=== PATIENT | female | born 1985 | race Caucasian/White ===

== ENCOUNTER → 2016-04-26 | Outpatient (REF) | payer OTHER ==
[2016-04-26 20:56] LABS: MEAN CORPUSCULAR HEMOGLOBIN 29.9 pg (27.0-33.0); MEAN CORPUSCULAR HGB CONC 31.7 g/dl (32.0-36.5); MEAN CORPUSCULAR VOLUME 94.2 fl (80.0-96.0); RED CELL DISTRIBUTION WIDTH 13.5 % (11.5-14.5); WHITE BLOOD COUNT 8.5 K/mm3 (4.0-10.0)
[2016-04-26 21:09] LABS: ALBUMIN 3.6 GM/DL (3.2-5.2); ALBUMIN/GLOBULIN RATIO 0.92 (1.00-1.93); ALKALINE PHOSPHATASE 94 U/L (45-117); ALT/SGPT 19 U/L (12-78); ANION GAP 7 MEQ/L (8-16); AST/SGOT 22 U/L (15-37); BILIRUBIN,TOTAL 0.2 MG/DL (0.2-1.0); BLOOD UREA NITROGEN 10 MG/DL (7-18); CALCIUM LEVEL 8.3 MG/DL (8.5-10.1); CARBON DIOXIDE LEVEL 26 MEQ/L (21-32); CHLORIDE LEVEL 105 MEQ/L (98-107); CREATININE FOR GFR 0.97 MG/DL (0.55-1.02); FREE T4 0.96 NG/DL (0.76-1.46); GLOMERULAR FILTRATION RATE > 60.0 (>60); GLUCOSE, FASTING 76 MG/DL (70-105); POTASSIUM SERUM 4.1 MEQ/L (3.5-5.1); SODIUM LEVEL 138 MEQ/L (136-145); TOTAL PROTEIN 7.5 GM/DL (6.4-8.2)
[2016-04-29 00:06] LABS: TISSUE TRANSGLUTAMINASE IgG 9 U/mL (0-5)
== END ==
LOC: M SFHCLERA 15:10
PROVIDERS: ATTEND Family Medicine
DX: Z00.00 Encounter for general adult medical examination without abnormal findings (principal); R10.84 Generalized abdominal pain; F32.9 Major depressive disorder, single episode, unspecified; F41.9 Anxiety disorder, unspecified

== ENCOUNTER → 2016-05-10 | Outpatient (CLI) | payer OTHER ==
--- NOTE | 2016-05-10 12:22 | REP ---
THORACIC SPINE, FOUR VIEWS: HISTORY: Scoliosis. COMPARISON: 11/01/2015 The patient is status post T6 to T11 posterior spinal fusion. Metal rods and pedicle screws are present. There is no acute fracture or subluxation. The intervertebral discs are normal in height. There is scoliosis convex to the right. IMPRESSION: The patient is status post T6 to T11 posterior spinal fusion. Signed by Jl Schroeder MD 05/10/2016 12:24 P
--- NOTE | 2016-05-10 12:29 | REP ---
LUMBAR SPINE, FIVE VIEWS: HISTORY: Scoliosis. There are four lumbar type vertebral bodies. There is sacralization of the L5 vertebral body. The patient is status post T6-T11 posterior spinal fusion. Hypoplastic ribs are present on T12. There is no acute fracture or subluxation. The L4-5 intervertebral disc is decreased in height consistent with disc degeneration. The facet joints are normal in appearance. There is scoliosis convex to the left. IMPRESSION: Degenerative change as described above. Signed by Jl Schroeder MD 05/10/2016 12:32 P
== END ==
LOC: M LRY 09:29
PROVIDERS: ATTEND Family Medicine
DX: M41.34 Thoracogenic scoliosis, thoracic region (principal); F41.9 Anxiety disorder, unspecified; M54.5 Low back pain; G89.29 Other chronic pain

== ENCOUNTER 2016-05-26 06:43 | Emergency (ER) | payer OTHER ==
[~2016-05-26] VITALS: Ht 160 cm; Wt 52.2 kg
[2016-05-26] MEDS ORDERED: PROZ20CA11 PO (06:58)
[2016-05-26] MEDS ORDERED: ONDANSETRON 4MG/2ML VIAL (J2405) IV ONE (07:15)
[2016-05-26] MEDS ORDERED: KETOROLAC 30 MG/ML VIAL (J1885) IV ONE (07:15)
[2016-05-26] MEDS ORDERED: NS 1,000 ML IV ONE (07:15)
[2016-05-26 07:36] LABS: BASO % 0.2 % (0.0-1.0); EOS # 0.1 K/mm3 (0.0-0.50); LARGE UNSTAINED CELL # 0.1 K/mm3 (0.0-0.4); LARGE UNSTAINED CELL % 1.4 % (0.0-4.0); LYMPH # 1.3 K/mm3 (1.5-4.5); LYMPH % 15.4 % (24.0-44.0); MEAN CORPUSCULAR HEMOGLOBIN 30.5 pg (27.0-33.0); MEAN CORPUSCULAR HGB CONC 33.7 g/dl (32.0-36.5); MEAN CORPUSCULAR VOLUME 90.3 fl (80.0-96.0); MONO # 0.3 K/mm3 (0.0-0.8); MONO % 4.2 % (0.0-5.0); NEUTROPHILS # 6.2 K/mm3 (1.8-7.7); NEUTROPHILS % 77.7 % (36.0-66.0); PLATELET COUNT, AUTOMATED 232 k/mm3 (150-450); RED CELL DISTRIBUTION WIDTH 13.7 % (11.5-14.5)
[2016-05-26 07:59] LABS: ALBUMIN 3.8 GM/DL (3.2-5.2); ALBUMIN/GLOBULIN RATIO 0.93 (1.00-1.93); ALKALINE PHOSPHATASE 100 U/L (45-117); ALT/SGPT 29 U/L (12-78); ANION GAP 12 MEQ/L (8-16); AST/SGOT 45 U/L (15-37); BILIRUBIN,DIRECT 0.1 MG/DL (0.0-0.2); BILIRUBIN,TOTAL 0.5 MG/DL (0.2-1.0); BLOOD UREA NITROGEN 13 MG/DL (7-18); CALCIUM LEVEL 8.9 MG/DL (8.5-10.1); CARBON DIOXIDE LEVEL 21 MEQ/L (21-32); CHLORIDE LEVEL 104 MEQ/L (98-107); CREATININE FOR GFR 0.99 MG/DL (0.55-1.02); GLOMERULAR FILTRATION RATE > 60.0 (>60); GLUCOSE, FASTING 132 MG/DL (70-105); POTASSIUM SERUM 3.9 MEQ/L (3.5-5.1); SODIUM LEVEL 137 MEQ/L (136-145); TOTAL PROTEIN 7.9 GM/DL (6.4-8.2)
[2016-05-26] MEDS ORDERED: METOCLOPRAMIDE INJ 10MG/2ML VIAL (J2765) IV ONE (08:00)
[2016-05-26] MEDS ORDERED: diphenhydrAMINE INJ 50MG/ML VIAL (J1200) IV STA (08:20)
[2016-05-26 08:55] VITALS: BP 118/81
[2016-05-26] MEDS ORDERED: ZOFR4TAB3 PO (08:55)
== END 2016-05-26 09:13 | disposition home or self-care (01) ==
LOC: M ED 07:48
DX: R10.84 Generalized abdominal pain (principal); R11.2 Nausea with vomiting, unspecified; R19.7 Diarrhea, unspecified; Z79.899 Other long term (current) drug therapy; F17.210 Nicotine dependence, cigarettes, uncomplicated
CPT/HCPCS: 80048; 80076; 81001; 81025; 83690; 85025; 96361; 96374; 96375; 99283; J1200; J1885; J2405; J2765

== ENCOUNTER 2016-07-02 06:36 | Emergency (ER) | payer OTHER ==
[~2016-07-02] VITALS: Ht 160 cm; Wt 48.5 kg
[~2016-07-02 06:36] MED LIST: PROZ20CA11 PO; ZOFR4TAB3 PO
[2016-07-02] MEDS ORDERED: ONDANSETRON 4MG/2ML VIAL (J2405) IV ONE (07:00)
[2016-07-02] MEDS ORDERED: NS 1,000 ML IV ONE (07:00)
[2016-07-02] MEDS ORDERED: ONDANSETRON 4MG/2ML VIAL (J2405) As Ordered ONE (07:04)
[2016-07-02 07:19] LABS: BASO % 0.5 % (0.0-1.0); EOS % 0.4 % (0.0-3.0); LARGE UNSTAINED CELL # 0.1 K/mm3 (0.0-0.4); LARGE UNSTAINED CELL % 1.3 % (0.0-4.0); LYMPH # 1.4 K/mm3 (1.5-4.5); LYMPH % 17.5 % (24.0-44.0); MEAN CORPUSCULAR HEMOGLOBIN 30.4 pg (27.0-33.0); MEAN CORPUSCULAR HGB CONC 33.3 g/dl (32.0-36.5); MEAN CORPUSCULAR VOLUME 91.2 fl (80.0-96.0); MONO # 0.3 K/mm3 (0.0-0.8); MONO % 3.3 % (0.0-5.0); NEUTROPHILS # 5.9 K/mm3 (1.8-7.7); NEUTROPHILS % 76.9 % (36.0-66.0); PLATELET COUNT, AUTOMATED 269 k/mm3 (150-450); RED CELL DISTRIBUTION WIDTH 13.9 % (11.5-14.5); WHITE BLOOD COUNT 7.7 K/mm3 (4.0-10.0)
[2016-07-02 07:30] LABS: CONTROL LINE HCG INT CTR LINE PRESENT
[2016-07-02 07:37] LABS: ALBUMIN 3.8 GM/DL (3.2-5.2); ALBUMIN/GLOBULIN RATIO 0.97 (1.00-1.93); ALKALINE PHOSPHATASE 83 U/L (45-117); ALT/SGPT 23 U/L (12-78); AMYLASE 62 U/L (25-115); ANION GAP 10 MEQ/L (8-16); AST/SGOT 28 U/L (15-37); BILIRUBIN,DIRECT 0.1 MG/DL (0.0-0.2); BILIRUBIN,TOTAL 0.4 MG/DL (0.2-1.0); BLOOD UREA NITROGEN 11 MG/DL (7-18); CALCIUM LEVEL 8.5 MG/DL (8.5-10.1); CARBON DIOXIDE LEVEL 24 MEQ/L (21-32); CHLORIDE LEVEL 105 MEQ/L (98-107); CREATININE FOR GFR 0.82 MG/DL (0.55-1.02); GLOMERULAR FILTRATION RATE > 60.0 (>60); GLUCOSE, FASTING 174 MG/DL (70-105); POTASSIUM SERUM 4.2 MEQ/L (3.5-5.1); SODIUM LEVEL 139 MEQ/L (136-145); TOTAL PROTEIN 7.7 GM/DL (6.4-8.2)
[2016-07-02] MEDS ORDERED: PROMETHAZINE INJ 25 MG/ML VIAL (J2550) IV ONE (07:45)
[2016-07-02 08:20] VITALS: BP 133/83
[2016-07-02] MEDS ORDERED: KETOROLAC 30 MG/ML VIAL (J1885) IV ONE (08:30)
[2016-07-02] MEDS ORDERED: TRIMETHOBENZAMIDE HCL INJ 200 MG/2 ML VIAL (J3250) IM ONE (09:30)
[2016-07-02 09:50] LABS: METHADONE URINE NEGATIVE (NEGATIVE)
[2016-07-02] MEDS ORDERED: PROM25TA PO (11:16)
--- NOTE | 2016-07-02 11:18 | REP ---
Abdominal right upper quadrant ultrasound: There is a negative Ma's sign to transducer pressure. There is no cholelithiasis, gallbladder wall thickening or pericholecystic fluid. The small visualized portion of the pancreatic head is unremarkable. There is no intrahepatic or extrahepatic biliary duct dilatation, the common duct is 2.7 mm in diameter. The hepatic parenchyma is homogeneous and unremarkable. There is no right renal calculus, mass, cyst or hydronephrosis. The right kidney is normal size measuring 9.6 cm craniocaudad length. Impression: Essentially negative abdominal right upper quadrant ultrasound. Signed by Devin Lau MD 07/02/2016 11:09 A
== END 2016-07-02 11:28 | disposition home or self-care (01) ==
LOC: M ED 07:18
DX: G43.A0 Cyclical vomiting, in migraine, not intractable (principal)
CPT/HCPCS: 36415; 76705; 80048; 80076; 80306; 81001; 82150; 83036; 83690; 84703; 85025; 96372; 96374; 96375; 99283; J1885; J2405; J3250

== ENCOUNTER → 2016-07-27 | Outpatient (CLI) | payer OTHER ==
[~2016-07-27] MED LIST changes: +PROM25TA PO
--- NOTE | 2016-07-27 14:56 | REP ---
Whole body radionuclide bone scan: Comparison is the lumbar spine plain film study dated 05/10/2016. There is thoracic scoliosis convex right and lumbar scoliosis convex left. On the comparison plain film study, there are Jorgensen rods in the thoracic spine. There is a bilaterally symmetric degenerative pattern of uptake in the shoulders and in the sternoclavicular joints . There is no unusual uptake in the thoracic spine, lumbar spine, sacrum or pelvis. There is no unusual uptake in the hips. There is slightly increased uptake in the medial portion of the tibial plateau of the left knee. Im this location this could represent degenerative uptake. No other unusual uptake is identified in the lower extremities. There is no unusual rib uptake. No unusual calvarial uptake. Impression: Degenerative pattern of uptake in the shoulders and left knee. No unusual uptake in the thoracic spine or lumbar spine or pelvis or hips. The study is performed with 20.5 mCi of technetium MDP. Signed by Devin Lau MD 07/27/2016 02:48 P
== END ==
LOC: M RAD 10:37
PROVIDERS: ATTEND Physical Medicine & Rehabilitation
DX: M54.5 Low back pain (principal)

== ENCOUNTER 2016-08-16 08:43 | Emergency (ER) | payer OTHER ==
[~2016-08-16] VITALS: Ht 160 cm; Wt 49.4 kg
[2016-08-16] MEDS ORDERED: ALBU1.25 INH (09:04)
[2016-08-16] MEDS ORDERED: AMOX500C PO (10:25)
[2016-08-16] MEDS ORDERED: ACET30TAB PO (10:25)
[2016-08-16] MEDS ORDERED: IBUPROFEN 600 MG TAB PO ONE (10:30)
[2016-08-16] MEDS ORDERED: ACETAMINOPHEN TAB 650MG DOSE (2X325MG) PO ONE (10:30)
[2016-08-16 10:32] VITALS: BP 124/78
== END 2016-08-16 10:33 | disposition home or self-care (01) ==
LOC: M ED 09:58
DX: K04.7 Periapical abscess without sinus (principal); R51 Headache; F99 Mental disorder, not otherwise specified; F17.210 Nicotine dependence, cigarettes, uncomplicated

== ENCOUNTER → 2016-08-24 | Outpatient (CLI) | payer OTHER ==
[~2016-08-24] MED LIST changes: +ACET30TAB PO; +ALBU1.25 INH; +ALBU17IN2 INH; +AMOX500C PO; +MOBI7.5T10 PO; +PERC5TAB6 PO; +PRED20TA PO
--- NOTE | 2016-08-24 17:31 | REP ---
MR LUMBAR SPINE WITHOUT AND WITH CONTRAST: HISTORY: Back pain. CONTRAST: ProHance 9.2 mL. A rudimentary disc is present at the S1-2 level. Decreased signal intensity on T2-weighted images is present in the L5-1 intervertebral discs. This represents disc degeneration. There is no disc bulge or herniation at the L1-2 through L4-5 levels. There is hypertrophy of the posterior articulating facets at the L4-5 level. The nerves exit the neural foramina without compression. A diffuse disc bulge and small central disc protrusion are present at the L5-S1 level. The disc protrusion abuts the thecal sac. There is hypertrophy of the posterior articulating facets. The L5 nerves exit the neural foramina without compression. The conus medullaris is normal in appearance terminating at the level of the L1-2 intervertebral disc . Normal signal intensity is present in the lumbar vertebral bodies. IMPRESSION: Diffuse disc bulge and small central disc protrusion at the L5-S1 level. The disc protrusion abuts the thecal sac. Signed by Jl Schroeder MD 08/25/2016 08:19 A
== END ==
LOC: M RAD 15:58
PROVIDERS: ATTEND Physical Medicine & Rehabilitation
DX: M47.816 Spondylosis without myelopathy or radiculopathy, lumbar region (principal)

== ENCOUNTER 2016-08-25 08:16 | Emergency (ER) | payer OTHER ==
[~2016-08-25] VITALS: Ht 160 cm; Wt 48.6 kg
[~2016-08-25 08:16] MED LIST changes: -ALBU17IN2 INH; -MOBI7.5T10 PO; -PERC5TAB6 PO; -PRED20TA PO
[2016-08-25] MEDS ORDERED: ALBU17IN2 INH (08:28)
[2016-08-25] MEDS ORDERED: KETOROLAC 60 MG/2 ML VIAL (J1885) IM ONE (09:15)
[2016-08-25] MEDS ORDERED: PERCOCET 5MG/325MG TAB PO ONE (09:15)
[2016-08-25] MEDS ORDERED: predniSONE 20 MG TAB PO ONE (10:45)
[2016-08-25] MEDS ORDERED: MOBI7.5T10 PO (11:00)
[2016-08-25] MEDS ORDERED: PERC5TAB6 PO (11:00)
[2016-08-25] MEDS ORDERED: PRED20TA PO (11:00)
[2016-08-25 11:06] VITALS: BP 123/83
== END 2016-08-25 11:14 | disposition home or self-care (01) ==
LOC: M ED 08:39
DX: G89.29 Other chronic pain (principal); M54.9 Dorsalgia, unspecified; J45.909 Unspecified asthma, uncomplicated; F41.9 Anxiety disorder, unspecified; Z79.899 Other long term (current) drug therapy

== ENCOUNTER 2016-12-13 08:18 | Emergency (ER) | payer OTHER ==
[~2016-12-13] VITALS: Ht 160 cm; Wt 54.0 kg
[~2016-12-13 08:18] MED LIST changes: +ALBU17IN2 INH; +MOBI4TAB PO; +PERC5TAB12 PO; +PRED20TA PO
[2016-12-13] MEDS ORDERED: TYLE325T5 PO (08:37)
[2016-12-13] MEDS ORDERED: ONDANSETRON 4 MG ORAL DISINTEGRATING TAB (S0181) PO ONE (09:30)
[2016-12-13] MEDS ORDERED: MORPHINE 10 MG/ML 1ML VIAL IM ONE (09:30)
[2016-12-13] MEDS ORDERED: PRED20TA PO (10:06)
[2016-12-13] MEDS ORDERED: PERC5TAB12 PO (10:06)
[2016-12-13] MEDS ORDERED: MOBI4TAB PO (10:06)
[2016-12-13] MEDS ORDERED: NORCO, ANEXSIA 5/325MG TABLET (HYDROcodone/ACETAMINOPHEN) PO ONE (10:15)
[2016-12-13 10:16] VITALS: BP 129/95
== END 2016-12-13 10:18 | disposition home or self-care (01) ==
LOC: M ED 08:18
DX: M54.6 Pain in thoracic spine (principal); Z72.0 Tobacco use

== ENCOUNTER → 2017-01-02 | Outpatient (CLI) | payer OTHER ==
[~2017-01-02] MED LIST changes: +TYLE325T5 PO
--- NOTE | 2017-01-02 09:24 | REP ---
MRI cervical spine without contrast: History: Neck pain progressive over several months. Pain in the left shoulder and scapula. No comparison cervical spine imaging. Technique: Sagittal and axial T1 and T2-weighted scans are acquired in the usual fashion with and without fat saturation. Sequences include spin echo, turbo spin-echo, and STIR imaging sequences. MRI findings: There is straightening of the normal cervical lordosis. Craniocervical junction is unremarkable. Cervical cord is normal in coarse, caliber and signal intensity on T1 and T2-weighted scans. The axial and sagittal images at C2-3, C3-4, and C4-5, are unremarkable. At C5-6, there is a left posterior disc protrusion moderate in size effacing the left ventral lateral margin of the thecal sac and flattening the left ventral lateral margin of the cervical cord on axial images. There is minimal associated left-sided uncovertebral spurring. At C6-C7, there is no significant abnormality. The C7-T1 level is unremarkable as well. Impression: Moderate left posterior C5-6 disc protrusion. There is thecal sac compression. Signed by Modesto Hicks MD 01/02/2017 12:58 P
== END ==
LOC: M RAD 08:16
PROVIDERS: ATTEND Physical Medicine & Rehabilitation
DX: M54.2 Cervicalgia (principal)

== ENCOUNTER → 2017-03-03 | Outpatient (CLI) | payer OTHER ==
--- NOTE | 2017-03-03 10:11 | REP ---
MRI thoracic spine without and with IV contrast: History: Pain in the thoracic spine. Comparison thoracic spine radiographs are from May 10, 2016. Comparison CT imaging January 29, 2013. Gadolinium enhancement dose: 10 ml of intravenous ProHance is administered. Technique: Sagittal and axial T1 and T2-weighted scans are acquired in the usual fashion with and without fat saturation. Sequences include spin echo, turbo spin-echo, and STIR imaging sequences. MRI findings: The patient is status post transpedicular screw dorsal spine fixation from T6 through T11 bilaterally. Magnetic field susceptibility artifact limits visualization of the thoracic spine through these segments. No cord compressive lesion is seen. The visualized thoracic cord shows normal coarse, caliber and signal intensity on T1 and T2-weighted scans. There is a dextroconvex thoracic curve and a levoconvex lumbar scoliotic curve seen. Thoracic vertebral body heights are preserved. No disc herniation is appreciated. Postcontrast study shows no abnormal gadolinium enhancement. Impression: Somewhat limited study due to metallic hardware. The patient status post metallic screw fixation, dorsal hilaria fixation from T6-T11. No cord compressive lesion seen. Signed by Modesto Hicks MD 03/03/2017 01:35 P
== END ==
LOC: M PLARAD 07:43
PROVIDERS: ATTEND Physical Medicine & Rehabilitation
DX: M54.6 Pain in thoracic spine (principal); Z98.1 Arthrodesis status

== ENCOUNTER → 2017-03-22 | Outpatient (CLI) | payer OTHER ==
[2017-03-22 11:03] LABS: CREATININE FOR GFR 0.76 MG/DL (0.55-1.02); GLOMERULAR FILTRATION RATE > 60.0 (>60)
[2017-03-22 11:03] LABS: BLOOD UREA NITROGEN 9 MG/DL (7-18)
== END ==
LOC: M LAB 10:19
DX: Z01.812 Encounter for preprocedural laboratory examination (principal)
CPT/HCPCS: 82565

== ENCOUNTER 2017-05-01 14:16 | Emergency (ER) | payer OTHER ==
[2017-05-01] MEDS: ONDANSETRON 4 MG ORAL DISINTEGRATING TAB (S0181) PO (15:44)
[2017-05-01] MEDS: ACETAMINOPHEN 325 MG TAB PO (15:44)
== END 2017-05-01 16:07 | disposition home or self-care (01) ==
LOC: M ED 14:16
DX: R05 Cough (principal); R50.9 Fever, unspecified; J45.909 Unspecified asthma, uncomplicated; F17.210 Nicotine dependence, cigarettes, uncomplicated
CPT/HCPCS: 87880

== ENCOUNTER → 2017-07-03 | Outpatient (CLI) | payer OTHER | LOC: M PLARAD 08:38 | DX: M50.222 Other cervical disc displacement at C5-C6 level (principal) | CPT/HCPCS: 72156 ==

== ENCOUNTER → 2017-11-01 | Outpatient (CLI) | payer MEDICAID, OTHER ==
[~2017-11-01] MED LIST changes: -ACET30TAB PO; -ALBU1.25 INH; -ALBU17IN2 INH; -AMOX500C PO; +GLUCAGON FOR INJ 1 MG VIAL (J1610) As Ordered; +ISOVUE-370 76% 100ML VIAL (Q9967) As Ordered; -MOBI4TAB PO; -PERC5TAB12 PO; -PRED20TA PO; -PROM25TA PO; -PROZ20CA11 PO; -TYLE325T5 PO; +VoLumen 0.1% SUSPENSION 450ML BOTTLE As Ordered; -ZOFR4TAB3 PO
== END ==
LOC: M RAD 09:50
DX: K50.018 Crohn's disease of small intestine with other complication (principal); R93.3 Abnormal findings on diagnostic imaging of other parts of digestive tract
CPT/HCPCS: Q9967

== ENCOUNTER → 2017-11-14 | Outpatient (CLI) | payer MEDICAID ==
[2017-11-14 10:50] LABS: BASO % 0.6 % (0.0-1.0); EOS % 0.6 % (0.0-3.0); HEMATOCRIT 42.1 % (36.0-47.0); HEMOGLOBIN 14.3 g/dl (12.0-15.5); IMMATURE GRANULOCYTE % 0.3 % (0-3.0); LYMPH # 2.3 10^3/uL (1.5-4.5); MEAN CORPUSCULAR HEMOGLOBIN 31.6 pg (27.0-33.0); MEAN CORPUSCULAR VOLUME 92.9 fl (80.0-96.0); MONO # 0.6 10^3/uL (0.0-0.8); MONO % 7.7 % (0.0-5.0); NEUTROPHILS # 4.3 10^3/uL (1.8-7.7); NEUTROPHILS % 59.8 % (36.0-66.0); PLATELET COUNT, AUTOMATED 218 10^3/uL (150-450); RED BLOOD COUNT 4.53 10^6/uL (4.00-5.40); WHITE BLOOD COUNT 7.3 10^3/uL (4.0-10.0)
[2017-11-14 11:15] LABS: ERYTHROCYTE SEDIMENTATION RATE 2 mm/hr (0-20)
[2017-11-14 11:17] LABS: ALBUMIN 3.8 GM/DL (3.2-5.2); ALBUMIN/GLOBULIN RATIO 1.12 (1.00-1.93); ALKALINE PHOSPHATASE 83 U/L (45-117); ALT/SGPT 21 U/L (12-78); ANION GAP 7 MEQ/L (8-16); AST/SGOT 25 U/L (7-37); BILIRUBIN,TOTAL 0.7 MG/DL (0.2-1.0); BLOOD UREA NITROGEN 7 MG/DL (7-18); CALCIUM LEVEL 8.9 MG/DL (8.5-10.1); CARBON DIOXIDE LEVEL 26 MEQ/L (21-32); CHLORIDE LEVEL 105 MEQ/L (98-107); CREATININE FOR GFR 0.86 MG/DL (0.55-1.30); FREE T4 0.91 NG/DL (0.76-1.46); GLOMERULAR FILTRATION RATE > 60.0 (>60); GLUCOSE, FASTING 108 MG/DL (70-100); POTASSIUM SERUM 3.6 MEQ/L (3.5-5.1); SODIUM LEVEL 138 MEQ/L (136-145); TOTAL PROTEIN 7.2 GM/DL (6.4-8.2)
== END ==
LOC: M LAB 09:47
DX: K58.2 Mixed irritable bowel syndrome (principal)
CPT/HCPCS: 84443

== ENCOUNTER 2017-11-20 09:31 | Emergency (ER) | payer MEDICAID ==
[2017-11-20 10:41] LABS: CONTROL LINE UCG INT CTR LINE PRESENT; URINE PREG TEST NEGATIVE (NEGATIVE)
[2017-11-20 10:48] LABS: AMORPHOUS SEDIMENT RFX MODERATE (NEGATIVE); KETONE, URINE AUTO RFX NEGATIVE (NEGATIVE); LEUKOCYTE ESTERASE UR AUTO RFX NEGATIVE (NEGATIVE); MUCUS, URINE RFX LARGE (NEGATIVE); NITRITE, URINE AUTO RFX NEGATIVE (NEGATIVE); RBC, URINE AUTO RFX 3 /HPF (0-3); SPECIFIC GRAVITY UR AUTO RFX 1.029 (1.002-1.035); SQUAM EPITHELIAL CELL UR AURFX 2 /HPF (0-6); WBC, URINE AUTO RFX 2 /HPF (0-3)
[2017-11-20 10:51] LABS: BASO # 0.1 10^3/uL (0.0-0.2); BASO % 0.8 % (0.0-1.0); EOS # 0.1 10^3/uL (0.0-0.50); EOS % 0.6 % (0.0-3.0); HEMATOCRIT 47.3 % (36.0-47.0); HEMOGLOBIN 15.8 g/dl (12.0-15.5); IMMATURE GRANULOCYTE % 0.1 % (0-3.0); LYMPH # 3.1 10^3/uL (1.5-4.5); LYMPH % 39.1 % (24.0-44.0); MEAN CORPUSCULAR HEMOGLOBIN 31.5 pg (27.0-33.0); MEAN CORPUSCULAR HGB CONC 33.4 g/dl (32.0-36.5); MEAN CORPUSCULAR VOLUME 94.2 fl (80.0-96.0); MONO # 0.8 10^3/uL (0.0-0.8); MONO % 10.5 % (0.0-5.0); NEUTROPHILS # 3.9 10^3/uL (1.8-7.7); NEUTROPHILS % 48.9 % (36.0-66.0); PLATELET COUNT, AUTOMATED 249 10^3/uL (150-450); RED BLOOD COUNT 5.02 10^6/uL (4.00-5.40); RED CELL DISTRIBUTION WIDTH 14.2 % (11.5-14.5)
[2017-11-20] MEDS: GASTROGRAFIN SOLUTION 30ML PO ×2 (10:52→11:20)
[2017-11-20] MEDS: NS 1,000 ML IV (10:53)
[2017-11-20] MEDS: ONDANSETRON 4MG/2ML VIAL (J2405) IV (10:55)
[2017-11-20] MEDS: methylPREDNISolone INJ 125 MG/2 ML VIAL (J2930) IV (10:57)
[2017-11-20] MEDS: MORPHINE 2 MG/ML 1ML SYRINGE (J2270) IV (11:01)
[2017-11-20 11:19] LABS: ALBUMIN 4.6 GM/DL (3.2-5.2); ALBUMIN/GLOBULIN RATIO 1.02 (1.00-1.93); ALKALINE PHOSPHATASE 88 U/L (45-117); ALT/SGPT 25 U/L (12-78); ANION GAP 6 MEQ/L (8-16); AST/SGOT 26 U/L (7-37); BILIRUBIN,TOTAL 0.6 MG/DL (0.2-1.0); BLOOD UREA NITROGEN 11 MG/DL (7-18); C REACTIVE PROTEIN QUANTITATIV < 0.30 MG/DL (0.00-0.30); CALCIUM LEVEL 9.7 MG/DL (8.5-10.1); CARBON DIOXIDE LEVEL 28 MEQ/L (21-32); CHLORIDE LEVEL 104 MEQ/L (98-107); CREATININE FOR GFR 1.06 MG/DL (0.55-1.30); GLOMERULAR FILTRATION RATE > 60.0 (>60); GLUCOSE, FASTING 103 MG/DL (70-100); POTASSIUM SERUM 3.7 MEQ/L (3.5-5.1); SODIUM LEVEL 138 MEQ/L (136-145); TOTAL PROTEIN 9.1 GM/DL (6.4-8.2)
[2017-11-20 11:38] LABS: ERYTHROCYTE SEDIMENTATION RATE 2 mm/hr (0-20)
[2017-11-20] MEDS ORDERED: ISOVUE-370 76% 100ML VIAL (Q9967) As Ordered (12:08)
[2017-11-20] MEDS: KETOROLAC 30 MG/ML VIAL (J1885) IV (12:44)
== END 2017-11-20 13:09 | disposition home or self-care (01) ==
LOC: M ED 09:31
DX: R10.9 Unspecified abdominal pain (principal); J02.9 Acute pharyngitis, unspecified; Z98.890 Other specified postprocedural states; Z87.19 Personal history of other diseases of the digestive system; J45.909 Unspecified asthma, uncomplicated; F41.9 Anxiety disorder, unspecified; F17.200 Nicotine dependence, unspecified, uncomplicated
CPT/HCPCS: Q9963

== ENCOUNTER → 2017-11-28 | Outpatient (CLI) | payer MEDICAID | LOC: M RAD 13:26 | DX: T18.3XXA Foreign body in small intestine, initial encounter (principal); T18.4XXA Foreign body in colon, initial encounter | CPT/HCPCS: 74019 ==

== ENCOUNTER 2018-03-27 10:38 | Emergency (ER) | payer MEDICAID, OTHER ==
[~2018-03-27] VITALS: Ht 160 cm; Wt 52.3 kg
[~2018-03-27 10:38] MED LIST changes: +ACET30TAB PO; +ALBU1.25 INH; +ALBU17IN2 INH; +AMOX500C PO; +DICY10CA13 PO; -GLUCAGON FOR INJ 1 MG VIAL (J1610) As Ordered; +GUAISYP4 PO; -ISOVUE-370 76% 100ML VIAL (Q9967) As Ordered; +MAGICMW SSP; +MOBI4TAB PO; +OSEL75CA PO; +PERC5TAB12 PO; +PRED20TA PO; +PROAAER10 INH; +PROM25TA12 PO; +PROZ20CA11 PO; +TYLE325T5 PO; +VENTAER IN; +VENTAER INH; -VoLumen 0.1% SUSPENSION 450ML BOTTLE As Ordered; +ZOFR4TAB14 PO
[2018-03-27] MEDS ORDERED: GABA600T4 (10:46)
[2018-03-27] MEDS ORDERED: ZOFR4TAB16 PO (11:14)
[2018-03-27] MEDS ORDERED: ONDANSETRON 4 MG ORAL DISINTEGRATING TAB (Q0162 PER 1MG) PO ONE (11:15)
[2018-03-27] MEDS ORDERED: GABAPENTIN 300 MG CAP PO ONE (11:15)
[2018-03-27] MEDS ORDERED: KETOROLAC 60 MG/2 ML VIAL (J1885) IM ONE (11:15)
[2018-03-27] MEDS ORDERED: MORPHINE 10 MG/ML 1ML VIAL (J2270) IM ONE (12:00)
[2018-03-27 12:28] VITALS: BP 122/77
== END 2018-03-27 12:30 | disposition home or self-care (01) ==
LOC: M ED 10:38
DX: M54.9 Dorsalgia, unspecified (principal); R11.0 Nausea; J45.909 Unspecified asthma, uncomplicated; F41.9 Anxiety disorder, unspecified; Z87.19 Personal history of other diseases of the digestive system; K21.9 Gastro-esophageal reflux disease without esophagitis; M79.2 Neuralgia and neuritis, unspecified; F17.200 Nicotine dependence, unspecified, uncomplicated; Z79.899 Other long term (current) drug therapy
CPT/HCPCS: 96372; 99283; J1885; J2270; Q0162

== ENCOUNTER → 2018-05-28 | Outpatient (REF) | payer OTHER ==
[~2018-05-28] MED LIST changes: +GABA600T4; +ZOFR4TAB16 PO
[2018-05-28 20:01] LABS: INFLUENZA A AMPLIFICATION NEGATIVE (NEGATIVE); INFLUENZA B AMPLIFICATION NEGATIVE (NEGATIVE)
== END ==
LOC: M LAB REF 19:15
PROVIDERS: ATTEND Physician Assistant Medical
DX: J11.1 Influenza due to unidentified influenza virus with other respiratory manifestations (principal)

== ENCOUNTER 2018-09-02 09:12 | Emergency (ER) | payer OTHER ==
[~2018-09-02] VITALS: Ht 160 cm; Wt 50.7 kg
[~2018-09-02 09:12] MED LIST changes: +ACET-716 PO; -ACET30TAB PO
[2018-09-02] MEDS ORDERED: GABA600T4 PO (09:23)
[2018-09-02] MEDS ORDERED: FLUO20CA19 PO (09:23)
[2018-09-02] MEDS ORDERED: ONDANSETRON 4MG/2ML VIAL (J2405) IV ONE (09:45)
[2018-09-02 09:49] LABS: BASO % 0.4 % (0.0-1.0); HEMATOCRIT 41.5 % (36.0-47.0); HEMOGLOBIN 13.9 g/dl (12.0-15.5); LYMPH % 12.8 % (24.0-44.0); MEAN CORPUSCULAR HEMOGLOBIN 31.4 pg (27.0-33.0); MEAN CORPUSCULAR HGB CONC 33.5 g/dl (32.0-36.5); MEAN CORPUSCULAR VOLUME 93.9 fl (80.0-96.0); MONO # 0.3 10^3/uL (0.0-0.8); MONO % 4.1 % (0.0-5.0); NEUTROPHILS # 6.6 10^3/uL (1.8-7.7); NEUTROPHILS % 82.4 % (36.0-66.0); PLATELET COUNT, AUTOMATED 291 10^3/uL (150-450); RED BLOOD COUNT 4.42 10^6/uL (4.00-5.40)
[2018-09-02 10:14] LABS: ALT/SGPT 54 U/L (12-78); BILIRUBIN,DIRECT 0.2 MG/DL (0.0-0.2); BILIRUBIN,TOTAL 0.4 MG/DL (0.2-1.0); BLOOD UREA NITROGEN 9 MG/DL (7-18); CARBON DIOXIDE LEVEL 22 MEQ/L (21-32); CHLORIDE LEVEL 106 MEQ/L (98-107); CREATININE FOR GFR 0.98 MG/DL (0.55-1.30); GLOMERULAR FILTRATION RATE > 60.0 (>60); GLUCOSE, FASTING 152 MG/DL (70-100); LIPASE 67 U/L (73-393); POTASSIUM SERUM 3.9 MEQ/L (3.5-5.1); SODIUM LEVEL 140 MEQ/L (136-145); TOTAL PROTEIN 7.8 GM/DL (6.4-8.2)
[2018-09-02] MEDS ORDERED: KETOROLAC 30 MG/ML VIAL (J1885) IV ONE (10:15)
[2018-09-02] MEDS ORDERED: ISOVUE-370 76% 100ML VIAL (Q9967) As Ordered ONE (10:28)
[2018-09-02] MEDS ORDERED: METOCLOPRAMIDE INJ 10MG/2ML VIAL (J2765) IV ONE (10:30)
[2018-09-02] MEDS ORDERED: NS 1,000 ML IV ONE (10:30)
--- NOTE | 2018-09-02 11:41 | REP ---
CT of the abdomen pelvis with IV contrast, without bowel contrast: Comparison studies are 11/01/2017 and 11/20/2017. According to the prior studies the the patient has history of Crohn disease. On the current study there is diffuse wall thickening of the distal ileum including the terminal ileum compatible with Crohn disease. However, in addition, there is wall thickening of the entire colon from cecum to rectosigmoid colon has a change from the prior studies, compatible with colitis in the appropriate clinical setting. The visualized lung manning are unremarkable. The hepatic parenchyma, gallbladder, pancreas, spleen, adrenals, kidneys and abdominal aorta are unremarkable. There is no bowel distension or obstruction. There is no ascites. The mesentery is unremarkable. Pelvis: The uterus and adnexa are unremarkable. Impression: The patient has history of Crohn disease. Wall thickening of the distal ileum including terminal ileum is identified, compatible with Crohn disease. In addition, there is diffuse wall thickening of the colon from cecum to rectum as an interval change, compatible with colitis in the appropriate clinical setting. Electronically Signed by Devin Lau MD 09/02/2018 11:33 A
[2018-09-02] MEDS ORDERED: ONDA4TAB6 PO (12:35)
[2018-09-02] MEDS ORDERED: METH4PACK PO (12:35)
[2018-09-02] MEDS ORDERED: METR-265 PO (12:35)
[2018-09-02] MEDS ORDERED: CIPR-249 PO (12:35)
[2018-09-02 12:39] VITALS: BP 116/66
--- NOTE | 2018-09-03 12:57 | ED PDOC ---
Post-Departure Follow-Up dr terry faxed formal report of ct abd/p for fu Ninoska Porter MD Sep 03, 2018 12:57
== END 2018-09-02 12:49 | disposition home or self-care (01) ==
LOC: M ED 09:12
DX: K52.9 Noninfective gastroenteritis and colitis, unspecified (principal); F17.210 Nicotine dependence, cigarettes, uncomplicated; Z79.51 Long term (current) use of inhaled steroids; Z79.891 Long term (current) use of opiate analgesic; Z79.899 Other long term (current) drug therapy
CPT/HCPCS: 74177; 80048; 80076; 81001; 83690; 84702; 85025; 87040; 96361; 96374; 96375; 99284; J1885; J2405; J2765; Q9967

== ENCOUNTER → 2018-11-20 | Outpatient (REF) | payer OTHER ==
[~2018-11-20] MED LIST changes: +CIPR-249 PO; +FLUO20CA19 PO; +GABA600T4 PO; +METH4PACK PO; +METR-265 PO; +ONDA4TAB6 PO
[2018-11-20 17:06] LABS: HCG, SERUM QUALITATIVE NEGATIVE (NEGATIVE)
[2018-11-20 17:12] LABS: BASO # 0.1 10^3/uL (0.0-0.2); BASO % 0.4 % (0.0-1.0); EOS % 0.2 % (0.0-3.0); HEMATOCRIT 37.4 % (36.0-47.0); HEMOGLOBIN 12.1 g/dl (12.0-15.5); LYMPH # 2.4 10^3/uL (1.5-5.0); LYMPH % 17.8 % (24.0-44.0); MEAN CORPUSCULAR HEMOGLOBIN 30.7 pg (27.0-33.0); MEAN CORPUSCULAR HGB CONC 32.4 g/dl (32.0-36.5); MEAN CORPUSCULAR VOLUME 94.9 fl (80.0-96.0); MONO # 0.8 10^3/uL (0.0-0.8); NEUTROPHILS # 10.2 10^3/uL (1.5-8.5); NEUTROPHILS % 75.2 % (36.0-66.0); PLATELET COUNT, AUTOMATED 245 10^3/uL (150-450); RED BLOOD COUNT 3.94 10^6/uL (4.00-5.40); WHITE BLOOD COUNT 13.6 10^3/uL (4.0-10.0)
[2018-11-20 17:25] LABS: ALBUMIN 3.6 GM/DL (3.2-5.2); ALT/SGPT 43 U/L (12-78); BILIRUBIN,TOTAL 0.4 MG/DL (0.2-1.0); BLOOD UREA NITROGEN 11 MG/DL (7-18); C REACTIVE PROTEIN QUANTITATIV < 0.30 MG/DL (0.00-0.30); CALCIUM LEVEL 8.8 MG/DL (8.5-10.1); CARBON DIOXIDE LEVEL 25 MEQ/L (21-32); CHLORIDE LEVEL 104 MEQ/L (98-107); CREATININE FOR GFR 0.79 MG/DL (0.55-1.30); FREE T4 0.81 NG/DL (0.76-1.46); GLOMERULAR FILTRATION RATE > 60.0 (>60); GLUCOSE, FASTING 86 MG/DL (70-100); POTASSIUM SERUM 3.8 MEQ/L (3.5-5.1); SODIUM LEVEL 138 MEQ/L (136-145)
[2018-11-20 17:30] LABS: ERYTHROCYTE SEDIMENTATION RATE 4 mm/hr (0-20)
== END ==
LOC: M SFHCLERA 14:52
PROVIDERS: ATTEND Family Medicine
DX: R00.0 Tachycardia, unspecified (principal)

== ENCOUNTER 2019-04-09 12:03 | Emergency (ER) | payer OTHER ==
[~2019-04-09] VITALS: Ht 157.5 cm; Wt 52.8 kg
[2019-04-09 12:50] LABS: BASO # 0.1 10^3/uL (0.0-0.2); BASO % 0.9 % (0.0-1.0); EOS % 0.3 % (0.0-3.0); HEMATOCRIT 43.9 % (36.0-47.0); HEMOGLOBIN 14.8 g/dl (12.0-15.5); LYMPH # 2.8 10^3/uL (1.5-5.0); MEAN CORPUSCULAR HEMOGLOBIN 34.9 pg (27.0-33.0); MEAN CORPUSCULAR HGB CONC 33.7 g/dl (32.0-36.5); MEAN CORPUSCULAR VOLUME 103.5 fl (80.0-96.0); MONO # 0.7 10^3/uL (0.0-0.8); MONO % 8.6 % (0.0-5.0); NEUTROPHILS # 4.2 10^3/uL (1.5-8.5); NEUTROPHILS % 53.9 % (36.0-66.0); PLATELET COUNT, AUTOMATED 271 10^3/uL (150-450); RED BLOOD COUNT 4.24 10^6/uL (4.00-5.40); WHITE BLOOD COUNT 7.8 10^3/uL (4.0-10.0)
[2019-04-09 13:18] LABS: HCG, SERUM QUALITATIVE NEGATIVE (NEGATIVE)
[2019-04-09 13:25] LABS: ALBUMIN 3.6 GM/DL (3.2-5.2); ALT/SGPT 113 U/L (12-78); BILIRUBIN,DIRECT < 0.1 MG/DL (0.0-0.2); BILIRUBIN,TOTAL 0.5 MG/DL (0.2-1.0); BLOOD UREA NITROGEN 9 MG/DL (7-18); CALCIUM LEVEL 8.5 MG/DL (8.5-10.1); CARBON DIOXIDE LEVEL 24 MEQ/L (21-32); CHLORIDE LEVEL 101 MEQ/L (98-107); CREATININE FOR GFR 1.09 MG/DL (0.55-1.30); GLOMERULAR FILTRATION RATE > 60.0 (>60); GLUCOSE, FASTING 149 MG/DL (70-100); LIPASE 58 U/L (73-393); POTASSIUM SERUM 3.9 MEQ/L (3.5-5.1); SODIUM LEVEL 136 MEQ/L (136-145); TOTAL PROTEIN 7.3 GM/DL (6.4-8.2)
[2019-04-09] MEDS ORDERED: ONDANSETRON 4MG/2ML VIAL (J2405) IV ONE (13:45)
[2019-04-09] MEDS ORDERED: NS 1,000 ML IV ONE (13:45)
[2019-04-09] MEDS ORDERED: MORPHINE 4 MG/ML 1ML VIAL/SYRINGE (J2270) IV ONE (14:15)
--- NOTE | 2019-04-09 14:38 | REP ---
Acute abdominal series series including PA chest and supine upright abdomen: PA chest: Comparison is 01/29/2013. The lung manning are clear. The cardiac size is normal. The candy and mediastinum are unremarkable. There is thoracic scoliosis with Jorgensen rods, unchanged. There is no free subdiaphragmatic air. Impression: No free subdiaphragmatic air. Scoliosis with Jorgensen rods. Lung manning are clear. Abdomen, supine upright views: Comparison is 11/28/2017. There are tiny metallic densities superimposed over the right sacroiliac joint and inferiorly in the pelvis as an interval change, likely ingested material within bowel loops. The bowel gas pattern is normal. There is lumbar scoliosis convex left, unchanged. Impression: Normal bowel gas pattern. Tiny metallic densities, likely ingested material within bowel loops. Electronically Signed by Devin Lau MD 04/09/2019 02:30 P
[2019-04-09 14:43] LABS: AMPHETAMINES LEVEL URINE NEGATIVE (NEGATIVE); BARBITURATES URINE NEGATIVE (NEGATIVE); BENZODIAZEPINES URINE NEGATIVE (NEGATIVE); CANNABINOIDS URINE POSITIVE (NEGATIVE); COCAINE METABOLITE URINE NEGATIVE (NEGATIVE); METHADONE URINE NEGATIVE (NEGATIVE); OPIATES URINE NEGATIVE (NEGATIVE); PHENCYCLIDINE URINE NEGATIVE (NEGATIVE)
--- NOTE | 2019-04-09 14:44 | REP ---
Abdominal right upper quadrant ultrasound: Comparison is 07/02/2016. There is no cholelithiasis, gallbladder wall thickening or pericholecystic fluid. There is no intrahepatic or extrahepatic biliary duct dilatation. The common biliary duct measures 3 mm in diameter. The hepatic parenchyma is homogeneous and otherwise unremarkable. The visualized areas of the pancreas are unremarkable. Portions of the pancreas are obscured by bowel. The right kidney is normal size measuring 10.1 x 4.5 x 3.5 cm. There are no right renal calculi. There is no hydronephrosis. There are no solid or cystic masses. There is no right upper quadrant abdominal ascites. Impression: Essentially negative abdominal right upper quadrant ultrasound. There is no interval change. Electronically Signed by Devin Lau MD 04/09/2019 02:35 P
[2019-04-09] MEDS ORDERED: DICYCLOMINE INJ 20MG/2ML (J0500) IM ONE (15:00)
[2019-04-09] MEDS ORDERED: ONDA4TAB6 PO (15:42)
[2019-04-09] MEDS ORDERED: DICY10CA13 PO (15:42)
[2019-04-09] MEDS ORDERED: VENTAER INH (15:42)
[2019-04-09 15:46] VITALS: BP 145/93
--- NOTE | 2019-04-09 20:11 | ED PDOC ---
Post-Departure Follow-Up dr terry faxed formal report of abdl series for Ninoska Porter MD Apr 09, 2019 20:11
[2019-04-10 11:21] LABS: HEPATITIS B SURFACE ANTIGEN NEGATIVE (NEGATIVE)
[2019-04-10 11:48] LABS: HEPATITIS B CORE ANTIBODY IGM NEGATIVE (NEGATIVE); HEPATITIS C VIRUS ABY INDEX < 0.0 INDEX (<0.8)
[2019-04-10 11:51] LABS: HEPATITIS A ANTIBODY IGM NEGATIVE (NEGATIVE)
== END 2019-04-09 15:51 | disposition home or self-care (01) ==
LOC: M ED 12:03
DX: R94.5 Abnormal results of liver function studies (principal); R10.9 Unspecified abdominal pain; R11.2 Nausea with vomiting, unspecified; R19.7 Diarrhea, unspecified; Z20.89 Contact with and (suspected) exposure to other communicable diseases; J45.909 Unspecified asthma, uncomplicated; F17.200 Nicotine dependence, unspecified, uncomplicated; Z79.899 Other long term (current) drug therapy
CPT/HCPCS: 74021; 76705; 80048; 80076; 80307; 81001; 83690; 84703; 85025; 86705; 86709; 86803; 87340; 96361; 96372; 96374; 96375; 99284; J0500; J2270; J2405

== ENCOUNTER → 2019-05-08 | Outpatient (CLI) | payer OTHER ==
[~2019-05-08] MED LIST changes: -FLUO20CA19 PO; +FLUO20CA22 PO
== END ==
LOC: M LAB 14:40
PROVIDERS: ATTEND Internal Medicine Gastroenterology
DX: K58.2 Mixed irritable bowel syndrome (principal)

== ENCOUNTER → 2019-05-22 | Outpatient (REF) | payer OTHER | LOC: M SFHCLERA 09:53 | PROVIDERS: ATTEND Family Medicine | DX: R94.5 Abnormal results of liver function studies (principal); Z53.9 Procedure and treatment not carried out, unspecified reason ==

== ENCOUNTER → 2019-08-08 | Outpatient (REF) | payer OTHER ==
[2019-08-08 11:32] LABS: BASO % 0.5 % (0.0-1.0); EOS # 0.1 10^3/uL (0.0-0.5); EOS % 1.3 % (0.0-3.0); HEMATOCRIT 36.1 % (36.0-47.0); HEMOGLOBIN 11.8 g/dl (12.0-15.5); LYMPH # 1.2 10^3/uL (1.5-5.0); LYMPH % 29.8 % (24.0-44.0); MEAN CORPUSCULAR HEMOGLOBIN 35.9 pg (27.0-33.0); MEAN CORPUSCULAR HGB CONC 32.7 g/dl (32.0-36.5); MEAN CORPUSCULAR VOLUME 109.7 fl (80.0-96.0); MONO # 0.4 10^3/uL (0.0-0.8); MONO % 9.7 % (0.0-5.0); NEUTROPHILS # 2.3 10^3/uL (1.5-8.5); NEUTROPHILS % 58.4 % (36.0-66.0); PLATELET COUNT, AUTOMATED 148 10^3/uL (150-450); RED BLOOD COUNT 3.29 10^6/uL (4.00-5.40); WHITE BLOOD COUNT 3.9 10^3/uL (4.0-10.0)
[2019-08-08 11:47] LABS: HEMOGLOBIN A1c 4.1 %
[2019-08-08 11:51] LABS: ALBUMIN 2.8 GM/DL (3.2-5.2); ALT/SGPT 60 U/L (12-78); BLOOD UREA NITROGEN 7 MG/DL (7-18); CALCIUM LEVEL 8.3 MG/DL (8.5-10.1); CARBON DIOXIDE LEVEL 28 MEQ/L (21-32); CHLORIDE LEVEL 104 MEQ/L (98-107); CREATININE FOR GFR 0.83 MG/DL (0.55-1.30); GLOMERULAR FILTRATION RATE > 60.0 (>60); GLUCOSE, FASTING 80 MG/DL (70-100); POTASSIUM SERUM 4.2 MEQ/L (3.5-5.1); SODIUM LEVEL 138 MEQ/L (136-145)
[2019-08-08 11:52] LABS: VITAMIN B12 LEVEL 682 PG/ML
[2019-08-08 11:53] LABS: FOLATE 1.7 NG/ML
== END ==
LOC: M SFHCPLAZ 09:51
PROVIDERS: ATTEND Physician Assistant
DX: R20.2 Paresthesia of skin (principal); R60.0 Localized edema

== ENCOUNTER → 2019-08-08 | Outpatient (CLI) | payer OTHER ==
--- NOTE | 2019-08-08 18:27 | REPPI ---
Clinical: Paresthesia. Technique: AP and lateral views of the thoracic spine. Findings: Jorgensen rods spanning T6 - T11. Chronic dextroconvex scoliosis noted. Kyphosis and alignment normal in the lateral projection. No acute fracture / compression injury or subluxation. No significant degenerative changes. Impression: Relatively unremarkable examination. Nonacute findings as described above. Electronically Signed by Oscar Kelly MD 08/08/2019 06:19 P
--- NOTE | 2019-08-08 18:30 | REPPI ---
Clinical: Paresthesia. Technique: AP, lateral, bilateral oblique and coned-down views of the lumbosacral spine. Comparison: 05/10/2016 Findings: Chronic scoliosis is again appreciated. Sacralization of L5 is again appreciated. Alignment and lordosis maintained. No acute fracture / compression injury or subluxation. Disc spaces are within normal limits. Impression: Scoliosis. Age-appropriate examination. If the patient remains symptomatic consider MRI for further investigation. Electronically Signed by Oscar Kelly MD 08/08/2019 06:22 P
--- NOTE | 2019-08-08 18:52 | REPPI ---
Clinical: Edema. Technique: AP, lateral views of the left ankle Findings: No acute fracture or dislocation. Skeletal structures and joint spaces are intact and normal. Ankle mortise appears stable. No subcutaneous emphysema or radiodense foreign body. Impression: Normal left ankle radiograph series. Electronically Signed by Oscar Kelly MD 08/08/2019 06:43 P
--- NOTE | 2019-08-08 18:58 | REPPI ---
Clinical: Paresthesia. Technique: AP, lateral, flexion/extension, bilateral oblique, and open-mouth views. Findings: Alignment and lordosis is maintained. There is no evidence for acute fracture / compression injury or subluxation. No significant degenerative changes are appreciated. Oblique views demonstrate patent neural foramen. Open mouth view demonstrates normal C1-C2 articulation and odontoid process. Impression: Normal age appropriate cervical spine series. Electronically Signed by Oscar Kelly MD 08/08/2019 06:48 P
== END ==
LOC: M PLALAB 09:51 → M PLAIMG 09:51
PROVIDERS: ATTEND Physician Assistant
DX: M25.572 Pain in left ankle and joints of left foot (principal); M41.9 Scoliosis, unspecified; R20.2 Paresthesia of skin; R60.0 Localized edema

== ENCOUNTER → 2019-08-10 | Outpatient (REF) | payer OTHER | LOC: M LAB REF 16:47 | PROVIDERS: ATTEND Internal Medicine Gastroenterology | DX: K58.2 Mixed irritable bowel syndrome (principal) ==

== ENCOUNTER → 2019-08-13 | Outpatient (CLI) | payer OTHER | LOC: M LABSMTC 11:49 | PROVIDERS: ATTEND Anesthesiology | DX: Z01.818 Encounter for other preprocedural examination (principal); Z11.59 Encounter for screening for other viral diseases | CPT/HCPCS: C9803; U0003 ==

== ENCOUNTER 2019-08-16 13:21 | Day surgery (SDC) | payer OTHER ==
[~2019-08-16] VITALS: Ht 157.5 cm; Wt 53.9 kg
[~2019-08-16 13:21] MED LIST changes: +NS 1,000 ML IV ONE
[2019-08-16] MEDS ORDERED: propofoL 200 MG/20 ML VIAL As Ordered ONE ×3 (15:02→15:20)
[2019-08-16] MEDS ORDERED: LIDOCAINE 2% 100MG/5ML SDV (FOR ANES.) As Ordered ONE (15:02)
--- NOTE | 2019-08-16 15:04 | ROOR ---
Patient Name: Coreen Santiago Procedure Date: 08/16/2019 2:45 PM Date of : 1985 Age: 34 Room: [facility] Gender: Female Note Status: Finalized Procedure: Upper GI endoscopy Indications: Generalized abdominal pain, Heartburn Providers: Ramy CLANCY MD Referring MD: [facility], [place] Requesting Provider: Jl Noble DO Medicines: Monitored Anesthesia Care Complications: No immediate complications. Procedure: Pre-Anesthesia Assessment: - The heart rate, respiratory rate, oxygen saturations, blood pressure, adequacy of pulmonary ventilation, and response to care were monitored throughout the procedure. The Endoscope was introduced through the mouth, and advanced to the third part of duodenum. The upper GI endoscopy was accomplished without difficulty. The patient tolerated the procedure well. Findings: The esophagus was normal. The stomach was normal. The examined duodenum was normal. Biopsies for histology were taken with a cold forceps in the second portion of the duodenum and in the third portion of the duodenum for evaluation of celiac disease. Impression: - Normal esophagus. - Normal stomach. - Normal examined duodenum. - Biopsies were taken with a cold forceps for evaluation of celiac disease. Recommendation: - Await pathology results. - Telephone endoscopist for pathology results in 2 weeks. Ramy Clancy MD Ramy CLANCY MD 08/16/2019 3:03:53 PM Electronically signed by Ramy CLANCY MD Number of Addenda: 0 Note Initiated On: 08/16/2019 2:45 PM Estimated Blood Loss: Estimated blood loss: none.
--- NOTE | 2019-08-16 15:32 | ROOR ---
Patient Name: Coreen Santiago Procedure Date: 08/16/2019 2:49 PM Date of : 1985 Age: 34 Room: [facility] Gender: Female Note Status: Finalized Procedure: Colonoscopy Indications: Abnormal CT of the GI tract, Mixed irritable bowel syndrome Providers: Ramy CLANCY MD Referring MD: [facility], Jl LUCAS DO Requesting Provider: Medicines: Monitored Anesthesia Care Complications: No immediate complications. Procedure: Pre-Anesthesia Assessment: - The heart rate, respiratory rate, oxygen saturations, blood pressure, adequacy of pulmonary ventilation, and response to care were monitored throughout the procedure. The Colonoscope was introduced through the anus and advanced to 15 cm into the ileum. The colonoscopy was performed without difficulty. The patient tolerated the procedure well. The quality of the bowel preparation was adequate. Findings: The perianal and digital rectal examinations were normal. The colon (entire examined portion) appeared normal. Biopsies for histology were taken with a cold forceps for evaluation of microscopic colitis. The terminal ileum appeared normal. Small Internal Hemorrhoids. Impression: - The entire examined colon is normal. Biopsied. - The examined portion of the ileum was normal. - Small Internal Hemorrhoids. - There is no endoscopic evidence of Crohns disease in the entire colon and examined portion of the ileum. Recommendation: - Continue present medications. - To visualize the small bowel, perform video capsule endoscopy at appointment to be scheduled. - My office will call you in the next few days to set you up for this study/exam. Ramy Clancy MD Ramy CLANCY MD 08/16/2019 3:31:49 PM Electronically signed by Ramy CLANCY MD Number of Addenda: 0 Note Initiated On: 08/16/2019 2:49 PM Estimated Blood Loss: Estimated blood loss: none.
[2019-08-16 16:00] VITALS: BP 130/80
== END 2019-08-16 16:21 | disposition home or self-care (01) ==
LOC: M OPP 13:21
PROVIDERS: ATTEND Internal Medicine Gastroenterology
DX: K58.2 Mixed irritable bowel syndrome (principal); R10.84 Generalized abdominal pain; R12 Heartburn; R93.3 Abnormal findings on diagnostic imaging of other parts of digestive tract; Z79.899 Other long term (current) drug therapy

== ENCOUNTER → 2019-09-05 | Outpatient (CLI) | payer OTHER ==
[~2019-09-05] MED LIST changes: -NS 1,000 ML IV ONE
--- NOTE | 2019-09-05 15:04 | REP ---
ABDOMEN: Two views. HISTORY: Foreign body in small intestine. Comparison images are from April 09, 2019. FINDINGS: The bowel gas pattern is normal. There is no evidence of ingested foreign body or other abnormal calcification. A levoconvex curve is seen in the lumbar spine. Jorgensen rods are noted in the thoracic spine. Psoas margins and flank stripes are intact. Sacrum and SI joints are intact. IMPRESSION: No opaque foreign body noted. Normal bowel gas pattern. Electronically Signed by Modesto Hicks MD 09/05/2019 03:07 P
== END ==
LOC: M RAD 13:23
PROVIDERS: ATTEND Internal Medicine Gastroenterology
DX: T18.3XXA Foreign body in small intestine, initial encounter (principal)

== ENCOUNTER 2019-09-19 18:47 | Inpatient (IN) | payer OTHER ==
[~2019-09-19] VITALS: Ht 160 cm; Wt 59.6 kg
[2019-09-19 19:34] LABS: BASO % 0.6 % (0.0-1.0); EOS # 0.1 10^3/uL (0.0-0.5); EOS % 1.1 % (0.0-3.0); HEMATOCRIT 34.8 % (36.0-47.0); HEMOGLOBIN 11.5 g/dl (12.0-15.5); LYMPH # 1.6 10^3/uL (1.5-5.0); LYMPH % 22.7 % (24.0-44.0); MEAN CORPUSCULAR HEMOGLOBIN 33.4 pg (27.0-33.0); MEAN CORPUSCULAR VOLUME 101.2 fl (80.0-96.0); MONO # 0.8 10^3/uL (0.0-0.8); MONO % 10.5 % (0.0-5.0); NEUTROPHILS # 4.6 10^3/uL (1.5-8.5); NEUTROPHILS % 64.8 % (36.0-66.0); PLATELET COUNT, AUTOMATED 118 10^3/uL (150-450); RED BLOOD COUNT 3.44 10^6/uL (4.00-5.40); WHITE BLOOD COUNT 7.1 10^3/uL (4.0-10.0)
[2019-09-19 19:43] LABS: INR 1.55; PROTHROMBIN TIME 18.3 SECONDS (11.8-14.0)
[2019-09-19 19:44] LABS: PARTIAL THROMBOPLASTIN TIME 35.4 SECONDS (25.0-38.4)
[2019-09-19] MEDS ORDERED: NS 500 ML IV ONE (20:00)
[2019-09-19] MEDS ORDERED: MORPHINE 2 MG/ML 1ML VIAL (J2270) IV ONE (20:00)
[2019-09-19] MEDS ORDERED: ONDANSETRON 4MG/2ML VIAL IV ONE (20:00)
[2019-09-19 20:08] LABS: ALT/SGPT 261 U/L (12-78); AMYLASE 74 U/L (25-115); BILIRUBIN,DIRECT 3.4 MG/DL (0.0-0.2); BILIRUBIN,TOTAL 5.1 MG/DL (0.2-1.0); CK-MB VALUE MASS < 1.0 NG/ML (<3.6); CPK CREATINE PHOSPHOKINASE 85 U/L (26-192); LIPASE 350 U/L (73-393); MB/CK RELATIVE INDEX 1.18 (< OR =4); TOTAL PROTEIN 7.7 GM/DL (6.4-8.2); TROPONIN I < 0.02 NG/ML (< 0.10)
[2019-09-19 20:12] LABS: FOLATE 4.5 NG/ML (>5.4); VITAMIN B12 LEVEL 1501 PG/ML (247-911)
[2019-09-19 20:30] LABS: LDH LACTATE DEHYDROGENASE 212 U/L (84-246)
[2019-09-19] MEDS ORDERED: KETOROLAC 30 MG/ML 1ML VIAL IV ONE (21:00)
--- NOTE | 2019-09-19 21:46 | REPVR ---
PROCEDURE INFORMATION: Exam: US Abdomen, Limited; Right Upper Quadrant Exam date and time: 09/19/2019 9:27 PM Age: 34 years old Clinical indication: Abdominal pain; Acute; Additional info: Obstructive jaundice TECHNIQUE: Imaging protocol: US abdomen. Real time ultrasound with image documentation. Limited exam focused on the right upper quadrant. COMPARISON: GALLBLADDER US 07/02/2016 10:44 AM FINDINGS: Liver: Mildly echogenic, consistent with fatty infiltration. Gallbladder: Mildly distended with a small amount of dependent sludge and/or small stones. No definite gallbladder wall thickening. Common bile duct: No stones. No ductal dilatation. Pancreas: Unremarkable as visualized. Right kidney: No mass. No definite stones. No hydronephrosis. Intraperitoneal space: Small upper abdominal ascites. IMPRESSION: 1. Cholelithiasis without convincing sonographic evidence of acute cholecystitis. 2. Small upper abdominal ascites. 3. Fatty liver. Electronically signed by: Steve Lowry On 09/19/2019 21:46:44 PM
[2019-09-19] MEDS ORDERED: ISOVUE-370 76% 100ML VIAL As Ordered ONE (22:10)
[2019-09-19 22:21] LABS: ACETAMINOPHEN LEVEL < 2.0 UG/ML (10.0-30.0); ETHYL ALCOHOL (ETHANOL) < 0.003 % (0.000-0.010); SALICYLATE LEVEL < 1.7 MG/DL (5.0-30.0)
--- NOTE | 2019-09-19 23:06 | REPVR ---
PROCEDURE INFORMATION: Exam: CT Abdomen And Pelvis With Contrast Exam date and time: 09/19/2019 10:50 PM Age: 34 years old Clinical indication: Bloating; Additional info: Acute hepatitis TECHNIQUE: Imaging protocol: Computed tomography of the abdomen and pelvis with intravenous contrast. Axial, coronal and sagittal reformatted images were created and reviewed. Radiation optimization: All CT scans at this facility use at least one of these dose optimization techniques: automated exposure control; mA and/or kV adjustment per patient size (includes targeted exams where dose is matched to clinical indication); or iterative reconstruction. Contrast material: ISOVUE 370; Contrast volume: 100 ml; Contrast route: INTRAVENOUS (IV); COMPARISON: CT ABD/PEL W/IV CONTRAST ONLY 09/02/2018 10:25 AM FINDINGS: Lungs: Mild bibasilar atelectatic change. Pleural space: Small left greater than right pleural effusions. Mediastinal space: Small hiatal hernia. Liver: Mild hepatomegaly. Diffuse hepatic steatosis. Gallbladder and bile ducts: Mild gallbladder distention without radiodense gallstones. Pancreas: Unremarkable. Spleen: Borderline splenomegaly. Adrenals: Unremarkable. Kidneys and ureters: No mass. No radiodense calculi. No hydronephrosis. Stomach and bowel: Questionable mild jejunal and right colonic wall thickening, likely secondary to 3rd spacing. No obstruction. No pneumatosis. Appendix: Appendix not identified with certainty but no right lower quadrant inflammatory change to suggest acute appendicitis. Intraperitoneal space: Small to moderate ascites. No organized collection. No free air. Vasculature: Unremarkable. No aneurysm. Lymph nodes: Small mesenteric lymph nodes, likely reactive. No pathologically enlarged lymph nodes. Bladder: Unremarkable. Reproductive: Unremarkable. Bones/joints: Partially visualized posterior midthoracic fusion hardware. Mild chronic deformity of the left iliac bone, similar to prior. Soft tissues: Small, fat containing umbilical hernia. IMPRESSION: 1. Enlarged, fatty liver with borderline splenomegaly and small to moderate ascites. 2. Questionable mild jejunal and right colonic wall thickening, likely secondary to 3rd spacing. 3. Small left greater than right pleural effusions. 4. Additional findings, as above. Electronically signed by: Steve Lowry On 09/19/2019 23:05:52 PM
[2019-09-19] MEDS: MORPHINE 4 MG/ML 1ML VIAL/SYRINGE (J2270) IV PRN (23:12)
[2019-09-19] MEDS ORDERED: NS 1,000 ML IV SCH (23:32)
--- NOTE | 2019-09-19 23:37 | HPEPDOC ---
[facility] Medical History & Physical Date of Admission Sep 20, 2019 Date of Service: Sep 20, 2019 Primary Care Physician: KALEY DAVID DO Attending Physician: JESSIE MILTON MD History and Physical TIME OF SERVICE: 11:47 PM CHIEF COMPLAINT: Abdominal pain and bloating HISTORY OF PRESENT ILLNESS: This is a 34-year-old female who presented with complaints of 7-8 out of 10 in severity, diffuse abdominal pain associated with abdominal bloating for a few days. Her last bowel movement was a few hours ago. She denies having nausea, vomiting, diarrhea, fever or chills. Her friends did comment that her eyes and her skin has been looking more yellow for the last 4 days. She has a history of IBD and underwent capsule endoscopy a few days ago. The patient's liver enzymes are acutely elevated; Dr. Gonsalves discussed the case with Dr. Goldsmith who recommended MRCP to rule out obstruction and requested that I admit the patient. REVIEW OF SYSTEMS: 12 point review of systems negative except as listed in HPI PAST MEDICAL/ SURGICAL HISTORY: IBD, possible Crohn's Back surgery for scoliosis. Asthma SOCIAL HISTORY: She smokes FAMILY HISTORY: Hypertension BRAYDEN Colon cancer. Arthritis Melanoma ALLERGIES: Please see below. HOME MEDICATIONS: Please see below. PHYSICAL EXAMINATION: Vital Signs Date Time Temp Pulse Resp B/P (MAP) Pulse Ox O2 Delivery O2 Flow Rate FiO2 09/19/19 18:48 99.4 118 18 125/70 (88) 100 Room Air GEN: well-nourished / well developed/ anxious INTEGUMENT: not flushed/ jaundice HEENT: NCAT / sclera icteric CVS: RRR/NMRG LUNGS: lungs are clear to auscultation bilaterally on room air ABDOMEN: Contour ( extremely distended) / the abdomen is tender even with percussion MSK/EXTREMITIES: range of motion intact in all 4 extremities NEURO: CN 2-12 are grossly intact / speech is not dysarthric PSYCH: alert and oriented to person place and time/ able to understand and follow all commands LABORATORY DATA: Immature Granulocyte % (Auto) 0.3, Neutrophils (%) (Auto) 64.8, Lymphocytes (%) (Auto) 22.7L, Monocytes (%) (Auto) 10.5H, Eosinophils (%) (Auto) 1.1, Basophils (%) (Auto) 0.6, Neutrophils # (Auto) 4.6, Lymphocytes # (Auto) 1.6, Monocytes # (Auto) 0.8, Eosinophils # (Auto) 0.1, Basophils # (Auto) 0.0, Reticulocyte # (auto) 125.5H, Nucleated Red Blood Cells % (auto) 0.0, Percent Reticulocyte Count 3.7H, Reticulocyte Hemoglobin Equivalent 36.7H, Prothrombin Time 18.3H, Prothromb Time International Ratio 1.55, Activated Partial Thromboplast Time 35.4, Urine Color JANI, Urine Appearance CLEAR, Urine pH 6.0, Urine Specific [place] 1.024, Urine Protein NEGATIVE, Urine Glucose (UA) NEGATIVE, Urine Ketones NEGATIVE, Urine Blood NEGATIVE, Urine Nitrite NEGATIVE, Urine Bilirubin 2+H, Urine Urobilinogen 4.0H, Urine Leukocyte Esterase NEGATIVE, Urine WBC (Auto) 1, Urine RBC (Auto) 0, Urine Hyaline Casts (Auto) 0, Urine Bacteria (Auto) NEGATIVE, Urine Squamous Epithelial Cells 2, Urine Mucus (Auto) SMALL, Urine Sperm (Auto) , Lactic Acid Level 2.7*H, Total Bilirubin 5.1H, Direct Bilirubin 3.4H, Aspartate Amino Transf (AST/SGOT) 121H, Alanine Aminotransferase (ALT/SGPT) 261H, Alkaline Phosphatase 247H, Ammonia 30, Lactate Dehydrogenase 212, Total Creatine Kinase 85, Creatine Kinase MB < 1.0, Creatine Kinase MB Relative Index 1.18, Troponin I < 0.02, Total Protein 7.7, Albumin 3.0L, Albumin/Globulin Ratio 0.6L, Amylase Level 74, Lipase 350, Vitamin B12 Level 1501H, Folate 4.5L, Thyroid Stimulating Hormone (TSH) 3.700, Salicylates Level < 1.7L, Acetaminophen Level < 2.0L, Ethyl Alcohol Level < 0.003 09/19/19 19:16: POC Glucose (Misc Panel) 141H, POC Sodium (Misc Panel) 135L, POC Potassium (Misc Panel) 2.8*L, POC Chloride (Misc Panel) 92L, POC Total CO2 (Misc Panel) 26.0, POC Blood Urea Nitrogen (Misc Panel 6L, POC Ionized Calcium (Misc Panel) 4.6, POC Creatinine (Misc Panel) 0.8, POC Hematocrit (Misc Panel) 40.0 09/19/19 19:20: POC Beta HCG, Quantitative < 5.0 09/19/19 21:55: IMAGING: Gallbladder ultrasound "IMPRESSION: 1. Cholelithiasis without convincing sonographic evidence of acute cholecystitis. 2. Small upper abdominal ascites. 3. Fatty liver." CT abdomen and pelvis "IMPRESSION: 1. Enlarged, fatty liver with borderline splenomegaly and small to moderate ascites. 2. Questionable mild jejunal and right colonic wall thickening, likely secondary to 3rd spacing. 3. Small left greater than right pleural effusions. 4. Additional findings, as above." MICROBIOLOGY: Please see below. ASSESSMENT: Ms. Santiago is a 34-year-old with a history of asthma and IBD who will be admitted for evaluation of abdominal pain and transaminitis, possibly due to hepatitis versus other obstructive process. PLAN: 1. Transaminitis and abdominal pain Suspect this is likely due to hepatitis but per may be due to Choledo cholithiasis Her new MELD score is 18, therefore, she should be evaluated by deputy director of nursing as well. Plan: admit to PCU / f/u MRCP & hepatitis panel/ consult / trend LFTs / NPO w IVF 2. Ascities Suspect this is due to new onset liver failure Plan: day time team may consider IR consult for para 3. Bicytopenia Likely due to anemia of chronic dz and reduced thrombopoetin due to liver fail ure Plan; f/u iron studies & hep panel 4. IBS Plan: f/u as scheduled 5. Hypokalemia Plan: replete K and f/u Mg DVT PROPHYLAXIS: SCDs DISPOSITION: likely home aftere more than 2 midnight's stay Late entry After evaluated the patient, Dr. Gonsalves inform me that he will transfer the rohit entbecause we don't have contrast to complete the MRCP. Home Medications Scheduled Fluoxetine Hcl (Fluoxetine HCl) 20 Mg Capsule, 2 CAP PO DAILY Gabapentin (Gabapentin) 600 Mg Tablet, 1 TAB PO TID Scheduled PRN Albuterol Sulfate (Ventolin Hfa) 18 Gm Hfa.aer.ad, 2 PUFF INH Q4-6HP PRN for wheezing Dicyclomine HCl (Dicyclomine HCl) 10 Mg Capsule, 1 CAP PO Q6HP PRN for irritable bowel symptoms Ondansetron (Ondansetron Odt) 4 Mg Tab.rapdis, 1 TAB PO Q6-8HP PRN for nausea/vomiting Allergies Coded Allergies: No Known Allergies (Verified , 08/12/19) A-FIB/CHADSVASC A-FIB History Current/History of A-Fib/PAF?: No Current PO Anticoag Therapy: No JESSIE MILTON MD Sep 19, 2019 23:37
[2019-09-19] MEDS ORDERED: MORPHINE 2 MG/ML 1ML VIAL (J2270) IV PRN (23:45)
[2019-09-19] MEDS ORDERED: KCL 10MEQ/100ML SWI (KRUN) 10 MEQ in IV 1 EA IV ONE (23:45)
[2019-09-20] MEDS: MORPHINE 4 MG/ML 1ML VIAL/SYRINGE (J2270) IV PRN (00:07)
[2019-09-20 00:10] LABS: FERRITIN 33 NG/ML (8-252); IRON (FE) 42 UG/DL (50-170); MAGNESIUM LEVEL 1.8 MG/DL (1.8-2.4); PERCENT SATURATION 12.7 % (13.2-45.0); TOTAL IRON BINDING CAPACITY 332 UG/DL (250-450)
[2019-09-20] MEDS ORDERED: KCL 10MEQ/100ML SWI (KRUN) 10 MEQ in IV 1 EA IV ONE (00:15)
[2019-09-20] MEDS ORDERED: KCL 10MEQ/100ML SWI (KRUN) 10 MEQ in IV 1 EA IV SCH (00:15)
[2019-09-20] MEDS ORDERED: MORPHINE 4 MG/ML 1ML VIAL/SYRINGE (J2270) IV PRN (01:45)
[2019-09-20 02:46] VITALS: BP 137/69
--- NOTE | 2019-09-20 08:10 | REP ---
REASON: Distended abdomen. COMPARISON: 09/05/2019 FINDINGS: Supine and upright views of the abdomen show the intestinal gas pattern to be nonspecific. Gas and stool is seen throughout the colon within the rectosigmoid region. The organ silhouettes insofar as delineated appear unremarkable. No abdominal calcific densities are seen within the abdomen or pelvis. The accompanying single frontal view of the chest shows no free subdiaphragmatic air, cardiomegaly, infiltrates, or effusions. IMPRESSION: Nonspecific intestinal gas pattern. Electronically Signed by Alonso Reyna DO 09/20/2019 09:16 A
[2019-09-20 09:38] LABS: HEPATITIS A ANTIBODY IGM NEGATIVE (NEGATIVE); HEPATITIS B CORE ANTIBODY IGM NEGATIVE (NEGATIVE); HEPATITIS B SURFACE ANTIGEN NEGATIVE (NEGATIVE); HEPATITIS C VIRUS ABY INDEX 0.5 INDEX (<0.8)
== END 2019-09-20 02:49 | disposition short-term general hospital (02) | DRG 251 ==
LOC: M ED 18:47 → M ED INP 23:32
PROVIDERS: ADMIT Internal Medicine; ATTEND Internal Medicine
DX: R10.9 Unspecified abdominal pain (principal); R74.0 Nonspecific elevation of levels of transaminase and lactic acid dehydrogenase [LDH]; R18.8 Other ascites; D63.8 Anemia in other chronic diseases classified elsewhere; K72.90 Hepatic failure, unspecified without coma; K58.9 Irritable bowel syndrome, unspecified; J45.909 Unspecified asthma, uncomplicated; F17.200 Nicotine dependence, unspecified, uncomplicated; E87.6 Hypokalemia; Z79.899 Other long term (current) drug therapy; Z11.59 Encounter for screening for other viral diseases

== ENCOUNTER → 2019-10-02 | Outpatient (REF) | payer OTHER ==
[2019-10-02 11:02] LABS: BASO % 0.5 % (0.0-1.0); EOS # 0.1 10^3/uL (0.0-0.5); EOS % 1.4 % (0.0-3.0); HEMATOCRIT 35.8 % (36.0-47.0); HEMOGLOBIN 11.4 g/dl (12.0-15.5); LYMPH # 1.1 10^3/uL (1.5-5.0); LYMPH % 19.1 % (24.0-44.0); MEAN CORPUSCULAR HEMOGLOBIN 32.7 pg (27.0-33.0); MEAN CORPUSCULAR HGB CONC 31.8 g/dl (32.0-36.5); MEAN CORPUSCULAR VOLUME 102.6 fl (80.0-96.0); MONO # 0.5 10^3/uL (0.0-0.8); MONO % 8.4 % (0.0-5.0); NEUTROPHILS # 3.9 10^3/uL (1.5-8.5); NEUTROPHILS % 70.4 % (36.0-66.0); PLATELET COUNT, AUTOMATED 186 10^3/uL (150-450); RED BLOOD COUNT 3.49 10^6/uL (4.00-5.40); WHITE BLOOD COUNT 5.6 10^3/uL (4.0-10.0)
[2019-10-02 11:10] LABS: INR 1.28; PROTHROMBIN TIME 15.7 SECONDS (11.8-14.0)
[2019-10-02 11:11] LABS: ALBUMIN 2.6 GM/DL (3.2-5.2); ALT/SGPT 40 U/L (12-78); BILIRUBIN,TOTAL 1.4 MG/DL (0.2-1.0); BLOOD UREA NITROGEN 11 MG/DL (7-18); CALCIUM LEVEL 8.7 MG/DL (8.5-10.1); CARBON DIOXIDE LEVEL 27 MEQ/L (21-32); CHLORIDE LEVEL 107 MEQ/L (98-107); CREATININE FOR GFR 0.78 MG/DL (0.55-1.30); FERRITIN 26 NG/ML (8-252); GLOMERULAR FILTRATION RATE > 60.0 (>60); GLUCOSE, FASTING 84 MG/DL (70-100); IRON (FE) 16 UG/DL (50-170); PERCENT SATURATION 4.8 % (13.2-45.0); POTASSIUM SERUM 4.1 MEQ/L (3.5-5.1); SODIUM LEVEL 139 MEQ/L (136-145); TOTAL IRON BINDING CAPACITY 335 UG/DL (250-450); TOTAL PROTEIN 7.3 GM/DL (6.4-8.2)
== END ==
LOC: M SFHCLERA 08:51
PROVIDERS: ATTEND Family Medicine
DX: K74.69 Other cirrhosis of liver (principal)

== ENCOUNTER → 2019-10-23 | Outpatient (CLI) | payer OTHER ==
--- NOTE | 2019-12-04 08:22 | REP ---
LIMITED ABDOMINAL ULTRASOUND: TECHNIQUE: Limited abdominal ultrasound performed prior to a scheduled abdominal paracentesis with ultrasound guidance. FINDINGS: No ascites fluid is seen and therefore, the paracentesis procedure is cancelled. MTDD
== END ==
LOC: M RAD 13:05
PROVIDERS: ATTEND Family Medicine
DX: Z01.818 Encounter for other preprocedural examination (principal)

== ENCOUNTER → 2019-11-25 | Outpatient (CLI) | payer OTHER ==
--- NOTE | 2019-12-11 12:50 | REP ---
PELVIC SONOGRAPHY HISTORY: Pelvic pain. FINDINGS: Transabdominal and transvaginal scanning are included. Uterine dimensions are normal measured at 7.6 x 3.1 x 4.1 cm. Endometrium echo is 0.4 cm thick and centrally placed. No focal uterine mass is seen. Visualized bladder sotelo are smooth. The right ovary could not be visualized either transabdominally or transvaginally. Moving bowel loops are seen in the right adnexa. No adnexal mass or cyst is seen. A normal left ovary is seen measuring 1.9 x 2.8 x 1.8 cm. There are small centimeter follicles in the left ovary. IMPRESSION: Right ovary not directly visualized. Otherwise, unremarkable pelvic sonography. MTDD
== END ==
LOC: M WHC 13:12
PROVIDERS: ATTEND Specialist
DX: R10.2 Pelvic and perineal pain (principal)

== ENCOUNTER 2020-05-10 10:30 | Emergency (ER) | payer OTHER ==
[~2020-05-10] VITALS: Ht 157.5 cm; Wt 62.7 kg
[2020-05-10] MEDS ORDERED: ONDA-83 (10:37)
[2020-05-10] MEDS ORDERED: SPIR50TA4 (10:37)
[2020-05-10] MEDS ORDERED: FURO20TA2 (10:37)
[2020-05-10] MEDS ORDERED: PROMETHAZINE INJ 25 MG/ML VIAL (J2550) IV ONE (10:45)
[2020-05-10 11:40] LABS: BASO % 0.6 % (0.0-1.0); EOS % 0.2 % (0.0-3.0); HEMATOCRIT 36.3 % (36.0-47.0); HEMOGLOBIN 11.6 g/dl (12.0-15.5); LYMPH % 15.5 % (24.0-44.0); MEAN CORPUSCULAR HEMOGLOBIN 27.8 pg (27.0-33.0); MEAN CORPUSCULAR VOLUME 86.8 fl (80.0-96.0); MONO # 0.6 10^3/uL (0.0-0.8); NEUTROPHILS # 4.9 10^3/uL (1.5-8.5); NEUTROPHILS % 74.4 % (36.0-66.0); PLATELET COUNT, AUTOMATED 139 10^3/uL (150-450); RED BLOOD COUNT 4.18 10^6/uL (4.00-5.40); WHITE BLOOD COUNT 6.6 10^3/uL (4.0-10.0)
[2020-05-10 12:08] LABS: ALBUMIN 3.9 GM/DL (3.2-5.2); ALT/SGPT 50 U/L (12-78); BILIRUBIN,TOTAL 0.9 MG/DL (0.2-1.0); BLOOD UREA NITROGEN 7 MG/DL (7-18); CALCIUM LEVEL 8.9 MG/DL (8.5-10.1); CARBON DIOXIDE LEVEL 24 MEQ/L (21-32); CHLORIDE LEVEL 103 MEQ/L (98-107); CREATININE FOR GFR 0.91 MG/DL (0.55-1.30); GLOMERULAR FILTRATION RATE > 60.0 (>60); GLUCOSE, FASTING 121 MG/DL (70-100); POTASSIUM SERUM 3.7 MEQ/L (3.5-5.1); SODIUM LEVEL 137 MEQ/L (136-145)
[2020-05-10 12:31] LABS: LIPASE 66 U/L (73-393)
[2020-05-10] MEDS ORDERED: ISOVUE-370 76% 100ML VIAL As Ordered ONE (12:41)
[2020-05-10] MEDS ORDERED: NS 1,000 ML IV ONE (13:25)
--- NOTE | 2020-05-10 13:42 | REP ---
INDICATION: v/d abd pain COMPARISON: 09/19/2019. TECHNIQUE: CT Scan of the abdomen and pelvis was performed with intravenous administration of 100 cc of Isovue 370, without oral contrast. Sagittal and coronal reconstruction images are performed. FINDINGS: Lung bases: Unremarkable. Liver: There is diffuse fatty infiltration of the liver. There is a hepatomegaly, the length of the liver is 21.4 cm. Main portal vein measures 14 mm, slightly dilated, and there is a patent umbilical vein, suggesting portal hypertension. Gallbladder: Unremarkable. Spleen: Normal. Adrenals: Normal. Pancreas: Normal. Kidneys: Normal. Left renal vein appears compressed between the superior mesenteric artery and abdominal aorta. Small and large bowel: The aorto mesenteric angle formed between the superior mesenteric artery and abdominal aorta is approximately 17 degrees, and the distance between the abdominal aorta and superior mesenteric artery is 8 mm. Both these values are mildly decreased suggesting SMA syndrome, with compression of the transverse duodenum. There is moderate dilatation of the descending duodenum. Free fluid: None. Abdominal aorta: No aneurysm or dissection. Adenopathy: None. Appendix: Not inflamed. Osseous structures: Metallic fixation is seen in the lower thoracic spine. Pelvis: Cystic structure left ovary measures 3.7 cm in diameter. IMPRESSION: Hepatomegaly with diffuse fatty infiltration. Findings suggesting portal hypertension. Descending duodenum is moderately dilated. I suspect compression of the transverse duodenum by the superior mesenteric artery, with mild decrease in aorto mesenteric angle and mildly decreased distance between superior mesenteric artery and abdominal aorta. 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 No free air or free fluid. Cystic structure left ovary 3.7 cm in diameter. <Electronically signed by Devin Vaca > 05/10/20 [id number]
[2020-05-10] MEDS ORDERED: KETOROLAC 30 MG/ML 1ML VIAL IV ONE (14:50)
[2020-05-10] MEDS ORDERED: ONDA4TAB6 PO (15:15)
[2020-05-10] MEDS ORDERED: PROM25TA12 PO (15:15)
--- NOTE | 2020-05-10 15:57 | ED PDOC ---
Post-Departure Follow-Up radiology report faxed to DO Jose Angel Osullivan Sarah MD May 10, 2020 15:57
[2020-05-10 16:08] VITALS: BP 133/72
== END 2020-05-10 16:18 | disposition home or self-care (01) ==
LOC: M ED 10:30
DX: E86.0 Dehydration (principal); R11.2 Nausea with vomiting, unspecified; R19.7 Diarrhea, unspecified; K76.0 Fatty (change of) liver, not elsewhere classified; J45.909 Unspecified asthma, uncomplicated; K50.90 Crohn's disease, unspecified, without complications; K74.60 Unspecified cirrhosis of liver; F17.200 Nicotine dependence, unspecified, uncomplicated; Z79.899 Other long term (current) drug therapy
CPT/HCPCS: 74177; 80053; 83690; 85025; 87880; 96361; 96374; 96375; 99284; J1885; Q9967; U0003

== ENCOUNTER → 2020-06-09 | Outpatient (CLI) | payer OTHER ==
[~2020-06-09] MED LIST changes: +FURO20TA2; +ONDA-83; +SPIR50TA4
== END ==
LOC: M LABSMTC 09:35
DX: Z11.52 Encounter for screening for COVID-19 (principal)

== ENCOUNTER 2020-08-20 09:54 | Inpatient (IN) | payer OTHER ==
[~2020-08-20] VITALS: Ht 160 cm; Wt 68.6 kg
[2020-08-20] MEDS ORDERED: ONDANSETRON 4MG/2ML VIAL IV ONE ×2 (10:20→12:20)
[2020-08-20] MEDS ORDERED: MORPHINE 4 MG/ML 1ML VIAL/SYRINGE (J2270) IV ONE (10:25)
[2020-08-20 10:46] LABS: BASO % 0.3 % (0.0-1.0); EOS # 0.1 10^3/uL (0.0-0.5); EOS % 1.5 % (0.0-3.0); HEMATOCRIT 37.3 % (36.0-47.0); HEMOGLOBIN 11.7 g/dl (12.0-15.5); LYMPH # 1.1 10^3/uL (1.5-5.0); MEAN CORPUSCULAR HEMOGLOBIN 29.5 pg (27.0-33.0); MEAN CORPUSCULAR HGB CONC 31.4 g/dl (32.0-36.5); MONO # 0.4 10^3/uL (0.0-0.8); MONO % 11.2 % (2.0-8.0); NEUTROPHILS # 2.3 10^3/uL (1.5-8.5); NEUTROPHILS % 57.7 % (36.0-66.0); RED BLOOD COUNT 3.97 10^6/uL (4.00-5.40); WHITE BLOOD COUNT 3.9 10^3/uL (4.0-10.0)
[2020-08-20 11:04] LABS: PLATELET COUNT, AUTOMATED 85 10^3/uL (150-450)
[2020-08-20 11:12] LABS: ALBUMIN 3.1 GM/DL (3.2-5.2); ALT/SGPT 90 U/L (12-78); BILIRUBIN,DIRECT 0.3 MG/DL (0.0-0.2); BILIRUBIN,TOTAL 0.6 MG/DL (0.2-1.0); LIPASE 98 U/L (73-393); NT-PRO BNP 243 PG/ML (<125); TOTAL PROTEIN 7.1 GM/DL (6.4-8.2)
[2020-08-20] MEDS ORDERED: ISOVUE-370 76% 100ML VIAL As Ordered ONE (11:24)
[2020-08-20] MEDS ORDERED: NS 500 ML IV ONE ×2 (12:15→15:45)
[2020-08-20] MEDS ORDERED: MORPHINE 2 MG/ML 1ML VIAL (J2270) IV ONE (12:20)
[2020-08-20 12:35] LABS: HCG, SERUM QUALITATIVE NEGATIVE (NEGATIVE)
--- NOTE | 2020-08-20 13:20 | REP ---
INDICATION: abdominal pain COMPARISON: 05/10/2020. TECHNIQUE: CT Scan of the abdomen and pelvis was performed with intravenous administration of 100 cc of Isovue 370, without oral contrast. Sagittal and coronal reconstruction images are performed. FINDINGS: Lung bases: Unremarkable. Liver: The liver is enlarged with a length of approximately 23 cm. Areas of hypodensity in the liver suggest fatty infiltration. No enhancing mass is seen. Density is diffusely heterogeneous with possible scattered tiny cysts. Main portal vein is mildly dilated and there is recanalization of the umbilical vein. Gallbladder: The gallbladder is moderately distended with no definite wall thickening. Spleen: The spleen is enlarged, the length is approximately 14.2 cm. Adrenals: Normal. Pancreas: Normal. Kidneys: Normal. Small and large bowel: Unremarkable. Free fluid: None. Abdominal aorta: No aneurysm or dissection. Adenopathy: None. Appendix: Not inflamed. Osseous structures: Rods and screws are seen in the thoracic spine. Pelvis: No mass. There is a small umbilical hernia containing noninflamed fat. IMPRESSION: Hepatomegaly and fatty infiltration of the liver. Splenomegaly. There are findings compatible with portal hypertension. No evidence of bowel obstruction, free air or free fluid. No acute abnormality identified. <Electronically signed by Devin Vaca > 08/20/20 [id number]
[2020-08-20] MEDS ORDERED: ALBUTEROL 90 MCG/ACT 8GM HFA INHALER INH ONE (14:05)
--- NOTE | 2020-08-20 14:49 | REP ---
INDICATION: wheezing COMPARISON: 09/19/2019 as well as other prior exams. TECHNIQUE: PA/Lateral FINDINGS: Lungs: Clear, no infiltrate. Heart: Normal in size. Mediastinum: Mediastinal silhouette unremarkable. Pleural angles: Unremarkable.. Bones and soft tissues: Rods and screws are again seen in the thoracic spine. IMPRESSION: No acute pulmonary disease. <Electronically signed by Devin Vaca > 08/20/20 [id number]
--- NOTE | 2020-08-20 15:09 | ED PDOC ---
Post-Departure Follow-Up ct abd/p faxed to dr stout for follow up Ninoska Porter MD Aug 20, 2020 15:09
[2020-08-20 16:20] LABS: ACETAMINOPHEN LEVEL < 2.0 UG/ML (10.0-30.0)
--- NOTE | 2020-08-20 16:36 | REP ---
INDICATION: elevated liver enzymes. COMPARISON: 09/19/2019. TECHNIQUE: Real-time sonographic evaluation of right upper quadrant performed. FINDINGS: The gallbladder demonstrates no evidence of intraluminal sludge or calculi, wall thickening or pericholecystic fluid. Gallbladder is distended up to 12 cm in length. There is no intrahepatic or extrahepatic biliary dilatation, common bile duct measures 5 mm in maximum diameter. Liver demonstrates somewhat increased heterogeneous echotexture diffusely suggesting diffuse fibrofatty infiltration. Visualized pancreas is grossly unremarkable, not optimally seen due to overlying bowel gas. The right kidney demonstrates no hydronephrosis, with a normal size of 8.8 cm in length. No free fluid is seen. IMPRESSION: Distended gallbladder. No gallstones are visualized and there is no evidence of gallbladder wall thickening, biliary dilatation or free fluid. Diffuse fibrofatty infiltration of the liver. <Electronically signed by Devin Vaca > 08/20/20 [id number]
[2020-08-20] MEDS ORDERED: NIX CREME RINSE 1% 60 ML KIT TOP ONE (16:40)
--- NOTE | 2020-08-20 16:40 | HPEPDOC ---
General Date of Admission Aug 20, 2020 at 16:17 Date of Service: Aug 20, 2020 Chief Complaint The patient is a 35-year-old female admitted with a reason for visit of Abd Pain, Generalized. Source: Patient Exam Limitations: No limitations History of Present Illness Patient is 35 years old female with past history of liver cirrhosis, endometriosis, asthma presented to the hospital with abdominal pain. Patient stated that couple of days ago she developed abdominal pain around 7 out of 10 persistent. Today the abdominal pain became progressively worse and she decided to come to the hospital. She also noticed nausea but not vomiting. Patient denied fever, chills. Of note patient had colonoscopy and EGD in [address] Clancy. EGD and Colonoscopy was normal, no microscopic colitis or Crohn. In ER patient was found to have no leukocytosis, hemoglobin 11.7, no lactic acidosis, UA negative. CT showed Hepatomegaly and fatty infiltration of the l iver. Splenomegaly. There are findings compatible with portal hypertension. No evidence of bowel obstruction, free air or free fluid Home Medications Scheduled Fluoxetine Hcl (Fluoxetine HCl) 40 Mg Capsule, 40 MG PO DAILY, (Reported) Gabapentin (Gabapentin) 600 Mg Tablet, 600 MG PO TID, (Reported) Scheduled PRN Albuterol Sulfate (Albuterol Sulfate Hfa) 8.5 Gm Hfa.aer.ad, 2 PUFFS INH Q4-6HP PRN for SHORTNESS OF BREATH, (Reported) Allergies Coded Allergies: No Known Allergies (Verified , 08/12/19) Past Medical History Medical History Simvastatin splenomegaly, liver cirrhosis, back surgery for scoliosis, asthma, endometriosis Surgical History Back surgery for scoliosis, Family History Hypertension BRAYDEN Colon cancer. Arthritis Melanoma Social History * Smoker: current smoker Alcohol: other (3 Times in a week) Drugs: marijuana A-FIB/CHADSVASC A-FIB History Current/History of A-Fib/PAF?: No Current PO Anticoag Therapy: No Review of Systems Constitutional: Denies: Chills, Fever Eyes: Denies: Pain, Vision change ENT: Denies: Head Aches Skin: Denies: Rash Pulmonary: Reports: Dyspnea Cardiovascular: Denies: Chest Pain, Palpitations Gastrointestinal: Reports: Nausea; Denies: Vomiting Genitourinary: Denies: Dysuria Hematologic: Denies: Bruising Endocrine: Denies: Polydipsia Musculoskeletal: Denies: Neck Pain, Back Pain Neurological: Denies: Weakness Psych: Reports: Mood Normal Physical Examination General Exam: Positive: Alert, Cooperative ENT Exam: Positive: Atraumatic Neck Exam: Positive: Supple; Negative: JVD Chest Exam: Positive: Clear to auscultation Heart Exam: Positive: Rate Normal Telemetry: Positive: No significant arrhythmia Abdomen Exam: Positive: Normal bowel sounds, Tenderness, Hepatospenomegaly Extremity Exam: Negative: Clubbing, Cyanosis Skin Exam: Positive: Lesion (multiple excoriations on hands and arms) Neuro Exam: Positive: Strength at 5/5 X4 ext, Cranial Nerves 3-12 NL Psych Exam: Positive: Mental status NL Vital Signs Vital Signs Date Time Temp Pulse Resp B/P (MAP) Pulse Ox O2 Delivery O2 Flow Rate FiO2 08/20/20 13:34 98.1 71 18 131/79 (96) 99 Room Air Laboratory Data Labs 24H Laboratory Tests 2 08/20/20 10:26: Immature Granulocyte % (Auto) 0.3, Neutrophils (%) (Auto) 57.7, Lymphocytes (%) (Auto) 29.0, Monocytes (%) (Auto) 11.2H, Eosinophils (%) (Auto) 1.5, Basophils (%) (Auto) 0.3, Neutrophils # (Auto) 2.3, Lymphocytes # (Auto) 1.1L, Monocytes # (Auto) 0.4, Eosinophils # (Auto) 0.1, Basophils # (Auto) 0.0, Nucleated Red Blood Cells % (auto) 0.0, Immature Platelet Fraction 5.5, Total Bilirubin 0.6, Direct Bilirubin 0.3H, Aspartate Amino Transf (AST/SGOT) 109H, Alanine Ami notransferase (ALT/SGPT) 90H, Alkaline Phosphatase 192H, Ammonia 24, BB-Tlf-K-Type Natriuretic Peptide 243H, Total Protein 7.1, Albumin 3.1L, Albumin/Globulin Ratio 0.8L, Lipase 98, Human Chorionic Gonadotropin, Qual NEGATIVE, Acetaminophen Level < 2.0L, Coronavirus (COVID-19)(PCR) NEGATIVE 08/20/20 10:30: POC Glucose (Misc Panel) 98, POC Sodium (Misc Panel) 137, POC Potassium (Misc Panel) 3.8, POC Chloride (Misc Panel) 101, POC Total CO2 (Misc Panel) 26.0, POC Blood Urea Nitrogen (Misc Panel 5L, POC Ionized Calcium (Misc Panel) 4.8, POC Creatinine (Misc Panel) 0.7, POC Hematocrit (Misc Panel) 40.0 08/20/20 10:32: POC Beta HCG, Quantitative 5.6 08/20/20 11:00: POC Lactate (Misc Panel) 1.24 08/20/20 14:09: Urine Color YELLOW, Urine Appearance CLEAR, Urine pH 7.0, Urine Specific [place] 1.041, Urine Protein NEGATIVE, Urine Glucose (UA) NEGATIVE, Urine Ketones NEGATIVE, Urine Blood NEGATIVE, Urine Nitrite NEGATIVE, Urine Bilirubin NEGATIVE, Urine Urobilinogen 0.2, Urine Leukocyte Esterase NEGATIVE, Urine WBC (Auto) 1, Urine RBC (Auto) 1, Urine Hyaline Casts (Auto) 0, Urine Bacteria (Auto) NEGATIVE, Urine Squamous Epithelial Cells 2, Urine Sperm (Auto) 08/20/20 15:59: CBC/BMP Laboratory Tests 08/20/20 10:26 Assessment/Plan Patient is 35 years old female with past history of liver cirrhosis, endometriosis, asthma presented to the hospital with abdominal pain. Patient stated that couple of days ago she developed abdominal pain around 7 out of 10 persistent. Today the abdominal pain became progressively worse and she decided to come to the hospital. She also noticed nausea but not vomiting. Patient denied fever, chills. Of note patient had colonoscopy and EGD in [address] Clancy. EGD and Colonoscopy was normal, no microscopic colitis or Crohn. In ER patient was found to have no leukocytosis, hemoglobin 11.7, no lactic acidosis, UA negative. CT showed Hepatomegaly and fatty infiltration of the liver. Splenomegaly. There are findings compatible with portal hypertension. No evidence of bowel obstruction, free air or free fluid Problems (1) Cirrhosis of liver Status: Chronic Problem Text: Follow-up with GI in the outpatient settings Will proceed with ultrasound, ammonia level within normal limit Will check PT/INR (2) Abdominal pain, generalized Status: Acute Problem Text: Unclear etiology for now Could be attributed to endometriosis Pain management We don't have GI coverage this week (3) Bed bug bite Status: Chronic Problem Text: Permethrin (4) Splenomegaly Status: Acute Problem Text: Most most likely secondary to liver cirrhosis and portal hypertension Follow-up with GI team in the outpatient settings (5) Hepatomegaly Status: Acute Problem Text: See above Plan / VTE VTE Prophylaxis Ordered?: Yes ALFONSO OLIVO DO Aug 20, 2020 16:40
[2020-08-20 16:44] LABS: AMPHETAMINES LEVEL URINE NEGATIVE (NEGATIVE); BARBITURATES URINE NEGATIVE (NEGATIVE); BENZODIAZEPINES URINE NEGATIVE (NEGATIVE); CANNABINOIDS URINE POSITIVE (NEGATIVE); COCAINE METABOLITE URINE NEGATIVE (NEGATIVE); METHADONE URINE NEGATIVE (NEGATIVE); OPIATES URINE POSITIVE (NEGATIVE); PHENCYCLIDINE URINE NEGATIVE (NEGATIVE)
[2020-08-20] MEDS: IBUPROFEN 400MG TAB PO SCH ×2 (17:18→23:06)
[2020-08-20] MEDS: MORPHINE 2 MG/ML 1ML VIAL (J2270) IV PRN ×2 (17:21→21:36)
[2020-08-20] MEDS: traMADol 50 MG TAB PO PRN (17:21)
[2020-08-20] MEDS ORDERED: FLUO40CA PO (17:46)
[2020-08-20] MEDS ORDERED: ALBU8.5H INH (17:46)
[2020-08-20 18:03] LABS: INR 1.27; PROTHROMBIN TIME 16.2 SECONDS (12.5-14.3)
[2020-08-20] MEDS: ONDANSETRON 4MG/2ML VIAL IV PRN (19:02)
[2020-08-20] MEDS ORDERED: PERMETHRIN 5% CREAM 60 GM TOP ONE (20:00)
[2020-08-20] MEDS: GABAPENTIN 300 MG CAP PO SCH (21:35)
[2020-08-20 22:00] VITALS: BP 129/84
[2020-08-21] MEDS: diphenhydrAMINE 25MG CAP PO PRN ×2 (00:32→18:50)
[2020-08-21] MEDS: traMADol 50 MG TAB PO PRN ×4 (00:32→21:50)
--- NOTE | 2020-08-21 03:18 | ECGEPIP ---
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
[2020-08-21 06:00] VITALS: BP 120/78
[2020-08-21] MEDS ORDERED: **NOTE PATIENT COMMENT** MISC XX ONE (06:00)
[2020-08-21 06:04] LABS: HEMATOCRIT 32.3 % (36.0-47.0); MEAN CORPUSCULAR HEMOGLOBIN 29.7 pg (27.0-33.0); MEAN CORPUSCULAR VOLUME 95.8 fl (80.0-96.0); RED BLOOD COUNT 3.37 10^6/uL (4.00-5.40); WHITE BLOOD COUNT 2.8 10^3/uL (4.0-10.0)
[2020-08-21 06:06] LABS: PLATELET COUNT, AUTOMATED 67 10^3/uL (150-450)
[2020-08-21 06:31] LABS: ALBUMIN 2.5 GM/DL (3.2-5.2); ALT/SGPT 63 U/L (12-78); BILIRUBIN,TOTAL 0.5 MG/DL (0.2-1.0); BLOOD UREA NITROGEN 6 MG/DL (7-18); CALCIUM LEVEL 7.4 MG/DL (8.5-10.1); CARBON DIOXIDE LEVEL 28 MEQ/L (21-32); CHLORIDE LEVEL 105 MEQ/L (98-107); CREATININE FOR GFR 0.76 MG/DL (0.55-1.30); GLOMERULAR FILTRATION RATE > 60.0 (>60); GLUCOSE, FASTING 79 MG/DL (70-100); MAGNESIUM LEVEL 1.7 MG/DL (1.8-2.4); POTASSIUM SERUM 3.6 MEQ/L (3.5-5.1); SODIUM LEVEL 139 MEQ/L (136-145); TOTAL PROTEIN 5.7 GM/DL (6.4-8.2)
[2020-08-21] MEDS: ALBUTEROL 90 MCG/ACT 8GM HFA INHALER INH PRN ×2 (07:41→16:15)
[2020-08-21] MEDS: IBUPROFEN 400MG TAB PO SCH ×2 (07:44→16:00)
[2020-08-21] MEDS: GABAPENTIN 300 MG CAP PO SCH ×3 (07:56→21:47)
[2020-08-21] MEDS: FLUoxetine 20 MG CAP PO SCH (07:56)
[2020-08-21] MEDS: MORPHINE 2 MG/ML 1ML VIAL (J2270) IV PRN ×3 (07:57→16:16)
[2020-08-21] MEDS ORDERED: ENOXAPARIN 40MG/0.4ML SYRINGE (J1650 PER 10MG) SC SCH (09:00)
[2020-08-21] MEDS: ONDANSETRON 4MG/2ML VIAL IV PRN ×2 (09:54→18:50)
--- NOTE | 2020-08-21 12:24 | IPNPDOC ---
Text Note Date of Service The patient was seen on 08/21/20. NOTE Subjective: No any acute events overnight. Patient continues to complain of d iffuse abdominal pain, back pain. No fever or chills Objective: GENERAL APPEARANCE: In mild distress HEENT: no scleral icterus, no JVD, EOMI CARDIOVASCULAR: S1S2 LUNGS: CTA ABDOMEN: soft & moderately tender w palpitation, no rebound, hepatosplenomegaly MUSCULOSKELETAL: no cyanosis, no swelling INTEGUMENT: no generalized pallor NEUROLOGICAL: cranial nerve function from 2-12 intact intact, follows commands, speech not dysarthric Assessment/Plan Patient is 35 years old female with past history of liver cirrhosis, endometriosis, asthma presented to the hospital with abdominal pain. Patient sta tiara that couple of days ago she developed abdominal pain around 7 out of 10 persistent. Today the abdominal pain became progressively worse and she decided to come to the hospital. She also noticed nausea but not vomiting. Patient denied fever, chills. Of note patient had colonoscopy and EGD in [address] Clancy. EGD and Colonoscopy was normal, no microscopic colitis or Crohn. In ER patient was found to have no leukocytosis, hemoglobin 11.7, no lactic acidosis, UA negative. CT showed Hepatomegaly and fatty infiltration of the liver. Splenomegaly. There are findings compatible with portal hypertension. No evidence of bowel obstruction, free air or free fluid Problems (1) Cirrhosis of liver Follow-up with GI in the outpatient settings Liver ultrasound showed Distended gallbladder. No gallstones are visualized and there is no evidence of gallbladder wall thickening, biliary dilatation or free fluid. Diffuse fibrofatty infiltration of the liver. ammonia level within normal limit INR 1.27 (2) Abdominal pain, generalized Unclear etiology for now. I talked to Dr. Gutierrez, he told me that patient was referred [facility]. Her diagnosis of Crohn diseases and celiac d iseases was not confirmed. Today patient told me that she had workup with mesenteric ischemia in [facility]. Patient is poor historian. I will obtain records from [facility] and from PCP There is possibility that abdominal pain could be attributed to endometriosis Pain management We don't have GI coverage this week (3) Bed bug bite Permethrin (4) Splenomegaly Most most likely secondary to liver cirrhosis and portal hypertension Follow-up with GI team in the outpatient settings (5) Hepatomegaly See above VS,Bianca, I+O VS, Fishbone, I+O Laboratory Tests 08/21/20 05:33 Vital Signs Date Time Temp Pulse Resp B/P (MAP) Pulse Ox O2 Delivery O2 Flow Rate FiO2 08/21/20 12:07 16 Room Air 08/21/20 06:00 97.6 73 120/78 (92) 96 2.0 I&O- Last 24 Hours up to 6 AM 08/21/20 06:00 Intake Total 1650 ml Balance 1650 ml ALFONSO OLIVO DO Aug 21, 2020 12:24
[2020-08-21 14:00] VITALS: BP 128/70
[2020-08-21 22:00] VITALS: BP 102/71
[2020-08-22] MEDS: IBUPROFEN 400MG TAB PO SCH ×4 (00:59→23:42)
[2020-08-22] MEDS: MORPHINE 2 MG/ML 1ML VIAL (J2270) IV PRN ×4 (01:00→22:38)
[2020-08-22 06:00] VITALS: BP 113/71
[2020-08-22] MEDS ORDERED: SIMETHICONE 80MG CHEW TAB PO ONE (10:00)
[2020-08-22] MEDS: traMADol 50 MG TAB PO PRN ×2 (11:04→18:54)
[2020-08-22] MEDS: FLUoxetine 20 MG CAP PO SCH (11:04)
[2020-08-22] MEDS: GABAPENTIN 300 MG CAP PO SCH ×3 (11:04→22:38)
[2020-08-22] MEDS: ONDANSETRON 4MG/2ML VIAL IV PRN (11:10)
--- NOTE | 2020-08-22 11:57 | IPNPDOC ---
Text Note Date of Service The patient was seen on 08/22/20. NOTE Hospitalist Progress Note Subjective: Patient is reclined in bed when I entered the room. She is awake and alert and not in any acute distress at this time. She does report that she has continuing pain both in her belly and in her back. She does have quite a bit of bowel sounds. Besides her pain she does not have any other plaints at this time. Objective: General: Awake, alert, oriented 3. Not in any acute distress. HEENT: Head normocephalic, atraumatic, sclera are nonicteric. Hearing is grossly intact to conversation. Respiratory: Clear to auscultation bilaterally with no wheezes, rales, or rhonchi. Cardiovascular: Regular rate and rhythm, with no rubs, gallops, or murmur. Abdomen: Soft, nontender, nondistended, no hepatosplenomegaly appreciated. Bowel sounds present. Extremities: 2+ pulses in the radial and dorsalis pedis bilaterally. No evidence of clubbing or cyanosis. Assessment: Liver cirrhosis, hepatomegaly Generalized abdominal pain History of scoliosis with surgical placement of rods in her back Bedbugs, continue contact isolation Splenomegaly Thrombocytopenia Normocytic anemia DVT prophylaxis with teds Plan: Laboratory and radiologic investigations thus far have not shown an etiology for her abdominal pain. Nevertheless, she does have quite a bit of gas noted on the CT scan, therefore I will start her on simethicone today. Continue with pain medications at this time. VS,Fishbone, I+O VS, Fishbone, I+O Vital Signs Date Time Temp Pulse Resp B/P (MAP) Pulse Ox O2 Delivery O2 Flow Rate FiO2 08/22/20 11:05 16 Room Air 08/22/20 06:00 97.9 81 113/71 (85) 91 08/21/20 06:00 2.0 I&O- Last 24 Hours up to 6 AM 08/22/20 06:00 Intake Total 1230 ml Balance 1230 ml KATELYN SWEENEY DO Aug 22, 2020 11:56
[2020-08-22 14:00] VITALS: BP 140/73
[2020-08-22] MEDS: SIMETHICONE 80MG CHEW TAB PO SCH ×2 (16:06→22:38)
[2020-08-22 22:00] VITALS: BP 122/80
[2020-08-22] MEDS: diphenhydrAMINE 25MG CAP PO PRN (23:41)
[2020-08-23 06:00] VITALS: BP 108/67
[2020-08-23] MEDS: SIMETHICONE 80MG CHEW TAB PO SCH (07:58)
[2020-08-23] MEDS: IBUPROFEN 400MG TAB PO SCH (07:58)
[2020-08-23] MEDS: FLUoxetine 20 MG CAP PO SCH (07:59)
[2020-08-23] MEDS: GABAPENTIN 300 MG CAP PO SCH (07:59)
[2020-08-23] MEDS: traMADol 50 MG TAB PO PRN (07:59)
--- NOTE | 2020-08-23 09:06 | REP ---
INDICATION: Abdominal pain. COMPARISON: Comparison radiographs are from August 20, 2019. Comparison is made with recent CT study August 20, 2020.. TECHNIQUE: Supine KUB. Two views. FINDINGS: The spleen is enlarged as seen on recent CT study. It is more prominent than on the September 19, 2019 prior radiographs. On today's KUB, there is irregular parenchymal consolidation in the right lower lobe below the dome of the diaphragm which is a new finding compared with the recent CT and compatible with right lower lobe pneumonia. Flank stripes are intact. The bowel gas pattern is normal. No mass or pathologic calcification is seen. There are postoperative thoracic spine fusion rods visible. There is a levoconvex curve in the lumbar spine. IMPRESSION: Right lower lobe infiltrate consistent with pneumonia. New finding compared to August 20, 2020. Splenomegaly. <Electronically signed by Stoney Hicks > 08/23/20 [id number]
[2020-08-23] MEDS: MORPHINE 2 MG/ML 1ML VIAL (J2270) IV PRN (09:22)
[2020-08-23] MEDS ORDERED: TRAM50TA2 PO (09:37)
[2020-08-23] MEDS ORDERED: ZOFR4TAB16 PO (09:37)
--- NOTE | 2020-08-23 11:38 | DS.PDOC ---
Discharge Summary General Date of Admission Aug 20, 2020 at 16:17 Date of Discharge 08/23/2020 Discharge Summary PRIMARY CARE PHYSICIAN: Isaac Lamar.O. ATTENDING AT TIME OF DISCHARGE: Dr. Katelyn Sweeney, DISCHARGE DIAGNOS(E)S: Liver cirrhosis, hepatomegaly Generalized abdominal pain History of scoliosis with surgical placement of rods in her back Bedbugs, continue contact isolation Splenomegaly Thrombocytopenia Normocytic anemia HPI & HOSPITAL COURSE: Patient presented to the hospital after several days of persistent abdominal pain, she apparently did have nausea but no vomiting. She has been seen and evaluated by multiple specialists both in [place] and [place] who are actively working up her abdominal pain. She just came in because the pain was becoming unbearable. CT of the abdomen and pelvis, chest x-ray, liver ultrasound were all ordered, and they have chronic findings consistent with fibrofatty infiltration of the liver, cirrhosis, splenomegaly and other chronic changes, but no acute etiology of her pain was found. Labs also did not show any conclusive etiology for abdominal pain. This morning she did have a KUB which made mention of right lower lobe consolidation, however she does not have any clinical signs of pneumonia and is most likely atelectasis from hypoventilation, pain, and remaining in a hospital bed all day. Without a clear source for the etiology of her pain, recommend that she continue her workup with specialist in [place] in [place], and continue with outpatient pain management. PHYSICAL EXAMINATION ON DISCHARGE: GENERAL: Awake, alert, oriented 3. She does not appear to be in any acute distress at this time. CARDIOVASCULAR EXAMINATION: Regular rate and rhythm, with no rubs, gallops, or murmur. RESPIRATORY EXAMINATION: Clear to auscultation bilaterally with no wheezes, rales, or rhonchi. ABDOMINAL EXAMINATION: Soft, minimally tender, nondistended. Bowel sounds present, almost hyperactive. EXTREMITIES: No clubbing or edema noted. 2+ pulses in the radial bilaterally. DISPOSITION: Home DISCHARGE INSTRUCTIONS: Follow-up with primary care provider in 7-14 days. Activity as tolerated. Diet as tolerated. If symptoms return, or if you experience worsening of your symptoms, please call your doctor or return to the emergency department. Vital Signs/I&Os Vital Signs Date Time Temp Pulse Resp B/P (MAP) Pulse Ox O2 Delivery O2 Flow Rate FiO2 08/23/20 09:22 18 08/23/20 06:00 97.6 73 108/67 (81) 95 Room Air 08/21/20 06:00 2.0 I&O- Last 24 Hours up to 6 AM 08/23/20 06:00 Intake Total 2170 ml Balance 2170 ml Discharge Medications Scheduled Fluoxetine Hcl (Fluoxetine HCl) 40 Mg Capsule, 40 MG PO DAILY, (Reported) Gabapentin (Gabapentin) 600 Mg Tablet, 600 MG PO TID, (Reported) Scheduled PRN Albuterol Sulfate (Albuterol Sulfate Hfa) 8.5 Gm Hfa.aer.ad, 2 PUFFS INH Q4-6HP PRN for SHORTNESS OF BREATH, (Reported) Ondansetron HCl (Zofran) 4 Mg Tablet, 1 TAB PO Q6-8HP PRN for nausea/vomiting Tramadol HCl (Tramadol HCl) 50 Mg Tablet, 50 MG PO Q8HP PRN for MILD/MODERATE PAIN (PS 1-7) Allergies Coded Allergies: No Known Allergies (Verified , 08/12/19) KATELYN SWEENEY 13, 2021 11:38
== END 2020-08-23 10:41 | disposition home or self-care (01) ==
LOC: M ED 09:54 → EDBD 09:54 → M ED INP 16:17 → ENRESERV 17:57 → M MSPAV 18:49
PROVIDERS: ADMIT Internal Medicine; ATTEND Neuromusculoskeletal Medicine & OMM
DX: K74.60 Unspecified cirrhosis of liver (principal); D69.6 Thrombocytopenia, unspecified; D73.2 Chronic congestive splenomegaly; R16.0 Hepatomegaly, not elsewhere classified; J45.909 Unspecified asthma, uncomplicated; R10.84 Generalized abdominal pain; Z79.899 Other long term (current) drug therapy; F17.200 Nicotine dependence, unspecified, uncomplicated; D64.9 Anemia, unspecified; K76.0 Fatty (change of) liver, not elsewhere classified

== ENCOUNTER → 2020-09-28 | Outpatient (CLI) | payer OTHER ==
[~2020-09-28] MED LIST changes: +ALBU8.5H INH; +FLUO40CA PO; +TRAM50TA2 PO
--- NOTE | 2020-09-28 13:20 | REP ---
INDICATION: ISCHEMIA AND INFARCTION OF KIDNEY. COMPARISON: Comparison CT study August 20, 2020.. TECHNIQUE: 8.7 mCi of Technetium-99m MAG3 is injected and sequential posterior flow and excretory phase imaging are acquired. Renal cortical regions of interest are drawn and time activity curves are plotted for renal functional analysis. Pre and postvoid images including the kidneys and bladder were acquired. FINDINGS: Posterior flow study shows symmetric perfusion of the kidneys bilaterally. Symmetrical function and symmetric appearance of the collecting systems is observed bilaterally, 3-4 minutes. However, excretory phase images later in the acquisition show fullness of the intrarenal collecting system right greater than left. Differential function analysis is asymmetric with 50.1 % of overall renal cortical counts coming from the left kidney and 49.9 % coming from the right. Time to peak activity is normal on the left kidney at 3.0 minutes and slightly prolonged on the right at 7.0 minutes. Time to half max activity is somewhat prolonged bilaterally, 16.3 minutes on the left and 28.9 minutes on the right. Pre and post void images demonstrate fullness the upper tract of the right kidney on the prevoid and symmetric collecting systems on the postvoid. IMPRESSION: Symmetric perfusion. Fullness of the intrarenal collecting systems right greater than left. Somewhat flat excretion curve on the right, likely as result of the fullness of the intrarenal collecting system. This drains or decompresses on postvoid image. <Electronically signed by Stoney Hicks > 09/28/20 [id number]
== END ==
LOC: M RAD 10:08
PROVIDERS: ATTEND Surgery Vascular Surgery
DX: N28.0 Ischemia and infarction of kidney (principal)
CPT/HCPCS: 78707; A9562

== ENCOUNTER 2020-10-28 10:00 | Emergency (ER) | payer OTHER ==
[~2020-10-28] VITALS: Ht 160 cm; Wt 67.7 kg
--- NOTE | 2020-10-28 12:12 | REP ---
INDICATION: trauma TECHNIQUE: AP, lateral, bilateral oblique, and coned-down views of the lumbar spine. FINDINGS: Chronic scoliosis is appreciated. Jorgensen rods through the thoracic spine are identified. No evidence for acute fracture/compression injury or subluxation. No spondylolysis or spondylolisthesis. IMPRESSION: No acute fracture/compression injury or subluxation. <Electronically signed by Oscar Kelly > 10/28/20 [id number]
--- NOTE | 2020-10-28 12:13 | REP ---
INDICATION: trauma COMPARISON: None. TECHNIQUE: Internal rotation, external rotation, and Y view. FINDINGS: No acute fracture or dislocation. The acromioclavicular and glenohumeral joints are intact. No periarticular calcifications or degenerative changes are appreciated. Sub acromial space is normal. Surrounding soft tissues are unremarkable. IMPRESSION: Normal right shoulder radiographs. <Electronically signed by Oscar Kelly > 10/28/20 [id number]
--- NOTE | 2020-10-28 12:14 | REPVR ---
PROCEDURE INFORMATION: Exam: CT Cervical Spine Without Contrast Exam date and time: 10/28/2020 11:46 AM Age: 35 years old Clinical indication: Injury or trauma; Fall; Blunt trauma TECHNIQUE: Imaging protocol: Computed tomography images of the cervical spine without contrast. Radiation optimization: All CT scans at this facility use at least one of these dose optimization techniques: automated exposure control; mA and/or kV adjustment per patient size (includes targeted exams where dose is matched to clinical indication); or iterative reconstruction. COMPARISON: MRI-C SPINE W/O FOLL BY WITH 07/03/2017 9:12 AM FINDINGS: Bones/joints: No acute fracture. Normal alignment. Discs/Spinal canal/Neural foramina: At C5-C6, there is a small left paracentral disc protrusion. This is causing mild spinal canal stenosis. No other significant canal stenosis is seen. Lungs: Lung apices are clear. Soft tissues: Unremarkable. IMPRESSION: No acute abnormality. Electronically signed by: Neto Medrano On 10/28/2020 12:13:53 PM
--- NOTE | 2020-10-28 12:14 | REP ---
INDICATION: trauma. COMPARISON: 08/08/2019. TECHNIQUE: Three AP and lateral views thoracic spine. FINDINGS: There is no fracture or dislocation. There is curvature of the thoracic spine convex to the right, unchanged. Jorgensen rods and screws are again seen in the mid to lower thoracic spine, unchanged. IMPRESSION: No acute fracture or dislocation. <Electronically signed by Devin Vaca > 10/28/20 [id number]
--- NOTE | 2020-10-28 12:16 | REPVR ---
PROCEDURE INFORMATION: Exam: CT Head Without Contrast Exam date and time: 10/28/2020 11:46 AM Age: 35 years old Clinical indication: Injury or trauma; Fall; Blunt trauma (contusions or hematomas); Consciousness not specified TECHNIQUE: Imaging protocol: Computed tomography of the head without contrast. Radiation optimization: All CT scans at this facility use at least one of these dose optimization techniques: automated exposure control; mA and/or kV adjustment per patient size (includes targeted exams where dose is matched to clinical indication); or iterative reconstruction. COMPARISON: MRI-C SPINE W/O FOLL BY WITH 07/03/2017 9:12 AM FINDINGS: Brain: No acute intracranial hemorrhage, cerebral edema, or midline shift. Cerebral ventricles: No hydrocephalus. Paranasal sinuses: There is no acute sinusitis. Mastoid air cells: Visualized mastoid air cells are well aerated. Orbital cavity: Unremarkable as visualized. Bones/joints: No acute fracture. Soft tissues: Unremarkable. IMPRESSION: No acute intracranial abnormality. Electronically signed by: Neto Medrano On 10/28/2020 12:15:30 PM
[2020-10-28] MEDS ORDERED: traMADol 50 MG TAB PO ONE (12:50)
[2020-10-28 12:59] VITALS: BP 133/81
== END 2020-10-28 13:13 | disposition home or self-care (01) ==
LOC: M ED 10:00
DX: S09.90XA Unspecified injury of head, initial encounter (principal); S16.1XXA Strain of muscle, fascia and tendon at neck level, initial encounter; S43.401A Unspecified sprain of right shoulder joint, initial encounter; W10.9XXA Fall (on) (from) unspecified stairs and steps, initial encounter; Y92.099 Unspecified place in other non-institutional residence as the place of occurrence of the external cause; Y93.9 Activity, unspecified; Y99.9 Unspecified external cause status; K58.9 Irritable bowel syndrome, unspecified; J45.909 Unspecified asthma, uncomplicated; K74.60 Unspecified cirrhosis of liver; Z79.899 Other long term (current) drug therapy

== ENCOUNTER 2021-01-26 08:37 | Emergency (ER) | payer OTHER ==
[~2021-01-26] VITALS: Ht 160 cm; Wt 62.3 kg
--- OUTSIDE RECORDS SUMMARY | 2021-01-26 08:46 | CCD ---
Author Author [facility] Organization [facility] Address Unknown Phone Unavailable Care Team Providers Care Turner And Former Automatic Name Role Phone Jl Noble Unavailable PROBLEMS Type Condition ICD9-CM Code RZX22-DL Code Onset Dates Condition S tatus W/U Status Risk SNOMED Code Notes Problem Healthcare maintenance Z00.00 Active confirmed 330383835 Problem Anxiety F41.9 Active confirmed 85880973 Problem Smoking F17.200 Active confirmed 82709298 Problem Symptoms consistent with irritable bowel syndrome K58.9 Active confirmed 42004778 Problem Tobacco use disorder F17.200 Active confirmed 088473800 Problem Scoliosis of thoracolumbar spine, unspecified scoliosis ty pe M41.9 Active confirmed 774938136 Problem Left renal artery stenosis I70.1 Active confi rmed [id number] Problem Other chronic pain G89.29 Active confirmed 8 5920228 Problem 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 Acti ve confirmed 651622584 Problem Depression, unspecified depression type F32.9 Active confirmed 53870992 Problem Leukocytosis, unspecified type D72.829 Active confi rmed 734207792 Problem Persistent asthma with undetermined severity J45.9 98 Active confirmed 139387685 Problem Paresthesia of skin R20.2 Active confirmed 08768039 Problem Other cirrhosis of liver K74.69 Active confirmed 71110875 ALLERGIES No Known Allergies ENCOUNTERS from 1986 to 2020-12-01 Encounter Location Date [facility] [address] [facility] [phone] [place] [address] Nov, Jl Noble Pain in thoracic spine M54.6 ; Epigastric pain R10.13 ; Nausea R11.0 and Persistent asthma with undetermined severity J45.998 IMMUNIZATIONS Vaccine Route Administration Date Status Influenza 18 yrs & older Flublok IM Intramuscular May 22, 2019 Administered Pneumococcal Adult 0.5mL Pneumovax 23 IM Intramuscular May 22, 2019 Administered SOCIAL HISTORY Tobacco Use: Social History Observation Description Date Details (start date - stop date) Current Smoker Sex Assigned At : Social History Observation Description Sex Assigned At Unknown Audit Question Answer Notes Total Score: 3 Interpretation: Alcohol Education Sexual Hx: Question Answer Notes Had sex in the last 12 months (vaginal, oral, or anal)? Yes Have you ever had an STD? No with Men only Use protection? No Drug and Alcohol Question Answer Notes Total Score: 0 Interpretation: No problems reported Alcohol Screening: Question Answer Notes Did you have a drink containing alcohol in the past year? Ye s Points 2 Interpretation Negative How often did you have six or more drinks on one occas ion in the past year? Never (0 points) How many drinks did you have on a typica l day when you were drinking in the past year? 1 or 2 (0 points) How often did you have a drink containing alcohol in t he past year? Two to four times a month (2 points) Tobacco Use: Question Answer Notes Are you a: current smoker Smoking Cessation Information Given 08/20/2020 Patient counseled on the dangers of tobacco use and urged to quit: 08/20/2020 How many cigarettes a day do you smoke? 5 or less Are you interested in quitting? Thinking about quitting Counseled the patient on smoking cessation, education provid ed 08/20/2020 REASON FOR REFERRAL No Information VITAL SIGNS No information MEDICATIONS Medication SIG (Take, Route, Frequency, Duration) Notes Start Da te End Date Status Pantoprazole Sodium 20 MG 1 tablet Orally Once a day for 30 day( s) Aug, Not-Taking Hyoscyamine Sulfate ER 0.375 MG 1 tablet Orally every 8 hrs as needed for diarrhoea for 30 day(s) July, Not-Taki ng PROzac 40 MG 1 capsule Orally Once a day for 90 day(s) Jun, Not-Taking Albuterol Sulfate HFA 108 (90 Base) MCG/ACT 2 puffs In halation Every 4-6 hours as needed for 30 days Active Ondansetron 4 MG 1 tablet on the tongue and a llow to dissolve Orally three times a day for 30 day(s) Aug, Active traMADol HCl 50 MG 1 tablet as needed Orally three times a day for 5 days For severe pain (-12/20)Please call office to make an appointment Nov, Active Gabapentin 600 MG 1 tab Orally three times daily for 90 days July, Active Omeprazole 40 MG 1 capsule 30 minutes before morning meal Orally Once a day for 30 day(s) Sep, Not-Taking Zofran 4 MG 1 tablet Orally every 6 hours as needed for vomiting for 30 Not-Taking traMADol HCl 50 MG 1 tablet as needed Orally Once a day Not-Taking Acetaminophen Not-Taking Spironolactone 50 MG 1 tablet Orally Once a day for 30 day(s) Not-Taking Lidocaine 4 % as directed Externally Once a day for 30 days Sep, Not-Taking FLUoxetine HCl (PMDD) 20 MG 2 tablets Orally Once a day for 90 days Active Dicyclomine HCl 10 MG 1 cap Orally Three times a day Not-Taking Furosemide 20 MG 1 tablet Orally Once a day for 30 day(s) Not-Taking PROCEDURES No Information RESULTS No Results REASON FOR VISIT Numerous Refills MEDICAL (GENERAL) HISTORY Type Description Date Medical History Asthma- childhood Medical History IBS Medical History Colonoscopy 2011-normal, Dr. 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 Surgical History C section 2009 Hospitalization History as above Hospitalization History Liver Cirhosis.ascitis 09/20/2019 Hospitalization History abdominal pain 08/20/20 Goals Section No Information Health Concerns No Information MEDICAL EQUIPMENT No Information MENTAL STATUS No Information FUNCTIONAL STATUS No Information ASSESSMENTS Encounter Date Diagnosis Assessment Notes Treatment Notes Treatm ent Clinical Notes Nov, Pain in thoracic spine (ICD-10 - M54.6) Nov, Epigastric pain (ICD-10 - R10.13) Nov, Nausea (ICD-10 - R11.0) Nov, Persistent asthma with undetermined severity (IC D-10 - J45.998) PLAN OF TREATMENT Medication Medication Name Sig Start Date Stop Date Gabapentin 600 MG 1 tab Orally three times daily for 90 days July, FLUoxetine HCl (PMDD) 20 MG 2 tablets Orally Once a day for 90 days traMADol HCl 50 MG 1 tablet as needed Orally three times a day for 5 days Nov, Ondansetron 4 MG 1 tablet on the tongue and a llow to dissolve Orally three times a day for 30 day(s) Aug, Albuterol Sulfate HFA 108 (90 Base) MCG/ACT 2 puffs In halation Every 4-6 hours as needed for 30 days Insurance Providers Payer Name Payer Address Payer Phone Insured Name Patient Relati onship to Insured Coverage Start Date Coverage End Date [facility] [employer] DE[employer] [address] [place] [phone] MELISA ZIMMERMAN self
--- OUTSIDE RECORDS SUMMARY | 2021-01-26 08:46 | CCD | Continuity of Care Document ---
Author Author Coreen CLARK M.D. Organization Unknown Address [address] [place] [address] Phone [phone] Care Team Providers Care Fur Joiner Name Role Phone Jl Noble M.D. AUTM [phone] Problems Active Problems Provider Date Renal vascular disorder Vic Clark M.D. Onset: 09/18/19 21 Social History Type Date Description Comments Sex Unknown Tobacco Use Reviewed: 09/18/20 Currently smokes 1-5 Cigarett es Daily ETOH Use 09/18/2020 Occasionally consumes alcohol Tobacco Use Reviewed: 11/24/20 Patient is a current smoker, smokes every day Tobacco Use Reviewed: 11/24/20 Heavy tobacco smoker (more than 10 cigarettes/day) Smoking Status Reviewed: 11/24/20 Heavy tobacco smoker (more than 10 cigarettes/day) Allergies and adverse reactions Description No Known Drug Allergies Medications Active Medications SIG Qnty Indications Ordering Provide r Date Ondansetron 4mg Tablets Dispers as needed Unknown Gabapentin 600mg Tablets Take 1 Tablet By Mouth 3Times A Day Max Daily Dose 3 Tablets Un known Fluoxetine HCL 40mg Capsules Take One Capsule By Mouth Every Day Unknown Tramadol HCL 50mg Tablets Take One Tablet By Mouth Three Times A Day as Needed For Severe Pain 8 10/10 Maximum Daily Dose 3 Tablets Unknown Albuterol Sulfate HFA 108(90Base) mcg/Act Aerosol Inhale 2 Puffs By Mouth Every 4 6 Hours as Needed Unknown Immunizations Description No Information Available Vital Signs Date Vital Result Comment 11/24/2020 1:45pm BP Systolic Left Arm 124 mmHg BP Diastolic Left Arm 76 mmHg Heart Rate 96 /min Body Temperature 97.8 F Height 63 inches 5'3" Weight 149.00 lb Weight 67.586 kg BMI (Body Mass Index) 26.4 kg/m2 09/18/2020 2:25pm BP Systolic Right Arm 140 mmHg BP Diastolic Right Arm 82 mmHg Heart Rate 102 /min Body Temperature 96.8 F Height 63 inches 5'3" Weight 149.00 lb Weight 67.586 kg BMI (Body Mass Index) 26.4 kg/m2 Results Description No Information Available Procedures Date Code Description Status 11/24/2020 92656 Office/Outpatient Established Lo w MDM 20-29 Min Completed 10/14/2020 53088 Office/Outpatient Established Lo w MDM 20-29 Min Completed 09/18/2020 38616 Office/Outpatient New Moderate M DM 45-59 Minutes Completed Medical Devices Description No Information Available Encounters Type Date Location Provider Dx Diagnosis Office Visit 11/24/2020 2:15p Main Office Vic Clark M.D. 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 R10.9 Unspecified abdominal pain Office Visit 09/18/2020 3:00p Main Office Vic Clark M.D. 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 11/24/2020 I77.4 Celiac artery compression syndro me Vic Clark M.D. 10/14/2020 R10.9 Unspecified abdominal pain Waldemar Clark M.D. 09/18/2020 I87.1 Compression of vein Vic underwood M.D. 09/18/2020 I77.4 Celiac artery compression syndro me Vic Clark M.D. Plan of Treatment Future Appointment(s):* 01/26/2021 1:45 pm - Vic Clark M.D. 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
--- OUTSIDE RECORDS SUMMARY | 2021-01-26 08:46 | CCD | Summary of Care ---
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 Name Role Phone Jl Noble MD PCP Reason for Visit * Reason Comments GI Problem Encounter Details Care Team Description Date Type Department Catarina Daily PA [address] [id number] Other cirrhosis of liver (Primary Dx) 11/06/2020 [facility] [address] [id number] Allergies No Known Active Allergiesdocumented as of this encounter (statuses as of 11/06/2020) Medications End Date Status Medication Sig Dispensed Refills Start Date Active FLUoxetine HCl 40 MG Oral Take 40 mg by 0 Capsule (PROzac) mouth daily Active Gabapentin 600 MG Oral Take 600 mg 0 Tablet (NEURONTIN) by mouth Three times daily Active Ondansetron HCl 4 MG Oral Take 4 mg by 0 Tablet (ZOFRAN) mouth every 8 (eight) hours as needed for Nausea documented as of this encounter (statuses as of 11/06/2020) Active Problems Problem Noted Date Other cirrhosis of liver 11/06/2020 Ischemia and infarction of kidney 11/06/2020 Overweight (BMI 25.0-29.9) 11/06/2020 Ascites 11/06/2020 Endometriosis 11/06/2020 documented as of this encounter (statuses as of 11/06/2020) Social History Date Tobacco Use Types Packs/Day Years Used Current Every Day Smoker 0.25 Smokeless Tobacco: Never Used Comments Alcohol Use Standard Drinks/Week Yes 6 (1 standard drink = 0.6 o z pure alcohol) Sex Assigned at Date Recorded Not on file documented as of this encounter Last Filed Vital Signs Reading Time Taken Comments Vital Sign - - Blood Pressure - - Pulse - - Temperature - - Respiratory Rate - - Oxygen Saturation - - Inhaled Oxygen Concentration 67.6 kg (149 lb) 11/06/2020 8:12 AM EDT Weight 160 cm (5' 3") 11/06/2020 8:12 AM EDT Height 26.39 11/06/2020 8:12 AM EDT Body Mass Index documented in this encounter Progress Notes * Catarina Daily PA - 11/06/2020 8:00 AM EDT This is a telephonic visit which was performed without the use of video technolo gy due to patient inability to connect with video. The patient was informed of t he risks including security breach, technological failure, inability to perform a physical exam which could delay or prevent an accurate diagnosis, and potentia l complications from treatment decisions rendered over a telephonic platform. Th e patient understands and consented to the use of a telephonic visit/telephone c all. Time spent on the telephonic visit today: 28 minutes GI CLINIC INITIAL VISIT NOTE Reason for referral: cirrhosis of liver Referring physician: Jl Noble MD HISTORY History of Presenting Illness Ms. Coreen Santiago is a 35 y.o. female who is seen in consultation for cirrhos is of the liver. Her past medical history includes overweight, depression, endo metriosis, ischemia and infarction of the kidney. 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 She reports ascites and had paracentesis perfor med twice at [facility]. Reports 1 L and 2 L were removed. She states that she had extensive blood work and imaging of her liver done already. She states she has not had a liver biopsy. She already underwent bidirectional scope at [facility] for variceal screening and chronic abdominal pain which she has b een experiencing since 2011 of unclear etiology. She had previous workup with GI Dr. Clancy at [facility] and at [facility] nter. She admits some confusion and has some difficulty relaying her medical rec ords. She reports her ascites is currently mild and not painful. She reports s ome edema of the lower extremities. She denies fever, chills, unintentional orville ght loss, jaundice, melena, hematochezia, vomiting, or hematemesis. Unfortunate ly, she continues to drink alcohol 6 beverages per week. She uses tobacco. She denies illicit drug use. There is no family history of liver disease or colon cancer. Family history is significant for Crohn's disease in a paternal aunt. Past Medical & Surgical History History reviewed. No pertinent past medical history. Past Surgical History: Procedure Laterality Date SECTION COLONOSCOPY ESOPHAGOGASTRODUODENOSCOPY SPINE SURGERY No Known Allergies Home Medications Medication Sig FLUoxetine HCl 40 MG Oral Capsule (PROzac) Take 40 mg by mouth daily Gabapentin 600 MG Oral Tablet (NEURONTIN) Take 600 mg by mouth Three times daily Ondansetron HCl 4 MG Oral Tablet (ZOFRAN) Take 4 mg by mouth every 8 (eight) joycelyn rs as needed for Nausea Social History She is . She reports that she has been smoking. She has been smoking abou t 0.25 packs per day. She has never used smokeless tobacco. She reports current alcohol use of about 6.0 standard drinks of alcohol per week. She reports that s he does not use drugs. Family History family history includes Crohn's disease in her paternal aunt. Review of systems Complete ROS performed and found to be negative except those mentioned in the HP I. PHYSICAL EXAMINATION Height 1.6 m (5' 3"), weight 67.6 kg (149 lb), last menstrual period 10/11/2020. Physical Exam DATA REVIEW All laboratory data, outside records and imaging that were available were review ed by me. Pertinent data is listed here. Laboratory Data ASSESSMENT AND PLAN Ms. Coreen Santiago is a 35 y.o. female who is seen in consultation for cirrhos is of the liver. Her past medical history includes overweight, depression, endo metriosis, ischemia and infarction of the kidney. # liver cirrhosis -Likely alcohol/PEREZ related. -Evidence of decompensation with ascites. -Advise strict avoidance of ETOH. -Acetaminophen MDD 1.5g. -Advise sodium restricted diet 2g/day. -Request medical records from Dr. Clancy at [facility]. Follow-up after records have been received to determine next s teps. -Advised patient to contact office for any new or change in her symptoms. -Advised patient to go to closest ER for any worsening confusion, abdominal dist ention, pain, or signs and symptoms of GI bleeding. Patient verbalized good und erstanding and agreement. No orders of the defined types were placed in this encounter. Return visit, return visit tasks: 2 mo with PA during Dr. Par[facility] Catarina Daily PA 11/06/2020 8:35 AM documented in this encounter Plan of Treatment Health Maintenance Due Date Last Done Comments MMR Vaccines (1 of 1 - 1987 Standard series) Varicella Vaccines (1 of 1987 2 - 2-dose childhood series) Pneumococcal Vaccine: 65+ 02/03/1992 Years (1 of 2 - PPSV23) Pneumococcal Vaccine: 02/03/1992 Pediatrics (0 to 5 Years) and At-Risk Patients (6 to 64 Years) (1 of 2 - PPSV23) DTaP,Tdap,and Td Vaccines 1993 (1 - Tdap) HIV Screening 1999 Cervical Cancer Screening 2007 5 years Influenza Vaccine 12/11/2020 05/22/2019 HIB Vaccines Aged Out No longer eligible based on patient's age to complete this topic Hepatitis A Vaccines Aged Out No longer eligibl e based on patient's age to complete this topic Hepatitis B Vaccines Aged Out No longer eligibl e based on patient's age to complete this topic IPV Vaccines Aged Out No longer eligible based on patient's age to complete this topic documented as of this encounter Results Not on filedocumented in this encounter Visit Diagnoses Diagnosis Other cirrhosis of liver - Primary documented in this encounter
--- OUTSIDE RECORDS SUMMARY | 2021-01-26 08:46 | CCD ---
Author Author [facility] Organization [facility] Address Unknown Phone Unavailable Care Team Providers Care Handkerchief Presser Name Role Phone JAYASHREE DAVID MD Unavailable Unavailable JAYASHREE DAVID MD Unavailable Unavailable JAYASHREE DAVID MD Unavailable Unavailable JAYASHREE DAVID MD Unavailable Unavailable JAYASHREE DAVID MD Unavailable Unavailable JAYASHREE DAVID MD Unavailable Unavailable JAYASHREE DAVID MD Unavailable Unavailable JAYASHREE DAVID MD Unavailable Unavailable JAYASHREE DAVID MD Unavailable Unavailable JAYASHREE DAVID MD Unavailable Unavailable JAYASHREE DAVID MD Unavailable Unavailable JAYASHREE DAVID MD Unavailable Unavailable JAYASHREE DAVID MD Unavailable Unavailable JAYASHREE DAVID MD Unavailable Unavailable JAYASHREE DAVID MD Unavailable Unavailable JAYASHREE DAVID MD Unavailable Unavailable JAYASHREE DAVID MD Unavailable Unavailable JAYASHREE DAVID MD Unavailable Unavailable JAYASHREE DAVID MD Unavailable Unavailable JAYASHREE DAVID MD Unavailable Unavailable JAYASHREE DAVID MD Unavailable Unavailable JAYASHREE DAVID MD Unavailable Unavailable JAYASHREE DAVID MD Unavailable Unavailable JAYASHREE DAVID MD Unavailable Unavailable JAYASHREE DAVID MD Unavailable Unavailable JAYASHREE DAVID MD Unavailable Unavailable JAYASHREE DAVID MD Unavailable Unavailable JAYASHREE DAVID MD Unavailable Unavailable JAYASHREE DAVID MD Unavailable Unavailable JAYASHREE DAVID MD Unavailable Unavailable JAYASHREE DAVID MD Unavailable Unavailable JAYASHREE DAVID MD Unavailable Unavailable JAYASHREE DAVID MD Unavailable Unavailable JAYASHREE DAVID MD Unavailable Unavailable JAYASHREE DAVID MD Unavailable Unavailable JAYASHREE DAVID MD Unavailable Unavailable JAYASHREE DAVID MD Unavailable Unavailable JAYASHREE DAVID MD Unavailable Unavailable JAYASHREE DAVID MD Unavailable Unavailable JAYASHREE DAVID MD Unavailable Unavailable JAYASHREE DAVID MD Unavailable Unavailable Anup Parikh MD Unavailable Unavailable Anup Parikh MD Unavailable Unavailable Anup Parikh MD Unavailable Unavailable Anup Parikh MD Unavailable Unavailable Anup Parikh MD Unavailable Unavailable Anup Parikh MD Unavailable Unavailable Anup Parikh MD Unavailable Unavailable Anup Parikh MD Unavailable Unavailable Anup Parikh MD Unavailable Unavailable Anup Parikh MD Unavailable Unavailable Anup Parikh MD Unavailable Unavailable Anup Parikh MD Unavailable Unavailable Anup Parikh MD Unavailable Unavailable Anup Parikh MD Unavailable Unavailable Anup Parikh MD Unavailable Unavailable Anup Parikh MD Unavailable Unavailable Anup Parikh MD Unavailable Unavailable Anup Parikh MD Unavailable Unavailable Anup Parikh MD Unavailable Unavailable Anup Parikh MD Unavailable Unavailable Anup Parikh MD Unavailable Unavailable Anup Parikh MD Unavailable Unavailable Anup Parikh MD Unavailable Unavailable Anup Parikh MD Unavailable Unavailable Anup Parikh MD Unavailable Unavailable Anup Parikh MD Unavailable Unavailable Anup Parikh MD Unavailable Unavailable Anup Parikh MD Unavailable Unavailable Anup Parikh MD Unavailable Unavailable Anup Parikh MD Unavailable Unavailable Anup Parikh MD Unavailable Unavailable Anup Parikh MD Unavailable Unavailable Anup Parikh MD Unavailable Unavailable Anup Parikh MD Unavailable Unavailable Anup Parikh MD Unavailable Unavailable Anup Parikh MD Unavailable Unavailable Anup Parikh MD Unavailable Unavailable Anup Parikh MD Unavailable Unavailable Anup Parikh MD Unavailable Unavailable Anup Parikh MD Unavailable Unavailable Anup Parikh MD Unavailable Unavailable Anup Parikh MD Unavailable Unavailable Anup Parikh MD Unavailable Unavailable Anup Parikh MD Unavailable Unavailable Anup Parikh MD Unavailable Unavailable Anup Parikh MD Unavailable Unavailable Anup Parikh MD Unavailable Unavailable Anup Parikh MD Unavailable Unavailable Anup Parikh MD Unavailable Unavailable Anup Parikh MD Unavailable Unavailable Anup Parikh MD Unavailable Unavailable Anup Parikh MD Unavailable Unavailable Anup Parikh MD Unavailable Unavailable Anup Parikh MD Unavailable Unavailable Anup Parikh MD Unavailable Unavailable Anup Parikh MD Unavailable Unavailable Anup Parikh MD Unavailable Unavailable Anup Parikh MD Unavailable Unavailable BHUTTA, DARRELL Unavailable Unavailable ANG, Catarina PA-C Unavailable Unavailable ANG, Catarina PA-C Unavailable Unavailable ANG, Catarina PA-C Unavailable Unavailable ANG, Catarina PA-C Unavailable Unavailable ANG, Catarina PA-C Unavailable Unavailable ANG, Catarina PA-C Unavailable Unavailable ANG, Catarina PA-C Unavailable Unavailable ANG, Catarina PA-C Unavailable Unavailable ANG, Catarina PA-C Unavailable Unavailable ANG, Catarina PA-C Unavailable Unavailable ANG, Catarina PA-C Unavailable Unavailable NAG, Catarina PA-C Unavailable Unavailable ANG, Catarina PA-C Unavailable Unavailable ANG, Catarina PA-C Unavailable Unavailable ANG, Catarina PA-C Unavailable Unavailable ANG, Catarina PA-C Unavailable Unavailable ANG, Catarina PA-C Unavailable Unavailable ANG, Catarina PA-C Unavailable Unavailable ANG, Catarina PA-C Unavailable Unavailable ANG, Catarina PA-C Unavailable Unavailable ANG, Catarina PA-C Unavailable Unavailable ANG, Catarina PA-C Unavailable Unavailable ANG, Catarina PA-C Unavailable Unavailable ANG, Catarina PA-C Unavailable Unavailable ANG, Catarina PA-C Unavailable Unavailable ANG, Catarina PA-C Unavailable Unavailable ANG, Catarina PA-C Unavailable Unavailable ANG, Catarina PA-C Unavailable Unavailable ANG, Catarina PA-C Unavailable Unavailable ANG, Catarina PA-C Unavailable Unavailable ANG, Catarina PA-C Unavailable Unavailable ANG, Catarina PA-C Unavailable Unavailable ANG, Catarina PA-C Unavailable Unavailable ANG, Catarina PA-C Unavailable Unavailable ANG, Catarina PA-C Unavailable Unavailable ANG, Catarina PA-C Unavailable Unavailable ANG, Catarina PA-C Unavailable Unavailable ANG, Catarina PA-C Unavailable Unavailable ANG, Catarina PA-C Unavailable Unavailable ANG, Catarina PA-C Unavailable Unavailable ANG, Catarina PA-C Unavailable Unavailable ANG, Catarina PA-C Unavailable Unavailable ANG, Catarina PA-C Unavailable Unavailable ANG, Catarina LUCAS-C Unavailable Unavailable SEMEL, Kevin DAVILA MD Unavailable Unavailable SEMEL, Kevin DAVILA MD Unavailable Unavailable SEMEL, Kevin DAVILA MD Unavailable Unavailable SEMEL, Kevin DAVILA MD Unavailable Unavailable SEMEL, Kevin DAVILA MD Unavailable Unavailable SEMEL, Kevin DAVILA MD Unavailable Unavailable SEMEL, Kevin DAVILA MD Unavailable Unavailable SEMEL, Kevin DAVILA MD Unavailable Unavailable SEMEL, Kevin DAVILA MD Unavailable Unavailable SEMEL, Kevin DAVILA MD Unavailable Unavailable SEMEL, Kevin DAVILA MD Unavailable Unavailable SEMEL, Kevin DAVILA MD Unavailable Unavailable SEMEL, Kevin DAVILA MD Unavailable Unavailable SEMEL, Kevin DAVILA MD Unavailable Unavailable SEMEL, Kevin DAVILA MD Unavailable Unavailable SEMEL, Kevin DAVILA MD Unavailable Unavailable SEMEL, Kevin DAVILA MD Unavailable Unavailable SEMEL, Kevin DAVILA MD Unavailable Unavailable SEMEL, Kevin DAVILA MD Unavailable Unavailable SEMEL, Kevin DAVILA MD Unavailable Unavailable SEMEL, Kevin DAVILA MD Unavailable Unavailable SEMEL, Kevin DAVILA MD Unavailable Unavailable SEMEL, Kevin DAVILA MD Unavailable Unavailable SEMEL, Kevin DAVILA MD Unavailable Unavailable SEMEL, Kevin DAVILA MD Unavailable Unavailable SEMEL, Kevin DAVILA MD Unavailable Unavailable SEMEL, Kevin DAVILA MD Unavailable Unavailable SEMEL, Kevin DAVILA MD Unavailable Unavailable SEMEL, Kevin DAVILA MD Unavailable Unavailable SEMEL, Kevin DAVILA MD Unavailable Unavailable SEMEL, Kevin DAVILA MD Unavailable Unavailable SEMEL, Kevin DAVILA MD Unavailable Unavailable SEMEL, Kevin DAVILA MD Unavailable Unavailable SEMEL, Kevin DAVILA MD Unavailable Unavailable SEMEL, Kevin DAVILA MD Unavailable Unavailable SEMEL, Kevin DAVILA MD Unavailable Unavailable SEMEL, Kevin DAVILA MD Unavailable Unavailable SEMEL, Kevin ADVILA MD Unavailable Unavailable SEMEL, Kevin DAVILA MD Unavailable Unavailable SEMEL, Kevin DAVILA MD Unavailable Unavailable SEMEL, Kevin DAVILA MD Unavailable Unavailable SEMEL, Kevin DAVILA MD Unavailable Unavailable SEMEL, Kevin DAVILA MD Unavailable Unavailable SEMEL, Kevin DAVILA MD Unavailable Unavailable SEMEL, Kevin DAVILA MD Unavailable Unavailable SEMEL, Kevin DAVILA MD Unavailable Unavailable SEMEL, Kevin DAVILA MD Unavailable Unavailable SEMEL, Kevin DAVILA MD Unavailable Unavailable SEMEL, Kevin DAVILA MD Unavailable Unavailable SEMEL, Kevin DAVILA MD Unavailable Unavailable SEMEL, Kevin DAVILA MD Unavailable Unavailable SEMEL, Kevin DAVILA MD Unavailable Unavailable SEMEL, Kevin DAVILA MD Unavailable Unavailable SEMEL, Kevin DAVILA MD Unavailable Unavailable SEMEL, Kevin DAVILA MD Unavailable Unavailable SEMEL, Kevin DAVILA MD Unavailable Unavailable SEMEL, Kevin DAVILA MD Unavailable Unavailable SEMEL, Kevin DAVILA MD Unavailable Unavailable SEMEL, Kevin DAVILA MD Unavailable Unavailable SEMEL, Kevin DAVILA MD Unavailable Unavailable SEMEL, Kevin DAVILA MD Unavailable Unavailable SEMEL, Kevin DAVILA MD Unavailable Unavailable SEMEL, Kevin DAVILA MD Unavailable Unavailable SEMEL, Kevin DAVILA MD Unavailable Unavailable SEMEL, Kevin DAVILA MD Unavailable Unavailable SEMEL, Kevin DAVILA MD Unavailable Unavailable SEMEL, Kevin DAVILA MD Unavailable Unavailable SEMEL, Kevin DAVILA MD Unavailable Unavailable SEMEL, Kevin DAVILA MD Unavailable Unavailable SEMEL, Kevin DAVILA MD Unavailable Unavailable SEMEL, Kevin DAVILA MD Unavailable Unavailable SEMEL, Kevin DAVILA MD Unavailable Unavailable SEMEL, Kevin DAVILA MD Unavailable Unavailable SEMEL, Kevin DAVILA MD Unavailable Unavailable SEMEL, Kevin DAVILA MD Unavailable Unavailable SEMEL, Kevin DAVILA MD Unavailable Unavailable SEMEL, Kevin DAVILA MD Unavailable Unavailable SEMEL, Kevin DAVILA MD Unavailable Unavailable SEMEL, Kevin DAVILA MD Unavailable Unavailable SEMEL, Kevin DAVILA MD Unavailable Unavailable SEMEL, Kevin DAVILA MD Unavailable Unavailable SEMEL, Kevin DAVILA MD Unavailable Unavailable SEMEL, Kevin DAVILA MD Unavailable Unavailable SEMEL, Kevin DAVILA MD Unavailable Unavailable SEMEL, Kevin DAVILA MD Unavailable Unavailable SEMEL, Kevin DAVILA MD Unavailable Unavailable SEMEL, Kevin DAVILA MD Unavailable Unavailable SEMEL, Kevin DAVILA MD Unavailable Unavailable SEMEL, Kevin DAVILA MD Unavailable Unavailable SEMEL, Kevin DAVILA MD Unavailable Unavailable SEMEL, Kevin DAVILA MD Unavailable Unavailable SEMEL, Kevin DAVILA MD Unavailable Unavailable SEMEL, Kevin DAVILA MD Unavailable Unavailable SEMEL, Kevin DAVILA MD Unavailable Unavailable SEMEL, Kevin DAVILA MD Unavailable Unavailable SEMEL, Kevin DAVILA MD Unavailable Unavailable SEMEL, Kevin DAVILA MD Unavailable Unavailable SEMEL, Kevin DAVILA MD Unavailable Unavailable SEMEL, Kevin DAVILA MD Unavailable Unavailable SEMEL, Kevin DAVILA MD Unavailable Unavailable SEMEL, Kevin DAVILA MD Unavailable Unavailable SEMEL, Kevin DAVILA MD Unavailable Unavailable SEMEL, Kevin DAVILA MD Unavailable Unavailable SEMEL, Kevin DAVILA MD Unavailable Unavailable SEMEL, Kevin DAVILA MD Unavailable Unavailable SEMEL, Kevin DAVILA MD Unavailable Unavailable SEMEL, Kevin DAVILA MD Unavailable Unavailable SEMEL, Kevin DAVILA MD Unavailable Unavailable SEMEL, Kevin DAVILA MD Unavailable Unavailable SEMEL, Kevin DAVILA MD Unavailable Unavailable SEMEL, Kevin DAVILA MD Unavailable Unavailable SEMEL, Kevin DAVILA MD Unavailable Unavailable SEMEL, Kevin DAVILA MD Unavailable Unavailable SEMEL, Kevin DAVILA MD Unavailable Unavailable SEMEL, Kevin DAVILA MD Unavailable Unavailable SEMEL, Kevin DAVILA MD Unavailable Unavailable SEMEL, Kevin DAVILA MD Unavailable Unavailable SEMEL, Kevin DAVILA MD Unavailable Unavailable SEMEL, Kevin DAVILA MD Unavailable Unavailable SEMEL, Kevin DAVILA MD Unavailable Unavailable SEMEL, Kevin DAVILA MD Unavailable Unavailable SEMEL, Kevin DAVILA MD Unavailable Unavailable Re-disclosure Warning The records that you are about to access may contain information from federally-assisted alcohol or drug abuse programs. If such information is present, then the following federally mandated warning applies: This information has been disclosed to you from records protected by federal confidentiality rules (42 CFR part 2). The federal rules prohibit you from making any further disclosure of this information unless further disclosure is expressly permitted by the written consent of the person to whom it pertains or as otherwise permitted by 42 CFR part 2. A general authorization for the release of medical or other information is NOT sufficient for this purpose. The Federal rules restrict any use of the information to criminally investigate or prosecute any alcohol or drug abuse patient.The records that you are about to access may contain highly sensitive health information, the redisclosure of which is protected by Article 27-F of the [facility] Public Health law. If you continue you may have access to information: Regarding HIV / AIDS; Provided by facilities licensed or operated by the [facility] Office of Mental Health; or Provided by the [facility] Office for People With Developmental Disabilities. If such information is present, then the following [facility] mandated warning applies: This information has been disclosed to you from confidential records which are protected by state law. State law prohibits you from making any further disclosure of this information without the specific written consent of the person to whom it pertains, or as otherwise permitted by law. Any unauthorized further disclosure in violation of state law may result in a fine or fdc sentence or both. A general authorization for the release of medical or other information is NOT sufficient authorization for further disc losure. Family History Family Member Name Family Member Gender Family Member Status Date o f Status Description Data Source(s) Unknown Unknown Problem [facility] ([facility] Aunt and GF Unknown Male Problem [facility] ([facility] ) Encounters Encounter Providers Location Date Indications Data Source(s ) Outpatient Attender: Catarina FRY PA-C 02/19/2021 12: 00:00 AM [facility] Outpatient Attender: Catarina FRY PA-C 01/13/2021 12: 00:00 AM [facility] Outpatient Attender: Catarina FRY PA-C 01/11/2021 12: 00:00 AM [facility] Outpatient Attender: Anup Parikh MD 12/29/2020 12:00:00 AM [facility] Unknown [address] [facility] [address] 12/01/2020 12:00:00 AM EDT eCW1 ([facility]) [place] [address] [facility] [address] 12/01/2020 12:00:00 AM EDT eCW1 ([facility]) [place] [address] [facility] [place] [address] 12/01/2020 12:00:00 AM EDT eCW1 ([facility]) Outpatient Attender: LOLA CLARK MD Main Office 11/24/2020 02:15:0 0 PM EDT [facility] ([facility]) Outpatient Attender: Catarina Huertar : KALEY DAVID MD [id number] 11/06/2020 12:00:00 AM EDT - 11/09/2020 09:32:25 AM [facility] Outpatient Attender: LOLA CLARK MD Main Office 10/14/2020 11:20:0 0 AM EDT [facility] ([facility]) Outpatient Attender: LOLA CLARK MD Main Office 09/18/2020 03:00:0 0 PM EDT [facility] ([facility]) [place] [address] [facility] [place] [address] 08/31/2020 12:00:00 AM EDT eCW1 ([facility]) Outpatient [address] [facility] [id number] 08/31/2020 12:00:00 AM EDT eCW1 ([facility]) Unknown [address] [facility] [place] [address] 08/24/2020 12:00:00 AM EDT eCW1 ([facility]) Outpatient Attender: DARRELL WATKINS [id number] 08/21/2020 04:08:18 PM [facility] Outpatient Attender: Anup HOWARDeferrer: KALEY DAVID MD 08/21/2020 12:00:00 AM [facility] [place] [address] [facility] [place] [address] 08/20/2020 12:00:00 AM EDT [facility]CW1 ([facility]) [place] [address] [facility] [address] 08/19/2020 12:00:00 AM EDT eCW1 ([facility]) [place] [address] [facility] [address] 08/17/2020 12:00:00 AM EDT eCW1 ([facility]) [place] [address] [facility] [address] 06/15/2020 12:00:00 AM EDT eCW1 ([facility]) [place] [address] [facility] [address] 05/26/2020 12:00:00 AM EDT eCW1 ([facility]) [place] [address] [facility] [address] 05/19/2020 12:00:00 AM EST eCW1 ([facility]) [place] [address] [facility] [address] 05/18/2020 12:00:00 AM EST eCW1 ([facility]) Outpatient 05/10/2020 10:04:28 AM EST [facility] ([facility]) [place] [address] [facility] [address] 03/24/2020 12:00:00 AM EST eCW1 ([facility]) [place] [address] [facility] [address] 02/27/2020 12:00:00 AM EST eCW1 ([facility]) [place] [address] [facility] [place] [address] 02/14/2020 12:00:00 AM EST eCW1 ([facility]) [place] [address] [facility] [place] [address] 02/14/2020 12:00:00 AM EST eCW1 ([facility]) [place] [address] [facility] [address] 01/06/2020 12:00:00 AM EDT eCW1 ([facility]) [place] [address] [facility] [address] 01/06/2020 12:00:00 AM EDT eCW1 ([facility]) Medications Medication Brand Name Start Date Product Form Dose Route Admi nistrative Instructions Pharmacy Instructions Status Indications Reaction Description Data Source(s) Fluoxetine 20 MG Oral Capsule FLUoxetine HCl 20 MG FLUoxetin e HCl 20 MG 12/02/2020 12:00:00 AM EDT 2.0 {capsule} active FLUoxetine HCl 20 MG eCW1 ([facility]) 20 mg 12/02/2020 12:00:00 AM EDT capsule 60 TAKE 2 CAPSULES BY MOUTH ONCE A DAY TAKE 2 CAPSULES BY MOUTH ONCE A DAY SOLD: 12/09/2020 [facility] 50 mg 12/02/2020 12:00:00 AM EDT tablet 15 TAKE ONE TABLET BY MOUTH THREE TIMES A DAY FOR 5 DAYS FOR SEVERE PAIN (8-10/10) MAXIMUM DAILY DOSE = 3 TABLETS [PLEASE CALL OFFICE TO MAKE AN APPOINTMENT] TAKE ONE TABLET BY MOUTH THREE TIMES A DAY FOR 5 DAYS FOR SEVERE PAIN (8-10/10) MAXIMUM DAILY DOSE = 3 TABLETS [PLEASE CALL OFFICE TO MAKE AN APPOINTMENT] SOLD: 12/02/2020 [facility] Fluoxetine 20 MG Oral Capsule FLUoxetine HCl 20 MG FLUoxetin e HCl 20 MG 12/02/2020 12:00:00 AM EDT 2.0 {capsule} active FLUoxetine HCl 20 MG eCW1 ([facility]) tramadol hydrochloride 50 MG Oral Tablet traMADol HCl 50 MG traMADol HCl 50 MG 12/01/2020 12:00:00 AM EDT 1.0 {tablet_as_needed} active traMADol HCl 50 MG eCW1 ([facility]) tramadol hydrochloride 50 MG Oral Tablet traMADol HCl 50 MG traMADol HCl 50 MG 12/01/2020 12:00:00 AM EDT 1.0 {tablet_as_needed} active traMADol HCl 50 MG eCW1 ([facility]) 90 mcg/actuation 12/01/2020 12:00:00 AM EDT HFA aerosol inha ler 18 INHALE TWO PUFFS BY MOUTH EVERY 4 TO 6 HOURS NEEDED INHALE TWO PUFFS BY MOUTH EVERY 4 TO 6 HOURS NEEDED [facility]: [facility]02/[facility] 50 MG Oral Tablet traMADol HCl 50 MG traMADol HCl 50 MG 12/01/2020 12:00:00 AM EDT 1.0 {tablet_as_needed} active traMADol HCl 50 MG eCW1 ([facility]) Ondansetron 4 MG Disintegrating Oral Tablet ONDANSETRON 12/01/2020 12:00:00 AM EDT tablet,disintegrating 90 DISSOLVE 1 TABLET ON TONGUE & SWALLOW 3 TIMES A DAY DISSOLVE 1 TABLET ON TONGUE & SWALLOW 3 TIMES A DAY SOLD: 12/02/2020 [facility] 600 mg 12/01/2020 12:00:00 AM EDT tablet 90 TAKE ONE TABLET BY MOUTH THREE TIMES A DAY TAKE ONE TABLET BY MOUTH THREE TIMES A DAY SOLD: 12/02/2020 [facility] tramadol hydrochloride 50 MG Oral Tablet traMADol HCl 50 MG traMADol HCl 50 MG 08/31/2020 12:00:00 AM EDT 1.0 {tablet_as_needed} active traMADol HCl 50 MG eCW1 ([facility]) Ondansetron 4 MG Disintegrating Oral Tablet Ondansetron 4 MG 08/31/2020 12:00:00 AM EDT 1.0 {tablet_on_the_tongue_and_allow_to_dissolve} active Ondansetron 4 MG eCW1 ([facility]) Ondansetron 4 MG Disintegrating Oral Tablet Ondansetron 4 MG 08/31/2020 12:00:00 AM EDT 1.0 {tablet_on_the_tongue_and_allow_to_dissolve} active Ondansetron 4 MG eCW1 ([facility]) Ondansetron 4 MG Disintegrating Oral Tablet ONDANSETRON 08/31/2020 12:00:00 AM EDT tablet,disintegrating 90 PLACE 1 TA BLET ON THE TONGUE AND ALLOW TO DISSOLVE THREE TIMES A DAY PLACE 1 TABLET ON THE TONGUE AND ALLOW T O DISSOLVE THREE TIMES A DAY SOLD: 09/02/2020 [facility] Ondansetron 4 MG Disintegrating Oral Tablet Ondansetron 4 MG 08/31/2020 12:00:00 AM EDT 1.0 {tablet_on_the_tongue_and_allow_to_dissolve} active Ondansetron 4 MG eCW1 ([facility]) tramadol hydrochloride 50 MG Oral Tablet traMADol HCl 50 MG traMADol HCl 50 MG 08/31/2020 12:00:00 AM EDT 1.0 {tablet_as_needed} active traMADol HCl 50 MG eCW1 ([facility]) 50 mg 08/31/2020 12:00:00 AM EDT tablet 15 TAKE ONE TABLET BY MOUTH THREE TIMES A DAY NEEDED FOR SEVERE PAIN (8-10/10) MAXIMUM DAILY DOSE = 3 TABLETS TAKE ONE TABLET BY MOUTH THREE TIMES A DAY NEEDED FOR SEVERE PAIN (8-10/10) MAXIMUM DAILY DOSE = 3 TABLETS SOLD: 09/02/2020 [facility] Ondansetron 4 MG Disintegrating Oral Tablet Ondansetron 4 MG 08/31/2020 12:00:00 AM EDT 1.0 {tablet_on_the_tongue_and_allow_to_dissolve} active Ondansetron 4 MG W1 ([facility]) Ondansetron 4 MG Disintegrating Oral Tablet Ondansetron 4 MG 08/31/2020 12:00:00 AM EDT 1.0 {tablet_on_the_tongue_and_allow_to_dissolve} active Ondansetron 4 MG eCW1 ([facility]) 4 mg 08/23/2020 12:00:00 AM EDT tablet 9 TAKE ONE TABLET BY MOUTH EVERY 6 TO 8 HOURS NEEDED FOR NAUSEA AND VOMITING TAKE ONE TABLET BY MOUTH EVERY 6 TO 8 HOURS NEEDED FOR NAUSEA AND VOMITING SOLD: 08/23/2020 [facility] 50 mg 08/23/2020 12:00:00 AM EDT tablet 9 TAKE 1 TABLET BY MOUTH EVERY 8 HOURS NEEDED FOR MILD/MODERATE PAIN (PS1-7) MAX DAILY DOSE = 3 TABLETS TAKE 1 TABLET BY MOUTH EVERY 8 HOURS NEEDED FOR MILD/MODERATE PAIN (PS1-7) MAX DAILY DOSE = 3 TABLETS SOLD: 08/23/2020 [facility] 4 mg 06/15/2020 12:00:00 AM EDT tablet 30 TAKE ONE TABLET BY MOUTH EVERY 6 HOURS NEEDED FOR VOMITING TAKE ONE TABLET BY MOUTH EVERY 6 HOURS A S NEEDED FOR VOMITING SOLD: 06/15/2020 [facility] Promethazine Hydrochloride 25 MG Oral Tablet PROMETHAZINE HC L 05/11/2020 12:00:00 AM EST tablet 20 TAKE 1 TABLET [2 5MG] BY MOUTH EVERY 6 HOURS NEEDED FOR NAUSEA AND VOMITING TAKE 1 TABLET [25MG] BY MOUTH EVERY 6 HO URS NEEDED FOR NAUSEA AND VOMITING SOLD: 05/11/2020 [facility] 4 mg 05/11/2020 12:00:00 AM EST tablet,disintegrating 1 6 DISSOLVE ONE TABLET ON TONGUE EVERY 6 TO 8 HOURS NEEDED FOR NAUSEA AND VOMITING DISSOLVE ONE TABLET ON TONGUE EVERY 6 TO 8 HOURS NEEDED FOR NAUSEA AND VOMITING SOLD: 05/11/2020 [facility] 50 mg 04/15/2020 12:00:00 AM EST tablet 30 TAKE ONE TABLET BY MOUTH EVERY DAY TAKE ONE TABLET BY MOUTH EVERY DAY SOLD: 04/21/2020 [facility] 20 mg 04/15/2020 12:00:00 AM EST tablet 30 TAKE ONE TABLET BY MOUTH EVERY DAY TAKE ONE TABLET BY MOUTH EVERY DAY SOLD: 04/21/2020 [facility] 4 mg 04/08/2020 12:00:00 AM EST tablet 30 TAKE ONE TABLET BY MOUTH EVERY 6 HOURS NEEDED FOR VOMITING TAKE ONE TABLET BY MOUTH EVERY 6 HOURS A S NEEDED FOR VOMITING SOLD: 04/09/2020 [facility] 90 mcg/actuation 02/17/2020 12:00:00 AM EST HFA aerosol inha ler 18 INHALE 2 PUFFS BY MOUTH EVERY 4-6 HOURS NEEDED INHALE 2 PUFFS BY MOUTH EVERY 4-6 HOURS NEEDED SOLD: 08/09/2020 [facility] 90 mcg/actuation 02/17/2020 12:00:00 AM EST HFA aerosol inha ler 18 INHALE 2 PUFFS BY MOUTH EVERY 4-6 HOURS NEEDED INHALE 2 PUFFS BY MOUTH EVERY 4-6 HOURS NEEDED SOLD: 02/22/2020 [facility] 4 mg 02/17/2020 12:00:00 AM EST tablet 30 TAKE ONE TABLET BY MOUTH EVERY 6 HOURS NEEDED FOR VOMITING TAKE ONE TABLET BY MOUTH EVERY 6 HOURS A S NEEDED FOR VOMITING SOLD: 02/22/2020 [facility] 90 mcg/actuation 02/17/2020 12:00:00 AM EST HFA aerosol inha ler 18 INHALE 2 PUFFS BY MOUTH EVERY 4-6 HOURS NEEDED INHALE 2 PUFFS BY MOUTH EVERY 4-6 HOURS NEEDED SOLD: 07/02/2020 [facility] 90 mcg/actuation 02/17/2020 12:00:00 AM EST HFA aerosol inha ler 18 INHALE 2 PUFFS BY MOUTH EVERY 4-6 HOURS NEEDED INHALE 2 PUFFS BY MOUTH EVERY 4-6 HOURS NEEDED SOLD: 05/17/2020 [facility] 4 mg 01/06/2020 12:00:00 AM EDT tablet 30 TAKE ONE TABLET BY MOUTH EVERY 6 HOURS NEEDED FOR VOMITING TAKE ONE TABLET BY MOUTH EVERY 6 HOURS A S NEEDED FOR VOMITING SOLD: 01/06/2020 [facility] 40 mg 01/06/2020 12:00:00 AM EDT capsule 30 TAKE ONE CAPSULE BY MOUTH EVERY DAY TAKE ONE CAPSULE BY MOUTH EVERY DAY SOLD: 05/17/2020 [facility] 40 mg 01/06/2020 12:00:00 AM EDT capsule 30 TAKE ONE CAPSULE BY MOUTH EVERY DAY TAKE ONE CAPSULE BY MOUTH EVERY DAY SOLD: 07/02/2020 [facility] 40 mg 01/06/2020 12:00:00 AM EDT capsule 30 TAKE ONE CAPSULE BY MOUTH EVERY DAY TAKE ONE CAPSULE BY MOUTH EVERY DAY SOLD: 04/09/2020 [facility] 40 mg 01/06/2020 12:00:00 AM EDT capsule 30 TAKE ONE CAPSULE BY MOUTH EVERY DAY TAKE ONE CAPSULE BY MOUTH EVERY DAY SOLD: 02/22/2020 [facility] 40 mg 01/06/2020 12:00:00 AM EDT capsule 30 TAKE ONE CAPSULE BY MOUTH EVERY DAY TAKE ONE CAPSULE BY MOUTH EVERY DAY SOLD: 01/06/2020 [facility] 40 mg 01/06/2020 12:00:00 AM EDT capsule 30 TAKE ONE CAPSULE BY MOUTH EVERY DAY TAKE ONE CAPSULE BY MOUTH EVERY DAY SOLD: 08/09/2020 [facility] 4 mg 12/03/2019 12:00:00 AM EDT tablet 20 TAKE ONE TABLET BY MOUTH EVERY 6-8 HOURS NEEDED FOR NAUSEA AND VOMITING TAKE ONE TABLET BY MOUTH EVERY 6-8 HOURS NEEDED FOR NAUSEA AND VOMITING SOLD: 12/05/2019 [facility] 600 mg 10/02/2019 12:00:00 AM EDT tablet 90 TAKE 1 TABLET BY MOUTH 3TIMES A DAY MAX DAILY DOSE = 3 TABLETS TAKE 1 TABLET BY MOUTH 3TIMES A DAY MAX DAILY DOSE = 3 TABLETS SOLD: 08/09/2020 [facility] 600 mg 10/02/2019 12:00:00 AM EDT tablet 90 TAKE 1 TABLET BY MOUTH 3TIMES A DAY MAX DAILY DOSE = 3 TABLETS TAKE 1 TABLET BY MOUTH 3TIMES A DAY MAX DAILY DOSE = 3 TABLETS SOLD: 05/17/2020 [facility] 600 mg 10/02/2019 12:00:00 AM EDT tablet 90 TAKE 1 TABLET BY MOUTH 3TIMES A DAY MAX DAILY DOSE = 3 TABLETS TAKE 1 TABLET BY MOUTH 3TIMES A DAY MAX DAILY DOSE = 3 TABLETS SOLD: 04/09/2020 [facility] 600 mg 10/02/2019 12:00:00 AM EDT tablet 90 TAKE 1 TABLET BY MOUTH 3TIMES A DAY MAX DAILY DOSE = 3 TABLETS TAKE 1 TABLET BY MOUTH 3TIMES A DAY MAX DAILY DOSE = 3 TABLETS SOLD: 07/02/2020 [facility] Insurance Providers Payer name Policy type / Coverage type Policy ID Covered green party ID Covered green party's relationship to smith Policy Smith Plan Information [facility] Plan Commercial [id number] [facility] Plan Commercial [id number] [facility] Plan Commercial [id number] [facility] Plan Commercial [id number] [facility] Plan Commercial [id number] [facility] Plan Commercial [id number] [facility] Plan Commercial [id number] Self [id number] [facility] Plan Commercial [id number] [facility] Plan Commercial [id number] Self [id number] [facility] Community Plan Commercial [id number] Self [id number] [facility] Community Plan Commercial [id number] Self [id number] [facility] [id number] SP [id number] [facility] [id number] SP [id number] MEDICAID [id number] SP [id number] [facility] [id number] SP [id number] ADIS I [id number] Self [id number] MEDICAID M [id number] S [id number] [facility]-Medicaid [id number] [place] Medicaid [id number] Self [id number] [facility] O [id number] S [id number] SELF PAY ONLY [id number] SP [id number] SELF PAY UNAVAILABLE SP UNAVAILA BLE ADIS [id number] SP [id number] 200 ADIS [id number] SP [id number] [place] [id number] S [id number] [place] [id number] S [id number] SELF PAY ONLY - [id number] SP [id number] ANSI-Medicaid [id number] [facility] [id number] [facility]-Medicaid [id number] [facility]-Medicaid [id number] [facility] [id number] [facility]-Medicaid [id number] [facility]-Medicaid [id number] [facility]-Medicaid [id number] ANSI-Medicaid [id number] [facility]) [id number] MEDICAID [id number] SP [id number] Problems, Conditions, and Diagnoses Code Display Name Description Problem Type Effective Dates Data Source(s) 00760288 Renal vascular disorder Renal vascular disorder Proble m 09/17/2020 12:00:00 AM EDT TANVIR ([facility]) K55.1 [id number] Superior mesenteric artery syndrome Probl em 08/17/2020 12:00:00 AM EDT eCW1 ([facility]) I70.1 [id number] Left renal artery stenosis Problem 08/17/2020 12:00:00 AM EDT eCW1 ([facility]) Surgeries/Procedures Procedure Description Date Indications Data Source(s) OFFICE OUTPATIENT VISIT 15 MINUTES 11/24/2020 12:00:00 AM EDT MEDENT ([facility]) OFFICE OUTPATIENT VISIT 15 MINUTES 10/14/2020 12:00:00 AM EDT MEDENT ([facility]) OFFICE OUTPATIENT NEW 45 MINUTES 09/18/2020 12:00:00 A M EDT MEDENT ([facility]) Results ID Date Data Source [id number] 11/09/2020 01:22:25 PM EDT [facility] Name Value Range Interpretation Code Description Data Jolene rce(s) Supporting Document(s) Progress Note [facility] WKKLHi2jSbHSAjWc83/QEXhwLCIuh6MyQRfrKEw3IMyeJQIqF2WvGDL4hY7nWEV3UCnBQlShJcWyTXLk lbm [file] W6MQQwJGXfC0SzSy2hHSKPYh9+GZschLSedSogBBFFWzL1Uwz6ZIayPAKHFa9P ID Date Data Source [id number] 08/21/2020 04:08:18 PM EDT [facility] Name Value Range Interpretation Code Description Data Jolene rce(s) Supporting Document(s) Progress Note [facility] BKKOVd8gViMGDzUu60/SJXxgFTYpz0VhYKpiEWd4DPtvSZMpD7PxNEV9yN9jUYD8UXqLZqNxAuCfFyUu lbm [file] AgICAgICAgICAgICAgICAgICAgICAgICAgICAgICAgICAgICAgICAgICAgICAgICAgICAgICAgDQogIC AgICAgICAgICAgICAgICAgICAgICAgICAgICAgICAg ICAgICAgICAgICAgICAgICAgICAgICAgICAgICAgICAgICAgICAgICAgICAgICAgICAgICAgICAgICAg ICAgICAgDQogICAgICAgICAgICAgICAgICAgICAgICAgICAgICAgICAgICAgICAgICAgICAgICAgICAg ICAgICAgICAgICAgICAgICAgICAgICAgICAgICAgIC AgICAgICAgICAgICAgICAgDQogICAgICAgICAgICAgICAgICAgICAgICAgICAgICAgICAgICAgICAgIC AgICAgICAgICAgICAgICAgICAgICAgICAgICAgICAgICAgICAgICAgICAgICAgICAgICAgICAgICAgDQ ogICAgICAgICAgICAgICAgICAgICAgICAgICAgICAg ICAgICAgICAgICAgICAgICAgICAgICAgICAgICAgICAgICAgICAgICAgICAgICAgICAgICAgICAgICAg ICAgICAgICAgDQogICAgICAgICAgICAgICAgICAgICAgICAgICAgICAgICAgICAgICAgICAgICAgICAg ICAgICAgICAgICAgICAgICAgICAgICAgICAgICAgIC AgICAgICAgICAgICAgICAgICAgDQogICAgICAgICAgICAgICAgICAgICAgICAgICAgICAgICAgICAgIC AgICAgICAgICAgICAgICAgICAgICAgICAgICAgICAgICAgICAgICAgICAgICAgICAgICAgICAgICAgIC AgDQogICAgICAgICAgICAgICAgICAgICAgICAgICAg ICAgICAgICAgICAgICAgICAgICAgICAgICAgICAgICAgICAgICAgICAgICAgICAgICAgICAgICAgICAg ICAgICAgICAgICAgDQogICAgICAgICAgICAgICAgICAgICAgICAgICAgICAgICAgICAgICAgICAgICAg ICAgICAgICAgICAgICAgICAgICAgICAgICAgICAgIC AgICAgICAgICAgICAgICAgICAgICAgDQogICAgICAgICAgICAgICAgICAgICAgICAgICAgICAgICAgIC AgICAgICAgICAgICAgICAgICAgICAgICAgICAgICAgICAgICAgICAgICAgICAgICAgICAgICAgICAgIC WmTLBcWZf6T6rbDFMaOJFpDU8fZWm5Fo8+DQoNCmVu ICL9ydXvjZ9WPT3vo1QqUCjnZIBwg0IvPHi5AQ6IWEBuGRogEP3NMKophe5IUMJnIYMcuHGIe8zvKtHy NSD5MORnIjydFJ3TSTBuT5acjgPySXAaTRCYSZ7KDpHsE0DukV67WBWIOx4+KFeasqVgDyiAXmT7HJMd p9UbVKq5IS3OKRUkKsmih7ZkMaFoKEIZGWycGR1BUC R3YDYgWEMqQn6RURBsY059hgIjJN6RUh4ABiJnHJ2wjl3AFtDjNROmVtjKCiy4DLaoLX9XtCNcGCfOcv 8epeRsljFVi7IktpActEXPIiV7dRMLeIX1oESdWS0AMdQzYDFmRc5lAY6zVPAoKXB4NrY0JVQNEH4VZJ YfNGJoxXUfNAHxVEWLTS2HLJnzTLM5ANRaejRpaRNz PSlpNQ2HOKLosfIoGLqmUUUFIVn+Vq8SMZ0ty1FeSCgxHFLvRB4iho4GMXhTIeCxM1X5iGSgH7A8EXry Yo4QDNXnGXRjDAabWWYBFBcpYJ4CQB8zkoM8KX8AmVHpAXRsUPEucUSsGZb0E25xjQJtPTnbCQ3GCHE+ Celina+Jf2QKICtFYPrTPSqJjCrXGUAAnEpW1WxX8XVg8 ZtR0AtVP00fKrpeuOjAKghGM2GWY3rLSTgBFYIQQ5BjPIimG7bmxRuNZGtNLEEStMmN41tgLSdDDQkSL Q3BDYuTj7EEKDdV7KftfSdfKuykfMzUBYlWIZDUJ5TSUxewvSpeHDgeCywSV44tQlaLY4KXp5XQdIoHB 8ype1TgIQeEz7XKUOaXq9DTRHrVADiHBMaFOY5CAJl TrOxCGxzCYDbQPPxQCC5JQWsJORvHB4CTiXrAWPwAIo8WSBqKUJsWURiar1DRRLwKFBvHYpxBqNxJCNv IJSrTDmuUHXuWSVlWXH1GDPoOZRlDI4HUlVvTCDpKRM2KzRdCZIyULXunw6HJKZiLJRrSvKwUSTxVCFd QXVlLEliWTQnSDLrSXmuJIOzGTZeYU5LIbBfDPQoPX AwEccqMZRjSVOlep3QIMCkUVCkSMR3WWZiCITlIQDmBLhlBODsIYX2ZaG3IYMoNTWlLV3MMrLpLWBnUG B0VTqrMJDtOXDfpz7ILJQxXZAsIYoyBjMpZEPlLIKrTOdkKSOtKJH3DQBpBKAgONHbCH8GDjFwVSOfWH cmWlerYQDwXYAjqr5WLADsRFAiFbJ5NoDhZFOyHZMh PJvzWTFjOAT8VIO1PTTeCKMdAQ7AWhQwOCZuBWe4YxFrTNVxSVJgxd0XFBKkAOQrMPW8AnAeKVIsJTNi DMtgCMYgQAI9FYXdXFMpRCGyMG6LIjWuAOJhQBy2LICjQXVkYBGkov9JCOBpYCDtBIDuJXXoNXBuLOUg LJk4jdRjdWPgTIl8GQ8AV8PgvpXfVnJHZd3Um841MJ OkUBIcCt8CG4csMp7xYOGzHFXDTz7PPAc7KVE7NgX8MWUdCSI0NwM0VzUsAWt1KUHaPgJ1UCweITJ+ID bpUZboXRkmXLWgYSDqDYpdXLY5BsO9RcYrWiT5JJUcRt7wSFHOOh6+VIvalVNdmWdvOASZIaGpNnk9LU xfNUZBMf7G ID Date Data Source [id number] 08/20/2020 10:26:00 AM EDT [facility] Name Value Range Interpretation Code Description Data Jolene rce(s) Supporting Document(s) SARS coronavirus 2 RNA [Presence] in Res piratory specimen by MILTON with probe detection NEGATIVE [facility] This lab was ordered by [facility] a nd reported by [facility]. ID Date Data Source [id number] 06/09/2020 09:35:00 AM EDT [facility] Name Value Range Interpretation Code Description Data Jolene rce(s) Supporting Document(s) SARS-CoV-2 (COVID-19) RNA [Presence] in Respiratory specimen by MILTON with probe detection Not Detected [facility] This lab was ordered by [facility] and reported by [facility]. ID Date Data Source [id number] 05/10/2020 12:11:00 PM EST [facility] Name Value Range Interpretation Code Description Data Jolene rce(s) Supporting Document(s) SARS coronavirus 2 RNA Not Detected [facility] This lab was ordered by [facility] and reported by [facility]. ID Date Data Source [id number] 05/10/2020 11:35:00 AM EST [facility] Name Value Range Interpretation Code Description Data Jolene rce(s) Supporting Document(s) SARS COVID ANTIGEN NEGATIVE [facility] This lab was ordered by [facility] a nd reported by [facility]. ID Date Data Source [facility] US 12/10/2019 12:57:29 PM EDT eCW1 ([facility]) Name Value Range Interpretation Code Description Data Jolene rce(s) Supporting Document(s) [facility] US eCW1 ([facility]) ID Date Data Source FERRITIN 12/10/2019 04:29:46 AM EDT eCW1 ([facility]) Name Value Range Interpretation Code Description Data Jolene rce(s) Supporting Document(s) 26 FERRITIN eCW1 ([facility]) ID Date Data Source PT-[id number] 12/10/2019 04:29:46 AM EDT eCW1 ([facility]) Name Value Range Interpretation Code Description Data Jolene rce(s) Supporting Document(s) Prothrombin time (PT) 15.7 PROTHROMBIN TI ME eCW1 ([facility]) INR in Platelet poor plasma by Coagulation assay 1.28 INR eCW1 ([facility]) ID Date Data Source TOTAL IRON BINDING CAPACIT 12/10/2019 04:29:46 AM EDT eCW1 ( [facility]) Name Value Range Interpretation Code Description Data Jolene rce(s) Supporting Document(s) 16 IRON (FE) eCW1 ([facility]) 4.8 PERCENT SATURATION eCW1 ([facility]) 335 TOTAL IRON BINDING CAPACITY eC W1 ([facility]) ID Date Data Source Comprehensive Metabolic Profile (CMP) 12/10/2019 04:29:46 AM EDT eCW1 ([facility]) Name Value Range Interpretation Code Description Data Jolene rce(s) Supporting Document(s) 84 GLUCOSE, FASTING eCW1 ([facility]) 0.78 CREATININE FOR GFR eCW1 ([facility]) 11 BLOOD UREA NITROGEN eCW1 ([facility]) 107 CHLORIDE LEVEL eCW1 ([facility]) 4.1 POTASSIUM SERUM eCW1 ([facility]) > 60.0 GLOMERULAR FILTRATION RATE eCW 1 ([facility]) 139 SODIUM LEVEL eCW1 ([facility]) 27 CARBON DIOXIDE LEVEL eCW1 ([facility]) 8.7 CALCIUM LEVEL eCW1 ([facility]) 40 ALT/SGPT eCW1 ([facility]) 67 AST/SGOT eCW1 ([facility]) 7.3 TOTAL PROTEIN eCW1 ([facility]) 2.6 ALBUMIN eCW1 ([facility]) 1.4 BILIRUBIN,TOTAL eCW1 ([facility]) 180 ALKALINE PHOSPHATASE eCW1 ([facility]) 0.6 ALBUMIN/GLOBULIN RATIO eCW1 ([facility]) ID Date Data Source CBC with Differential 12/10/2019 04:29:46 AM EDT eCW1 ([facility]) Name Value Range Interpretation Code Description Data Jolene rce(s) Supporting Document(s) 11.4 HEMOGLOBIN eCW1 ([facility]) 5.6 WHITE BLOOD COUNT eCW1 ([facility]) 3.49 RED BLOOD COUNT eCW1 ([facility]) 35.8 HEMATOCRIT eCW1 ([facility]) 102.6 MEAN CORPUSCULAR VOLUME eCW1 ( [facility]) 32.7 MEAN CORPUSCULAR HEMOGLOBIN eC W1 ([facility]) 31.8 MEAN CORPUSCULAR HGB CONC eCW1 ([facility]) 186 PLATELET COUNT, AUTOMATED eCW1 ([facility]) 70.4 NEUTROPHILS % eCW1 ([facility]) 19.4 RED CELL DISTRIBUTION WIDTH eC W1 ([facility]) 19.1 LYMPH % eCW1 ([facility]) 1.4 EOS % eCW1 ([facility]) 8.4 MONO % eCW1 ([facility]) 0.5 BASO % eCW1 ([facility]) 1.1 LYMPH # eCW1 ([facility]) 3.9 NEUTROPHILS # eCW1 ([facility]) 0.1 EOS # eCW1 ([facility]) 0.5 MONO # eCW1 ([facility]) 0.0 BASO # eCW1 ([facility]) ID Date Data Source AMMONIA 12/10/2019 04:29:46 AM EDT eCW1 ([facility]) Name Value Range Interpretation Code Description Data Jolene rce(s) Supporting Document(s) 22 AMMONIA eCW1 ([facility]) Procedure Social History Code Duration Value Status Description Data Source(s ) 11/24/2020 12:00:00 AM EDT Heavy tobacco smoker (more than 10 cigarettes/day) completed Heavy tobacco smoker (more than 10 cigarettes/day) MED ENT ([facility]) 11/24/2020 12:00:00 AM EDT Patient is a current smoker, smokes every day completed Patient is a current smoker, smokes every day MEDENT ( [facility]) Alcohol intake 11/06/2020 12:00:00 AM EDT Current drinker of al cohol (finding) completed Current drinker of alcohol (finding) [facility] Tobacco use and exposure 11/06/2020 12:00:00 AM EDT Never used co mpleted Never used [facility] Cigarettes smoked current (pack per day) - Reported 11/07/19 12:00:00 AM EDT UNK completed [facility] Smoking 11/06/2020 12:00:00 AM EDT Current every day smoker co mpleted Current every day smoker [facility] ETOH Use 09/18/2020 12:00:00 AM EDT Occasionally consumes alcoh ol completed Occasionally consumes alcohol MEDENT ([facility]) 09/18/2020 12:00:00 AM EDT Currently smokes 1-5 Cigare ttes Daily completed Currently smokes 1-5 Cigarettes Daily MEDENT ([facility]) Smoking 08/31/2020 12:00:00 AM EDT Current Smoker completed Curre nt Smoker eCW1 ([facility]) Smoking 08/31/2020 12:00:00 AM EDT Current Smoker completed Curre nt Smoker eCW1 ([facility]) Smoking 08/31/2020 12:00:00 AM EDT Current Smoker completed Curre nt Smoker eCW1 ([facility]) Smoking 08/31/2020 12:00:00 AM EDT Current Smoker completed Curre nt Smoker eCW1 ([facility]) Smoking 08/31/2020 12:00:00 AM EDT Current Smoker completed Curre nt Smoker eCW1 ([facility]) Smoking 08/20/2020 12:00:00 AM EDT Current Smoker completed Curre nt Smoker eCW1 ([facility]) Smoking 08/20/2020 12:00:00 AM EDT Current Smoker completed Curre nt Smoker eCW1 ([facility]) Vital Signs ID Date Data Source UNK Name Value Range Interpretation Code Description Data Source(s) Systolic blood pressure 124 mm[Hg] 124 mm[Hg] M EDENT ([facility]) Diastolic blood pressure 76 mm[Hg] 76 mm[Hg] MEDENT ([facility]) Heart rate 96 /min 96 /min [facility] ([facility] Body temperature 97.8 [degF] 97.8 [degF] MEDENT ([facility]) Body height 63 [in_i] 63 [in_i] [facility] ([facility] 5'3" Body weight 149.00 [lb_av] 149.00 [lb_av] MEDEN T ([facility]) Body weight 67.586 kg 67.586 kg [facility] ([facility] Body mass index (BMI) [Ratio] 26.4 kg/m2 26.4 k g/m2 MEDENT ([facility]) Diastolic blood pressure 82 mm[Hg] 82 mm[Hg] MEDENT ([facility]) Systolic blood pressure 140 mm[Hg] 140 mm[Hg] M EDENT ([facility]) Body height 63 [in_i] 63 [in_i] [facility] ([facility] 5'3" Body weight 149.00 [lb_av] 149.00 [lb_av] MEDEN T ([facility]) Body weight 67.586 kg 67.586 kg [facility] ([facility] Body mass index (BMI) [Ratio] 26.4 kg/m2 26.4 k g/m2 MED[facility] ([facility]) Heart rate 102 /min 102 /min [facility] ([facility] Body temperature 96.8 [degF] 96.8 [degF] MED[facility] ([facility]) Body weight 149 [lb_av] 149 [lb_av] eCW1 ([facility]) Body height 63.75 [in_i] 63.75 [in_i] eCW1 ([facility]) Body mass index (BMI) [Ratio] 25.77 kg/m2 25.77 kg/m2 eCW1 ([facility]) Heart rate 104 /min 104 /min eCW1 ([facility]) Respiratory rate 18 /min 18 /min eCW1 ([facility]) Body temperature 98.1 [degF] 98.1 [degF] eCW1 ( [facility]) Systolic blood pressure 130 mm[Hg] 130 mm[Hg] e CW1 ([facility]) Diastolic blood pressure 93 mm[Hg] 93 mm[Hg] eCW1 ([facility]) Body weight 151 [lb_av] 151 [lb_av] eCW1 ([facility]) Body height 63.75 [in_i] 63.75 [in_i] eCW1 ([facility]) Body mass index (BMI) [Ratio] 26.12 kg/m2 26.12 kg/m2 eCW1 ([facility]) Heart rate 147 /min 147 /min eCW1 ([facility]) Respiratory rate 17 /min 17 /min eCW1 ([facility]) Body temperature 98.2 [degF] 98.2 [degF] eCW1 ( [facility]) Systolic blood pressure 118 mm[Hg] 118 mm[Hg] e CW1 ([facility]) Diastolic blood pressure 68 mm[Hg] 68 mm[Hg] eCW1 ([facility]) Patient Treatment Plan of Care Planned Activity Planned Date Details Description Data Source (s) Fluoxetine 20 MG Oral Capsule 12/02/2020 12:00:00 AM EDT eCW1 ([facility]) Fluoxetine 20 MG Oral Capsule 12/02/2020 12:00:00 AM EDT eCW1 ([facility]) tramadol hydrochloride 50 MG Oral Tablet 12/01/2020 12:00:00 AM EDT eCW1 ([facility]) tramadol hydrochloride 50 MG Oral Tablet 12/01/2020 12:00:00 AM EDT eCW1 ([facility]) tramadol hydrochloride 50 MG Oral Tablet 12/01/2020 12:00:00 AM EDT eCW1 ([facility]) Ondansetron 4 MG Disintegrating Oral Tablet 08/31/2020 12:00:00 AM EDT eCW1 ([facility]) Ondansetron 4 MG Disintegrating Oral Tablet 08/31/2020 12:00:00 AM EDT eCW1 ([facility]) Ondansetron 4 MG Disintegrating Oral Tablet 08/31/2020 12:00:00 AM EDT eCW1 ([facility]) Ondansetron 4 MG Disintegrating Oral Tablet 08/31/2020 12:00:00 AM EDT eCW1 ([facility]) tramadol hydrochloride 50 MG Oral Tablet 08/31/2020 12:00:00 AM EDT eCW1 ([facility]) tramadol hydrochloride 50 MG Oral Tablet 08/31/2020 12:00:00 AM EDT eCW1 ([facility]) Ondansetron 4 MG Disintegrating Oral Tablet 08/31/2020 12:00:00 AM EDT eCW1 ([facility])
--- OUTSIDE RECORDS SUMMARY | 2021-01-26 08:46 | CCD ---
Author Author [facility] Organization [facility] Address Unknown Phone Unavailable Care Team Providers Care Machinist Instructor Name Role Phone NobleJl gomez Unavailable PROBLEMS Type Condition ICD9-CM Code [id number] Code Onset Dates Condition S tatus W/U Status Risk SNOMED Code Notes Problem Healthcare maintenance Z00.00 Active confirmed 422244726 Problem Anxiety F41.9 Active confirmed 28552171 Problem Smoking F17.200 Active confirmed 85444029 Problem Symptoms consistent with irritable bowel syndrome K58.9 Active confirmed 61436245 Problem Tobacco use disorder F17.200 Active confirmed 181493281 Problem Scoliosis of thoracolumbar spine, unspecified scoliosis ty pe M41.9 Active confirmed 233179813 Problem Left renal artery stenosis I70.1 Active confi rmed [id number] Problem Other chronic pain G89.29 Active confirmed 8 0968063 Problem 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 Acti ve confirmed 228816714 Problem Depression, unspecified depression type F32.9 Active confirmed 55601311 Problem Leukocytosis, unspecified type D72.829 Active confi rmed 237734051 Problem Persistent asthma with undetermined severity J45.9 98 Active confirmed 261128650 Problem Paresthesia of skin R20.2 Active confirmed 29115246 Problem Other cirrhosis of liver K74.69 Active confirmed 41948842 ALLERGIES No Known Allergies ENCOUNTERS from 1986 to 2020-12-08 Encounter Location Date Provider Diagnosis [facility] [address] [facility] [phone] [place] [address] Nov, Jl Noble IMMUNIZATIONS Vaccine Route Administration Date Status Influenza [...] diarrhoea for 30 day(s) July, Not-Taki ng Zofran 4 MG 1 tablet Orally every 6 hours as needed for vomiting for 30 Not-Taking traMADol HCl 50 MG 1 tablet as needed Orally Once a day Not-Taking traMADol HCl 50 MG 1 tablet as needed Orally three times a day for 5 days For severe pain ()Please call office to make an appointment Nov, Active Albuterol Sulfate HFA 108 (90 Base) MCG/ACT 2 puffs In halation Every 4-6 hours as needed for 30 days Active Ondansetron 4 MG 1 tablet on the tongue and a llow to dissolve Orally three times a day for 30 day(s) Aug, Active Lidocaine 4 % as directed Externally Once a day for 30 days Sep, Not-Taking Omeprazole 40 MG 1 capsule 30 minutes before morning meal Orally Once a day for 30 day(s) Sep, Not-Taking Dicyclomine HCl 10 MG 1 cap Orally Three times a day Not-Taking FLUoxetine HCl 20 MG 2 capsule Orally Once a day for 90 days Nov, Active PROzac 40 MG 1 capsule Orally Once a day for 90 day(s) Jun, Not-Taking Acetaminophen Not-Taking Gabapentin 600 MG 1 tab Orally three times daily for 90 days July, Active Spironolactone 50 MG 1 tablet Orally Once a day for 30 day(s) Not-Taking Furosemide 20 MG 1 tablet Orally Once a day for 30 day(s) Not-Taking PROCEDURES No Information RESULTS No Results REASON FOR VISIT Follow up MEDICAL (GENERAL) HISTORY Type Description Date Medical History Asthma- childhood Medical History IBS Medical History Colonoscopy 2011-normal, Dr. 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 Surgical History C section 2008 Hospitalization History as above Hospitalization History Liver Cirhosis.ascitis 09/20/2019 Hospitalization History abdominal pain 08/20/20 Goals Section No Information Health Concerns No Information MEDICAL EQUIPMENT No Information MENTAL STATUS No Information FUNCTIONAL STATUS No Information ASSESSMENTS No Information PLAN OF TREATMENT Medication Medication Name Sig Start Date Stop Date Ondansetron 4 MG 1 tablet on the tongue and a llow to dissolve Orally three times a day for 30 day(s) Aug, Gabapentin 600 MG 1 tab Orally three times daily for 90 days July, Albuterol Sulfate HFA 108 (90 Base) MCG/ACT 2 puffs In halation Every 4-6 hours as needed for 30 days traMADol HCl 50 MG 1 tablet as needed Orally three times a day for 5 days Nov, FLUoxetine HCl 20 MG 2 capsule Orally Once a day for 90 days Nov, Insurance Providers Payer Name Payer Address Payer Phone Insured Name Patient Relati onship to Insured Coverage Start Date Coverage End Date [facility] [employer] CLAIMS DEPT [place] [id number] [phone] MELISA ZIMMERMAN self
--- OUTSIDE RECORDS SUMMARY | 2021-01-26 08:46 | CCD ---
Author Author [facility] Organization [facility] Address Unknown Phone Unavailable Care Team Providers Care Shingle Cutter Name Role Phone NobleJl gomez Unavailable PROBLEMS Type Condition ICD9-CM Code [id number] Code Onset Dates Condition S tatus W/U Status Risk SNOMED Code Notes Problem Healthcare maintenance Z00.00 Active confirmed 393762209 Problem Anxiety F41.9 Active confirmed 75397846 Problem Smoking F17.200 Active confirmed 32329076 Problem Symptoms consistent with irritable bowel syndrome K58.9 Active confirmed 58914607 Problem Tobacco use disorder F17.200 Active confirmed 678637733 Problem Scoliosis of thoracolumbar spine, unspecified scoliosis ty pe M41.9 Active confirmed 494569415 Problem Left renal artery stenosis I70.1 Active confi rmed [id number] Problem Other chronic pain G89.29 Active confirmed 8 6848653 Problem 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 Acti ve confirmed 231371588 Problem Depression, unspecified depression type F32.9 Active confirmed 21184987 Problem Leukocytosis, unspecified type D72.829 Active confi rmed 124452103 Problem Persistent asthma with undetermined severity J45.9 98 Active confirmed 354427526 Problem Paresthesia of skin R20.2 Active confirmed 03498941 Problem Other cirrhosis of liver K74.69 Active confirmed 65018309 ALLERGIES No Known Allergies ENCOUNTERS from 1986 to 2020-12-02 Encounter Location Date Provider Diagnosis [facility] [address] [facility] [phone] [place] [address] Nov, Jl Noble IMMUNIZATIONS Vaccine Route Administration [...] Information RESULTS No Results REASON FOR VISIT PA Fluoxetine 20mg tablets, #180/90 MEDICAL (GENERAL) HISTORY Type Description Date Medical [...] Insured Coverage Start Date Coverage End Date [facility] [employer] CLAIMS DEPT [place] [phone] MELISA ZIMMERMAN self
[2021-01-26] MEDS ORDERED: TRAM1CAP15 PO (09:02)
--- OUTSIDE RECORDS SUMMARY | 2021-01-26 10:32 | CCD ---
Author Author [facility] Organization [facility] Address Unknown Phone Unavailable Care Team Providers Care Tool Repairer Name Role Phone JAYASHREE DAVID MD Unavailable Unavailable JAYASHREE DAVID MD Unavailable Unavailable JAYASHREE DAVID MD Unavailable Unavailable JAYASHREE DAVID MD Unavailable Unavailable JAYASHREE DAVID MD Unavailable Unavailable JAYASHREE DAVID MD Unavailable Unavailable JAYASHREE DAIVD MD Unavailable Unavailable JAYASHREE DAVID MD Unavailable [...] Unavailable Unavailable Anup Parikh MD Unavailable Unavailable Aunp Parikh MD Unavailable Unavailable Anup Parikh MD [...] is protected by Article 27-F of the [facility] Public Health law. If you continue you may have access to information: Regarding HIV / AIDS; Provided by facilities licensed or operated by the [facility] Office of Mental Health; or Provided by the [facility] Office for People With Developmental Disabilities. If such information is present, then the following [facility] mandated warning applies: This information has been [...] law may result in a fine or fci sentence or both. A general authorization for the release of medical or other information is NOT sufficient authorization for further disc losure. Family History Family Member Name Family Member Gender Family Member Status Date o f Status Description Data Source(s) Unknown Unknown Problem MEDENT ([facility]) Aunt and GF Unknown Male Problem MEDENT ([facility] ) Encounters Encounter Providers Location Date Indications Data Source(s ) Outpatient Attender: Catarina FRY PA-C 02/19/2021 12: 00:00 AM [facility] Outpatient Attender: Catarina FRY PA-C 01/13/2021 12: 00:00 AM [facility] Outpatient Attender: Catarina FRY PA-C 01/11/2021 12: 00:00 AM [facility] Outpatient Attender: Anup Parikh MD 12/29/2020 12:00:00 AM [facility] [place] [address] [facility] [address] 12/01/2020 12:00:00 AM EDT [facility] ([facility]) [place] [address] [facility] [address] 12/01/2020 12:00:00 AM EDT eCW1 ([facility]) [place] [address] [facility] [place] [address] 12/01/2020 12:00:00 AM EDT eCW1 ([facility]) Outpatient Attender: LOLA CLARK MD Main Office 11/24/2020 02:15:0 0 PM EDT MEDENT ([facility]) Outpatient Attender: Catarina Huertar : KALEY DAVID MD [id number] 11/06/2020 12:00:00 AM EDT - 11/09/2020 09:32:25 AM [facility] Outpatient Attender: LOLA CLARK MD Main Office 10/14/2020 11:20:0 0 AM EDT MEDENT ([facility]) Outpatient Attender: LOLA CLARK MD Main Office 09/18/2020 03:00:0 0 PM EDT MEDENT ([facility]) Unknown [address] [facility] [place] [address] 08/31/2020 12:00:00 AM EDT eCW1 ([facility]) Outpatient [address] [facility] [address] 08/31/2020 12:00:00 AM EDT eCW1 ([facility]) Unknown [address] [facility] [place] [address] 08/24/2020 12:00:00 AM EDT eCW1 ([facility]) Outpatient Attender: DARRELL WATKINS [id number] 08/21/2020 04:08:18 PM [facility] Outpatient Attender: Anup HOWARDeferrer: KALEY DAVID MD 08/21/2020 12:00:00 AM [facility] Outpatient [address] [facility] [place] [address] 08/20/2020 12:00:00 AM EDT eCW1 ([facility]) [place] [address] [facility] [address] 08/19/2020 12:00:00 AM EDT eCW1 ([facility]) [place] [address] [facility] [address] 08/17/2020 12:00:00 AM EDT eCW1 ([facility]) [place] [address] [facility] [address] 06/15/2020 12:00:00 AM EDT eCW1 ([facility]) [place] [address] [facility] [address] 05/26/2020 12:00:00 AM EDT eCW1 ([facility]) [place] [address] [facility] [place] [address] 05/19/2020 12:00:00 AM EST eCW1 ([facility]) [place] [address] [facility] [address] 05/18/2020 12:00:00 AM EST eCW1 ([facility]) Outpatient 05/10/2020 10:04:28 AM EST DocuTap ([facility]) Unknown [address] [facility] [address] 03/24/2020 12:00:00 AM EST eCW1 ([facility]) [place] [address] [facility] [address] 02/27/2020 12:00:00 AM EST eCW1 ([facility]) [place] [address] [facility] [address] 02/14/2020 12:00:00 AM EST eCW1 ([facility]) [place] [address] [facility] [place] [address] 02/14/2020 12:00:00 AM EST eCW1 ([facility]) [place] [address] [facility] [address] 01/06/2020 12:00:00 AM EDT eCW1 ([facility]) [place] [address] [facility] [address] 01/06/2020 12:00:00 AM EDT eCW1 ([facility]) Medications Medication Brand Name Start Date Product Form Dose Route Admi nistrative Instructions Pharmacy Instructions Status Indications Reaction Description Data Source(s) Fluoxetine 20 MG Oral Capsule FLUoxetine HCl 20 MG FLUoxetin e HCl 20 MG 12/02/2020 12:00:00 AM EDT 2.0 {capsule} active FLUoxetine HCl 20 MG eCW1 ([facility]) 20 mg 12/02/2020 12:00:00 AM EDT capsule [...] {capsule} active FLUoxetine HCl 20 MG eCW1 ([facility]) tramadol hydrochloride 50 MG Oral Tablet traMADol HCl 50 MG traMADol HCl 50 MG 12/01/2020 12:00:00 AM EDT 1.0 {tablet_as_needed} active traMADol HCl 50 MG eCW1 ([facility]) tramadol hydrochloride 50 MG Oral Tablet traMADol HCl 50 MG traMADol HCl 50 MG 12/01/2020 12:00:00 AM EDT 1.0 {tablet_as_needed} active traMADol HCl 50 MG eCW1 ([facility]) 90 mcg/actuation 12/01/2020 12:00:00 AM EDT HFA aerosol inha ler 18 INHALE TWO PUFFS BY MOUTH EVERY 4 TO 6 HOURS NEEDED INHALE TWO PUFFS BY MOUTH EVERY 4 TO 6 HOURS NEEDED SOLD: 12/02/2020 [email or web address] ([facility] tramadol hydrochloride 50 MG Oral Tablet traMADol HCl 50 MG traMADol HCl 50 MG 12/01/2020 12:00:00 AM EDT 1.0 {tablet_as_needed} active traMADol HCl 50 MG eCW1 ([facility]) Ondansetron 4 MG Disintegrating Oral Tablet ONDANSETRON [...] {tablet_as_needed} active traMADol HCl 50 MG eCW1 ([facility]) Ondansetron 4 MG Disintegrating Oral Tablet Ondansetron 4 MG 08/31/2020 12:00:00 AM EDT 1.0 {tablet_on_the_tongue_and_allow_to_dissolve} active Ondansetron 4 MG eCW1 ([facility]) Ondansetron 4 MG Disintegrating Oral Tablet Ondansetron 4 MG 08/31/2020 12:00:00 AM EDT 1.0 {tablet_on_the_tongue_and_allow_to_dissolve} active Ondansetron 4 MG eCW1 ([facility]) Ondansetron 4 MG Disintegrating Oral Tablet ONDANSETRON [...] 1.0 {tablet_on_the_tongue_and_allow_to_dissolve} active Ondansetron 4 MG eCW1 ([facility]) tramadol hydrochloride 50 MG Oral Tablet traMADol HCl 50 MG traMADol HCl 50 MG 08/31/2020 12:00:00 AM EDT 1.0 {tablet_as_needed} active traMADol HCl 50 MG eCW1 ([facility]) 50 mg 08/31/2020 12:00:00 AM EDT tablet [...] 1.0 {tablet_on_the_tongue_and_allow_to_dissolve} active Ondansetron 4 MG W1 ([facility]) Ondansetron 4 MG Disintegrating Oral Tablet Ondansetron 4 MG 08/31/2020 12:00:00 AM EDT 1.0 {tablet_on_the_tongue_and_allow_to_dissolve} active Ondansetron 4 MG eCW1 ([facility]) 4 mg 08/23/2020 12:00:00 AM EDT tablet [...] DAILY DOSE = 3 TABLETS SOLD: 07/02/2020 [employer] [facility] Insurance Providers Payer name Policy type / Coverage type Policy ID Covered democrat ID Covered democrat's relationship to smith Policy Smith Plan Information [facility] Plan Commercial [id number] Self [id number] [facility] Plan Commercial [id number] Self [id number] [facility] Plan Commercial [id number] Self [id number] [facility] Plan Commercial [id number] Self [id number] [facility] Plan Commercial [id number] Self [id number] [facility] Plan Commercial [id number] Self [id number] [facility] Plan Commercial [id number] Self [id number] [facility] Community Plan Commercial [id number] Self [id number] [facility] Plan Commercial [id number] Self [id number] [facility] Community Plan Commercial [id number] Self [id number] [facility] Community Plan Commercial [id number] Self [id number] [facility] COMMUNITY PLAN [facility] [id number] SP [id number] [facility] COMMUNITY PLAN [facility] [id number] SP [id number] MEDICAID [id number] SP [id number] [facility] COMMUNITY PLAN [facility] [id number] SP [id number] ADIS I [id number] Self [id number] MEDICAID M [id number] S [id number] [facility]-Medicaid [id number] Medicaid [place] Medicaid [id number] Self [id number] [facility]) O [id number] S [id number] SELF PAY ONLY [id number] SP [id number] SELF PAY UNAVAILABLE SP UNAVAILA BLE ADIS [id number] SP [id number] ADIS [id number] SP [id number] [place] [id number] S [id number] [place] [id number] S [id number] SELF PAY ONLY - [id number] SP [id number] ANSI-Medicaid [id number] [facility] [id number] [facility]-Medicaid [id number] [facility]-Medicaid [id number] [facility] [id number] [facility]-Medicaid [id number] [facility]-Medicaid [id number] [facility]-Medicaid [id number] ANSI-Medicaid [id number] [facility]) [id number] MEDICAID [id number] SP [id number] Problems, Conditions, and Diagnoses Code Display Name Description Problem Type Effective Dates Data Source(s) 05306330 Renal vascular disorder Renal vascular disorder Proble m 09/17/2020 12:00:00 AM EDT TANVIR ([facility]) K55.1 [id number] Superior mesenteric artery syndrome Probl em 08/17/2020 12:00:00 AM EDT eCW1 ([facility]) I70.1 [id number] Left renal artery stenosis Problem 08/17/2020 12:00:00 AM EDT eCW1 ([facility]) Surgeries/Procedures Procedure Description Date Indications Data Source(s) OFFICE OUTPATIENT VISIT 15 MINUTES 11/24/2020 12:00:00 AM EDT MEDENT ([facility]) OFFICE OUTPATIENT VISIT 15 MINUTES 10/14/2020 12:00:00 AM EDT MEDENT ([facility]) OFFICE OUTPATIENT NEW 45 MINUTES 09/18/2020 12:00:00 A M EDT MEDENT ([facility]) Results ID Date Data Source [id number] 11/09/2020 01:22:25 PM EDT [facility] Name Value Range Interpretation Code Description Data Jolene rce(s) Supporting Document(s) Progress Note [facility] MHPDNt2pBbCHXkVv72/IKKmpXOVth6DkELyiPMi2QMupPCMjD4RyPHF4rG5uQSB7UGrXAbHeDfCsODXr lbm [file] Y3QROmRUEiZ4OfEd4jQXJBJh8+OWdlqFBxnPqdXTSDKoD9Pxj2HEmuQESQFt6C ID Date Data Source [id number] 08/21/2020 04:08:18 PM EDT [facility] Name Value Range Interpretation Code Description Data Jolene rce(s) Supporting Document(s) Progress Note [facility] GIQGZe7nRcHMJjHm48/AUCsfEEWuk7RiGSznBDl5CQqeMNLwO1YeWHT2dP6aQYQ2PSzTWqAyEgJbJzZo lbm [file] AgICAgICAgICAgICAgICAgICAgICAgICAgICAgICAgICAgICAgICAgICAgICAgICAgICAgICAgDQogIC AgICAgICAgICAgICAgICAgICAgICAgICAgICAgICAg ICAgICAgICAgICAgICAgICAgICAgICAgICAgICAgICAgICAgICAgICAgICAgICAgICAgICAgICAgICAg ICAgICAgDQogICAgICAgICAgICAgICAgICAgICAgICAgICAgICAgICAgICAgICAgICAgICAgICAgICAg ICAgICAgICAgICAgICAgICAgICAgICAgICAgICAgIC AgICAgICAgICAgICAgICAgDQogICAgICAgICAgICAgICAgICAgICAgICAgICAgICAgICAgICAgICAgIC AgICAgICAgICAgICAgICAgICAgICAgICAgICAgICAgICAgICAgICAgICAgICAgICAgICAgICAgICAgDQ ogICAgICAgICAgICAgICAgICAgICAgICAgICAgICAg ICAgICAgICAgICAgICAgICAgICAgICAgICAgICAgICAgICAgICAgICAgICAgICAgICAgICAgICAgICAg ICAgICAgICAgDQogICAgICAgICAgICAgICAgICAgICAgICAgICAgICAgICAgICAgICAgICAgICAgICAg ICAgICAgICAgICAgICAgICAgICAgICAgICAgICAgIC AgICAgICAgICAgICAgICAgICAgDQogICAgICAgICAgICAgICAgICAgICAgICAgICAgICAgICAgICAgIC AgICAgICAgICAgICAgICAgICAgICAgICAgICAgICAgICAgICAgICAgICAgICAgICAgICAgICAgICAgIC AgDQogICAgICAgICAgICAgICAgICAgICAgICAgICAg ICAgICAgICAgICAgICAgICAgICAgICAgICAgICAgICAgICAgICAgICAgICAgICAgICAgICAgICAgICAg ICAgICAgICAgICAgDQogICAgICAgICAgICAgICAgICAgICAgICAgICAgICAgICAgICAgICAgICAgICAg ICAgICAgICAgICAgICAgICAgICAgICAgICAgICAgIC AgICAgICAgICAgICAgICAgICAgICAgDQogICAgICAgICAgICAgICAgICAgICAgICAgICAgICAgICAgIC AgICAgICAgICAgICAgICAgICAgICAgICAgICAgICAgICAgICAgICAgICAgICAgICAgICAgICAgICAgIC XgVMCbKKx5J6xzBOBiVVJaJA3lAAb2Of5+DQoNCmVu NTL0qzWaiX8IWN1ou5ShWSmnZKIaw3IoYCx1RF7EGRHzCTzgTI3KFPnrkv2PDHYpVFVnzEATh8ncMnKc AMG6HRUwMixzSX4BRRGlO4pwvvGzQSVkJLTKPN5ZXsNwK9KamZ17QFZMCy1+IFptuiLvCprZFrW7KSRz d8PbOOs7MI0QHBLoXouwl5VtJbSlTPRAWAahLC6CNA G1DGQtWJYoZx3ASSDaE585nkDcOE0VHu2DQkNjON7wxm1MHgUmMZMpXlyAFwq9LVsyZG4HxZCaAZvQmt 7qghDcsqRKd2ReilXzpXCWReJ6gFXCkWF9qMGyNX7PRvEbKMKoFm1pXX7wKDPsPHU5MaB6MRMIQX2FDQ KoARMjcVBvXZCzZLWMDF8BQFaaWLR6PECaocVmtHQb CWltXG2BSWKhxbBrVZjdSFAXMTh+Yc3HTJ8yf1IzLYlmCUByBD3vyg7ESWaWXlIrD4H5fWAnQ2A6WBam Sv9IJEQlYXSqJNarOULUGOspRP3UKZ8fofM2NT5MqNWcKCReGEHsrIRjZBe8X95psIQiVEbyEX0XNWY+ Celina+Ma2SVXOfIDBxLQPyMfKkLGFROwWrH0OsT0ZYa8 TrP2QxZM54fKkccuJuWMpvHI9QHZ3xEOEnYOGGRO1JhSKwpQ0lhqYdLYJnUOIDXmNfM24eaTSnRVSyYR V3WKSfTf9IGEXcE3TvpoSnvWqsviBfCWYqINSJZZ9HDLlqjcRqlDIioUxwGW39gCvgGJ0JDk6BLzJfAV 8axt1DkQXfUz6XNOIfYm4SMBRhDHBlNEUmCHT4DNVr ExTsCUlnOBZuHQUwWES3JNDbQSXkKQ3CCdCvAMFbRRj5ESVhSNXrXQKkja2ALABkVEUyLVtsUpVoJTWh CEDbZKquRNUzAHEeIJT8FTOnGGBtOF4TJxSzUKUpESD2QaEoMSLwENQzkk6AKFPyKGNzTkUhEBQgWZSr YTOjWGgvFOSpASFeSByvKUBlLUVtSM0DKwUsOMWvTV UwGhcsYJJvWUWthb6OHECpWNYwECC5MEFaVJJjKOAvAJpaZTSgEBO8ZzS3ZSCuEXZbHG2RXiYvMCLzPG F7UYoaCHVoZDArys2STLLsCTMbVGvvAdUrQZOcWQPkWWhgHJHtITH5QUCkNTGjEHSsQF7JQoWuEVIkSK olTpqgWHHbRCSpwa7AQWTzHXBgBwY8JlLhDSSnZXSk TRnuPTPlJJW6PHA3ROXeMYNxUK6YRjFsEHHiKXc9NiVvRVQiLZHbqz5WATXoXNTzCXE8HjXtWIIaHTIl RYvhINJbARA5KCOjPWTfFSIlAB5UEhFgKCNuPJx4SGGnBLAoKPFddf9ERJQmLLBfKKJxAJDhAQHgXSSq ZPe2bmPtxNRyJQp6AH4DK6IzkhRqIuVEKx3Kf753IO XtCRKgQp0YY0ubFe7kVUTqILCRZs4ZKMs9TBJ5QmK6BAJbFXV3BaR0ZlBjSBh4MYIpUaD0HEdoMAA+ID wlUTwhKCxaVRObPTVcEZsvXSP0OjL6QgAsCsU3TLIwLa5yYVGZJz9+XJqonJUvoZyuISMWPuMrFbf8TH nyKDJGWs4Q ID Date Data Source [id number] 08/20/2020 10:26:00 AM EDT [facility] Name Value Range Interpretation Code Description Data Jolene rce(s) Supporting Document(s) SARS coronavirus 2 RNA [Presence] in Res piratory specimen by MILTON with probe detection NEGATIVE [facility] This lab was ordered by [facility] a nd reported by [facility]. ID Date Data Source [id number] 06/09/2020 09:35:00 AM EDT [facility] Name Value Range Interpretation Code Description Data Jolene rce(s) Supporting Document(s) SARS-CoV-2 (COVID-19) RNA [Presence] in Respiratory specimen by MILTON with probe detection Not Detected [facility] This lab was ordered by [facility] and reported by [facility]. ID Date Data Source [id number] 05/10/2020 12:11:00 PM EST [facility] Name Value Range Interpretation Code Description Data Jolene rce(s) Supporting Document(s) SARS coronavirus 2 RNA Not Detected [facility] This lab was ordered by [facility] and reported by [facility]. ID Date Data Source [id number] 05/10/2020 11:35:00 AM EST [facility] Name Value Range Interpretation Code Description Data Jolene rce(s) Supporting Document(s) SARS COVID ANTIGEN NEGATIVE [facility] This lab was ordered by JOHNNIE [facility]TO[facility] a nd reported by [facility]. ID Date Data Source [facility] 12/10/2019 12:57:29 PM EDT eCW1 ([facility]) Name Value Range Interpretation Code Description Data Jolene rce(s) Supporting Document(s) [facility] US eCW1 ([facility]) ID Date Data Source FERRITIN 12/10/2019 04:29:46 AM EDT eCW1 ([facility]) Name Value Range Interpretation Code Description Data Jolene rce(s) Supporting Document(s) 26 FERRITIN eCW1 ([facility]) ID Date Data Source PT-INR 12/10/2019 04:29:46 AM EDT eCW1 ([facility]) Name Value Range Interpretation Code Description Data Jolene rce(s) Supporting Document(s) Prothrombin time (PT) 15.7 PROTHROMBIN TI ME eCW1 ([facility]) INR in Platelet poor plasma by Coagulation assay 1.28 INR eCW1 ([facility]) ID Date Data Source TOTAL IRON BINDING CAPACIT 12/10/2019 04:29:46 AM EDT eCW1 ( [facility]) Name Value Range Interpretation Code Description Data Jolene rce(s) Supporting Document(s) 16 IRON (FE) eCW1 ([facility]) 4.8 PERCENT SATURATION eCW1 ([facility]) 335 TOTAL IRON BINDING CAPACITY eC W1 ([facility]) ID Date Data Source Comprehensive Metabolic Profile (CMP) 12/10/2019 04:29:46 AM EDT eCW1 ([facility]) Name Value Range Interpretation Code Description Data Jolene rce(s) Supporting Document(s) 84 GLUCOSE, FASTING eCW1 ([facility]) 0.78 CREATININE FOR GFR eCW1 ([facility]) 11 BLOOD UREA NITROGEN eCW1 ([facility]) 107 CHLORIDE LEVEL eCW1 ([facility]) 4.1 POTASSIUM SERUM eCW1 ([facility]) > 60.0 GLOMERULAR FILTRATION RATE eCW 1 ([facility]) 139 SODIUM LEVEL eCW1 ([facility]) 27 CARBON DIOXIDE LEVEL eCW1 ([facility]) 8.7 CALCIUM LEVEL eCW1 ([facility]) 40 ALT/SGPT eCW1 ([facility]) 67 AST/SGOT eCW1 ([facility]) 7.3 TOTAL PROTEIN eCW1 ([facility]) 2.6 ALBUMIN eCW1 ([facility]) 1.4 BILIRUBIN,TOTAL eCW1 ([facility]) 180 ALKALINE PHOSPHATASE eCW1 ([facility]) 0.6 ALBUMIN/GLOBULIN RATIO eCW1 ([facility]) ID Date Data Source CBC with Differential 12/10/2019 04:29:46 AM EDT eCW1 ([facility]) Name Value Range Interpretation Code Description Data Jolene rce(s) Supporting Document(s) 11.4 HEMOGLOBIN eCW1 ([facility]) 5.6 WHITE BLOOD COUNT eCW1 ([facility]) 3.49 RED BLOOD COUNT eCW1 ([facility]) 35.8 HEMATOCRIT eCW1 ([facility]) 102.6 MEAN CORPUSCULAR VOLUME eCW1 ( [facility]) 32.7 MEAN CORPUSCULAR HEMOGLOBIN eC W1 ([facility]) 31.8 MEAN CORPUSCULAR HGB CONC eCW1 ([facility]) 186 PLATELET COUNT, AUTOMATED eCW1 ([facility]) 70.4 NEUTROPHILS % eCW1 ([facility]) 19.4 RED CELL DISTRIBUTION WIDTH eC W1 ([facility]) 19.1 LYMPH % eCW1 ([facility]) 1.4 EOS % eCW1 ([facility]) 8.4 MONO % eCW1 ([facility]) 0.5 BASO % eCW1 ([facility]) 1.1 LYMPH # eCW1 ([facility]) 3.9 NEUTROPHILS # eCW1 ([facility]) 0.1 EOS # eCW1 ([facility]) 0.5 MONO # eCW1 ([facility]) 0.0 BASO # eCW1 ([facility]) ID Date Data Source AMMONIA 12/10/2019 04:29:46 AM EDT eCW1 ([facility]) Name Value Range Interpretation Code Description Data Jolene rce(s) Supporting Document(s) 22 AMMONIA eCW1 ([facility]) Procedure Social History Code Duration Value Status Description Data Source(s ) 11/24/2020 12:00:00 AM EDT Heavy tobacco smoker (more than 10 cigarettes/day) completed Heavy tobacco smoker (more than 10 cigarettes/day) MED ENT ([facility]) 11/24/2020 12:00:00 AM EDT Patient is a current smoker, smokes every day completed Patient is a current smoker, smokes every day MEDENT ( [facility]) Alcohol intake 11/06/2020 12:00:00 AM EDT Current drinker of al cohol (finding) completed Current drinker of alcohol (finding) [facility] Tobacco use and exposure 11/06/2020 12:00:00 AM EDT Never used co mpleted Never used [facility] Cigarettes smoked current (pack per day) - Reported 11/07/19 12:00:00 AM EDT UNK completed [facility] Smoking 11/06/2020 12:00:00 AM EDT Current every day smoker co mpleted Current every day smoker [facility] ETOH Use 09/18/2020 12:00:00 AM EDT Occasionally consumes alcoh ol completed Occasionally consumes alcohol MEDENT ([facility]) 09/18/2020 12:00:00 AM EDT Currently smokes 1-5 Cigare ttes Daily completed Currently smokes 1-5 Cigarettes Daily MED[facility] ([facility]) Smoking 08/31/2020 12:00:00 AM EDT Current Smoker completed Curre nt Smoker eCW1 ([facility]) Smoking 08/31/2020 12:00:00 AM EDT Current Smoker completed Curre nt Smoker eCW1 ([facility]) Smoking 08/31/2020 12:00:00 AM EDT Current Smoker completed Curre nt Smoker eCW1 ([facility]) Smoking 08/31/2020 12:00:00 AM EDT Current Smoker completed Curre nt Smoker eCW1 ([facility]) Smoking 08/31/2020 12:00:00 AM EDT Current Smoker completed Curre nt Smoker eCW1 ([facility]) Smoking 08/20/2020 12:00:00 AM EDT Current Smoker completed Curre nt Smoker eCW1 ([facility]) Smoking 08/20/2020 12:00:00 AM EDT Current Smoker completed Curre nt Smoker eCW1 ([facility]) Vital Signs ID Date Data Source UNK [...] k g/m2 MEDENT ([facility]) Systolic blood pressure 140 mm[Hg] 140 mm[Hg] M EDENT ([facility]) Diastolic blood pressure 82 mm[Hg] 82 mm[Hg] MEDENT ([facility]) Heart [...] k g/m2 MEDENT ([facility]) Body weight 149 [lb_av] 149 [lb_av] eCW1 ([facility]) Body height 63.75 [in_i] 63.75 [in_i] eCW1 ([facility]) Body mass index (BMI) [Ratio] 25.77 kg/m2 25.77 kg/m2 eCW1 ([facility]) Heart rate 104 /min 104 /min eCW1 ([facility]) Respiratory rate 18 /min 18 /min eCW1 ([facility]) Body temperature 98.1 [degF] 98.1 [degF] eCW1 ( [facility]) Systolic blood pressure 130 mm[Hg] 130 mm[Hg] e CW1 ([facility]) Diastolic blood pressure 93 mm[Hg] 93 mm[Hg] eCW1 ([facility]) Body weight 151 [lb_av] 151 [lb_av] eCW1 ([facility]) Body height 63.75 [in_i] 63.75 [in_i] eCW1 ([facility]) Body mass index (BMI) [Ratio] 26.12 kg/m2 26.12 kg/m2 eCW1 ([facility]) Heart rate 147 /min 147 /min eCW1 ([facility]) Respiratory rate 17 /min 17 /min eCW1 ([facility]) Body temperature 98.2 [degF] 98.2 [degF] eCW1 ( [facility]) Systolic blood pressure 118 mm[Hg] 118 mm[Hg] e CW1 ([facility]) Diastolic blood pressure 68 mm[Hg] 68 mm[Hg] eCW1 ([facility]) Patient Treatment Plan of Care Planned Activity Planned Date Details Description Data Source (s) Fluoxetine 20 MG Oral Capsule 12/02/2020 12:00:00 AM EDT eCW1 ([facility]) Fluoxetine 20 MG Oral Capsule 12/02/2020 12:00:00 AM EDT eCW1 ([facility]) tramadol hydrochloride 50 MG Oral Tablet 12/01/2020 12:00:00 AM EDT eCW1 ([facility]) tramadol hydrochloride 50 MG Oral Tablet 12/01/2020 12:00:00 AM EDT eCW1 ([facility]) tramadol hydrochloride 50 MG Oral Tablet 12/01/2020 12:00:00 AM EDT eCW1 ([facility]) Ondansetron 4 MG Disintegrating Oral Tablet 08/31/2020 12:00:00 AM EDT eCW1 ([facility]) Ondansetron 4 MG Disintegrating Oral Tablet 08/31/2020 12:00:00 AM EDT eCW1 ([facility]) Ondansetron 4 MG Disintegrating Oral Tablet 08/31/2020 12:00:00 AM EDT eCW1 ([facility]) Ondansetron 4 MG Disintegrating Oral Tablet 08/31/2020 12:00:00 AM EDT eCW1 ([facility]) tramadol hydrochloride 50 MG Oral Tablet 08/31/2020 12:00:00 AM EDT eCW1 ([facility]) tramadol hydrochloride 50 MG Oral Tablet 08/31/2020 12:00:00 AM EDT eCW1 ([facility]) Ondansetron 4 MG Disintegrating Oral Tablet 08/31/2020 12:00:00 AM EDT eCW1 ([facility])
[2021-01-26 11:01] LABS: RSV AMPLIFICATION NEGATIVE (NEGATIVE)
[2021-01-26] MEDS ORDERED: ONDANSETRON 4MG/2ML VIAL IV ONE (11:30)
[2021-01-26] MEDS ORDERED: NS 500 ML IV ONE (11:30)
[2021-01-26 12:07] LABS: BASO % 0.6 % (0.0-1.0); EOS # 0.1 10^3/uL (0.0-0.5); EOS % 1.4 % (0.0-3.0); HEMOGLOBIN 11.6 g/dl (12.0-15.5); LYMPH # 0.9 10^3/uL (1.5-5.0); LYMPH % 18.9 % (24.0-44.0); MEAN CORPUSCULAR HEMOGLOBIN 31.4 pg (27.0-33.0); MEAN CORPUSCULAR HGB CONC 32.2 g/dl (32.0-36.5); MEAN CORPUSCULAR VOLUME 97.6 fl (80.0-96.0); MONO # 0.5 10^3/uL (0.0-0.8); NEUTROPHILS # 3.3 10^3/uL (1.5-8.5); NEUTROPHILS % 67.7 % (36.0-66.0); RED BLOOD COUNT 3.69 10^6/uL (4.00-5.40); WHITE BLOOD COUNT 4.9 10^3/uL (4.0-10.0)
[2021-01-26 12:14] LABS: PLATELET COUNT, AUTOMATED 74 10^3/uL (150-450)
[2021-01-26 12:32] LABS: ALBUMIN 2.3 GM/DL (3.2-5.2); ALT/SGPT 42 U/L (12-78); BILIRUBIN,DIRECT 0.7 MG/DL (0.0-0.2); BILIRUBIN,TOTAL 1.4 MG/DL (0.2-1.0); BLOOD UREA NITROGEN 5 MG/DL (7-18); CALCIUM LEVEL 7.9 MG/DL (8.5-10.1); CARBON DIOXIDE LEVEL 26 MEQ/L (21-32); CHLORIDE LEVEL 107 MEQ/L (98-107); CREATININE FOR GFR 0.64 MG/DL (0.55-1.30); GLOMERULAR FILTRATION RATE > 60.0 (>60); GLUCOSE, FASTING 103 MG/DL (70-100); LIPASE 144 U/L (73-393); POTASSIUM SERUM 3.7 MEQ/L (3.5-5.1); SODIUM LEVEL 139 MEQ/L (136-145)
[2021-01-26] MEDS ORDERED: KETOROLAC 30 MG/ML 1ML VIAL IV ONE (12:35)
[2021-01-26 12:40] LABS: HCG, SERUM QUALITATIVE NEGATIVE (NEGATIVE)
[2021-01-26 12:58] VITALS: BP 139/65
== END 2021-01-26 13:01 | disposition home or self-care (01) ==
LOC: M ED 08:37
DX: Z20.822 Contact with and (suspected) exposure to COVID-19 (principal); R05.9 Cough, unspecified; R43.9 Unspecified disturbances of smell and taste; M79.10 Myalgia, unspecified site; R10.9 Unspecified abdominal pain; R11.2 Nausea with vomiting, unspecified; R19.7 Diarrhea, unspecified; R51.9 Headache, unspecified; J45.909 Unspecified asthma, uncomplicated; F41.9 Anxiety disorder, unspecified; F32.9 Major depressive disorder, single episode, unspecified; K74.60 Unspecified cirrhosis of liver; F17.200 Nicotine dependence, unspecified, uncomplicated; Z79.899 Other long term (current) drug therapy
CPT/HCPCS: 80048; 80076; 83690; 84703; 85025; 85049; 85055; 87631; 96361; 96374; 96375; 99284; J1885; J2405

== ENCOUNTER 2021-02-23 13:26 | Inpatient (IN) | payer OTHER ==
[~2021-02-23] VITALS: Ht 157.5 cm; Wt 68.2 kg
[~2021-02-23 13:26] MED LIST changes: +TRAM1CAP15 PO
[2021-02-23 15:20] LABS: BASO # 0.1 10^3/uL (0.0-0.2); BASO % 0.7 % (0.0-1.0); EOS # 0.1 10^3/uL (0.0-0.5); EOS % 1.2 % (0.0-3.0); HEMATOCRIT 36.4 % (36.0-47.0); LYMPH # 1.5 10^3/uL (1.5-5.0); LYMPH % 19.3 % (24.0-44.0); MEAN CORPUSCULAR HEMOGLOBIN 30.9 pg (27.0-33.0); MEAN CORPUSCULAR VOLUME 93.8 fl (80.0-96.0); MONO # 0.9 10^3/uL (0.0-0.8); MONO % 11.8 % (2.0-8.0); NEUTROPHILS % 66.7 % (36.0-66.0); RED BLOOD COUNT 3.88 10^6/uL (4.00-5.40); WHITE BLOOD COUNT 7.6 10^3/uL (4.0-10.0)
[2021-02-23 15:21] LABS: PLATELET COUNT, AUTOMATED 83 10^3/uL (150-450)
[2021-02-23 15:51] LABS: ALBUMIN 1.9 GM/DL (3.2-5.2); ALT/SGPT 73 U/L (12-78); BILIRUBIN,DIRECT 1.7 MG/DL (0.0-0.2); BILIRUBIN,TOTAL 3.8 MG/DL (0.2-1.0); LIPASE 140 U/L (73-393); MAGNESIUM LEVEL 1.7 MG/DL (1.8-2.4); POTASSIUM SERUM 3.2 MEQ/L (3.5-5.1); TOTAL PROTEIN 6.9 GM/DL (6.4-8.2)
[2021-02-23 16:30] LABS: BLOOD UREA NITROGEN 5 MG/DL (7-18); CARBON DIOXIDE LEVEL 28 MEQ/L (21-32); CHLORIDE LEVEL 99 MEQ/L (98-107); CREATININE FOR GFR 0.73 MG/DL (0.55-1.30); GLOMERULAR FILTRATION RATE > 60.0 (>60); GLUCOSE, FASTING 123 MG/DL (70-100); SODIUM LEVEL 135 MEQ/L (136-145)
[2021-02-23 17:12] LABS: INR 1.73; PROTHROMBIN TIME 20.7 SECONDS (12.7-14.5)
[2021-02-23 17:13] LABS: CK-MB VALUE MASS < 1.0 NG/ML (<3.6); CPK CREATINE PHOSPHOKINASE 58 U/L (26-192); MB/CK RELATIVE INDEX 1.72 (< OR =4)
[2021-02-23] MEDS ORDERED: MORPHINE 2 MG/ML 1ML VIAL (J2270) IV ONE (17:50)
[2021-02-23] MEDS ORDERED: ONDANSETRON 4MG/2ML VIAL IV ONE (17:50)
[2021-02-23] MEDS ORDERED: POTASSIUM CHLORIDE 10MEQ SR TABLET PO ONE (18:30)
[2021-02-23] MEDS ORDERED: ISOVUE-370 76% 100ML VIAL As Ordered ONE (18:35)
[2021-02-23] MEDS ORDERED: PROAAER10 INH (18:59)
[2021-02-23] MEDS ORDERED: FLUO40CA PO (18:59)
[2021-02-23] MEDS ORDERED: ONDA-83 PO (19:01)
[2021-02-23] MEDS ORDERED: GABA600T4 PO (19:01)
[2021-02-23] MEDS: HYDROMORPHONE HCL 0.5 MG/ 0.5 ML SYRINGE (J1170 PER 1) IV PRN ×2 (19:03→23:09)
[2021-02-23] MEDS ORDERED: HOME MED LIST COMPLETE! XX SCH (19:05)
[2021-02-23] MEDS: GABAPENTIN 300 MG CAP PO SCH (21:20)
[2021-02-23] MEDS: cefTRIAXone SOD 2 GM in D5W MINI-BAG PLUS 50 ML IV SCH (21:45)
[2021-02-23 22:12] VITALS: BP 110/65
[2021-02-23] MEDS: DOXYCYCLINE HYCLATE 100 MG in D5W MINI-BAG PLUS 100 ML IV SCH (22:48)
[2021-02-23 23:00] VITALS: O2SAT 92
[2021-02-24] VITALS (16 sets, daily range): BP systolic 87–107; BP diastolic 52–64; PULSE 82–88; O2SAT 88–97
[2021-02-24] MEDS: ALBUTEROL 90 MCG/ACT 8GM HFA INHALER INH PRN ×2 (03:55→12:30)
[2021-02-24 05:57] LABS: HEMATOCRIT 31.9 % (36.0-47.0); HEMOGLOBIN 10.3 g/dl (12.0-15.5); MEAN CORPUSCULAR HEMOGLOBIN 31.1 pg (27.0-33.0); MEAN CORPUSCULAR HGB CONC 32.3 g/dl (32.0-36.5); MEAN CORPUSCULAR VOLUME 96.4 fl (80.0-96.0); RED BLOOD COUNT 3.31 10^6/uL (4.00-5.40)
[2021-02-24 06:01] LABS: PLATELET COUNT, AUTOMATED 63 10^3/uL (150-450)
[2021-02-24 06:15] LABS: BLOOD UREA NITROGEN 4 MG/DL (7-18); CALCIUM LEVEL 7.6 MG/DL (8.5-10.1); CARBON DIOXIDE LEVEL 28 MEQ/L (21-32); CHLORIDE LEVEL 102 MEQ/L (98-107); CREATININE FOR GFR 0.64 MG/DL (0.55-1.30); GLOMERULAR FILTRATION RATE > 60.0 (>60); GLUCOSE, FASTING 92 MG/DL (70-100); MAGNESIUM LEVEL 1.8 MG/DL (1.8-2.4); POTASSIUM SERUM 3.1 MEQ/L (3.5-5.1); SODIUM LEVEL 136 MEQ/L (136-145)
[2021-02-24] MEDS: HYDROMORPHONE HCL 0.5 MG/ 0.5 ML SYRINGE (J1170 PER 1) IV PRN ×5 (08:27→22:04)
[2021-02-24] MEDS: FLUoxetine 20 MG CAP PO SCH (08:28)
[2021-02-24] MEDS: GABAPENTIN 300 MG CAP PO SCH ×3 (08:28→20:41)
[2021-02-24] MEDS: DOXYCYCLINE HYCLATE 100 MG in D5W MINI-BAG PLUS 100 ML IV SCH ×2 (08:29→20:40)
[2021-02-24] MEDS: ONDANSETRON 4MG/2ML VIAL IV PRN ×2 (08:38→16:28)
[2021-02-24] MEDS ORDERED: LIDOCAINE 5% (LIDODERM) PATCH TD SCH (09:00)
[2021-02-24] MEDS ORDERED: SODIUM CHLORIDE 0.9% 1000ML IV ONE (13:15)
[2021-02-24] MEDS ORDERED: POTASSIUM CHLORIDE 10MEQ SR TABLET PO ONE (14:00)
[2021-02-24 15:01] LABS: SPEC. GRAVITY BODY FLUIDS 1.009 (NOT ESTABLISHED)
[2021-02-24 15:13] LABS: APPEARANCE, BODY FLUID HAZY (CLEAR); ASCITES FL COLOR YELLOW (COLORLESS); SOURCE, BODY FLUID ASCITES
[2021-02-24 16:17] LABS: SOURCE, BODY FLUID ALBUMIN ASCITES; SOURCE, BODY FLUID GLUCOSE ASCITES; SOURCE, BODY FLUID TOT PROTEIN ASCITES; TOTAL PROTEIN, BODY FLUID 0.9 G/DL (NOT ESTABLISHED)
[2021-02-24] MEDS: fentaNYL 12 MCG/HR PATCH TOP SCH (17:18)
[2021-02-24] MEDS ORDERED: **NOTE PATIENT COMMENT** MISC XX SCH (21:00)
[2021-02-24] MEDS: cefTRIAXone SOD 2 GM in D5W MINI-BAG PLUS 50 ML IV SCH (22:03)
[2021-02-25] VITALS (15 sets, daily range): BP systolic 96–126; BP diastolic 56–78; PULSE 75–132; O2SAT 88–96
[2021-02-25] MEDS ORDERED: HYDROMORPHONE HCL 0.5 MG/ 0.5 ML SYRINGE (J1170 PER 1) As Ordered ONE (02:42)
[2021-02-25] MEDS: HYDROMORPHONE HCL 0.5 MG/ 0.5 ML SYRINGE (J1170 PER 1) IV PRN ×6 (02:45→20:31)
[2021-02-25] MEDS: ONDANSETRON 4MG/2ML VIAL IV PRN ×2 (02:50→10:54)
[2021-02-25] MEDS ORDERED: ONDANSETRON 4MG/2ML VIAL As Ordered ONE (02:52)
[2021-02-25 04:01] LABS: HEMATOCRIT 35.8 % (36.0-47.0); MEAN CORPUSCULAR HEMOGLOBIN 31.1 pg (27.0-33.0); MEAN CORPUSCULAR HGB CONC 30.7 g/dl (32.0-36.5); MEAN CORPUSCULAR VOLUME 101.1 fl (80.0-96.0); RED BLOOD COUNT 3.54 10^6/uL (4.00-5.40); WHITE BLOOD COUNT 6.7 10^3/uL (4.0-10.0)
[2021-02-25 04:05] LABS: PLATELET COUNT, AUTOMATED 71 10^3/uL (150-450)
[2021-02-25 04:25] LABS: BLOOD UREA NITROGEN 3 MG/DL (7-18); CARBON DIOXIDE LEVEL 26 MEQ/L (21-32); CHLORIDE LEVEL 105 MEQ/L (98-107); CREATININE FOR GFR 0.62 MG/DL (0.55-1.30); GLOMERULAR FILTRATION RATE > 60.0 (>60); GLUCOSE, FASTING 98 MG/DL (70-100); MAGNESIUM LEVEL 1.8 MG/DL (1.8-2.4); POTASSIUM SERUM 3.9 MEQ/L (3.5-5.1); SODIUM LEVEL 137 MEQ/L (136-145)
[2021-02-25] MEDS: FLUoxetine 20 MG CAP PO SCH (09:17)
[2021-02-25] MEDS: GABAPENTIN 300 MG CAP PO SCH ×3 (09:17→20:30)
[2021-02-25] MEDS: ALBUTEROL 90 MCG/ACT 8GM HFA INHALER INH PRN ×3 (09:24→19:53)
[2021-02-25] MEDS: DOXYCYCLINE HYCLATE 100 MG in D5W MINI-BAG PLUS 100 ML IV SCH ×2 (09:46→20:30)
[2021-02-25] MEDS: PANTOPRAZOLE 40MG VIAL (C9113 PER 1) IV SCH (11:18)
[2021-02-25 17:30] LABS: BASO % 0.4 % (0.0-1.0); EOS # 0.1 10^3/uL (0.0-0.5); EOS % 1.2 % (0.0-3.0); HEMATOCRIT 34.8 % (36.0-47.0); LYMPH # 1.5 10^3/uL (1.5-5.0); MEAN CORPUSCULAR HGB CONC 31.6 g/dl (32.0-36.5); MONO # 0.8 10^3/uL (0.0-0.8); MONO % 7.3 % (2.0-8.0); NEUTROPHILS # 8.8 10^3/uL (1.5-8.5); NEUTROPHILS % 77.7 % (36.0-66.0); RED BLOOD COUNT 3.55 10^6/uL (4.00-5.40); WHITE BLOOD COUNT 11.3 10^3/uL (4.0-10.0)
[2021-02-25] MEDS ORDERED: ISOVUE-370 76% 100ML VIAL As Ordered ONE (17:36)
[2021-02-25 17:46] LABS: PLATELET COUNT, AUTOMATED 83 10^3/uL (150-450)
[2021-02-25 17:48] LABS: ALBUMIN 1.7 GM/DL (3.2-5.2); ALT/SGPT 57 U/L (12-78); BILIRUBIN,TOTAL 2.7 MG/DL (0.2-1.0); BLOOD UREA NITROGEN 4 MG/DL (7-18); CARBON DIOXIDE LEVEL 29 MEQ/L (21-32); CHLORIDE LEVEL 102 MEQ/L (98-107); CREATININE FOR GFR 0.73 MG/DL (0.55-1.30); GLOMERULAR FILTRATION RATE > 60.0 (>60); GLUCOSE, FASTING 87 MG/DL (70-100); POTASSIUM SERUM 3.9 MEQ/L (3.5-5.1); SODIUM LEVEL 136 MEQ/L (136-145); TOTAL PROTEIN 6.2 GM/DL (6.4-8.2)
[2021-02-25 17:49] LABS: INR 1.75; PROTHROMBIN TIME 20.9 SECONDS (12.7-14.5)
[2021-02-25] MEDS: MEROPENEM INJ 1 GM in IV 1 EA IV SCH (18:40)
[2021-02-26] VITALS (20 sets, daily range): BP systolic 104–120; BP diastolic 55–63; O2SAT 88–93
[2021-02-26] MEDS: ALBUTEROL 90 MCG/ACT 8GM HFA INHALER INH PRN ×5 (00:31→15:02)
[2021-02-26] MEDS: MEROPENEM INJ 1 GM in IV 1 EA IV SCH ×3 (01:22→18:29)
[2021-02-26] MEDS: HYDROMORPHONE HCL 0.5 MG/ 0.5 ML SYRINGE (J1170 PER 1) IV PRN ×6 (01:23→21:08)
[2021-02-26 03:59] LABS: HEMATOCRIT 32.4 % (36.0-47.0); HEMOGLOBIN 10.2 g/dl (12.0-15.5); MEAN CORPUSCULAR HEMOGLOBIN 30.9 pg (27.0-33.0); MEAN CORPUSCULAR HGB CONC 31.5 g/dl (32.0-36.5); MEAN CORPUSCULAR VOLUME 98.2 fl (80.0-96.0); WHITE BLOOD COUNT 12.1 10^3/uL (4.0-10.0)
[2021-02-26 04:05] LABS: PLATELET COUNT, AUTOMATED 73 10^3/uL (150-450)
[2021-02-26 04:10] LABS: ALBUMIN 1.5 GM/DL (3.2-5.2); ALT/SGPT 51 U/L (12-78); BILIRUBIN,TOTAL 2.9 MG/DL (0.2-1.0); BLOOD UREA NITROGEN 4 MG/DL (7-18); CALCIUM LEVEL 7.6 MG/DL (8.5-10.1); CARBON DIOXIDE LEVEL 27 MEQ/L (21-32); CHLORIDE LEVEL 101 MEQ/L (98-107); CREATININE FOR GFR 0.74 MG/DL (0.55-1.30); GLOMERULAR FILTRATION RATE > 60.0 (>60); GLUCOSE, FASTING 128 MG/DL (70-100); MAGNESIUM LEVEL 1.2 MG/DL (1.8-2.4); POTASSIUM SERUM 4.1 MEQ/L (3.5-5.1); SODIUM LEVEL 133 MEQ/L (136-145); TOTAL PROTEIN 5.6 GM/DL (6.4-8.2)
[2021-02-26 04:33] LABS: ERYTHROCYTE SEDIMENTATION RATE 18 mm/hr (0-20)
[2021-02-26] MEDS: GABAPENTIN 300 MG CAP PO SCH ×3 (08:18→21:00)
[2021-02-26] MEDS: ONDANSETRON 4MG/2ML VIAL IV PRN ×3 (08:18→23:48)
[2021-02-26] MEDS: FLUoxetine 20 MG CAP PO SCH (08:18)
[2021-02-26] MEDS: MAG SULF 1GM/100ML (MAG RUN) 1 GM in IV 1 EA IV SCH ×4 (08:18→15:46)
[2021-02-26] MEDS: DOXYCYCLINE HYCLATE 100 MG in D5W MINI-BAG PLUS 100 ML IV SCH (08:19)
[2021-02-26 08:45] LABS: TOTAL PROTEIN 6.4 GM/DL (6.4-8.2)
[2021-02-26] MEDS: PANTOPRAZOLE 40MG VIAL (C9113 PER 1) IV SCH (12:51)
[2021-02-26] MEDS ORDERED: MAGNESIUM SULFATE 1GM/100ML D5W BAG (10MG/ML) As Ordered ONE (15:34)
[2021-02-26 18:16] LABS: BLOOD UREA NITROGEN 5 MG/DL (7-18); CARBON DIOXIDE LEVEL 29 MEQ/L (21-32); CHLORIDE LEVEL 100 MEQ/L (98-107); CREATININE FOR GFR 0.65 MG/DL (0.55-1.30); GLOMERULAR FILTRATION RATE > 60.0 (>60); GLUCOSE, FASTING 136 MG/DL (70-100); MAGNESIUM LEVEL 2.8 MG/DL (1.8-2.4); POTASSIUM SERUM 4.2 MEQ/L (3.5-5.1); SODIUM LEVEL 133 MEQ/L (136-145)
[2021-02-26] MEDS: DOXYCYCLINE HYCLATE 100MG TABLET PO SCH (21:00)
[2021-02-26] MEDS ORDERED: PROMETHAZINE INJ 25 MG/ML VIAL (J2550) IV ONE (22:15)
[2021-02-27] VITALS: BP 102/55
[2021-02-27] MEDS: MEROPENEM INJ 1 GM in IV 1 EA IV SCH ×3 (01:47→18:51)
[2021-02-27 04:00] VITALS: BP 105/60
[2021-02-27] MEDS ORDERED: LEVALBUTEROL 1.25 MG/0.5 ML CONCENTRATE NEB NEB ONE (06:30)
[2021-02-27 06:33] LABS: HEMATOCRIT 34.1 % (36.0-47.0); HEMOGLOBIN 10.9 g/dl (12.0-15.5); MEAN CORPUSCULAR HEMOGLOBIN 31.3 pg (27.0-33.0); RED BLOOD COUNT 3.48 10^6/uL (4.00-5.40); WHITE BLOOD COUNT 12.6 10^3/uL (4.0-10.0)
[2021-02-27 06:36] LABS: PLATELET COUNT, AUTOMATED 72 10^3/uL (150-450)
[2021-02-27 06:58] LABS: ALBUMIN 1.7 GM/DL (3.2-5.2); ALT/SGPT 50 U/L (12-78); BILIRUBIN,TOTAL 3.2 MG/DL (0.2-1.0); BLOOD UREA NITROGEN 5 MG/DL (7-18); CALCIUM LEVEL 8.1 MG/DL (8.5-10.1); CARBON DIOXIDE LEVEL 28 MEQ/L (21-32); CHLORIDE LEVEL 100 MEQ/L (98-107); GLOMERULAR FILTRATION RATE > 60.0 (>60); GLUCOSE, FASTING 104 MG/DL (70-100); MAGNESIUM LEVEL 2.1 MG/DL (1.8-2.4); POTASSIUM SERUM 4.3 MEQ/L (3.5-5.1); SODIUM LEVEL 134 MEQ/L (136-145); TOTAL PROTEIN 5.9 GM/DL (6.4-8.2)
[2021-02-27 07:42] LABS: ERYTHROCYTE SEDIMENTATION RATE 23 mm/hr (0-20)
[2021-02-27 07:49] LABS: C REACTIVE PROTEIN QUANTITATIV 9.26 MG/DL (0.00-0.30); LIPASE 48 U/L (73-393)
[2021-02-27 08:00] VITALS: BP 110/70
[2021-02-27] MEDS: PANTOPRAZOLE 40MG VIAL (C9113 PER 1) IV SCH (11:15)
[2021-02-27] MEDS: DOXYCYCLINE HYCLATE 100MG TABLET PO SCH ×3 (11:16→20:05)
[2021-02-27] MEDS: FLUoxetine 20 MG CAP PO SCH ×2 (11:16→11:21)
[2021-02-27] MEDS: GABAPENTIN 300 MG CAP PO SCH ×4 (11:16→20:05)
[2021-02-27 12:00] VITALS: BP 105/60
[2021-02-27] MEDS: ONDANSETRON 4MG/2ML VIAL IV PRN (12:00)
[2021-02-27] MEDS: HYDROMORPHONE HCL 0.5 MG/ 0.5 ML SYRINGE (J1170 PER 1) IV PRN ×3 (12:01→20:57)
[2021-02-27 16:00] VITALS: BP 110/54
[2021-02-27] MEDS: fentaNYL 12 MCG/HR PATCH TOP SCH (16:39)
[2021-02-27] MEDS: methylPREDNISolone 125MG 2ML VIAL IV SCH ×2 (16:39→22:59)
[2021-02-27 20:00] VITALS: BP 110/58
[2021-02-28] VITALS (14 sets, daily range): BP systolic 105–143; BP diastolic 58–65; O2SAT 88–93
[2021-02-28] MEDS: MEROPENEM INJ 1 GM in IV 1 EA IV SCH ×3 (01:44→17:47)
[2021-02-28] MEDS: HYDROMORPHONE HCL 0.5 MG/ 0.5 ML SYRINGE (J1170 PER 1) IV PRN ×3 (06:01→20:31)
[2021-02-28 06:51] LABS: HEMATOCRIT 34.2 % (36.0-47.0); HEMOGLOBIN 11.3 g/dl (12.0-15.5); MEAN CORPUSCULAR HEMOGLOBIN 31.7 pg (27.0-33.0); MEAN CORPUSCULAR VOLUME 95.8 fl (80.0-96.0); RED BLOOD COUNT 3.57 10^6/uL (4.00-5.40); WHITE BLOOD COUNT 9.6 10^3/uL (4.0-10.0)
[2021-02-28 06:55] LABS: PLATELET COUNT, AUTOMATED 84 10^3/uL (150-450)
[2021-02-28] MEDS: methylPREDNISolone 125MG 2ML VIAL IV SCH ×3 (07:02→22:06)
[2021-02-28 07:21] LABS: ERYTHROCYTE SEDIMENTATION RATE 27 mm/hr (0-20)
[2021-02-28 08:18] LABS: ALBUMIN 1.5 GM/DL (3.2-5.2); ALT/SGPT 49 U/L (12-78); BILIRUBIN,TOTAL 3.3 MG/DL (0.2-1.0); CALCIUM LEVEL 8.7 MG/DL (8.5-10.1); CARBON DIOXIDE LEVEL 31 MEQ/L (21-32); CHLORIDE LEVEL 98 MEQ/L (98-107); CREATININE FOR GFR 0.71 MG/DL (0.55-1.30); GLOMERULAR FILTRATION RATE > 60.0 (>60); GLUCOSE, FASTING 129 MG/DL (70-100); MAGNESIUM LEVEL 2.5 MG/DL (1.8-2.4); NT-PRO BNP 631 PG/ML (<125); POTASSIUM SERUM 4.7 MEQ/L (3.5-5.1); SODIUM LEVEL 133 MEQ/L (136-145); TOTAL PROTEIN 6.1 GM/DL (6.4-8.2)
[2021-02-28] MEDS: FLUoxetine 20 MG CAP PO SCH (10:14)
[2021-02-28] MEDS: DOXYCYCLINE HYCLATE 100MG TABLET PO SCH ×2 (10:14→22:06)
[2021-02-28] MEDS: GABAPENTIN 300 MG CAP PO SCH ×3 (10:14→22:06)
[2021-02-28] MEDS: PANTOPRAZOLE 40MG VIAL (C9113 PER 1) IV SCH (10:15)
[2021-02-28] MEDS: ONDANSETRON 4MG/2ML VIAL IV PRN ×2 (10:15→20:29)
[2021-02-28 14:30] LABS: BLOOD UREA NITROGEN 15 MG/DL (7-18)
[2021-02-28] MEDS ORDERED: FUROSEMIDE 20MG/2ML VIAL (J1940) IV ONE (15:00)
[2021-03-01] VITALS (16 sets, daily range): BP systolic 91–128; BP diastolic 53–76; O2SAT 84–96
[2021-03-01] MEDS: HYDROMORPHONE HCL 0.5 MG/ 0.5 ML SYRINGE (J1170 PER 1) IV PRN ×4 (00:42→21:06)
[2021-03-01] MEDS: GI COCKTAIL 50ML BTL(HYOSCYAMINE/MAALOX/LIDOCAINE VISCOUS)(1:3:1) PO PRN ×3 (02:35→22:39)
[2021-03-01] MEDS: MEROPENEM INJ 1 GM in IV 1 EA IV SCH ×3 (02:44→17:21)
[2021-03-01] MEDS ORDERED: KETOROLAC 30 MG/ML 1ML VIAL IV PRN (04:15)
[2021-03-01 05:40] LABS: HEMATOCRIT 35.4 % (36.0-47.0); HEMOGLOBIN 11.4 g/dl (12.0-15.5); MEAN CORPUSCULAR HEMOGLOBIN 31.4 pg (27.0-33.0); MEAN CORPUSCULAR HGB CONC 32.2 g/dl (32.0-36.5); MEAN CORPUSCULAR VOLUME 97.5 fl (80.0-96.0); RED BLOOD COUNT 3.63 10^6/uL (4.00-5.40); WHITE BLOOD COUNT 8.6 10^3/uL (4.0-10.0)
[2021-03-01 05:49] LABS: PLATELET COUNT, AUTOMATED 81 10^3/uL (150-450)
[2021-03-01 06:25] LABS: ALBUMIN 1.4 GM/DL (3.2-5.2); ALT/SGPT 45 U/L (12-78); BILIRUBIN,TOTAL 2.2 MG/DL (0.2-1.0); BLOOD UREA NITROGEN 22 MG/DL (7-18); CALCIUM LEVEL 8.6 MG/DL (8.5-10.1); CARBON DIOXIDE LEVEL 32 MEQ/L (21-32); CHLORIDE LEVEL 98 MEQ/L (98-107); CREATININE FOR GFR 0.79 MG/DL (0.55-1.30); GLOMERULAR FILTRATION RATE > 60.0 (>60); GLUCOSE, FASTING 148 MG/DL (70-100); POTASSIUM SERUM 6.2 MEQ/L (3.5-5.1); SODIUM LEVEL 133 MEQ/L (136-145); TOTAL PROTEIN 5.8 GM/DL (6.4-8.2)
[2021-03-01] MEDS: methylPREDNISolone 125MG 2ML VIAL IV SCH ×3 (06:41→22:51)
[2021-03-01 08:36] LABS: BLOOD UREA NITROGEN 25 MG/DL (7-18); CALCIUM LEVEL 8.5 MG/DL (8.5-10.1); CARBON DIOXIDE LEVEL 32 MEQ/L (21-32); CHLORIDE LEVEL 100 MEQ/L (98-107); CREATININE FOR GFR 0.82 MG/DL (0.55-1.30); GLOMERULAR FILTRATION RATE > 60.0 (>60); GLUCOSE, FASTING 126 MG/DL (70-100); POTASSIUM SERUM 4.8 MEQ/L (3.5-5.1); SODIUM LEVEL 137 MEQ/L (136-145)
[2021-03-01] MEDS: DOXYCYCLINE HYCLATE 100MG TABLET PO SCH ×2 (08:52→20:58)
[2021-03-01] MEDS: GABAPENTIN 300 MG CAP PO SCH ×3 (08:53→20:58)
[2021-03-01] MEDS: FLUoxetine 20 MG CAP PO SCH (08:53)
[2021-03-01] MEDS: ONDANSETRON 4MG/2ML VIAL IV PRN (09:01)
[2021-03-01] MEDS: PANTOPRAZOLE 40MG VIAL (C9113 PER 1) IV SCH (10:14)
[2021-03-01] MEDS ORDERED: LIDOCAINE 1% MDV 20ML VIAL As Ordered ONE (10:33)
[2021-03-01 10:38] LABS: HEPATITIS B SURFACE ANTIGEN NEGATIVE (NEGATIVE)
[2021-03-01 10:46] LABS: HEPATITIS B CORE ANTIBODY IGM NEGATIVE (NEGATIVE); HEPATITIS C VIRUS ABY INDEX 0.1 INDEX (<0.8)
[2021-03-01 14:12] LABS: ALBUMIN 2.44 GM/DL (3.29-5.55); ALBUMIN % 38.1 % (55.8-66.1); ALPHA-1-GLOBULIN % 4.1 % (2.9-4.9); ALPHA-1-GLOBULINS 0.26 GM/DL (0.17-0.41); ALPHA-2-GLOBULINS 0.54 GM/DL (0.42-0.99); ALPHA-2-GLOBULINS % 8.4 % (7.1-11.8); BETA-1-GLOBULINS % 4.7 % (4.7-7.2); BETA-2-GLOBULINS 0.55 GM/DL (0.19-0.55); BETA-2-GLOBULINS % 8.6 % (3.2-6.5); GAMMA GLOBULIN % 36.1 % (11.1-18.8); GAMMA GLOBULINS 2.31 GM/DL (0.65-1.58)
[2021-03-01 16:11] LABS: ANTI DS-DNA AB Negative (Negative); ANTI-MITOCHONDRIAL ANTIBODY <20.0 Units (0.0-20.0); ANTI-SMOOTH MUSCLE ANTIBODY 16 Units (0-19); ANTINUCLEAR ANTIBODIES DIRECT Negative (Negative); LIVER-KIDNEY MICROSOMAL ABY <20.1 Units (0.0-20.0)
[2021-03-01] MEDS: SODIUM CHLORIDE 0.9% INJ 10 ML SYR IV SCH (17:23)
[2021-03-02] VITALS (10 sets, daily range): BP systolic 98–164; BP diastolic 55–79; O2SAT 89–92
[2021-03-02] MEDS: MEROPENEM INJ 1 GM in IV 1 EA IV SCH ×3 (02:05→17:42)
[2021-03-02] MEDS: HYDROMORPHONE HCL 0.5 MG/ 0.5 ML SYRINGE (J1170 PER 1) IV PRN ×3 (02:38→11:32)
[2021-03-02] MEDS: SODIUM CHLORIDE 0.9% INJ 10 ML SYR IV SCH ×2 (06:00→17:43)
[2021-03-02 06:49] LABS: HEMATOCRIT 32.8 % (36.0-47.0); HEMOGLOBIN 10.6 g/dl (12.0-15.5); MEAN CORPUSCULAR HEMOGLOBIN 31.4 pg (27.0-33.0); MEAN CORPUSCULAR HGB CONC 32.3 g/dl (32.0-36.5); RED BLOOD COUNT 3.38 10^6/uL (4.00-5.40); WHITE BLOOD COUNT 7.9 10^3/uL (4.0-10.0)
[2021-03-02 06:50] LABS: PLATELET COUNT, AUTOMATED 79 10^3/uL (150-450)
[2021-03-02 07:00] LABS: ALBUMIN 1.5 GM/DL (3.2-5.2); ALT/SGPT 43 U/L (12-78); BILIRUBIN,TOTAL 1.9 MG/DL (0.2-1.0); BLOOD UREA NITROGEN 23 MG/DL (7-18); CALCIUM LEVEL 8.2 MG/DL (8.5-10.1); CARBON DIOXIDE LEVEL 35 MEQ/L (21-32); CHLORIDE LEVEL 100 MEQ/L (98-107); CREATININE FOR GFR 0.67 MG/DL (0.55-1.30); GLOMERULAR FILTRATION RATE > 60.0 (>60); GLUCOSE, FASTING 132 MG/DL (70-100); SODIUM LEVEL 136 MEQ/L (136-145); TOTAL PROTEIN 5.6 GM/DL (6.4-8.2)
[2021-03-02] MEDS: methylPREDNISolone 125MG 2ML VIAL IV SCH ×3 (07:00→22:00)
[2021-03-02 07:47] LABS: FERRITIN 79 NG/ML (8-252); LDH LACTATE DEHYDROGENASE 451 U/L (84-246); NT-PRO BNP 875 PG/ML (<125)
[2021-03-02] MEDS: FLUoxetine 20 MG CAP PO SCH (08:02)
[2021-03-02] MEDS: DOXYCYCLINE HYCLATE 100MG TABLET PO SCH ×2 (08:02→22:00)
[2021-03-02] MEDS: GABAPENTIN 300 MG CAP PO SCH ×3 (08:02→22:00)
[2021-03-02] MEDS: MIDODRINE 5 MG TAB PO SCH ×3 (08:02→16:01)
[2021-03-02] MEDS: ONDANSETRON 4MG/2ML VIAL IV PRN (08:20)
[2021-03-02] MEDS: SUCRALFATE SUSP 1GM/10ML UD PO SCH ×4 (08:23→22:00)
[2021-03-02 09:11] LABS: INR 1.76; PARTIAL THROMBOPLASTIN TIME 38.4 SECONDS (25.9-37.0); PROTHROMBIN TIME 20.9 SECONDS (12.7-14.5)
[2021-03-02 09:16] LABS: FIBRINOGEN 136 MG/DL (268-480)
[2021-03-02 09:29] LABS: D-DIMER QUANT > 4000 ng/ml (<500)
[2021-03-02] MEDS: PANTOPRAZOLE 40MG VIAL (C9113 PER 1) IV SCH (09:49)
[2021-03-02] MEDS ORDERED: HYDROMORPHONE HCL 0.5 MG/ 0.5 ML SYRINGE (J1170 PER 1) IV PRN (15:50)
[2021-03-02] MEDS: HYDROmorphone 4MG TABLET PO PRN (16:02)
[2021-03-02] MEDS: FENTANYL REMOVAL DOCUMENTATION MISC XX SCH (17:43)
[2021-03-02] MEDS: fentaNYL 12 MCG/HR PATCH TOP SCH (17:43)
[2021-03-03] VITALS (12 sets, daily range): BP systolic 103–134; BP diastolic 56–81; O2SAT 82–96
[2021-03-03] MEDS: MEROPENEM INJ 1 GM in IV 1 EA IV SCH ×3 (02:05→17:56)
[2021-03-03] MEDS: SODIUM CHLORIDE 0.9% INJ 10 ML SYR IV PRN ×5 (03:01→23:10)
[2021-03-03] MEDS: HYDROmorphone 4MG TABLET PO PRN (04:42)
[2021-03-03] MEDS: SODIUM CHLORIDE 0.9% INJ 10 ML SYR IV SCH ×2 (05:22→16:37)
[2021-03-03 05:39] LABS: HEMATOCRIT 32.6 % (36.0-47.0); HEMOGLOBIN 10.2 g/dl (12.0-15.5); MEAN CORPUSCULAR HEMOGLOBIN 30.9 pg (27.0-33.0); MEAN CORPUSCULAR HGB CONC 31.3 g/dl (32.0-36.5); MEAN CORPUSCULAR VOLUME 98.8 fl (80.0-96.0); WHITE BLOOD COUNT 6.3 10^3/uL (4.0-10.0)
[2021-03-03 05:40] LABS: PLATELET COUNT, AUTOMATED 68 10^3/uL (150-450)
[2021-03-03 06:13] LABS: ALBUMIN 2.2 GM/DL (3.2-5.2); ALT/SGPT 50 U/L (12-78); BILIRUBIN,TOTAL 2.4 MG/DL (0.2-1.0); BLOOD UREA NITROGEN 20 MG/DL (7-18); CALCIUM LEVEL 8.3 MG/DL (8.5-10.1); CARBON DIOXIDE LEVEL 35 MEQ/L (21-32); CHLORIDE LEVEL 101 MEQ/L (98-107); CREATININE FOR GFR 0.63 MG/DL (0.55-1.30); GLOMERULAR FILTRATION RATE > 60.0 (>60); GLUCOSE, FASTING 167 MG/DL (70-100); POTASSIUM SERUM 4.7 MEQ/L (3.5-5.1); SODIUM LEVEL 139 MEQ/L (136-145); TOTAL PROTEIN 5.7 GM/DL (6.4-8.2)
[2021-03-03] MEDS: SUCRALFATE SUSP 1GM/10ML UD PO SCH ×4 (06:35→20:04)
[2021-03-03] MEDS: methylPREDNISolone 125MG 2ML VIAL IV SCH ×3 (06:35→23:09)
[2021-03-03] MEDS: MIDODRINE 5 MG TAB PO SCH ×3 (08:00→16:00)
[2021-03-03] MEDS: DOXYCYCLINE HYCLATE 100MG TABLET PO SCH ×2 (08:11→20:04)
[2021-03-03] MEDS: GABAPENTIN 300 MG CAP PO SCH (08:11)
[2021-03-03] MEDS: FLUoxetine 20 MG CAP PO SCH (08:12)
[2021-03-03] MEDS ORDERED: NALOXONE 2MG/2ML SYRINGE (J2310 PER 1MG) IV STA (09:11)
[2021-03-03] MEDS: FENTANYL REMOVAL DOCUMENTATION MISC XX SCH (09:12)
[2021-03-03] MEDS: PANTOPRAZOLE 40MG VIAL (C9113 PER 1) IV SCH (11:59)
[2021-03-03] MEDS ORDERED: FUROSEMIDE injection 250 MG in D5W 225 ML IV SCH (12:00)
[2021-03-03 15:43] LABS: PH BODY FLUID > 7.800 UNITS (NOT ESTABLISHED); SOURCE, BODY FLUID pH PLEURAL
[2021-03-03 15:49] LABS: SOURCE, BODY FLUID PLEURAL
[2021-03-03 15:50] LABS: APPEARANCE, BODY FLUID CLEAR (CLEAR); PLEURAL FL COLOR PALE YELLOW (COLORLESS)
[2021-03-03 16:30] LABS: AMYLASE, BODY FLUID 26 U/L (NOT ESTABLISHED); LDH, BODY FLUID 81 U/L (NOT ESTABLISHED); SOURCE, BODY FLUID AMYLASE PLEURAL; SOURCE, BODY FLUID GLUCOSE PLEURAL; SOURCE, BODY FLUID LDH PLEURAL; SOURCE, BODY FLUID TOT PROTEIN PLEURAL; TOTAL PROTEIN, BODY FLUID 0.6 G/DL (NOT ESTABLISHED)
[2021-03-03] MEDS ORDERED: ACETAMINOPHEN TAB 650MG DOSE (2X325MG) PO PRN (16:55)
[2021-03-04] MEDS: MEROPENEM INJ 1 GM in IV 1 EA IV SCH ×2 (01:09→10:26)
[2021-03-04] MEDS: SODIUM CHLORIDE 0.9% INJ 10 ML SYR IV PRN ×3 (01:56→12:13)
[2021-03-04 05:16] VITALS: O2SAT 95
[2021-03-04 05:54] VITALS: BP 108/56
[2021-03-04] MEDS: SODIUM CHLORIDE 0.9% INJ 10 ML SYR IV SCH (06:02)
[2021-03-04] MEDS: methylPREDNISolone 125MG 2ML VIAL IV SCH (06:02)
[2021-03-04] MEDS: MIDODRINE 5 MG TAB PO SCH ×3 (08:00→16:00)
[2021-03-04] MEDS: DOXYCYCLINE HYCLATE 100MG TABLET PO SCH (08:02)
[2021-03-04] MEDS: SUCRALFATE SUSP 1GM/10ML UD PO SCH ×3 (08:02→17:48)
[2021-03-04] MEDS: FLUoxetine 20 MG CAP PO SCH (08:02)
[2021-03-04] MEDS ORDERED: predniSONE 20 MG TAB PO SCH (09:00)
[2021-03-04 09:06] LABS: HEMATOCRIT 31.3 % (36.0-47.0); HEMOGLOBIN 10.3 g/dl (12.0-15.5); MEAN CORPUSCULAR HGB CONC 32.9 g/dl (32.0-36.5); MEAN CORPUSCULAR VOLUME 94.3 fl (80.0-96.0); RED BLOOD COUNT 3.32 10^6/uL (4.00-5.40); WHITE BLOOD COUNT 3.7 10^3/uL (4.0-10.0)
[2021-03-04 09:10] LABS: PLATELET COUNT, AUTOMATED 59 10^3/uL (150-450)
[2021-03-04 09:52] LABS: ALBUMIN 2.3 GM/DL (3.2-5.2); ALT/SGPT 54 U/L (12-78); BILIRUBIN,TOTAL 2.4 MG/DL (0.2-1.0); BLOOD UREA NITROGEN 18 MG/DL (7-18); CALCIUM LEVEL 8.1 MG/DL (8.5-10.1); CARBON DIOXIDE LEVEL 39 MEQ/L (21-32); CHLORIDE LEVEL 87 MEQ/L (98-107); CREATININE FOR GFR 0.58 MG/DL (0.55-1.30); GLOMERULAR FILTRATION RATE > 60.0 (>60); GLUCOSE, FASTING 144 MG/DL (70-100); POTASSIUM SERUM 2.9 MEQ/L (3.5-5.1); SODIUM LEVEL 134 MEQ/L (136-145); TOTAL PROTEIN 5.7 GM/DL (6.4-8.2)
[2021-03-04] MEDS: PANTOPRAZOLE 40MG VIAL (C9113 PER 1) IV SCH (10:26)
[2021-03-04] MEDS ORDERED: CEFD300C41 PO (11:26)
[2021-03-04] MEDS ORDERED: SUCR1ORA PO (11:26)
[2021-03-04] MEDS ORDERED: MIDO5TA PO (11:26)
[2021-03-04] MEDS ORDERED: DOXY100T PO (11:26)
[2021-03-04] MEDS ORDERED: BACITAB PO (11:29)
[2021-03-04] MEDS ORDERED: PRIL20TA2 PO (11:29)
[2021-03-04] MEDS ORDERED: PRED10TA2 PO (11:34)
[2021-03-04] MEDS: POTASSIUM CHLORIDE 10MEQ SR TABLET PO SCH ×2 (12:07→13:16)
[2021-03-04 14:00] VITALS: BP 117/63
[2021-03-04 15:00] VITALS: O2SAT 90
[2021-03-04] MEDS ORDERED: POTASSIUM CHLORIDE 10MEQ SR TABLET PO ONE ×3 (16:15→17:00)
[2021-03-11] MEDS ORDERED: OMEP-173 PO (02:29)
== END 2021-03-04 18:18 | disposition home or self-care (01) | DRG 264 ==
LOC: M ED 13:26 → M ED INP 18:42 → ENRESERV 20:57 → M PCU 22:10 → M MSPAV 03-02 15:10
PROVIDERS: ADMIT Internal Medicine; ATTEND General Practice
PROC: 0W9G3ZX Drainage of Peritoneal Cavity, Percutaneous Approach, Diagnostic (ICD-10-PCS; 2021-02-24)
PROC: 02HV33Z Insertion of Infusion Device into Superior Vena Cava, Percutaneous Approach (ICD-10-PCS; principal; 2021-03-01 10:44)
PROC: 30233J1 Transfusion of Nonautologous Serum Albumin into Peripheral Vein, Percutaneous Approach (ICD-10-PCS; 2021-03-02)
PROC: 0W993ZX Drainage of Right Pleural Cavity, Percutaneous Approach, Diagnostic (ICD-10-PCS; 2021-03-03)
DX: K74.60 Unspecified cirrhosis of liver (principal); J96.01 Acute respiratory failure with hypoxia; G92.8 Other toxic encephalopathy; J18.9 Pneumonia, unspecified organism; Z94.81 Bone marrow transplant status; R18.8 Other ascites; I95.9 Hypotension, unspecified; K75.81 Nonalcoholic steatohepatitis (NASH); E87.1 Hypo-osmolality and hyponatremia; E87.5 Hyperkalemia; J45.909 Unspecified asthma, uncomplicated; R11.0 Nausea; K58.0 Irritable bowel syndrome with diarrhea; F17.200 Nicotine dependence, unspecified, uncomplicated; Z79.899 Other long term (current) drug therapy; Z86.16 Personal history of COVID-19; Z20.822 Contact with and (suspected) exposure to COVID-19; T40.2X5A Adverse effect of other opioids, initial encounter

== ENCOUNTER 2021-03-10 19:11 | Observation (INO) | payer OTHER ==
[~2021-03-10] VITALS: Ht 157.5 cm; Wt 68.2 kg
[~2021-03-10 19:11] MED LIST changes: +BACITAB PO; +CEFD1CAP8 PO; +DOXY100T PO; +MIDO5TA PO; +ONDA-83 PO; +PRED10TA2 PO; +PRIL20TA2 PO; +SUCR1ORA PO
[2021-03-10] MEDS ORDERED: SPIR50TA4 PO (19:29)
[2021-03-10] MEDS ORDERED: LASI20TA3 PO (19:29)
[2021-03-11 00:33] LABS: BASO % 0.1 % (0.0-1.0); EOS % 0.4 % (0.0-3.0); HEMATOCRIT 30.4 % (36.0-47.0); LYMPH # 1.6 10^3/uL (1.5-5.0); MEAN CORPUSCULAR HEMOGLOBIN 31.7 pg (27.0-33.0); MEAN CORPUSCULAR HGB CONC 32.9 g/dl (32.0-36.5); MEAN CORPUSCULAR VOLUME 96.5 fl (80.0-96.0); MONO # 1.4 10^3/uL (0.0-0.8); MONO % 13.2 % (2.0-8.0); NEUTROPHILS # 7.3 10^3/uL (1.5-8.5); NEUTROPHILS % 70.5 % (36.0-66.0); PLATELET COUNT, AUTOMATED 105 10^3/uL (150-450); RED BLOOD COUNT 3.15 10^6/uL (4.00-5.40); WHITE BLOOD COUNT 10.3 10^3/uL (4.0-10.0)
--- NOTE | 2021-03-11 00:51 | REPVR ---
PROCEDURE INFORMATION: Exam: XR Chest Exam date and time: 03/10/2021 11:58 PM Age: 36 years old Clinical indication: Pain; Chest pressure; Additional info: Follow up pneumonia TECHNIQUE: Imaging protocol: XR of the chest. Views: 1 view. COMPARISON: CR Chest, 2 view PA, Lat 03/04/2021 11:06 AM. Prior report has not been made available for review at the time of this emergent interpretation, however was requested. FINDINGS: LUNGS and PLEURAL SPACE: Lung volumes are low. Mildly confluent ground-glass and reticular opacities are seen involving the lower lung manning, left slightly greater than right, similar to the prior exam and may be secondary to atelectasis and/or interstitial pneumonitis. Small pleural effusions again noted. No pneumothorax is seen. - MEDIASTINUM: There is no mediastinal shift or widening. - CARDIAC SILHOUETTE: Cardiothoracic ratio is within normal limits. - BONY THORAX: Scoliosis and spinal fixation again noted. - OTHER: Previously seen right-sided PICC line catheter is no longer present. - IMPRESSION: No significant interval pulmonary changes. - Other findings discussed above. Electronically signed by: Kris Matias On 03/11/2021 00:51:01 AM
[2021-03-11 01:06] LABS: ALBUMIN 2.4 GM/DL (3.2-5.2); ALT/SGPT 49 U/L (12-78); BILIRUBIN,TOTAL 2.5 MG/DL (0.2-1.0); BLOOD UREA NITROGEN 11 MG/DL (7-18); CARBON DIOXIDE LEVEL 33 MEQ/L (21-32); CHLORIDE LEVEL 98 MEQ/L (98-107); CREATININE FOR GFR 0.62 MG/DL (0.55-1.30); GLOMERULAR FILTRATION RATE > 60.0 (>60); GLUCOSE, FASTING 110 MG/DL (70-100); POTASSIUM SERUM 2.9 MEQ/L (3.5-5.1); SODIUM LEVEL 138 MEQ/L (136-145); TOTAL PROTEIN 5.5 GM/DL (6.4-8.2)
[2021-03-11] MEDS ORDERED: MORPHINE 4 MG/ML 1ML VIAL/SYRINGE (J2270) IV ONE (01:25)
[2021-03-11] MEDS ORDERED: KCL 20MEQ IN 100ML SWI (KRUN) 20 MEQ in IV 1 EA IV ONE ×2 (01:50)
[2021-03-11] MEDS ORDERED: OMEP-218 PO (02:29)
[2021-03-11] MEDS ORDERED: MIDO5TA PO (02:29)
[2021-03-11] MEDS ORDERED: SUCR1TAB56 PO (02:29)
[2021-03-11] MEDS ORDERED: HOME MED LIST COMPLETE! XX SCH (02:30)
[2021-03-11] MEDS: KCL 10MEQ/100ML SWI (KRUN) X 2 DOSES (20MEQ TOTAL) IV SCH ×4 (02:38→03:53)
[2021-03-11] MEDS: POTASSIUM CHLORIDE 10MEQ SR TABLET PO SCH ×2 (02:38→03:53)
[2021-03-11 02:40] LABS: RSV AMPLIFICATION NEGATIVE (NEGATIVE)
[2021-03-11 03:13] LABS: MAGNESIUM LEVEL 1.9 MG/DL (1.8-2.4); NT-PRO BNP 276 PG/ML (<125)
[2021-03-11] MEDS ORDERED: IPRATROPIUM 0.5MG/ALBUTEROL 2.5MG INH SOL UD 3ML (DUONEB) NEB PRN (03:15)
[2021-03-11] MEDS: HYDROMORPHONE HCL 0.5 MG/ 0.5 ML SYRINGE (J1170 PER 1) IV PRN ×2 (03:52→09:39)
--- NOTE | 2021-03-11 03:54 | HPEPDOC ---
General Date of Admission Mar 10, 2021 at 19:12 Date of Service: Mar 11, 2021 Chief Complaint The patient is a 36-year-old female admitted with a reason for visit of Hypokalemia. Source: Patient History of Present Illness Coreen Santiago is a 36-year-old female with history of Tan cirrhosis, IBS, asthma, bone marrow transplant and back surgery who arrives with complaints of abdominal pain, body aches and fatigue. Patient reports that she was discharged on Mar 04 and "went home too soon". Patient had recently been admitted February 23 through the due to decompensated cirrhosis/ascites and acute respiratory failure secondary to pneumonia and pleural effusion. From that admission patient went home on 2 L nasal cannula. Patient reports her breathing has been "about the same" and describes productive cough white sputum however "flecks of brown/black spots in it". Her abdomen has been varying in distention levels with her fluid balance. She does endorse some distention and reports 10 out of 10 abdominal generalized discomfort but does admit it is not as distended as when she required a paracentesis on 02/24. Patient was treated with doxycycline meropenem during her recent admission; she reports that she has been compliant with the p.o. antibiotics and she still has 2 days left on doxycycline and Omnicef left to take. Patient reports that she h as been having loose stool which is not new as this has been going on for the past month. In the past 24 hours she endorses 3 loose stools. She also endorses poor p.o. intake and generalized fatigue, which also has been going on x1 month. She reports new symptom of bilateral lower extremity pain and exquisite tenderness. She describes "hurts to walk". She denies a history of neuropathy. She has pedal edema however no erythema or wound. She denies trauma. Of note, chest x-ray stable without new infiltrates. 96% on 2L NC. Patient WBC 10.5 and she has been on prednisone. Patient is afebrile, normotensive and not tachycardic. No lactic acidosis. Lab work did reveal hypokalemia K2.9. Patient will be observed for further evaluation management of presenting concerns. Home Medications Scheduled Cefdinir (Cefdinir) 300 Mg Capsule, 300 MG PO BID Doxycycline Hyclate (Doxycycline Hyclate) 100 Mg Tablet, 100 MG PO BID Fluoxetine Hcl (Fluoxetine HCl) 40 Mg Capsule, 40 MG PO DAILY, (Reported) Furosemide (Lasix) 20 Mg Tablet, 20 MG PO DAILY, (Reported) Gabapentin (Gabapentin) 600 Mg Tablet, 600 MG PO TID, (Reported) Midodrine HCl (Midodrine HCl) 5 Mg Tablet, 10 MG PO TID, (Reported) 0800/1200/1600 Omeprazole (Omeprazole) 20 Mg Capsule.dr, 20 MG PO DAILY, (Reported) Prednisone (Prednisone) 10 Mg Tablet, 10 MG PO TAPER Take 4 tabs daily x 3 days, then 3 tabs daily x 3 days, then 2 tabs daily x 3 days, then 1 tab daily x 3 days and stop Spironolactone (Spironolactone) 50 Mg Tablet, 50 MG PO DAILY, (Reported) Sucralfate (Sucralfate) 1 Gm Tablet, 1 GM PO ACHS, (Reported) Scheduled PRN Albuterol Sulfate (Proair Hfa) 8.5 Gm Hfa.aer.ad, 2 PUFF INH Q4-6HP PRN for SHORTNESS OF BREATH, (Reported) Ondansetron HCl (Ondansetron HCl) 4 Mg Tablet, 4 MG PO Q6-8HP PRN for NAUSEA OR VOMITING, (Reported) Allergies Coded Allergies: No Known Allergies (Verified , 08/12/19) Past Medical History Medical History Asthma, IBS, Tan cirrhosis, chronic low back pain Surgical History Colonoscopy 2011, back surgery, left bone marrow transplant, , thoracentesis February 2021, paracentesis February 2021 Family History Significant Family History: No pertinent family hx Social History * Smoker: Denies Alcohol: Denies Drugs: denies Recent Travel/Sick Contacts: Denies: Recent travel, Recent sick contacts Patient lives with son and son's father A-FIB/CHADSVASC A-FIB History Current/History of A-Fib/PAF?: No Current PO Anticoag Therapy: No Review of Systems Constitutional: Reports: Malaise, Weakness, Fatigue; Denies: Chills, Fever, Night Sweats Eyes: Denies: Pain, Vision change ENT: Denies: Head Aches, Ear Pain, Dysphagia Skin: Denies: Rash, Lesions, Breakdown Pulmonary: Reports: Dyspnea, Cough Cardiovascular: Denies: Chest Pain, Palpitations, Orthopnea, Paroxysmal Noc. Dyspnea, Lt Headedness Gastrointestinal: Denies: Nausea, Vomiting, Abdominal Pain, Diarrhea Genitourinary: Denies: Dysuria, Frequency, Incontinence, Retention Hematologic: Denies: Bruising, Bleeding Excessively Musculoskeletal: Reports: Leg Pain; Denies: Neck Pain, Back Pain, Joint Pain, Muscle Pain, Spasms Neurological: Denies: Weakness, Numbness, Change in speech, Confusion Psych: Reports: Mood Normal; Denies: Depression, Memory Issues Physical Examination General Exam: Positive: Alert, Cooperative, No Acute Distress Eye Exam: Positive: PERRLA, Conjunctiva & lids normal, EOMI; Negative: Sclera icteric ENT Exam: Positive: Atraumatic, Mucous membr. moist/pink, Pharynx Normal Neck Exam: Positive: Supple; Negative: JVD, thyromegaly Chest Exam: Positive: Normal air movement Heart Exam: Positive: Rate Normal, Regular Rhythm, Normal S1, Normal S2; Negative: Murmurs, Rubs Telemetry: Positive: No significant arrhythmia Abdomen Exam: Positive: Normal bowel sounds, Soft, Other (+ Rounded/distended); Negative: Tenderness, Hepatospenomegaly Extremity Exam: Positive: Edema, Normal pulses; Negative: Clubbing, Cyanosis Skin Exam: Positive: Nl turgor and temperature; Negative: Breakdown, Lesion Neuro Exam: Positive: Normal Speech, Sensation Intact, Cranial Nerves 3-12 NL, Reflexes 2+ Psych Exam: Positive: Mental status NL, Mood NL, Oriented x 3 Vital Signs Vital Signs Date Time Temp Pulse Resp B/P (MAP) Pulse Ox O2 Delivery O2 Flow Rate FiO2 03/11/21 03:03 132/91 (105) 03/11/21 02:56 85 99 03/11/21 02:05 97.7 16 Room Air 2.0 Laboratory Data Labs 24H Laboratory Tests 2 03/11/21 00:09: Immature Granulocyte % (Auto) 0.8, Neutrophils (%) (Auto) 70.5H, Lymphocytes (%) (Auto) 15.0L, Monocytes (%) (Auto) 13.2H, Eosinophils (%) (Auto) 0.4, Basophils (%) (Auto) 0.1, Neutrophils # (Auto) 7.3, Lymphocytes # (Auto) 1.6, Monocytes # (Auto) 1.4H, Eosinophils # (Auto) 0.0, Basophils # (Auto) 0.0, Nucleated Red Blood Cells % (auto) 0.0, Anion Gap 7L, Glomerular Filtration Rate > 60.0, Lacti c Acid Level 1.8, Calcium Level 8.0L, Magnesium Level 1.9, Total Bilirubin 2.5H, Aspartate Amino Transf (AST/SGOT) 45H, Alanine Aminotransferase (ALT/SGPT) 49, Alkaline Phosphatase 179H, Ammonia 20, BM-Lug-S-Type Natriuretic Peptide 276H, Total Protein 5.5L, Albumin 2.4L, Albumin/Globulin Ratio 0.8L 03/11/21 01:57: Coronavirus (COVID-19)(PCR) NEGATIVE, Influenza Type A (RT-PCR) NEGATIVE, Influenza Type B (RT-PCR) NEGATIVE, Respiratory Syncytial Virus (PCR) NEGATIVE CBC/BMP Laboratory Tests 03/11/21 00:09 Assessment/Plan 1. Abdominal pain with labile nausea and poor appetite in pt with TAN Cirrhosis: - Consider therapeutic paracentesis, although abdomen is soft and patient does endorse that it is not as enlarged as previously when she required paracentesis. -Given pt without elevated infectious markers, lower suspicion developing SBP. -Should patient have any febrile episodes or elevated infectious markers would o pt for empiric coverage and diagnostic paracentesis. -Continue home medications and symptom management/supportive care -Clear liquid diet and advance as tolerated 2. Hypokalemia in setting of Aldactone and diarrhea: -secured entrance monitor -Replete per protocol -Check magnesium to consider additional need for repletion -Diarrhea is not new and less than 6 stools within 24 hours. Patient is afebri le and without elevated infectious markers; should patient have any clinical changes consider sending GI panel. 3. Recent pneumonia in patient with baseline asthma: Patient tolerating 2 L nasal cannula which is what she was discharged on. Chest x-ray without new infiltrates or acute findings; stable. -Monitor for signs symptoms worsening infection and respiratory status -Oxygen as needed to keep saturations greater than 93% -Continue p.o. antibiotics, check procalcitonin and consider escalation in antibiotics pending read/clinical course -Symptomatic/supportive care-as needed breathing treatments and antitussives -A.m. labs 4. Bilateral lower extremity leg pain: No overt deformity or soft tissue injury or signs of infection. -Leg pain/muscle aching may be related to electrolyte imbalance -Given the swelling and discomfort and patient with poor mobility will check bilateral lower extremity ultrasound. -Consider differential DVT prophylaxis: Teds CODE STATUS: Full code Disposition planning: Home pending hospital course Plan / VTE VTE Prophylaxis Ordered?: Yes Attending Note Attending Note Patient was seen and examined, agree with the TANIA is assessment and plan and will continue current management as described in the A&P section LINDSAY IVORY NP Mar 11, 2021 03:28 HETAL RODRIGUEZ MD Mar 11, 2021 22:27
[2021-03-11] MEDS: DOXYCYCLINE HYCLATE 100MG TABLET PO SCH ×2 (05:33→16:17)
[2021-03-11] MEDS ORDERED: DOXYCYCLINE HYCLATE 100MG TABLET PO SCH (06:00)
--- NOTE | 2021-03-11 06:39 | ECGEPIP ---
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
[2021-03-11] MEDS: SUCRALFATE 1 GM TAB PO SCH ×4 (07:31→20:13)
[2021-03-11 07:34] LABS: BASO % 0.1 % (0.0-1.0); EOS # 0.1 10^3/uL (0.0-0.5); EOS % 1.4 % (0.0-3.0); HEMATOCRIT 27.1 % (36.0-47.0); HEMOGLOBIN 8.7 g/dl (12.0-15.5); LYMPH # 1.7 10^3/uL (1.5-5.0); LYMPH % 23.9 % (24.0-44.0); MEAN CORPUSCULAR HEMOGLOBIN 31.8 pg (27.0-33.0); MEAN CORPUSCULAR HGB CONC 32.1 g/dl (32.0-36.5); MEAN CORPUSCULAR VOLUME 98.9 fl (80.0-96.0); MONO # 0.9 10^3/uL (0.0-0.8); MONO % 12.4 % (2.0-8.0); NEUTROPHILS # 4.3 10^3/uL (1.5-8.5); NEUTROPHILS % 61.6 % (36.0-66.0); RED BLOOD COUNT 2.74 10^6/uL (4.00-5.40)
[2021-03-11 07:46] LABS: INR 1.58; PARTIAL THROMBOPLASTIN TIME 35.3 SECONDS (25.9-37.0); PROTHROMBIN TIME 19.3 SECONDS (12.7-14.5)
[2021-03-11] MEDS: MIDODRINE 5 MG TAB PO SCH ×3 (08:00→16:17)
[2021-03-11 08:02] LABS: ALBUMIN 1.9 GM/DL (3.2-5.2); ALT/SGPT 42 U/L (12-78); BILIRUBIN,TOTAL 2.2 MG/DL (0.2-1.0); BLOOD UREA NITROGEN 11 MG/DL (7-18); CALCIUM LEVEL 7.4 MG/DL (8.5-10.1); CARBON DIOXIDE LEVEL 30 MEQ/L (21-32); CHLORIDE LEVEL 104 MEQ/L (98-107); CREATININE FOR GFR 0.55 MG/DL (0.55-1.30); GLOMERULAR FILTRATION RATE > 60.0 (>60); GLUCOSE, FASTING 73 MG/DL (70-100); LIPASE 260 U/L (73-393); POTASSIUM SERUM 3.4 MEQ/L (3.5-5.1); SODIUM LEVEL 137 MEQ/L (136-145); TOTAL PROTEIN 5.1 GM/DL (6.4-8.2); URIC ACID 3.1 MG/DL (2.6-6.0)
--- NOTE | 2021-03-11 08:11 | REP ---
INDICATION: BLE edema, pain COMPARISON: None. TECHNIQUE: Vaca scale and color Doppler evaluation using linear high frequency transducer. FINDINGS: Ultrasound examination of the right and left lower extremity deep venous structures from the common femoral vein through the popliteal vein demonstrates normal compressibility, flow and wave patterns in response to respiration and augmentation. There is no evidence for deep venous thrombosis. Evaluation of the calf veins is incomplete. IMPRESSION: No evidence for deep venous thrombosis. <Electronically signed by Oscar Kelly > 03/11/21 [id number]
[2021-03-11 08:12] LABS: PLATELET COUNT, AUTOMATED 79 10^3/uL (150-450)
--- NOTE | 2021-03-11 08:13 | REP ---
INDICATION: ascites, if drainable amt for para COMPARISON: None. TECHNIQUE: Real time andrade scale ultrasound examination using curved array transducer. FINDINGS: Limited examination demonstrates a moderate amount of ascites throughout the abdomen and pelvis. IMPRESSION: Moderate amount of ascites throughout the abdomen and pelvis. <Electronically signed by Oscar Kelly > 03/11/21 0832
[2021-03-11] MEDS ORDERED: CEFDINIR 300 MG CAP (OMNICEF) PO SCH (09:00)
[2021-03-11] MEDS ORDERED: FUROSEMIDE 20 MG TAB PO SCH (09:00)
[2021-03-11] MEDS ORDERED: POTASSIUM CHLORIDE 10MEQ SR TABLET PO ONE (09:40)
[2021-03-11] MEDS: OMEPRAZOLE 20 MG CAP PO SCH (09:41)
[2021-03-11] MEDS: GABAPENTIN 300 MG CAP PO SCH ×3 (09:41→20:12)
[2021-03-11] MEDS: predniSONE 10 MG TAB PO SCH (09:42)
[2021-03-11] MEDS: LACTOBACILLUS ACIDOPHILUS CAP (BACID) PO SCH (09:44)
[2021-03-11] MEDS: FLUoxetine 20 MG CAP PO SCH (09:44)
[2021-03-11 10:11] LABS: MAGNESIUM LEVEL 1.8 MG/DL (1.8-2.4)
--- NOTE | 2021-03-11 10:59 | IPNPDOC ---
Text Note Date of Service The patient was seen on 03/11/21. 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 Patient reports she feels exactly the same as she did on her last admission which lasted Feb 23- , where she was treated for pneumonia/ acute resp failure and decompensated cirrhosis. She notes that her pain level, a 10/10, has been the same since her discharge and that it is diffuse across her body with a more centric exacerbation in the abdominal region. She notes feeling weak ever since discharge and is still using the 2LNC she was discharged with to be able to breathe properly. She states that she has been compliant with all prescribed medications but nothing seems to fix her pain. On exam, 03/11, patient reports feeling just as terrible as the prior day and that even with Dilaudid her pain level has not been controlled, she also states she does not like Dilaudid due to the "Foggy" feeling she gets when it is administered. She does endorse a band like constrictive pain around her abdomen which is new on top of her generalized pain. She remarks that even the sensation of the blankets is painful and both light and sound assault her senses. Patient had a difficult time maneuvering during the physical exam as rotating in bed caused pain, checking capillary refill, pedal edema, even the stethoscope on her skin all elicited severe pain in the patient. Of note patient uses a cane to ambulate at home on baseline now. But she lives with her father who is able to assist her in many things. On second examination with Dr. Nino patient reported she came to ED due to generalized pain when initially she had said abdominal pain. ROS: General: Reports diffuse body pain and increased sensitivity to even the lightest touch HEENT: patient reports photosensitivity and hearing sensitivity, reports pain in both ears, dry mouth with difficulty swallowing, she also notes a headache and a foggy feeling s/p Dilaudid administration Cardiac: Reports a pressure in the chest but denies pain, states she int ermittently feels like her heart is racing Respiratory: Denies SOB, reports chronic cough productive of whitish sputum flecked with spots of black and brown. GI: Reports diffuse abdominal pain, worse on palpation, with a superimposed band of constrictive pressure across the mid-abdomen. Also reports chronic constipation with loose stools she attributes to her chron's disease. : Denies hematuria, dysuria, and change in frequency Extremities: patient reports intermittent paresthesias in her upper extremities and new swelling in her feet Psychiatric: patient reports feeling incredibly tired Objective: Vitals: See below General: Patient is an ill appearing 36 year old female lying uncomfortably in bed while shielding her eyes from the light, who looks much older than stated age and is in no acute distress. HEENT: NC/AT, EOMI, PERRLA, occlusion of both ears with associated pain, upper dentures but not currently in Cardiac: RRR, no gallops appreciated, possible S1/2 murmur Respiratory: Rhonchi appreciated in right base, no rales or wheezing appreciated Abdominal: Exquisitely tender and out of proportion in all 4 quadrant with some moderate distention, hyperactive and tinkling bowel sounds, no fluid thrill appreciated. Due to patient's extreme discomfort, the extent of our abdominal examination was significantly limited. Extremities: Good capillary refill but pain upon testing, bruising along undersides of forearms 2/2 IV placement, edmea B/L in pedal region Neuro: No gross focal deficits, CN 2-12 intact Psychiatric: Mood is depressed, affect is appropriate Imaging: #. 12 Abdominal US: "IMPRESSION: Moderate amount of ascites throughout the abdomen and pelvis." #. 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 Plan: #. Intractable abdominal pain with nausea in setting of PEREZ cirrhosis vs. conversion disorder - US abdomen not suggestive of any discernible pathology other than moderate ascites - reports pain all over that is 10/10, hyperaesthetic to any sensation as it all causes pain - low suspicion of SBP due to negative inflammatory markers, will start on IV rocephin for empiric coverage -Obtaining a paracentesis with peritoneal fluid analysis to r/o SBP - LA WNL, low suspicion for mesenteric ischemia - pain out of proportion I/S/O normal heart rate suggests potential psychiatric source of pain -Obtaining abdomen complete ultrasound with Doppler view to assess for/rule out any portal vein thrombosis - reports Dilaudid did not touch pain level, discontinued at this time; should patient require different form of pain medication, will plan to add tramadol which is what her PCP prescribes. - patient on clear liquid diet with orders to advance as tolerated #. Hypokalemia in setting of loose stools and furosemide, improving - patient reports feeling a racing heart + chest tightness - patient notes loose stool as her baseline bowel movement I/S/O chrons IBD - Lasix held, but Spironolactone continued - potassium at 3.4 on 03/11 - patient has been potassium repleted with 40 mEQ PO - continue to monitor on telemetry #Anemia and thrombocytopenia I/S/O liver cirrhosis -Hemoglobin 8.7 with platelet count of 79 on 03/11 -Likely manifestation of her liver cirrhosis -mechanical DVT prophylaxis only #. Recent Hx of pneumonia with hypoxia - patient admitted and treated for an episode of pneumonia Feb 23 - - patient was discharged on 2 L nasal cannula and has remained on this since; she is saturating in mid-upper 90s on morning of 03/11 -We will try to de-escalate oxygen requirement during admission as - no new respiratory symptoms at this time - imaging not suggestive of continued infective process - patient compliant with antibiotic course which has since been switched to rocephin for empiric coverage of potential SBP; she will remain on the oral doxycycline course she is on with only 2 days left until done #. Diffuse body pain and weakness - patient reports intermittent numbness + tingling in upper extremities - pain all over and weakness making ambulation difficult - may be due to electrolyte imbalance I/S/O hypokalemia, patient reports pain remains even as hypokalemia resolves - no pain medication has helped - d/c Dilaudid - patient normally on tramadol per PCP DVT prophylaxis: Patient is wearing is Teds I/S/O anemia and thrombocytopenia (as discussed above) CODE status: FULL code Disposition: Home, pending clinical improvement VS,Bianca, I+O VSBianca, I+O Laboratory Tests 03/11/21 00:09 03/11/21 07:19 Vital Signs Date Time Temp Pulse Resp B/P (MAP) Pulse Ox O2 Delivery O2 Flow Rate FiO2 03/11/21 09:39 16 03/11/21 06:30 73 116/75 (89) 95 03/11/21 04:16 97.7 Room Air 2.0 I&O- Last 24 Hours up to 6 AM 03/11/21 06:00 Intake Total 200 ml Balance 200 ml GME ATTESTATION GME ATTESTATION My faculty preceptor for this patient encounter was physically present during the encounter and was fully available. All aspects of the patient interview, examination, medical decision making process, and medical care plan development were reviewed and approved by the faculty preceptor. The faculty preceptor is aware and concurs with the plan as stated in the body of this note and will attest to such by his/her cosignature. ATTENDING NOTE I, Pj Nino MD, have independently examined this patient and performed my own physical exam personally with the resident/students in the room with me, as well as reviewed the documentation and edited where necessary. I have discussed in detail with the resident / student the findings and plan of treatment as documented by the resident / student and edited their note. I agree with their findings and treatment plan and have edited their documentation. Total time spent on this discharge including ordination of care review of chart documentation and actual patient contact is around 35 minutes DIEGO EWING OMS-3 Mar 11, 2021 10:59 MAYA SCOTT D.O. Mar 11, 2021 21:01 PJ NINO MD Mar 12, 2021 15:01
[2021-03-11 13:50] LABS: SPEC. GRAVITY BODY FLUIDS 1.003 (NOT ESTABLISHED)
[2021-03-11 13:56] LABS: APPEARANCE, BODY FLUID CLEAR (CLEAR); PERITONEAL FL COLOR YELLOW (COLORLESS); SOURCE, BODY FLUID PERITONEAL
--- NOTE | 2021-03-11 14:00 | REP ---
INDICATION: r/o portal vein thrombosis in cirrhosis pt. COMPARISON: None. TECHNIQUE: Transabdominal ultrasound FINDINGS: Multiple ultrasonographic images of the liver show the hepatic parenchymal echo pattern to be somewhat coarsened with a nodular surface. There is no evidence of a mass. There is no intrahepatic or extrahepatic ductal dilatation. The common bile duct measures 5 mm. Multiple ultrasonographic images of the gallbladder show no abnormal echogenic foci within the gallbladder lumen, gallbladder wall thickening, or pericholecystic edema. The imaged portion of the pancreas is within normal limits. The spleen measures 15.1 x 13.6 x7.8 cm. The splenic volumetric index calculation is 1591. No perisplenic abnormalities are noted. The right kidney measures 10 x 6 x 3.6 cm. The renal cortical echotexture is within normal limits. Corticomedullary differentiation is preserved. There is no hydronephrosis. There are no masses. The left kidney measures 12.1 x 4.7 x 4 cm. The renal cortical echotexture is within normal limits. Corticomedullary differentiation is preserved. There is no hydronephrosis. There are no masses. The imaged portion of the abdominal aorta is within normal limits. There is evidence of free fluid. Bilateral pleural effusions are also identified. All portal vessels are seen with hepatopetal flow. The hepatic veins are seen with hepatofugal flow but with loss of cardiac phasicity consistent with cirrhosis. There is evidence of increased resistance to the hepatic arteries. No abnormal thrombus is identified. IMPRESSION: 1. There is evidence of cirrhosis as described above. 2. There is splenomegaly. <Electronically signed by Alonso Reyna > 03/11/21 [id number]
[2021-03-11 14:20] LABS: SOURCE, BODY FLUID ALBUMIN PERITONEAL; SOURCE, BODY FLUID GLUCOSE PERITONEAL; SOURCE, BODY FLUID TOT PROTEIN PERITONEAL; TOTAL PROTEIN, BODY FLUID 0.5 G/DL (NOT ESTABLISHED)
[2021-03-11 15:30] VITALS: BP 109/63
[2021-03-11 16:14] LABS: HEPATITIS B CORE ANTIBODY IGM NEGATIVE (NEGATIVE); HEPATITIS B SURFACE ANTIGEN NEGATIVE (NEGATIVE); HEPATITIS C VIRUS ABY INDEX 0.2 INDEX (<0.8)
[2021-03-11] MEDS: SPIRONOLACTONE 50 MG TAB PO SCH (16:16)
[2021-03-11] MEDS: cefTRIAXone SOD 1 GM in D5W MINI-BAG PLUS 50 ML IV SCH (16:17)
--- NOTE | 2021-03-11 16:46 | REP ---
INDICATION: eval for SBP in cirrhotic pt w/ moderate ascites seen on u/s. COMPARISON: None. TECHNIQUE: The procedure was performed under the direct supervision of Dr. Vaca. The risks and benefits of the procedure were explained to the patient and informed consent was obtained. The largest pocket of fluid was localized in the right flank using ultrasound guidance. The skin was prepped and draped in a sterile fashion. 9 mL of 1% lidocaine was used as a local anesthetic. Using ultrasound guidance, an 8-Tuvaluan multi side-hole catheter was inserted using trocar technique.1900 mL of yellow fluid was withdrawn and sent to the lab for analysis. Estimated blood loss: Less than 1 mL The patient tolerated the procedure well and there were no immediate complications. After the appropriate amount of monitored convalescence, the patient was discharged from the department. FINDINGS: None IMPRESSION: Ultrasound-guided paracentesis [id number] mL of yellow fluid. <Electronically signed by Aurelio Sales > 03/11/21 1641 <Electronically signed by Devin Vaca > 03/11/21 1647
[2021-03-11] MEDS ORDERED: traMADol 50 MG TAB PO PRN (17:50)
[2021-03-11 18:00] VITALS: BP 105/60
[2021-03-11] MEDS ORDERED: traMADol 50 MG TAB PO ONE (18:00)
[2021-03-11 20:00] VITALS: BP 106/63
[2021-03-11] MEDS ORDERED: hydrOXYzine 25 MG TAB PO PRN (20:20)
[2021-03-11] MEDS ORDERED: KETOROLAC 30 MG/ML 1ML VIAL IV ONE (20:20)
[2021-03-11] MEDS ORDERED: RAMELTEON 8 MG TAB (ROZEREM) PO PRN (20:20)
[2021-03-11 21:47] LABS: BLOOD UREA NITROGEN 10 MG/DL (7-18); CALCIUM LEVEL 7.5 MG/DL (8.5-10.1); CARBON DIOXIDE LEVEL 27 MEQ/L (21-32); CHLORIDE LEVEL 105 MEQ/L (98-107); CREATININE FOR GFR 0.78 MG/DL (0.55-1.30); GLOMERULAR FILTRATION RATE > 60.0 (>60); GLUCOSE, FASTING 211 MG/DL (70-100); POTASSIUM SERUM 4.1 MEQ/L (3.5-5.1); SODIUM LEVEL 137 MEQ/L (136-145)
[2021-03-12 02:00] VITALS: BP 109/65
[2021-03-12] MEDS ORDERED: KETOROLAC 30 MG/ML 1ML VIAL IV ONE (05:00)
[2021-03-12] MEDS: DOXYCYCLINE HYCLATE 100MG TABLET PO SCH ×2 (05:03→15:11)
[2021-03-12 06:00] VITALS: BP 108/62
[2021-03-12 06:37] LABS: EOS % 0.5 % (0.0-3.0); HEMATOCRIT 25.6 % (36.0-47.0); HEMOGLOBIN 8.1 g/dl (12.0-15.5); MEAN CORPUSCULAR HEMOGLOBIN 31.8 pg (27.0-33.0); MEAN CORPUSCULAR HGB CONC 31.6 g/dl (32.0-36.5); MEAN CORPUSCULAR VOLUME 100.4 fl (80.0-96.0); MONO # 0.5 10^3/uL (0.0-0.8); MONO % 9.6 % (2.0-8.0); NEUTROPHILS % 71.4 % (36.0-66.0); RED BLOOD COUNT 2.55 10^6/uL (4.00-5.40); WHITE BLOOD COUNT 5.6 10^3/uL (4.0-10.0)
[2021-03-12 06:42] LABS: PLATELET COUNT, AUTOMATED 70 10^3/uL (150-450)
[2021-03-12 07:07] LABS: ALBUMIN 1.9 GM/DL (3.2-5.2); ALT/SGPT 37 U/L (12-78); BILIRUBIN,TOTAL 1.8 MG/DL (0.2-1.0); BLOOD UREA NITROGEN 9 MG/DL (7-18); CALCIUM LEVEL 7.6 MG/DL (8.5-10.1); CARBON DIOXIDE LEVEL 28 MEQ/L (21-32); CHLORIDE LEVEL 102 MEQ/L (98-107); CREATININE FOR GFR 0.67 MG/DL (0.55-1.30); GLOMERULAR FILTRATION RATE > 60.0 (>60); GLUCOSE, FASTING 106 MG/DL (70-100); MAGNESIUM LEVEL 1.8 MG/DL (1.8-2.4); POTASSIUM SERUM 3.5 MEQ/L (3.5-5.1); SODIUM LEVEL 137 MEQ/L (136-145); TOTAL PROTEIN 4.7 GM/DL (6.4-8.2)
[2021-03-12] MEDS ORDERED: POTASSIUM CHLORIDE 10MEQ SR TABLET PO ONE (08:00)
[2021-03-12] MEDS ORDERED: MAG SULF 1GM/100ML (MAG RUN) 1 GM in IV 1 EA IV ONE (08:00)
[2021-03-12] MEDS: FLUoxetine 20 MG CAP PO SCH (08:43)
[2021-03-12] MEDS: OMEPRAZOLE 20 MG CAP PO SCH (08:44)
[2021-03-12] MEDS: predniSONE 10 MG TAB PO SCH (08:44)
[2021-03-12] MEDS: SPIRONOLACTONE 50 MG TAB PO SCH (08:44)
[2021-03-12] MEDS: GABAPENTIN 300 MG CAP PO SCH ×2 (08:44→15:11)
[2021-03-12] MEDS: SUCRALFATE 1 GM TAB PO SCH ×2 (08:44→12:42)
[2021-03-12] MEDS: MIDODRINE 5 MG TAB PO SCH ×3 (08:45→15:11)
[2021-03-12] MEDS: LACTOBACILLUS ACIDOPHILUS CAP (BACID) PO SCH (08:45)
[2021-03-12 08:47] VITALS: BP 105/68
[2021-03-12 09:21] LABS: INR 1.42; PROTHROMBIN TIME 17.8 SECONDS (12.7-14.5)
[2021-03-12 09:22] LABS: PARTIAL THROMBOPLASTIN TIME 34.2 SECONDS (25.9-37.0)
[2021-03-12 12:00] VITALS: BP 107/69
[2021-03-12] MEDS: cefTRIAXone SOD 1 GM in D5W MINI-BAG PLUS 50 ML IV SCH (12:42)
[2021-03-12] MEDS ORDERED: traMADol 50 MG TAB PO ONE (13:00)
[2021-03-12] MEDS ORDERED: LIDOCAINE 5% (LIDODERM) PATCH TD ONE (13:30)
[2021-03-12] MEDS ORDERED: TRAM50TA2 PO (14:28)
--- NOTE | 2021-03-12 18:50 | DS.PDOC ---
Discharge Summary General Date of Admission Mar 10, 2021 at 19:12 Date of Discharge Friday, March 12, 2021 Primary Care Physician: KALEY DAVID DO Attending Physician: OWEN PRICE MD Discharge Summary PROCEDURES PERFORMED DURING STAY: Paracentesis, 03/11/2021 ADMITTING DIAGNOSES: Diffuse intractable pain Abdominal pain with labile nausea and poor appetite and patient without cirrhosis Hypokalemia, in setting of Aldactone and diarrhea Recent pneumonia in setting of baseline asthma Bilateral lower extremity pain DISCHARGE DIAGNOSES: Intractable abdominal pain with nausea in setting of Tan cirrhosis versus conversion disorder Hypokalemia, in setting of loose stools and furosemide, resolved Anemia and thrombocytopenia in setting of liver cirrhosis Recent history of pneumonia with hypoxia on 2 L nasal cannula oxygen, improved Diffuse body pain and weakness with gait unsteadiness requiring rolling walker COMPLICATIONS/CHIEF COMPLAINT: Diffuse intractable pain HISTORY OF PRESENT ILLNESS: Coreen is a 36yo female w/ notable PMHx of 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 She was discharged from [facility] on 03/04 after a 10-day stay and feels she "went home too soon." During the readmission, she was treated for decompensated cirrhosis and ascites and acute respiratory failure secondary to CAP with pleural effusion. Upon discharge from previous admission, she was given a prescription for 2 L of nasal cannula. Since discharge, she reports her breathing has been "about the same" with accompanying productive cough of white sputum, although she states she does see "flecks of black and brown spots" in the sputum. She went on to state her abdomen has been in varying states of distention due to fluid buildup. At the time of admission, she reported 10/10 abdominal generalized discomfort with some distention, but did not feel it was as distended as when she had a paracentesis on 02/24. During the last admission, patient CAP was treated with meropenem and doxycycline, and upon discharge she was given a prescription to complete oral doxy and cefdinir. Upon arrival back to the ED for this admission, she had 2 days remaining on both the doxycycline and cefdinir scripts. In terms of accompanying symptoms, she reports loose stool that has been present for the past month. Specifically over the 24 hours preceding this admission, she has had 3 episodes of loose stool. She also has had decreased oral intake and generalized fatigue, which have also been going on for the past month. She reports new symptoms upon this admission consisting of bilateral lower extremity pain and "exquisite tenderness." She states that it "hurts to walk". She denied any neuropathy history nor any recent trauma. In the ED, chest x-ray was devoid of any new infiltrates and was stable from the previous study from her admission last week. She was saturating at 96% on 2 L nasal cannula. She had a white count of 10.5 with no absolute neutrophilia in the setting of an oral prednisone taper from the last admission. She was afebrile, not tachycardic, and normotensive. She did not have any lactic ac idosis. She did have hypokalemia (serum potassium of 2.9 initially), with repletion started by the ED team. HOSPITAL COURSE: Upon evaluation by the hospitalist day service on 03/11, it was most important to rule out most concerning etiology/pathology. Mesenteric ischemia was deemed less likely as the patient had a normal lactic (1.8) despite a abdominal exam that was consistent with pain out of proportion. Initial abdomen ultrasound showed moderate ascites throughout, so there is less concern for large ascites causing pressure and stenosis of vital abdominal vessels and organs. We did however order a therapeutic and diagnostic paracentesis which was performed on the afternoon of 03/11. 1.9 L of fluid were removed and fluid analysis showed a PMN relative count of 38; since this was less than 250 cells per millimeters cubed, active SBP was ruled out. Patient denied any history of SBP in the past, but due to symptomatic ascites and known cirrhosis as evidenced on imaging, IV ceftriaxone was started on 03/11. When ceftriaxone was initiated, the oral cefdinir was stopped. She did continue the oral doxycycline to complete the prescription from her last admission since there were just 2 days remaining. On review of the fluid analysis, since the total protein was less than one, current standard of care is to continue with IV Rocephin for the duration of patient's hospital course. The patient reports a history of Crohn's disease but she denies any recent hematochezia, melena, or even blood on toilet tissue. We went back through and reviewed her records, and a capsule endoscopy was done last year (2019) which showed no signs of Crohn's disease. She also had an EGD done in August 2019 that showed no esophageal varices as well as a portal vein Doppler ultrasound in September 2019 that did not show any portal vein thrombosis. In addition, she follows with a assisted living assistant in [facility], and records state that patient was negative for salient GI autoantibodies (antimitochondri al, anti-smooth muscle, and CYNDI). To rule out hepatitis as an etiology, hepatitis profile was ordered on this admission and was unremarkable. We ordered a complete abdominal ultrasound with Doppler to assess for portal vein thrombosis with results showing no signs of any PV thrombosis, but findings consistent with cirrhosis and splenomegaly. DVT prophylaxis in the form of pharmacotherapy was deferred in the setting of her thrombocytopenia (platelet count in the 70,000 range) and anemia; instead she received mechanical prophylaxis. After ruling out all emergent etiologies of her abdominal pain, and seeing benefit from the paracentesis, no aspects warranted continued inpatient stay. She was initially started on a CLD and was progressed to a 2 g Na diet on 03/12, handling it without any issues. She already had a pre-existing 03/18/2021 appointment with her PCP scheduled, and has outpatient arrangements with gastroenterology ([place]) and vascular ([facility]). We did however advise that she titrate down and/or completely stop her supplemental oxygen when at rest as she was saturating the 97-98% range on 2 L. It was also felt that since she is unvaccinated against the novel coronavirus, that discharge home would decrease further exposure risk. We strongly advised the patient to become vaccinated against Covid as she is high risk due to her comorbidities. As a relates to her intractable pain, this is a significant chronic issue plaguing the patient. It is felt from this perspective that this is predominantly somatic in nature and there may be an element of conversion disorder at play. She does receive intermittent dosing of tramadol by her PCP as an outpatient, and thus 2 days worth of prn bid tramadol was sent to her pharmacy in order to carry her through to her PCP appointment next week. On 03/12, the patient was evaluated by PT who recommended a prescription for rolling walker. At patient's baseline prior to coming in, she uses a cane with ambulation, but due to her unsteady gait and debility from intractable pain rolling walker was deemed appropriate: Prescription was filled out and [facility] was to deliver said walker. DISCHARGE MEDICATIONS: Please see below. ALLERGIES: Please see below. PHYSICAL EXAMINATION ON DISCHARGE: VITAL SIGNS: Please see below. General: Ill-appearing white female lying in bed. She appears to be in some significant discomfort, although less so compared to yesterday's exam. She is more alert today versus yesterday and is oriented x3. HEENT: NC/AT. Noninjected, anicteric sclera. Wearing nasal cannula supplemental oxygen. Cardiac: Regular rate, regular rhythm. Normal S1, S2. Appears to be a 1/6 systolic murmur present. Respiratory: Saturating at 98% on 2 L nasal cannula supplemental oxygen. No visualized accessory muscle use with fair air entry bilaterally and symmetric chest expansion. No significant adventitious breath sounds were appreciated. Abdominal: Appears less distended versus yesterday and there is a bandage over t he right side of the abdomen where paracentesis occurred. Bowel sounds remain somewhat hyperactive but the tinkling nature has resolved from yesterday's exam. She remains significantly tender throughout, most especially in the lower quadrants bilaterally. It was difficult to accurately assess for he patosplenomegaly due to patient's significant tenderness. There was no rigidity appreciated but significant guarding was present throughout. Extremities: Good capillary refill but pain upon testing, bruising remains present along undersides of forearms: Bilateral pedal edema seems improved from yesterday's exam. Wearing teds and sequentials. 2+ radial pulses bilaterally Neuro: No gross focal neurologic deficits appreciated. Nondysarthric speech. Appropriately responding to all questions and commands. Psychiatric: Improved mood today versus yesterday. Affect appears appropriate. LABORATORY DATA: Please see below. IMAGING: Portable chest x-ray, 03/10/2021 FINDINGS: LUNGS and PLEURAL SPACE: Lung volumes are low. Mildly confluent ground-glass and reticular opacities are seen involving the lower lung manning, left slightly greater than right, similar to the prior exam and may be secondary to atelectasis and/or interstitial pneumonitis. Small pleural effusions again noted. No pneumothorax is seen. MEDIASTINUM: There is no mediastinal shift or widening. CARDIAC SILHOUETTE: Cardiothoracic ratio is within normal limits. BONY THORAX: Scoliosis and spinal fixation again noted. OTHER: Previously seen right-sided PICC line catheter is no longer present. IMPRESSION: No significant interval pulmonary changes. Other findings discussed above. Abdomen (limited) ultrasound, 03/11/2021 FINDINGS: Limited examination demonstrates a moderate amount of ascites throughout the abdomen and pelvis. IMPRESSION: Moderate amount of ascites throughout the abdomen and pelvis. Duplex lower extremity bilateral ultrasound, 03/11/2021 FINDINGS: Ultrasound examination of the right and left lower extremity deep venous structures from the common femoral vein through the popliteal vein demonstrates normal compressibility, flow and wave patterns in response to respiration and augmentation. There is no evidence for deep venous thrombosis. Evaluation of the calf veins is incomplete. IMPRESSION: No evidence for deep venous thrombosis. Abdomen (complete) ultrasound, 03/11/2021 FINDINGS: Multiple ultrasonographic images of the liver show the hepatic parenchymal echo pattern to be somewhat coarsened with a nodular surface. There is no evidence of a mass. There is no intrahepatic or extrahepatic ductal dilatation. The common bile duct measures 5 mm. Multiple ultrasonographic images of the gallbladder show no abnormal echogenic foci within the gallbladder lumen, gallbladder wall thic kening, or pericholecystic edema. The imaged portion of the pancreas is within normal limits. The spleen measures 15.1 x 13.6 x7.8 cm. The splenic volumetric index calculation is 1591. No perisplenic abnormalities are noted. The right kidney measures 10 x 6 x 3.6 cm. The renal cortical echotexture is within normal limits. Corticomedullary differentiation is preserved. There is no hydronephrosis. There are no masses. The left kidney measures 12.1 x 4.7 x 4 cm. The renal cortical echotexture is within normal limits. Corticomedullary differentiation is preserved. There is no hydronephrosis. There are no masses. The imaged portion of the abdominal aorta is within normal limits. There is evidence of free fluid. Bilateral pleural effusions are also identified. All portal vessels are seen with hepatopetal flow. The hepatic veins are seen with hepatofugal flow but with loss of cardiac phasicity consistent with cirrhosis. There is evidence of increased resistance to the hepatic arteries. No abnormal thrombus is identified. IMPRESSION: 1. There is evidence of cirrhosis as described above. 2. There is splenomegaly. Paracentesis needle placement ultrasound, 03/11/2021 TECHNIQUE: The procedure was performed under the direct supervision of Dr. Vaca. The risks and benefits of the procedure were explained to the patient and informed consent was obtained. The largest pocket of fluid was localized in the right flank using ultrasound guidance. The skin was prepped and draped in a sterile fashion. 9 mL of 1% lidocaine was used as a local anesthetic. Using ultrasound guidance, an 8-Bel[place]ian multi side-hole catheter was inserted using trocar technique.1900 mL of yellow fluid was withdrawn and sent to the lab for analysis. Estimated blood loss: Less than 1 mL The patient tolerated the procedure well and there were no immediate complications. After the appropriate amount of monitored convalescence, the patient was discharged from the department. FINDINGS: None IMPRESSION: Ultrasound-guided paracentesis [id number] mL of yellow fluid. PROGNOSIS: Fair ACTIVITY: As tolerated with rolling walker DIET: 2 g sodium DISPOSITION: 01 Home, Self-Care. DISCHARGE INSTRUCTIONS & ITEMS TO FOLLOWUP ON ON OUTPATIENT: -Please follow-up with your primary care physician (Dr. Kaley David, D.O.) at previously scheduled appointment on 03/18/2021 at 8:30 AM at the [facility]. -Please follow-up with your outpatient assisted living assistant (Dr. Quiñones, [facility]) as previously scheduled/arranged. -Due to significant comorbidities portending increased risk, hospitalist service highly recommends vaccination against the novel coronavirus. -Due to consistent saturations 97% and up while on 2 L nasal cannula at rest during hospitalization, recommend stopping supplemental O2 from at rest that was prescribed from previous admission. -Should the presenting symptoms return and/or acutely worsen, please return to the ED or seek immediate medical attention. -Please comply with the above treatment plan. -Thank you for the opportunity to participate in your care. DISCHARGE CONDITION: Stable TIME SPENT ON DISCHARGE: A total time of 37 minutes was spent on discharge. Vital Signs/I&Os Vital Signs Date Time Temp Pulse Resp B/P (MAP) Pulse Ox O2 Delivery O2 Flow Rate FiO2 03/12/21 12:00 98.3 79 14 107/69 (82) 97 Nasal Cannula 2.0 I&O- Last 24 Hours up to 6 AM 03/12/21 06:00 Output Total 450 ml Balance -450 ml Laboratory Data Labs 24H Laboratory Tests 2 03/11/21 21:02: Anion Gap 5L, Glomerular Filtration Rate > 60.0, Calcium Level 7.5L 03/12/21 06:02: Anion Gap 7L, Glomerular Filtration Rate > 60.0, Calcium Level 7.6L, Immature Granulocyte % (Auto) 0.5, Neutrophils (%) (Auto) 71.4H, Lymphocytes (%) (Auto) 18.0L, Monocytes (%) (Auto) 9.6H, Eosinophils (%) (Auto) 0.5, Basophils (%) (Auto) 0.0, Neutrophils # (Auto) 4.0, Lymphocytes # (Auto) 1.0L, Monocytes # (Auto) 0.5, Eosinophils # (Auto) 0.0, Basophils # (Auto) 0.0, Nucleated Red Blood Cells % (auto) 0.0, Magnesium Level 1.8, Total Bilirubin 1.8H, Aspartate Amino Transf (AST/SGOT) 33, Alanine Aminotransferase (ALT/SGPT) 37, Alkaline Phosphatase 139H, Total Protein 4.7L, Albumin 1.9L, Albumin/Globulin Ratio 0.7L 03/12/21 08:58: Prothrombin Time 17.8H, Prothromb Time International Ratio 1.42, Activated Partial Thromboplast Time 34.2 CBC/BMP Laboratory Tests 03/11/21 21:02 03/12/21 06:02 Microbiology Microbiology 03/11/21 Acid Fast Stain, Received Pending 03/11/21 Mycobacterial Culture, Received Pending 03/11/21 Fungal Smear, Received Pending 03/11/21 Fungal Culture, Received Pending 03/11/21 Gram Stain - Final, Resulted 03/11/21 Body Fluid Culture, Resulted Pending 03/11/21 Anaerobic Culture, Resulted Pending Discharge Medications Scheduled Fluoxetine Hcl (Fluoxetine HCl) 40 Mg Capsule, 40 MG PO DAILY, (Reported) Furosemide (Lasix) 20 Mg Tablet, 20 MG PO DAILY, (Reported) Gabapentin (Gabapentin) 600 Mg Tablet, 600 MG PO TID, (Reported) Midodrine HCl (Midodrine HCl) 5 Mg Tablet, 10 MG PO TID, (Reported) 0800/1200/1600 Omeprazole (Omeprazole) 20 Mg Capsule.dr, 20 MG PO DAILY, (Reported) Prednisone (Prednisone) 10 Mg Tablet, 10 MG PO TAPER Take 4 tabs daily x 3 days, then 3 tabs daily x 3 days, then 2 tabs daily x 3 days, then 1 tab daily x 3 days and stop Spironolactone (Spironolactone) 50 Mg Tablet, 50 MG PO DAILY, (Reported) Sucralfate (Sucralfate) 1 Gm Tablet, 1 GM PO ACHS, (Reported) Scheduled PRN Albuterol Sulfate (Proair Hfa) 8.5 Gm Hfa.aer.ad, 2 PUFF INH Q4-6HP PRN for SHORTNESS OF BREATH, (Reported) Ondansetron HCl (Ondansetron HCl) 4 Mg Tablet, 4 MG PO Q6-8HP PRN for NAUSEA OR VOMITING, (Reported) Tramadol HCl (Tramadol HCl) 50 Mg Tablet, 1 TAB PO BIDP PRN for pain Allergies Coded Allergies: No Known Allergies (Verified , 08/12/19) GME ATTESTATION GME ATTESTATION My faculty preceptor for this patient encounter was physically present during the encounter and was fully available. All aspects of the patient interview, examination, medical decision making process, and medical care plan development were reviewed and approved by the faculty preceptor. The faculty preceptor is aware and concurs with the plan as stated in the body of this note and will attest to such by his/her cosignature. MAYA SCOTT D.O. Mar 12, 2021 18:50
[2021-03-13] MEDS ORDERED: **NOTE PATIENT COMMENT** MISC XX ONE (01:00)
== END 2021-03-12 16:30 | disposition home or self-care (01) ==
LOC: M ED 19:11 → M ED INP 19:12 → ENRESERV 03-11 14:19 → M MSPAV 03-11 15:15
PROVIDERS: ADMIT Internal Medicine; ATTEND Internal Medicine
DX: K75.81 Nonalcoholic steatohepatitis (NASH) (principal); K74.69 Other cirrhosis of liver; R18.8 Other ascites; E87.6 Hypokalemia; R53.1 Weakness; J45.909 Unspecified asthma, uncomplicated; R16.1 Splenomegaly, not elsewhere classified; Z99.81 Dependence on supplemental oxygen; D64.9 Anemia, unspecified; D69.6 Thrombocytopenia, unspecified; Z79.899 Other long term (current) drug therapy; Z79.52 Long term (current) use of systemic steroids; K58.8 Other irritable bowel syndrome
CPT/HCPCS: 36415; 49083; 71045; 76700; 76705; 80053; 82042; 82140; 82945; 83605; 83690; 83735; 83880; 84145; 84157; 84315; 84550; 85025; 85049; 85055; 85610; 85730; 86705; 86709; 86803; 86850; 86900; 86901; 87070; 87075; 87077; 87102; 87116; 87205; 87206; 87340; 87631; 89051; 93005; 93970; 93975; 96361; 96365; 96366; 96375; 96376; 97116; 97161; 97530; 99285; J0696; J1170; J1885; J2270; J3475; J3480; J7512

== ENCOUNTER 2021-03-17 13:38 | Inpatient (IN) | payer OTHER ==
[~2021-03-17] VITALS: Ht 160 cm; Wt 73.0 kg
[~2021-03-17 13:38] MED LIST changes: -CEFD1CAP8 PO; +CEFD300C41 PO; +LASI20TA3 PO; +OMEP-173 PO; +SPIR50TA4 PO; +SUCR1TAB56 PO
[2021-03-17 15:35] LABS: BASO % 0.3 % (0.0-1.0); EOS # 0.2 10^3/uL (0.0-0.5); HEMATOCRIT 29.7 % (36.0-47.0); HEMOGLOBIN 9.5 g/dl (12.0-15.5); LYMPH # 1.6 10^3/uL (1.5-5.0); LYMPH % 26.6 % (24.0-44.0); MEAN CORPUSCULAR HEMOGLOBIN 31.3 pg (27.0-33.0); MEAN CORPUSCULAR VOLUME 97.7 fl (80.0-96.0); MONO # 0.7 10^3/uL (0.0-0.8); MONO % 10.7 % (2.0-8.0); NEUTROPHILS # 3.6 10^3/uL (1.5-8.5); NEUTROPHILS % 58.7 % (36.0-66.0); PLATELET COUNT, AUTOMATED 101 10^3/uL (150-450); RED BLOOD COUNT 3.04 10^6/uL (4.00-5.40); WHITE BLOOD COUNT 6.1 10^3/uL (4.0-10.0)
[2021-03-17 15:55] LABS: INR 1.58; PROTHROMBIN TIME 19.3 SECONDS (12.7-14.5)
[2021-03-17 15:56] LABS: PARTIAL THROMBOPLASTIN TIME 33.2 SECONDS (25.9-37.0)
[2021-03-17 16:08] LABS: ALBUMIN 2.1 GM/DL (3.2-5.2); BILIRUBIN,DIRECT 0.9 MG/DL (0.0-0.2); BILIRUBIN,TOTAL 2.1 MG/DL (0.2-1.0); TOTAL PROTEIN 5.3 GM/DL (6.4-8.2)
[2021-03-17] MEDS ORDERED: MORPHINE 2 MG/ML 1ML VIAL (J2270) IV ONE (17:05)
[2021-03-17 17:14] LABS: APPEARANCE, BODY FLUID HAZY (CLEAR); PERITONEAL FL COLOR YELLOW (COLORLESS); SOURCE, BODY FLUID PERITONEAL; SPEC. GRAVITY BODY FLUIDS 1.007 (NOT ESTABLISHED)
[2021-03-17 17:49] LABS: SOURCE, BODY FLUID ALBUMIN PERITONEAL; SOURCE, BODY FLUID GLUCOSE PERITONEAL; SOURCE, BODY FLUID TOT PROTEIN PERITONEAL; TOTAL PROTEIN, BODY FLUID 0.5 G/DL (NOT ESTABLISHED)
[2021-03-17 18:03] LABS: RSV AMPLIFICATION NEGATIVE (NEGATIVE)
[2021-03-17] MEDS ORDERED: NALOXONE INJ 0.4MG/1ML VIAL (J2310 PER 1MG) IV PRN (18:30)
[2021-03-17] MEDS ORDERED: HYDROmorphone 2 MG TAB PO PRN (18:30)
[2021-03-17] MEDS ORDERED: HYDROmorphone 4MG TABLET PO PRN (18:30)
[2021-03-17] MEDS ORDERED: GI COCKTAIL 50ML BTL(HYOSCYAMINE/MAALOX/LIDOCAINE VISCOUS)(1:3:1) PO PRN (19:00)
[2021-03-17] MEDS ORDERED: ALBUTEROL 90 MCG/ACT 8GM HFA INHALER INH PRN (19:00)
[2021-03-17] MEDS ORDERED: HOME MED LIST COMPLETE! XX SCH (19:20)
[2021-03-17] MEDS: HYDROmorphone 2 MG TAB PO PRN (19:58)
[2021-03-17] MEDS: SUCRALFATE SUSP 1GM/10ML UD PO SCH (20:03)
[2021-03-17] MEDS ORDERED: fentaNYL 100 MCG/2 ML INJECTION IV ONE (22:10)
[2021-03-17 23:21] VITALS: BP 124/84
[2021-03-18] MEDS: HYDROmorphone 2 MG TAB PO PRN ×5 (03:18→22:39)
[2021-03-18 06:00] VITALS: BP 106/61
[2021-03-18 06:47] LABS: HEMATOCRIT 27.4 % (36.0-47.0); HEMOGLOBIN 8.6 g/dl (12.0-15.5); MEAN CORPUSCULAR HEMOGLOBIN 30.7 pg (27.0-33.0); MEAN CORPUSCULAR HGB CONC 31.4 g/dl (32.0-36.5); MEAN CORPUSCULAR VOLUME 97.9 fl (80.0-96.0); WHITE BLOOD COUNT 4.7 10^3/uL (4.0-10.0)
[2021-03-18 07:23] LABS: ALBUMIN 1.8 GM/DL (3.2-5.2); ALT/SGPT 47 U/L (12-78); BILIRUBIN,TOTAL 1.9 MG/DL (0.2-1.0); BLOOD UREA NITROGEN 9 MG/DL (7-18); CALCIUM LEVEL 7.7 MG/DL (8.5-10.1); CARBON DIOXIDE LEVEL 28 MEQ/L (21-32); CHLORIDE LEVEL 104 MEQ/L (98-107); CREATININE FOR GFR 0.58 MG/DL (0.55-1.30); GLOMERULAR FILTRATION RATE > 60.0 (>60); GLUCOSE, FASTING 92 MG/DL (70-100); POTASSIUM SERUM 3.8 MEQ/L (3.5-5.1); SODIUM LEVEL 136 MEQ/L (136-145); TOTAL PROTEIN 4.7 GM/DL (6.4-8.2)
[2021-03-18 08:27] LABS: PLTBLUE- EDTA FREE CALC 69 K/mm3 (172-450); PLTBLUE- EDTA FREE MACHINE 63 10^3/uL (172-450)
[2021-03-18 08:28] LABS: BASO % 0.3 % (0.0-1.0); EOS # 0.3 10^3/uL (0.0-0.5); EOS % 5.6 % (0.0-3.0); HEMATOCRIT 28.7 % (36.0-47.0); HEMOGLOBIN 8.9 g/dl (12.0-15.5); LYMPH # 1.5 10^3/uL (1.5-5.0); LYMPH % 24.9 % (24.0-44.0); MEAN CORPUSCULAR HEMOGLOBIN 30.7 pg (27.0-33.0); MONO # 0.7 10^3/uL (0.0-0.8); MONO % 11.5 % (2.0-8.0); NEUTROPHILS # 3.4 10^3/uL (1.5-8.5); WHITE BLOOD COUNT 5.9 10^3/uL (4.0-10.0)
[2021-03-18 08:53] LABS: PLATELET COUNT, AUTOMATED 76 10^3/uL (150-450)
[2021-03-18] MEDS: LIDOCAINE 5% (LIDODERM) PATCH TD SCH (08:56)
[2021-03-18] MEDS: FUROSEMIDE 20 MG TAB PO SCH (08:56)
[2021-03-18] MEDS: OMEPRAZOLE 20MG CAP PO SCH (08:57)
[2021-03-18] MEDS: SUCRALFATE SUSP 1GM/10ML UD PO SCH ×4 (08:57→20:26)
[2021-03-18] MEDS: FLUoxetine 20 MG CAP PO SCH (08:57)
[2021-03-18] MEDS: SPIRONOLACTONE 50 MG TAB PO SCH (08:57)
[2021-03-18] MEDS: GASTROGRAFIN SOLUTION 30ML PO SCH ×2 (10:45→10:48)
[2021-03-18] MEDS ORDERED: diphenhydrAMINE 50MG/ML VIAL (J1200) IV PRN (11:40)
[2021-03-18] MEDS ORDERED: ISOVUE-370 76% 100ML VIAL As Ordered ONE (12:08)
[2021-03-18 14:00] VITALS: BP 107/64
[2021-03-18] MEDS ORDERED: LIDOCAINE 1% MDV 20ML VIAL As Ordered ONE (14:47)
[2021-03-18 15:15] VITALS: O2SAT 97
[2021-03-18] MEDS ORDERED: SODIUM CHLORIDE 0.9% INJ 10 ML SYR IV PRN (16:30)
[2021-03-18] MEDS: SODIUM CHLORIDE 0.9% INJ 10 ML SYR IV SCH (17:35)
[2021-03-18] MEDS: **NOTE PATIENT COMMENT** MISC XX SCH (20:29)
[2021-03-18 21:44] VITALS: BP 109/66
[2021-03-19] MEDS: HYDROmorphone 2 MG TAB PO PRN ×4 (06:07→20:01)
[2021-03-19] MEDS: SODIUM CHLORIDE 0.9% INJ 10 ML SYR IV SCH ×2 (06:07→17:35)
[2021-03-19 06:23] LABS: HEMATOCRIT 28.1 % (36.0-47.0); HEMOGLOBIN 8.6 g/dl (12.0-15.5); MEAN CORPUSCULAR HEMOGLOBIN 30.1 pg (27.0-33.0); MEAN CORPUSCULAR HGB CONC 30.6 g/dl (32.0-36.5); MEAN CORPUSCULAR VOLUME 98.3 fl (80.0-96.0); RED BLOOD COUNT 2.86 10^6/uL (4.00-5.40); WHITE BLOOD COUNT 8.4 10^3/uL (4.0-10.0)
[2021-03-19 06:25] LABS: PLATELET COUNT, AUTOMATED 70 10^3/uL (150-450)
[2021-03-19 06:57] VITALS: BP 105/62
[2021-03-19 06:59] LABS: ALBUMIN 1.9 GM/DL (3.2-5.2); ALT/SGPT 51 U/L (12-78); BILIRUBIN,DIRECT 0.7 MG/DL (0.0-0.2); BILIRUBIN,TOTAL 2.2 MG/DL (0.2-1.0); BLOOD UREA NITROGEN 6 MG/DL (7-18); CALCIUM LEVEL 7.7 MG/DL (8.5-10.1); CARBON DIOXIDE LEVEL 28 MEQ/L (21-32); CHLORIDE LEVEL 101 MEQ/L (98-107); CREATININE FOR GFR 0.59 MG/DL (0.55-1.30); GLOMERULAR FILTRATION RATE > 60.0 (>60); GLUCOSE, FASTING 81 MG/DL (70-100); POTASSIUM SERUM 4.8 MEQ/L (3.5-5.1); SODIUM LEVEL 133 MEQ/L (136-145)
[2021-03-19] MEDS: SUCRALFATE SUSP 1GM/10ML UD PO SCH ×4 (08:11→20:01)
[2021-03-19] MEDS: SPIRONOLACTONE 50 MG TAB PO SCH (08:11)
[2021-03-19] MEDS: FUROSEMIDE 20 MG TAB PO SCH (08:12)
[2021-03-19] MEDS: FLUoxetine 20 MG CAP PO SCH (08:12)
[2021-03-19] MEDS: OMEPRAZOLE 20MG CAP PO SCH (08:12)
[2021-03-19] MEDS: LIDOCAINE 5% (LIDODERM) PATCH TD SCH (08:13)
[2021-03-19 08:56] VITALS: BP 107/62
[2021-03-19 09:00] VITALS: O2SAT 91
[2021-03-19] MEDS ORDERED: FUROSEMIDE 20 MG TAB PO ONE (10:20)
[2021-03-19] MEDS ORDERED: SPIRONOLACTONE 50 MG TAB PO ONE (10:20)
[2021-03-19 14:00] VITALS: BP 130/77
[2021-03-19 15:31] VITALS: O2SAT 93
[2021-03-19 20:00] VITALS: BP 127/77
[2021-03-19] MEDS: **NOTE PATIENT COMMENT** MISC XX SCH (20:02)
[2021-03-19] MEDS: RAMELTEON 8 MG TAB (ROZEREM) PO PRN (23:08)
[2021-03-20 04:00] VITALS: BP 117/63
[2021-03-20] MEDS: HYDROmorphone 2 MG TAB PO PRN ×4 (06:15→22:35)
[2021-03-20] MEDS: SODIUM CHLORIDE 0.9% INJ 10 ML SYR IV SCH ×2 (06:15→17:33)
[2021-03-20 06:24] LABS: HEMATOCRIT 25.8 % (36.0-47.0); HEMOGLOBIN 8.2 g/dl (12.0-15.5); MEAN CORPUSCULAR HEMOGLOBIN 30.7 pg (27.0-33.0); MEAN CORPUSCULAR HGB CONC 31.8 g/dl (32.0-36.5); MEAN CORPUSCULAR VOLUME 96.6 fl (80.0-96.0); RED BLOOD COUNT 2.67 10^6/uL (4.00-5.40); WHITE BLOOD COUNT 6.4 10^3/uL (4.0-10.0)
[2021-03-20 06:25] LABS: PLATELET COUNT, AUTOMATED 63 10^3/uL (150-450)
[2021-03-20 07:03] LABS: ALBUMIN 1.7 GM/DL (3.2-5.2); ALT/SGPT 46 U/L (12-78); BILIRUBIN,DIRECT 1.2 MG/DL (0.0-0.2); BILIRUBIN,TOTAL 1.9 MG/DL (0.2-1.0); BLOOD UREA NITROGEN 6 MG/DL (7-18); CALCIUM LEVEL 7.6 MG/DL (8.5-10.1); CARBON DIOXIDE LEVEL 31 MEQ/L (21-32); CHLORIDE LEVEL 99 MEQ/L (98-107); CREATININE FOR GFR 0.43 MG/DL (0.55-1.30); GLOMERULAR FILTRATION RATE > 60.0 (>60); GLUCOSE, FASTING 82 MG/DL (70-100); POTASSIUM SERUM 3.6 MEQ/L (3.5-5.1); SODIUM LEVEL 136 MEQ/L (136-145); TOTAL PROTEIN 4.4 GM/DL (6.4-8.2)
[2021-03-20] MEDS: BUDESONIDE 180MCG INHALER (PULMICORT FLEXHALER) INH SCH ×2 (08:00→20:00)
[2021-03-20] MEDS: LIDOCAINE 5% (LIDODERM) PATCH TD SCH (09:56)
[2021-03-20] MEDS: FLUoxetine 20 MG CAP PO SCH (09:57)
[2021-03-20] MEDS: OMEPRAZOLE 20MG CAP PO SCH (09:57)
[2021-03-20] MEDS: FUROSEMIDE 20 MG TAB PO SCH (09:57)
[2021-03-20] MEDS: SPIRONOLACTONE 50 MG TAB PO SCH (09:57)
[2021-03-20] MEDS: SUCRALFATE SUSP 1GM/10ML UD PO SCH ×4 (09:58→22:33)
[2021-03-20 11:08] VITALS: O2SAT 93
[2021-03-20 14:00] VITALS: BP 114/63
[2021-03-20] MEDS: **NOTE PATIENT COMMENT** MISC XX SCH (21:00)
[2021-03-20] MEDS ORDERED: IPRATROPIUM 0.5MG/ALBUTEROL 2.5MG INH SOL UD 3ML (DUONEB) NEB ONE (21:45)
[2021-03-20 22:00] VITALS: BP 111/66
[2021-03-20] MEDS ORDERED: FUROSEMIDE 20MG/2ML VIAL (J1940) IV ONE (22:15)
[2021-03-20] MEDS ORDERED: guaiFENesin 200 MG TAB PO PRN (22:15)
[2021-03-20] MEDS: RAMELTEON 8 MG TAB (ROZEREM) PO PRN (22:33)
[2021-03-21] MEDS: HYDROmorphone 2 MG TAB PO PRN ×4 (04:49→22:08)
[2021-03-21 06:00] VITALS: BP 112/66
[2021-03-21 06:29] LABS: HEMATOCRIT 26.4 % (36.0-47.0); HEMOGLOBIN 8.4 g/dl (12.0-15.5); MEAN CORPUSCULAR HEMOGLOBIN 30.5 pg (27.0-33.0); MEAN CORPUSCULAR HGB CONC 31.8 g/dl (32.0-36.5); RED BLOOD COUNT 2.75 10^6/uL (4.00-5.40); WHITE BLOOD COUNT 6.3 10^3/uL (4.0-10.0)
[2021-03-21 06:40] LABS: PLATELET COUNT, AUTOMATED 70 10^3/uL (150-450)
[2021-03-21 06:49] LABS: ALBUMIN 1.7 GM/DL (3.2-5.2); ALT/SGPT 47 U/L (12-78); BILIRUBIN,TOTAL 1.8 MG/DL (0.2-1.0); BLOOD UREA NITROGEN 6 MG/DL (7-18); CALCIUM LEVEL 7.3 MG/DL (8.5-10.1); CARBON DIOXIDE LEVEL 32 MEQ/L (21-32); CHLORIDE LEVEL 97 MEQ/L (98-107); CREATININE FOR GFR 0.46 MG/DL (0.55-1.30); GLOMERULAR FILTRATION RATE > 60.0 (>60); GLUCOSE, FASTING 93 MG/DL (70-100); POTASSIUM SERUM 3.3 MEQ/L (3.5-5.1); SODIUM LEVEL 137 MEQ/L (136-145); TOTAL PROTEIN 4.8 GM/DL (6.4-8.2)
[2021-03-21] MEDS: BUDESONIDE 180MCG INHALER (PULMICORT FLEXHALER) INH SCH ×2 (08:00→18:56)
[2021-03-21] MEDS: SUCRALFATE SUSP 1GM/10ML UD PO SCH ×4 (08:06→20:40)
[2021-03-21] MEDS: SODIUM CHLORIDE 0.9% INJ 10 ML SYR IV SCH ×2 (08:06→17:53)
[2021-03-21] MEDS: LIDOCAINE 5% (LIDODERM) PATCH TD SCH (08:06)
[2021-03-21] MEDS: FLUoxetine 20 MG CAP PO SCH (08:07)
[2021-03-21] MEDS: OMEPRAZOLE 20MG CAP PO SCH (08:07)
[2021-03-21] MEDS: FUROSEMIDE 20 MG TAB PO SCH (08:07)
[2021-03-21] MEDS: SPIRONOLACTONE 50 MG TAB PO SCH (08:07)
[2021-03-21] MEDS ORDERED: methylPREDNISolone 125MG 2ML VIAL IV ONE (09:00)
[2021-03-21] MEDS ORDERED: cefTRIAXone SOD 1 GM in D5W MINI-BAG PLUS 50 ML IV SCH (09:00)
[2021-03-21] MEDS ORDERED: POTASSIUM CHLORIDE 10MEQ SR TABLET PO ONE (09:00)
[2021-03-21 10:23] VITALS: O2SAT 87
[2021-03-21 14:00] VITALS: BP 110/67
[2021-03-21] MEDS: FUROSEMIDE 40MG/4ML VIAL (J1940) IV SCH (17:52)
[2021-03-21] MEDS: IPRATROPIUM 0.5MG/ALBUTEROL 2.5MG INH SOL UD 3ML (DUONEB) NEB PRN (18:58)
[2021-03-21] MEDS: RAMELTEON 8 MG TAB (ROZEREM) PO PRN (20:39)
[2021-03-21] MEDS: **NOTE PATIENT COMMENT** MISC XX SCH (20:42)
[2021-03-21 22:00] VITALS: BP 107/66
[2021-03-22] VITALS (39 sets, daily range): BP systolic 89–159; BP diastolic 51–107; O2SAT 86–98
[2021-03-22] MEDS: IPRATROPIUM 0.5MG/ALBUTEROL 2.5MG INH SOL UD 3ML (DUONEB) NEB PRN (00:58)
[2021-03-22] MEDS ORDERED: ISOVUE-370 76% 100ML VIAL As Ordered ONE (01:22)
[2021-03-22] MEDS ORDERED: HEPARIN SOD (PORCINE) 5000UNITS/ML 1ML VIAL/SYRINGE IV ONE (02:15)
[2021-03-22 02:23] LABS: HEMATOCRIT 28.9 % (36.0-47.0); HEMOGLOBIN 9.3 g/dl (12.0-15.5); MEAN CORPUSCULAR HGB CONC 32.2 g/dl (32.0-36.5); MEAN CORPUSCULAR VOLUME 96.3 fl (80.0-96.0); WHITE BLOOD COUNT 8.3 10^3/uL (4.0-10.0)
[2021-03-22 02:25] LABS: PLATELET COUNT, AUTOMATED 88 10^3/uL (150-450)
[2021-03-22] MEDS: HEPARIN DRIP 25,000 UNITS in IV 1 EA IV SCH (02:44)
[2021-03-22 02:48] LABS: CK-MB VALUE MASS 2.4 NG/ML (<3.6); MB/CK RELATIVE INDEX 4.14 (< OR =4)
[2021-03-22] MEDS: CEFEPIME HCL 1 GM in D5W MINI-BAG PLUS 50 ML IV SCH ×2 (03:00→16:01)
[2021-03-22 03:16] LABS: BLOOD UREA NITROGEN 11 MG/DL (7-18); CALCIUM LEVEL 7.9 MG/DL (8.5-10.1); CARBON DIOXIDE LEVEL 30 MEQ/L (21-32); CHLORIDE LEVEL 95 MEQ/L (98-107); CREATININE FOR GFR 0.72 MG/DL (0.55-1.30); GLOMERULAR FILTRATION RATE > 60.0 (>60); GLUCOSE, FASTING 124 MG/DL (70-100); MAGNESIUM LEVEL 1.7 MG/DL (1.8-2.4); NT-PRO BNP 968 PG/ML (<125); POTASSIUM SERUM 4.1 MEQ/L (3.5-5.1); SODIUM LEVEL 134 MEQ/L (136-145)
[2021-03-22] MEDS: HYDROmorphone 2 MG TAB PO PRN (03:25)
[2021-03-22] MEDS ORDERED: IPRATROPIUM 0.5MG/ALBUTEROL 2.5MG INH SOL UD 3ML (DUONEB) NEB PRN (04:30)
[2021-03-22 04:54] LABS: ABG BASE EXCESS 5.6 (-2.0-2.0); ABG HCO3 30.4 MEQ/L (22.0-26.0); ABG O2 SATURATION 96.5 % (95.0-99.0); ABG PARTIAL PRESSURE CO2 45.4 mmHg (35.0-45.0); ABG PARTIAL PRESSURE O2 88.3 mmHg (75.0-100.0); ABG STANDARD HCO3 29.5 MEQ/L (22.0-26.0); ABG TOTAL CO2 31.7 MEQ/L (22.0-29.0); ABG pH (ARTERIAL) 7.443 UNITS (7.350-7.450)
[2021-03-22] MEDS: AZITHROMYCIN INJ 500 MG, VIAL MATE ADAPTER 1 EACH in NS 250 ML IV SCH (05:00)
[2021-03-22] MEDS: MAG SULF 1GM/100ML (MAG RUN) 1 GM in IV 1 EA IV SCH ×2 (05:00→06:00)
[2021-03-22 05:21] LABS: HEMATOCRIT 27.6 % (36.0-47.0); HEMOGLOBIN 8.7 g/dl (12.0-15.5); MEAN CORPUSCULAR HEMOGLOBIN 30.6 pg (27.0-33.0); MEAN CORPUSCULAR HGB CONC 31.5 g/dl (32.0-36.5); MEAN CORPUSCULAR VOLUME 97.2 fl (80.0-96.0); PLATELET COUNT, AUTOMATED 105 10^3/uL (150-450); RED BLOOD COUNT 2.84 10^6/uL (4.00-5.40); WHITE BLOOD COUNT 10.8 10^3/uL (4.0-10.0)
[2021-03-22 05:46] LABS: ALBUMIN 1.7 GM/DL (3.2-5.2); ALT/SGPT 46 U/L (12-78); BILIRUBIN,DIRECT 0.9 MG/DL (0.0-0.2); BILIRUBIN,TOTAL 1.2 MG/DL (0.2-1.0); BLOOD UREA NITROGEN 11 MG/DL (7-18); CALCIUM LEVEL 7.6 MG/DL (8.5-10.1); CARBON DIOXIDE LEVEL 29 MEQ/L (21-32); CHLORIDE LEVEL 96 MEQ/L (98-107); CREATININE FOR GFR 0.69 MG/DL (0.55-1.30); GLOMERULAR FILTRATION RATE > 60.0 (>60); GLUCOSE, FASTING 170 MG/DL (70-100); POTASSIUM SERUM 3.5 MEQ/L (3.5-5.1); SODIUM LEVEL 135 MEQ/L (136-145)
[2021-03-22] MEDS: SODIUM CHLORIDE 0.9% INJ 10 ML SYR IV SCH ×2 (06:00→18:35)
[2021-03-22] MEDS ORDERED: methylPREDNISolone 125MG 2ML VIAL IV SCH (09:00)
[2021-03-22] MEDS ORDERED: dexameTHASONE 4 MG/ML 1ML VIAL (J1100 PER 1MG) IV SCH (09:00)
[2021-03-22] MEDS: FUROSEMIDE 40MG/4ML VIAL (J1940) IV SCH ×2 (09:20→17:29)
[2021-03-22] MEDS: SUCRALFATE SUSP 1GM/10ML UD PO SCH ×4 (09:20→20:42)
[2021-03-22] MEDS: SPIRONOLACTONE 50 MG TAB PO SCH (09:20)
[2021-03-22] MEDS: FLUoxetine 20 MG CAP PO SCH (09:21)
[2021-03-22] MEDS: OMEPRAZOLE 20MG CAP PO SCH (09:21)
[2021-03-22] MEDS: LIDOCAINE 5% (LIDODERM) PATCH TD SCH (09:22)
[2021-03-22 09:32] LABS: BASO % 0.1 % (0.0-1.0); LYMPH # 0.7 10^3/uL (1.5-5.0); LYMPH % 6.1 % (24.0-44.0); MONO # 0.8 10^3/uL (0.0-0.8); NEUTROPHILS # 9.4 10^3/uL (1.5-8.5); NEUTROPHILS % 86.1 % (36.0-66.0)
[2021-03-22] MEDS: BUDESONIDE 180MCG INHALER (PULMICORT FLEXHALER) INH SCH (10:11)
[2021-03-22] MEDS ORDERED: SODIUM CHLORIDE NASAL 0.65% SPRAY BTL (OCEAN) PRN (10:30)
[2021-03-22] MEDS ORDERED: LORazepam 1 MG TAB PO PRN (10:30)
[2021-03-22] MEDS: BARICITINIB 2MG TABLET (OLUMIANT) FOR EUA PO SCH (10:40)
[2021-03-22] MEDS: LEVALBUTEROL 1.25 MG/0.5 ML CONCENTRATE NEB INH SCH ×3 (11:26→20:33)
[2021-03-22] MEDS ORDERED: REMDESIVIR 200 MG in NS 250 ML IV ONE (12:00)
[2021-03-22] MEDS: BUDESONIDE 0.5 MG/2 ML INHALATION SUSPENSION INH SCH ×2 (13:51→20:32)
[2021-03-22] MEDS ORDERED: SODIUM CHLORIDE 0.9% INJ 10 ML SYR IV ONE (14:00)
[2021-03-22] MEDS ORDERED: SUCCINYLCHOLINE INJ 200 MG/10 ML VIAL (J0330) As Ordered ONE (14:13)
[2021-03-22] MEDS ORDERED: ETOMIDATE INJ 20MG/10ML VIAL As Ordered ONE ×2 (14:13→14:27)
[2021-03-22] MEDS ORDERED: MIDAZOLAM INJ 2MG/2ML VIAL (J2250 PER 1MG) As Ordered ONE ×2 (14:14→14:24)
[2021-03-22] MEDS ORDERED: MIDAZOLAM INJ 2MG/2ML VIAL (J2250 PER 1MG) IV ONE (14:30)
[2021-03-22] MEDS ORDERED: SUCCINYLCHOLINE INJ 200 MG/10 ML VIAL (J0330) IV STA (14:32)
[2021-03-22] MEDS ORDERED: PROPOFOL 1,000 MG/100 ML VIAL As Ordered ONE (14:34)
[2021-03-22] MEDS ORDERED: MIDAZOLAM INJ 2MG/2ML VIAL (J2250 PER 1MG) IV STA (14:34)
[2021-03-22] MEDS ORDERED: ETOMIDATE INJ 20MG/10ML VIAL IV STA (14:34)
[2021-03-22] MEDS ORDERED: ROCURONIUM BROMIDE 50 MG/5 ML VIAL As Ordered ONE (14:50)
[2021-03-22] MEDS ORDERED: ROCURONIUM BROMIDE 50 MG/5 ML VIAL IV ONE (14:50)
[2021-03-22] MEDS ORDERED: LORazepam 2 MG/ML VIAL As Ordered ONE (14:55)
[2021-03-22] MEDS ORDERED: LORazepam 2 MG/ML VIAL IV STA (14:55)
[2021-03-22] MEDS: propofoL 1,000 MG in IV 1 EA IV SCH ×3 (15:47→23:18)
[2021-03-22 17:26] LABS: ABG BASE EXCESS 5.5 (-2.0-2.0); ABG HCO3 29.4 MEQ/L (22.0-26.0); ABG O2 SATURATION 99.2 % (95.0-99.0); ABG PARTIAL PRESSURE CO2 40.4 mmHg (35.0-45.0); ABG PARTIAL PRESSURE O2 146.3 mmHg (75.0-100.0); ABG STANDARD HCO3 29.5 MEQ/L (22.0-26.0); ABG TOTAL CO2 30.7 MEQ/L (22.0-29.0)
[2021-03-22] MEDS: methylPREDNISolone 125MG 2ML VIAL IV SCH (17:29)
[2021-03-22] MEDS: MIDAZOLAM INJ 2MG/2ML VIAL (J2250 PER 1MG) IV PRN ×2 (17:30→18:44)
[2021-03-22] MEDS: HEPARIN SOD (PORCINE) 5000UNITS/ML 1ML VIAL/SYRINGE IV PRN (18:47)
[2021-03-22] MEDS: CHLORHEXIDINE GLUCONATE 0.12 % 15ML UDC (PERIDEX ORAL RINSE) MT SCH (20:42)
[2021-03-22] MEDS: **NOTE PATIENT COMMENT** MISC XX SCH (21:12)
[2021-03-23] VITALS (26 sets, daily range): BP systolic 89–137; BP diastolic 50–78
[2021-03-23] MEDS: methylPREDNISolone 125MG 2ML VIAL IV SCH ×3 (00:26→17:15)
[2021-03-23] MEDS: CEFEPIME HCL 1 GM in D5W MINI-BAG PLUS 50 ML IV SCH ×2 (02:18→14:38)
[2021-03-23] MEDS: AZITHROMYCIN INJ 500 MG, VIAL MATE ADAPTER 1 EACH in NS 250 ML IV SCH (04:50)
[2021-03-23] MEDS: SODIUM CHLORIDE 0.9% INJ 10 ML SYR IV SCH ×3 (05:08→17:16)
[2021-03-23] MEDS: propofoL 1,000 MG in IV 1 EA IV SCH ×2 (05:55→12:30)
[2021-03-23 06:23] LABS: ABG BASE EXCESS 6.8 (-2.0-2.0); ABG HCO3 29.3 MEQ/L (22.0-26.0); ABG O2 SATURATION 97.4 % (95.0-99.0); ABG PARTIAL PRESSURE CO2 33.9 mmHg (35.0-45.0); ABG PARTIAL PRESSURE O2 100.1 mmHg (75.0-100.0); ABG STANDARD HCO3 30.6 MEQ/L (22.0-26.0); ABG TOTAL CO2 30.4 MEQ/L (22.0-29.0); ABG pH (ARTERIAL) 7.555 UNITS (7.350-7.450)
[2021-03-23 06:25] LABS: HEMATOCRIT 26.1 % (36.0-47.0); HEMOGLOBIN 8.3 g/dl (12.0-15.5); LYMPH # 0.7 10^3/uL (1.5-5.0); LYMPH % 18.2 % (24.0-44.0); MEAN CORPUSCULAR HEMOGLOBIN 30.2 pg (27.0-33.0); MEAN CORPUSCULAR HGB CONC 31.8 g/dl (32.0-36.5); MEAN CORPUSCULAR VOLUME 94.9 fl (80.0-96.0); MONO # 0.1 10^3/uL (0.0-0.8); MONO % 3.5 % (2.0-8.0); NEUTROPHILS # 2.9 10^3/uL (1.5-8.5); PLATELET COUNT, AUTOMATED 92 10^3/uL (150-450); RED BLOOD COUNT 2.75 10^6/uL (4.00-5.40); WHITE BLOOD COUNT 3.7 10^3/uL (4.0-10.0)
[2021-03-23 06:38] LABS: INR 1.67; PROTHROMBIN TIME 20.1 SECONDS (12.7-14.5)
[2021-03-23 06:39] LABS: PARTIAL THROMBOPLASTIN TIME 71.7 SECONDS (25.9-37.0)
[2021-03-23 06:58] LABS: ALBUMIN 1.7 GM/DL (3.2-5.2); ALT/SGPT 42 U/L (12-78); BILIRUBIN,DIRECT 0.9 MG/DL (0.0-0.2); BILIRUBIN,TOTAL 1.5 MG/DL (0.2-1.0); BLOOD UREA NITROGEN 14 MG/DL (7-18); CALCIUM LEVEL 7.7 MG/DL (8.5-10.1); CARBON DIOXIDE LEVEL 32 MEQ/L (21-32); CHLORIDE LEVEL 96 MEQ/L (98-107); CREATININE FOR GFR 0.65 MG/DL (0.55-1.30); GLOMERULAR FILTRATION RATE > 60.0 (>60); GLUCOSE, FASTING 146 MG/DL (70-100); MAGNESIUM LEVEL 2.1 MG/DL (1.8-2.4); SODIUM LEVEL 134 MEQ/L (136-145); TOTAL PROTEIN 4.8 GM/DL (6.4-8.2)
[2021-03-23] MEDS: SUCRALFATE SUSP 1GM/10ML UD PO SCH ×4 (07:25→20:25)
[2021-03-23] MEDS: CHLORHEXIDINE GLUCONATE 0.12 % 15ML UDC (PERIDEX ORAL RINSE) MT SCH ×2 (08:52→20:25)
[2021-03-23] MEDS: BARICITINIB 2MG TABLET (OLUMIANT) FOR EUA PO SCH (08:57)
[2021-03-23] MEDS: LIDOCAINE 5% (LIDODERM) PATCH TD SCH (09:00)
[2021-03-23] MEDS: BUDESONIDE 0.5 MG/2 ML INHALATION SUSPENSION INH SCH ×2 (09:27→19:30)
[2021-03-23] MEDS: LEVALBUTEROL 1.25 MG/0.5 ML CONCENTRATE NEB INH SCH ×3 (09:27→19:30)
[2021-03-23] MEDS: PANTOPRAZOLE 40MG VIAL (C9113 PER 1) IV SCH (09:58)
[2021-03-23] MEDS: FUROSEMIDE 40MG/4ML VIAL (J1940) IV SCH (11:08)
[2021-03-23] MEDS: SPIRONOLACTONE 50 MG TAB PO SCH (11:09)
[2021-03-23] MEDS: REMDESIVIR 100 MG in NS 250 ML IV SCH (11:09)
[2021-03-23] MEDS: HEPARIN DRIP 25,000 UNITS in IV 1 EA IV SCH (13:35)
[2021-03-23 13:40] LABS: INR 1.67; PROTHROMBIN TIME 20.1 SECONDS (12.7-14.5)
[2021-03-23 13:41] LABS: PARTIAL THROMBOPLASTIN TIME 85.3 SECONDS (25.9-37.0)
[2021-03-23] MEDS: FUROSEMIDE 100MG/10ML VIAL (J1940) IV SCH (17:15)
[2021-03-23] MEDS: MIDAZOLAM INJ 2MG/2ML VIAL (J2250 PER 1MG) IV PRN (20:05)
[2021-03-23] MEDS: fentaNYL 100 MCG/2 ML INJECTION IV PRN (20:07)
[2021-03-23] MEDS: **NOTE PATIENT COMMENT** MISC XX SCH (20:40)
[2021-03-24] VITALS (22 sets, daily range): BP systolic 89–120; BP diastolic 50–73
[2021-03-24] MEDS: propofoL 1,000 MG in IV 1 EA IV SCH ×7 (00:47→21:36)
[2021-03-24] MEDS: methylPREDNISolone 125MG 2ML VIAL IV SCH (00:48)
[2021-03-24] MEDS: CEFEPIME HCL 1 GM in D5W MINI-BAG PLUS 50 ML IV SCH (03:01)
[2021-03-24] MEDS: MIDAZOLAM INJ 2MG/2ML VIAL (J2250 PER 1MG) IV PRN ×2 (04:01→20:09)
[2021-03-24] MEDS: AZITHROMYCIN INJ 500 MG, VIAL MATE ADAPTER 1 EACH in NS 250 ML IV SCH (04:01)
[2021-03-24] MEDS: SODIUM CHLORIDE 0.9% INJ 10 ML SYR IV SCH ×3 (05:35→18:00)
[2021-03-24 06:01] LABS: HEMOGLOBIN 7.6 g/dl (12.0-15.5); LYMPH # 0.4 10^3/uL (1.5-5.0); LYMPH % 9.3 % (24.0-44.0); MEAN CORPUSCULAR HEMOGLOBIN 30.3 pg (27.0-33.0); MEAN CORPUSCULAR HGB CONC 31.7 g/dl (32.0-36.5); MEAN CORPUSCULAR VOLUME 95.6 fl (80.0-96.0); MONO # 0.2 10^3/uL (0.0-0.8); MONO % 4.7 % (2.0-8.0); NEUTROPHILS # 3.5 10^3/uL (1.5-8.5); NEUTROPHILS % 85.5 % (36.0-66.0); RED BLOOD COUNT 2.51 10^6/uL (4.00-5.40); WHITE BLOOD COUNT 4.1 10^3/uL (4.0-10.0)
[2021-03-24 06:08] LABS: PLATELET COUNT, AUTOMATED 80 10^3/uL (150-450)
[2021-03-24 06:13] LABS: PARTIAL THROMBOPLASTIN TIME 85.8 SECONDS (25.9-37.0)
[2021-03-24 06:18] LABS: ABG BASE EXCESS 5.3 (-2.0-2.0); ABG O2 SATURATION 98.3 % (95.0-99.0); ABG PARTIAL PRESSURE CO2 38.6 mmHg (35.0-45.0); ABG PARTIAL PRESSURE O2 113.1 mmHg (75.0-100.0); ABG STANDARD HCO3 29.3 MEQ/L (22.0-26.0); ABG TOTAL CO2 30.1 MEQ/L (22.0-29.0); ABG pH (ARTERIAL) 7.493 UNITS (7.350-7.450)
[2021-03-24 06:34] LABS: ALT/SGPT 35 U/L (12-78); BILIRUBIN,DIRECT 0.7 MG/DL (0.0-0.2); BILIRUBIN,TOTAL 1.1 MG/DL (0.2-1.0); BLOOD UREA NITROGEN 25 MG/DL (7-18); CALCIUM LEVEL 7.7 MG/DL (8.5-10.1); CARBON DIOXIDE LEVEL 32 MEQ/L (21-32); CHLORIDE LEVEL 97 MEQ/L (98-107); CREATININE FOR GFR 0.72 MG/DL (0.55-1.30); FERRITIN 51 NG/ML (8-252); GLOMERULAR FILTRATION RATE > 60.0 (>60); GLUCOSE, FASTING 168 MG/DL (70-100); LDH LACTATE DEHYDROGENASE 330 U/L (84-246); MAGNESIUM LEVEL 2.2 MG/DL (1.8-2.4); NT-PRO BNP 363 PG/ML (<125); POTASSIUM SERUM 3.5 MEQ/L (3.5-5.1); SODIUM LEVEL 136 MEQ/L (136-145)
[2021-03-24] MEDS ORDERED: KCL 20MEQ IN 100ML SWI (KRUN) 20 MEQ in IV 1 EA IV ONE ×2 (07:30)
[2021-03-24] MEDS: FUROSEMIDE 100MG/10ML VIAL (J1940) IV SCH ×2 (08:11→16:30)
[2021-03-24] MEDS: SUCRALFATE SUSP 1GM/10ML UD PO SCH ×4 (08:12→20:00)
[2021-03-24] MEDS: CHLORHEXIDINE GLUCONATE 0.12 % 15ML UDC (PERIDEX ORAL RINSE) MT SCH ×2 (08:12→20:00)
[2021-03-24] MEDS: SPIRONOLACTONE 50 MG TAB PO SCH (08:12)
[2021-03-24] MEDS: BARICITINIB 2MG TABLET (OLUMIANT) FOR EUA PO SCH (08:13)
[2021-03-24] MEDS: PANTOPRAZOLE 40MG VIAL (C9113 PER 1) IV SCH (08:13)
[2021-03-24] MEDS: BUDESONIDE 0.5 MG/2 ML INHALATION SUSPENSION INH SCH ×2 (08:29→19:27)
[2021-03-24] MEDS: LEVALBUTEROL 1.25 MG/0.5 ML CONCENTRATE NEB INH SCH ×3 (08:31→19:27)
[2021-03-24] MEDS: LIDOCAINE 5% (LIDODERM) PATCH TD SCH (08:39)
[2021-03-24] MEDS: REMDESIVIR 100 MG in NS 250 ML IV SCH (12:13)
[2021-03-24 12:56] LABS: HEMATOCRIT 25.3 % (36.0-47.0); LYMPH # 0.4 10^3/uL (1.5-5.0); MEAN CORPUSCULAR HGB CONC 31.6 g/dl (32.0-36.5); MEAN CORPUSCULAR VOLUME 94.8 fl (80.0-96.0); MONO # 0.2 10^3/uL (0.0-0.8); MONO % 5.3 % (2.0-8.0); NEUTROPHILS # 3.9 10^3/uL (1.5-8.5); NEUTROPHILS % 85.3 % (36.0-66.0); RED BLOOD COUNT 2.67 10^6/uL (4.00-5.40); WHITE BLOOD COUNT 4.6 10^3/uL (4.0-10.0)
[2021-03-24 12:57] LABS: PLATELET COUNT, AUTOMATED 87 10^3/uL (150-450)
[2021-03-24 13:14] LABS: INR 1.81; PROTHROMBIN TIME 21.4 SECONDS (12.7-14.5)
[2021-03-24 13:15] LABS: PARTIAL THROMBOPLASTIN TIME 70.2 SECONDS (25.9-37.0)
[2021-03-24 13:22] LABS: ALBUMIN 2.1 GM/DL (3.2-5.2); ALT/SGPT 37 U/L (12-78); BLOOD UREA NITROGEN 26 MG/DL (7-18); CALCIUM LEVEL 7.8 MG/DL (8.5-10.1); CARBON DIOXIDE LEVEL 33 MEQ/L (21-32); CHLORIDE LEVEL 97 MEQ/L (98-107); CREATININE FOR GFR 0.74 MG/DL (0.55-1.30); GLOMERULAR FILTRATION RATE > 60.0 (>60); GLUCOSE, FASTING 145 MG/DL (70-100); POTASSIUM SERUM 3.4 MEQ/L (3.5-5.1); SODIUM LEVEL 137 MEQ/L (136-145); TOTAL PROTEIN 5.4 GM/DL (6.4-8.2)
[2021-03-24 13:31] LABS: D-DIMER QUANT 3867.09 ng/ml (<500)
[2021-03-24] MEDS: CEFEPIME HCL 2 GM in D5W MINI-BAG PLUS 50 ML IV SCH ×2 (13:56→20:00)
[2021-03-24] MEDS: methylPREDNISolone 40MG 1ML VIAL IV SCH (13:57)
[2021-03-24] MEDS: KCL 20MEQ IN 100ML SWI (KRUN) 20 MEQ in IV 1 EA IV SCH ×4 (16:30→17:35)
[2021-03-24] MEDS: **NOTE PATIENT COMMENT** MISC XX SCH (20:10)
[2021-03-25] VITALS (21 sets, daily range): BP systolic 91–119; BP diastolic 50–72
[2021-03-25] MEDS: methylPREDNISolone 40MG 1ML VIAL IV SCH ×2 (00:50→12:47)
[2021-03-25] MEDS: propofoL 1,000 MG in IV 1 EA IV SCH ×7 (00:50→21:08)
[2021-03-25] MEDS: MIDAZOLAM INJ 2MG/2ML VIAL (J2250 PER 1MG) IV PRN ×4 (01:34→20:26)
[2021-03-25] MEDS: CEFEPIME HCL 2 GM in D5W MINI-BAG PLUS 50 ML IV SCH ×3 (04:19→20:26)
[2021-03-25] MEDS: AZITHROMYCIN INJ 500 MG, VIAL MATE ADAPTER 1 EACH in NS 250 ML IV SCH (04:20)
[2021-03-25 04:58] LABS: BASO % 0.2 % (0.0-1.0); HEMATOCRIT 26.3 % (36.0-47.0); HEMOGLOBIN 8.3 g/dl (12.0-15.5); LYMPH # 0.3 10^3/uL (1.5-5.0); LYMPH % 7.7 % (24.0-44.0); MEAN CORPUSCULAR HEMOGLOBIN 30.1 pg (27.0-33.0); MEAN CORPUSCULAR HGB CONC 31.6 g/dl (32.0-36.5); MEAN CORPUSCULAR VOLUME 95.3 fl (80.0-96.0); MONO # 0.2 10^3/uL (0.0-0.8); MONO % 4.7 % (2.0-8.0); NEUTROPHILS # 3.7 10^3/uL (1.5-8.5); NEUTROPHILS % 86.9 % (36.0-66.0); RED BLOOD COUNT 2.76 10^6/uL (4.00-5.40); WHITE BLOOD COUNT 4.3 10^3/uL (4.0-10.0)
[2021-03-25 04:59] LABS: PLATELET COUNT, AUTOMATED 83 10^3/uL (150-450)
[2021-03-25 05:21] LABS: BLOOD UREA NITROGEN 28 MG/DL (7-18); CALCIUM LEVEL 7.6 MG/DL (8.5-10.1); CARBON DIOXIDE LEVEL 32 MEQ/L (21-32); CHLORIDE LEVEL 98 MEQ/L (98-107); CREATININE FOR GFR 0.64 MG/DL (0.55-1.30); GLOMERULAR FILTRATION RATE > 60.0 (>60); GLUCOSE, FASTING 163 MG/DL (70-100); MAGNESIUM LEVEL 2.1 MG/DL (1.8-2.4); POTASSIUM SERUM 4.4 MEQ/L (3.5-5.1); SODIUM LEVEL 137 MEQ/L (136-145)
[2021-03-25 05:49] LABS: ABG BASE EXCESS 6.4 (-2.0-2.0); ABG HCO3 30.1 MEQ/L (22.0-26.0); ABG O2 SATURATION 98.4 % (95.0-99.0); ABG PARTIAL PRESSURE CO2 39.6 mmHg (35.0-45.0); ABG PARTIAL PRESSURE O2 115.3 mmHg (75.0-100.0); ABG STANDARD HCO3 30.3 MEQ/L (22.0-26.0); ABG TOTAL CO2 31.3 MEQ/L (22.0-29.0); ABG pH (ARTERIAL) 7.499 UNITS (7.350-7.450)
[2021-03-25] MEDS: SODIUM CHLORIDE 0.9% INJ 10 ML SYR IV SCH ×3 (06:03→17:21)
[2021-03-25] MEDS: HEPARIN DRIP 25,000 UNITS in IV 1 EA IV SCH (06:12)
[2021-03-25] MEDS: LEVALBUTEROL 1.25 MG/0.5 ML CONCENTRATE NEB INH SCH ×3 (07:20→20:08)
[2021-03-25] MEDS: BUDESONIDE 0.5 MG/2 ML INHALATION SUSPENSION INH SCH ×2 (07:21→20:08)
[2021-03-25] MEDS: SUCRALFATE SUSP 1GM/10ML UD PO SCH ×4 (08:13→20:26)
[2021-03-25] MEDS: FUROSEMIDE 100MG/10ML VIAL (J1940) IV SCH ×2 (08:14→17:21)
[2021-03-25] MEDS: PANTOPRAZOLE 40MG VIAL (C9113 PER 1) IV SCH (08:14)
[2021-03-25] MEDS: fentaNYL 100 MCG/2 ML INJECTION IV PRN (08:14)
[2021-03-25] MEDS: CHLORHEXIDINE GLUCONATE 0.12 % 15ML UDC (PERIDEX ORAL RINSE) MT SCH ×2 (08:14→20:26)
[2021-03-25] MEDS: BARICITINIB 2MG TABLET (OLUMIANT) FOR EUA PO SCH (08:15)
[2021-03-25] MEDS: LIDOCAINE 5% (LIDODERM) PATCH TD SCH (08:15)
[2021-03-25] MEDS: SPIRONOLACTONE 50 MG TAB PO SCH (08:15)
[2021-03-25] MEDS ORDERED: metOLazone 5 MG TAB PO ONE (08:25)
[2021-03-25] MEDS: REMDESIVIR 100 MG in NS 250 ML IV SCH (12:46)
[2021-03-25] MEDS: **NOTE PATIENT COMMENT** MISC XX SCH (20:27)
[2021-03-26] VITALS (23 sets, daily range): BP systolic 98–119; BP diastolic 54–67
[2021-03-26] MEDS: methylPREDNISolone 40MG 1ML VIAL IV SCH ×2 (00:15→12:52)
[2021-03-26] MEDS: propofoL 1,000 MG in IV 1 EA IV SCH ×5 (01:05→16:15)
[2021-03-26] MEDS: CEFEPIME HCL 2 GM in D5W MINI-BAG PLUS 50 ML IV SCH ×3 (04:54→20:10)
[2021-03-26] MEDS: HEPARIN DRIP 25,000 UNITS in IV 1 EA IV SCH (05:05)
[2021-03-26] MEDS: SODIUM CHLORIDE 0.9% INJ 10 ML SYR IV SCH ×3 (06:00→17:05)
[2021-03-26 06:10] LABS: HEMATOCRIT 26.5 % (36.0-47.0); HEMOGLOBIN 8.4 g/dl (12.0-15.5); LYMPH # 0.5 10^3/uL (1.5-5.0); LYMPH % 8.8 % (24.0-44.0); MEAN CORPUSCULAR HEMOGLOBIN 29.6 pg (27.0-33.0); MEAN CORPUSCULAR HGB CONC 31.7 g/dl (32.0-36.5); MEAN CORPUSCULAR VOLUME 93.3 fl (80.0-96.0); MONO # 0.4 10^3/uL (0.0-0.8); MONO % 7.1 % (2.0-8.0); NEUTROPHILS # 4.5 10^3/uL (1.5-8.5); NEUTROPHILS % 82.8 % (36.0-66.0); PLATELET COUNT, AUTOMATED 91 10^3/uL (150-450); RED BLOOD COUNT 2.84 10^6/uL (4.00-5.40); WHITE BLOOD COUNT 5.5 10^3/uL (4.0-10.0)
[2021-03-26] MEDS: LEVALBUTEROL 1.25 MG/0.5 ML CONCENTRATE NEB INH SCH ×3 (06:11→19:33)
[2021-03-26] MEDS: BUDESONIDE 0.5 MG/2 ML INHALATION SUSPENSION INH SCH ×2 (06:11→19:33)
[2021-03-26 06:25] LABS: ABG BASE EXCESS 10.2 (-2.0-2.0); ABG HCO3 33.8 MEQ/L (22.0-26.0); ABG O2 SATURATION 98.9 % (95.0-99.0); ABG PARTIAL PRESSURE CO2 41.8 mmHg (35.0-45.0); ABG PARTIAL PRESSURE O2 128.2 mmHg (75.0-100.0); ABG STANDARD HCO3 33.9 MEQ/L (22.0-26.0); ABG TOTAL CO2 35.1 MEQ/L (22.0-29.0); ABG pH (ARTERIAL) 7.526 UNITS (7.350-7.450)
[2021-03-26 06:26] LABS: PARTIAL THROMBOPLASTIN TIME 95.1 SECONDS (25.9-37.0)
[2021-03-26 06:51] LABS: ALBUMIN 2.1 GM/DL (3.2-5.2); ALT/SGPT 44 U/L (12-78); BILIRUBIN,DIRECT 0.8 MG/DL (0.0-0.2); BILIRUBIN,TOTAL 1.2 MG/DL (0.2-1.0); BLOOD UREA NITROGEN 37 MG/DL (7-18); CALCIUM LEVEL 8.2 MG/DL (8.5-10.1); CARBON DIOXIDE LEVEL 35 MEQ/L (21-32); CHLORIDE LEVEL 91 MEQ/L (98-107); CREATININE FOR GFR 0.79 MG/DL (0.55-1.30); FERRITIN 38 NG/ML (8-252); GLOMERULAR FILTRATION RATE > 60.0 (>60); GLUCOSE, FASTING 148 MG/DL (70-100); LDH LACTATE DEHYDROGENASE 310 U/L (84-246); MAGNESIUM LEVEL 2.4 MG/DL (1.8-2.4); NT-PRO BNP 173 PG/ML (<125); POTASSIUM SERUM 4.5 MEQ/L (3.5-5.1); SODIUM LEVEL 132 MEQ/L (136-145); TOTAL PROTEIN 5.5 GM/DL (6.4-8.2)
[2021-03-26] MEDS: SUCRALFATE SUSP 1GM/10ML UD PO SCH ×4 (07:51→20:10)
[2021-03-26] MEDS: CHLORHEXIDINE GLUCONATE 0.12 % 15ML UDC (PERIDEX ORAL RINSE) MT SCH ×2 (08:54→20:10)
[2021-03-26] MEDS: PANTOPRAZOLE 40MG VIAL (C9113 PER 1) IV SCH (08:54)
[2021-03-26] MEDS: BARICITINIB 2MG TABLET (OLUMIANT) FOR EUA PO SCH (08:55)
[2021-03-26] MEDS: LIDOCAINE 5% (LIDODERM) PATCH TD SCH (08:55)
[2021-03-26] MEDS: SPIRONOLACTONE 50 MG TAB PO SCH (09:00)
[2021-03-26] MEDS: FUROSEMIDE 100MG/10ML VIAL (J1940) IV SCH ×2 (09:12→16:50)
[2021-03-26] MEDS: REMDESIVIR 100 MG in NS 250 ML IV SCH (11:52)
[2021-03-26] MEDS: **NOTE PATIENT COMMENT** MISC XX SCH (20:10)
[2021-03-27] VITALS (24 sets, daily range): BP systolic 95–124; BP diastolic 52–69
[2021-03-27] MEDS: methylPREDNISolone 40MG 1ML VIAL IV SCH ×2 (00:12→12:13)
[2021-03-27] MEDS: propofoL 1,000 MG in IV 1 EA IV SCH ×6 (00:26→20:03)
[2021-03-27] MEDS: CEFEPIME HCL 2 GM in D5W MINI-BAG PLUS 50 ML IV SCH ×3 (04:27→20:03)
[2021-03-27 04:47] LABS: BASO % 0.1 % (0.0-1.0); HEMATOCRIT 27.1 % (36.0-47.0); HEMOGLOBIN 8.5 g/dl (12.0-15.5); LYMPH # 0.7 10^3/uL (1.5-5.0); LYMPH % 9.2 % (24.0-44.0); MEAN CORPUSCULAR HEMOGLOBIN 28.9 pg (27.0-33.0); MEAN CORPUSCULAR HGB CONC 31.4 g/dl (32.0-36.5); MEAN CORPUSCULAR VOLUME 92.2 fl (80.0-96.0); MONO # 0.6 10^3/uL (0.0-0.8); MONO % 8.2 % (2.0-8.0); NEUTROPHILS # 5.7 10^3/uL (1.5-8.5); NEUTROPHILS % 78.8 % (36.0-66.0); PLATELET COUNT, AUTOMATED 110 10^3/uL (150-450); RED BLOOD COUNT 2.94 10^6/uL (4.00-5.40); WHITE BLOOD COUNT 7.3 10^3/uL (4.0-10.0)
[2021-03-27] MEDS: SODIUM CHLORIDE 0.9% INJ 10 ML SYR IV SCH ×3 (05:05→21:47)
[2021-03-27 05:33] LABS: BLOOD UREA NITROGEN 41 MG/DL (7-18); CALCIUM LEVEL 7.7 MG/DL (8.5-10.1); CARBON DIOXIDE LEVEL 38 MEQ/L (21-32); CHLORIDE LEVEL 91 MEQ/L (98-107); GLOMERULAR FILTRATION RATE > 60.0 (>60); GLUCOSE, FASTING 168 MG/DL (70-100); MAGNESIUM LEVEL 2.7 MG/DL (1.8-2.4); POTASSIUM SERUM 4.2 MEQ/L (3.5-5.1); SODIUM LEVEL 132 MEQ/L (136-145)
[2021-03-27] MEDS: LEVALBUTEROL 1.25 MG/0.5 ML CONCENTRATE NEB INH SCH ×3 (07:36→19:28)
[2021-03-27] MEDS: BUDESONIDE 0.5 MG/2 ML INHALATION SUSPENSION INH SCH ×2 (07:36→19:28)
[2021-03-27 07:51] LABS: ABG BASE EXCESS 9.9 (-2.0-2.0); ABG HCO3 33.9 MEQ/L (22.0-26.0); ABG O2 SATURATION 96.4 % (95.0-99.0); ABG PARTIAL PRESSURE CO2 43.7 mmHg (35.0-45.0); ABG PARTIAL PRESSURE O2 86.7 mmHg (75.0-100.0); ABG STANDARD HCO3 33.6 MEQ/L (22.0-26.0); ABG TOTAL CO2 35.3 MEQ/L (22.0-29.0); ABG pH (ARTERIAL) 7.508 UNITS (7.350-7.450)
[2021-03-27] MEDS: SUCRALFATE SUSP 1GM/10ML UD PO SCH ×4 (08:02→20:03)
[2021-03-27] MEDS ORDERED: metOLazone 5 MG TAB PO ONE (09:05)
[2021-03-27] MEDS: FUROSEMIDE 100MG/10ML VIAL (J1940) IV SCH ×2 (10:12→17:11)
[2021-03-27] MEDS: PANTOPRAZOLE 40MG VIAL (C9113 PER 1) IV SCH (10:12)
[2021-03-27] MEDS: BARICITINIB 2MG TABLET (OLUMIANT) FOR EUA PO SCH (10:14)
[2021-03-27] MEDS: LIDOCAINE 5% (LIDODERM) PATCH TD SCH (10:14)
[2021-03-27] MEDS: SPIRONOLACTONE 50 MG TAB PO SCH (10:15)
[2021-03-27 11:58] LABS: CLOSTRIDIUM DIFFICILE PCR NEGATIVE (NEGATIVE)
[2021-03-27] MEDS: CHLORHEXIDINE GLUCONATE 0.12 % 15ML UDC (PERIDEX ORAL RINSE) MT SCH ×2 (12:05→20:02)
[2021-03-27] MEDS: HEPARIN SOD (PORCINE) 5000UNITS/ML 1ML VIAL/SYRINGE IV PRN (12:50)
[2021-03-27] MEDS ORDERED: SODIUM CHLORIDE 0.9% INJ 10 ML SYR IV PRN (17:15)
[2021-03-27] MEDS: METOCLOPRAMIDE INJ 10MG/2ML VIAL (J2765 PER 1) IV SCH (18:34)
[2021-03-27 19:12] LABS: INR 1.93; PROTHROMBIN TIME 22.5 SECONDS (12.7-14.5)
[2021-03-27] MEDS: **NOTE PATIENT COMMENT** MISC XX SCH (20:03)
[2021-03-27] MEDS: HEPARIN DRIP 25,000 UNITS in IV 1 EA IV SCH (22:02)
[2021-03-27] MEDS: MIDAZOLAM INJ 2MG/2ML VIAL (J2250 PER 1MG) IV PRN (23:02)
[2021-03-28] VITALS (35 sets, daily range): BP systolic 77–107; BP diastolic 48–76
[2021-03-28] MEDS: METOCLOPRAMIDE INJ 10MG/2ML VIAL (J2765 PER 1) IV SCH ×4 (00:11→18:21)
[2021-03-28] MEDS: methylPREDNISolone 40MG 1ML VIAL IV SCH ×2 (00:11→12:51)
[2021-03-28] MEDS: propofoL 1,000 MG in IV 1 EA IV SCH ×6 (00:33→20:45)
[2021-03-28] MEDS: CEFEPIME HCL 2 GM in D5W MINI-BAG PLUS 50 ML IV SCH ×3 (04:03→21:04)
[2021-03-28 04:56] LABS: HEMATOCRIT 26.6 % (36.0-47.0); HEMOGLOBIN 8.6 g/dl (12.0-15.5); MEAN CORPUSCULAR HEMOGLOBIN 29.3 pg (27.0-33.0); MEAN CORPUSCULAR HGB CONC 32.3 g/dl (32.0-36.5); MEAN CORPUSCULAR VOLUME 90.5 fl (80.0-96.0); PLATELET COUNT, AUTOMATED 130 10^3/uL (150-450); RED BLOOD COUNT 2.94 10^6/uL (4.00-5.40); WHITE BLOOD COUNT 8.8 10^3/uL (4.0-10.0)
[2021-03-28 05:20] LABS: LYMPHOCYTES 5 % (16-44); METAMYELOCYTES 2 % (0-0); MONOCYTES 5 % (0-5); NEUTROPHILS 88 % (28-66); PLATELET ESTIMATE DECREASED (NORMAL)
[2021-03-28] MEDS: SODIUM CHLORIDE 0.9% INJ 10 ML SYR IV SCH ×5 (05:20→21:05)
[2021-03-28 05:21] LABS: ANISOCYTOSIS 2+
[2021-03-28 05:31] LABS: ALBUMIN 2.1 GM/DL (3.2-5.2); ALT/SGPT 59 U/L (12-78); BILIRUBIN,DIRECT 1.1 MG/DL (0.0-0.2); BILIRUBIN,TOTAL 1.5 MG/DL (0.2-1.0); BLOOD UREA NITROGEN 54 MG/DL (7-18); CALCIUM LEVEL 7.6 MG/DL (8.5-10.1); CARBON DIOXIDE LEVEL 40 MEQ/L (21-32); CHLORIDE LEVEL 86 MEQ/L (98-107); CREATININE FOR GFR 0.85 MG/DL (0.55-1.30); FERRITIN 37 NG/ML (8-252); GLOMERULAR FILTRATION RATE > 60.0 (>60); GLUCOSE, FASTING 195 MG/DL (70-100); LDH LACTATE DEHYDROGENASE 286 U/L (84-246); NT-PRO BNP 108 PG/ML (<125); POTASSIUM SERUM 3.8 MEQ/L (3.5-5.1); SODIUM LEVEL 131 MEQ/L (136-145); TOTAL PROTEIN 5.4 GM/DL (6.4-8.2)
[2021-03-28 05:52] LABS: ABG BASE EXCESS 12.5 (-2.0-2.0); ABG HCO3 36.6 MEQ/L (22.0-26.0); ABG O2 SATURATION 96.8 % (95.0-99.0); ABG PARTIAL PRESSURE CO2 45.4 mmHg (35.0-45.0); ABG PARTIAL PRESSURE O2 97.2 mmHg (75.0-100.0); ABG STANDARD HCO3 36.2 MEQ/L (22.0-26.0); ABG pH (ARTERIAL) 7.524 UNITS (7.350-7.450)
[2021-03-28] MEDS: SUCRALFATE SUSP 1GM/10ML UD PO SCH ×4 (07:48→21:03)
[2021-03-28] MEDS: LEVALBUTEROL 1.25 MG/0.5 ML CONCENTRATE NEB INH SCH ×3 (08:15→19:25)
[2021-03-28] MEDS: BUDESONIDE 0.5 MG/2 ML INHALATION SUSPENSION INH SCH ×2 (08:15→19:25)
[2021-03-28] MEDS: CHLORHEXIDINE GLUCONATE 0.12 % 15ML UDC (PERIDEX ORAL RINSE) MT SCH ×2 (08:48→21:03)
[2021-03-28] MEDS: FUROSEMIDE 100MG/10ML VIAL (J1940) IV SCH (08:48)
[2021-03-28] MEDS: LIDOCAINE 5% (LIDODERM) PATCH TD SCH (08:49)
[2021-03-28] MEDS: SPIRONOLACTONE 50 MG TAB PO SCH (08:49)
[2021-03-28] MEDS: PANTOPRAZOLE 40MG VIAL (C9113 PER 1) IV SCH (08:49)
[2021-03-28] MEDS: BARICITINIB 2MG TABLET (OLUMIANT) FOR EUA PO SCH (08:57)
[2021-03-28] MEDS ORDERED: metOLazone 5 MG TAB PO SCH (10:05)
[2021-03-28] MEDS ORDERED: NS 500 ML IV ONE (12:05)
[2021-03-28] MEDS: NS 1,000 ML IV SCH (16:31)
[2021-03-28] MEDS: **NOTE PATIENT COMMENT** MISC XX SCH (21:04)
[2021-03-29] VITALS (28 sets, daily range): BP systolic 102–131; BP diastolic 55–78
[2021-03-29] MEDS: methylPREDNISolone 40MG 1ML VIAL IV SCH ×2 (00:11→12:44)
[2021-03-29] MEDS: METOCLOPRAMIDE INJ 10MG/2ML VIAL (J2765 PER 1) IV SCH ×2 (00:11→06:11)
[2021-03-29] MEDS: propofoL 1,000 MG in IV 1 EA IV SCH ×2 (01:40→05:10)
[2021-03-29] MEDS: CEFEPIME HCL 2 GM in D5W MINI-BAG PLUS 50 ML IV SCH ×3 (04:23→20:05)
[2021-03-29] MEDS: SODIUM CHLORIDE 0.9% INJ 10 ML SYR IV SCH ×5 (05:00→22:04)
[2021-03-29] MEDS: NS 1,000 ML IV SCH ×2 (05:00→17:54)
[2021-03-29 05:08] LABS: HEMATOCRIT 25.9 % (36.0-47.0); HEMOGLOBIN 8.3 g/dl (12.0-15.5); MEAN CORPUSCULAR HEMOGLOBIN 28.8 pg (27.0-33.0); MEAN CORPUSCULAR VOLUME 89.9 fl (80.0-96.0); PLATELET COUNT, AUTOMATED 178 10^3/uL (150-450); RED BLOOD COUNT 2.88 10^6/uL (4.00-5.40); WHITE BLOOD COUNT 15.2 10^3/uL (4.0-10.0)
[2021-03-29 05:30] LABS: ANISOCYTOSIS 2+; ATYPICAL LYMPH 1 % (0-5); LYMPHOCYTES 6 % (16-44); MONOCYTES 8 % (0-5); MYELOCYTES 2 % (0-0); NEUTROPHILS 83 % (28-66); PLATELET ESTIMATE NORMAL (NORMAL); POIKILOCYTOSIS 1+; POLYCHROMASIA 1+
[2021-03-29 05:31] LABS: TOXIC VACUOLATION 1+
[2021-03-29 05:42] LABS: BLOOD UREA NITROGEN 62 MG/DL (7-18); CALCIUM LEVEL 7.6 MG/DL (8.5-10.1); CARBON DIOXIDE LEVEL 37 MEQ/L (21-32); CHLORIDE LEVEL 90 MEQ/L (98-107); CREATININE FOR GFR 0.87 MG/DL (0.55-1.30); GLOMERULAR FILTRATION RATE > 60.0 (>60); GLUCOSE, FASTING 199 MG/DL (70-100); MAGNESIUM LEVEL 3.2 MG/DL (1.8-2.4); POTASSIUM SERUM 3.8 MEQ/L (3.5-5.1); SODIUM LEVEL 131 MEQ/L (136-145)
[2021-03-29 06:30] LABS: ABG BASE EXCESS 12.2 (-2.0-2.0); ABG HCO3 36.1 MEQ/L (22.0-26.0); ABG O2 SATURATION 95.8 % (95.0-99.0); ABG PARTIAL PRESSURE CO2 44.3 mmHg (35.0-45.0); ABG PARTIAL PRESSURE O2 80.6 mmHg (75.0-100.0); ABG STANDARD HCO3 35.9 MEQ/L (22.0-26.0); ABG TOTAL CO2 37.5 MEQ/L (22.0-29.0); ABG pH (ARTERIAL) 7.529 UNITS (7.350-7.450)
[2021-03-29] MEDS: BUDESONIDE 0.5 MG/2 ML INHALATION SUSPENSION INH SCH ×2 (08:02→19:12)
[2021-03-29] MEDS: LEVALBUTEROL 1.25 MG/0.5 ML CONCENTRATE NEB INH SCH ×3 (08:03→19:12)
[2021-03-29] MEDS: PANTOPRAZOLE 40MG VIAL (C9113 PER 1) IV SCH (08:38)
[2021-03-29] MEDS: CHLORHEXIDINE GLUCONATE 0.12 % 15ML UDC (PERIDEX ORAL RINSE) MT SCH ×2 (08:38→20:04)
[2021-03-29] MEDS: BARICITINIB 2MG TABLET (OLUMIANT) FOR EUA PO SCH (08:39)
[2021-03-29] MEDS: LIDOCAINE 5% (LIDODERM) PATCH TD SCH (08:39)
[2021-03-29] MEDS: SUCRALFATE SUSP 1GM/10ML UD PO SCH ×4 (08:52→20:04)
[2021-03-29] MEDS ORDERED: metOLazone 5 MG TAB PO SCH (09:00)
[2021-03-29] MEDS: MIDAZOLAM INJ 2MG/2ML VIAL (J2250 PER 1MG) IV PRN ×3 (09:27→15:36)
[2021-03-29] MEDS: **NOTE PATIENT COMMENT** MISC XX SCH (20:05)
[2021-03-30] VITALS (25 sets, daily range): BP systolic 111–145; BP diastolic 60–75; O2SAT 96
[2021-03-30] MEDS: methylPREDNISolone 40MG 1ML VIAL IV SCH ×2 (00:06→13:04)
[2021-03-30] MEDS: MIDAZOLAM INJ 2MG/2ML VIAL (J2250 PER 1MG) IV PRN (04:00)
[2021-03-30] MEDS: CEFEPIME HCL 2 GM in D5W MINI-BAG PLUS 50 ML IV SCH ×3 (04:16→21:29)
[2021-03-30 05:38] LABS: ABG BASE EXCESS 4.7 (-2.0-2.0); ABG PARTIAL PRESSURE O2 74.9 mmHg (75.0-100.0); ABG STANDARD HCO3 28.7 MEQ/L (22.0-26.0); ABG TOTAL CO2 29.1 MEQ/L (22.0-29.0); ABG pH (ARTERIAL) 7.508 UNITS (7.350-7.450)
[2021-03-30] MEDS: SODIUM CHLORIDE 0.9% INJ 10 ML SYR IV SCH ×5 (05:43→21:29)
[2021-03-30] MEDS: BUDESONIDE 0.5 MG/2 ML INHALATION SUSPENSION INH SCH ×2 (07:40→19:29)
[2021-03-30] MEDS: LEVALBUTEROL 1.25 MG/0.5 ML CONCENTRATE NEB INH SCH ×3 (07:40→19:29)
[2021-03-30] MEDS: NS 1,000 ML IV SCH ×2 (08:36→21:29)
[2021-03-30] MEDS: SUCRALFATE SUSP 1GM/10ML UD PO SCH ×4 (08:36→21:00)
[2021-03-30] MEDS: CHLORHEXIDINE GLUCONATE 0.12 % 15ML UDC (PERIDEX ORAL RINSE) MT SCH ×2 (08:37→21:00)
[2021-03-30] MEDS: PANTOPRAZOLE 40MG VIAL (C9113 PER 1) IV SCH (08:38)
[2021-03-30] MEDS: BARICITINIB 2MG TABLET (OLUMIANT) FOR EUA PO SCH (08:38)
[2021-03-30] MEDS: FUROSEMIDE 100MG/10ML VIAL (J1940) IV SCH ×2 (08:38→16:40)
[2021-03-30] MEDS: LIDOCAINE 5% (LIDODERM) PATCH TD SCH (08:39)
[2021-03-30] MEDS: SPIRONOLACTONE 50 MG TAB PO SCH (09:00)
[2021-03-30] MEDS ORDERED: metOLazone 5 MG TAB PO SCH (09:00)
[2021-03-30 09:48] LABS: BASO % 0.2 % (0.0-1.0); EOS % 0.2 % (0.0-3.0); HEMATOCRIT 27.3 % (36.0-47.0); HEMOGLOBIN 8.7 g/dl (12.0-15.5); LYMPH # 1.1 10^3/uL (1.5-5.0); MEAN CORPUSCULAR HEMOGLOBIN 28.8 pg (27.0-33.0); MEAN CORPUSCULAR HGB CONC 31.9 g/dl (32.0-36.5); MEAN CORPUSCULAR VOLUME 90.4 fl (80.0-96.0); MONO % 10.7 % (2.0-8.0); NEUTROPHILS % 79.5 % (36.0-66.0); PLATELET COUNT, AUTOMATED 251 10^3/uL (150-450); RED BLOOD COUNT 3.02 10^6/uL (4.00-5.40); WHITE BLOOD COUNT 21.4 10^3/uL (4.0-10.0)
[2021-03-30 09:53] LABS: MONO # 2.3 10^3/uL (0.0-0.8)
[2021-03-30 10:25] LABS: ABG HCO3 31.6 MEQ/L (22.0-26.0); ABG O2 SATURATION 95.5 % (95.0-99.0); ABG PARTIAL PRESSURE CO2 39.8 mmHg (35.0-45.0); ABG PARTIAL PRESSURE O2 78.8 mmHg (75.0-100.0); ABG STANDARD HCO3 31.8 MEQ/L (22.0-26.0); ABG TOTAL CO2 32.8 MEQ/L (22.0-29.0); ABG pH (ARTERIAL) 7.517 UNITS (7.350-7.450)
[2021-03-30 10:28] LABS: ALBUMIN 2.1 GM/DL (3.2-5.2); ALT/SGPT 86 U/L (12-78); BILIRUBIN,TOTAL 2.1 MG/DL (0.2-1.0); BLOOD UREA NITROGEN 59 MG/DL (7-18); CALCIUM LEVEL 7.8 MG/DL (8.5-10.1); CARBON DIOXIDE LEVEL 33 MEQ/L (21-32); CHLORIDE LEVEL 97 MEQ/L (98-107); CHOLESTEROL LEVEL 107 MG/DL (< 200); CPK CREATINE PHOSPHOKINASE 73 U/L (26-192); CREATININE FOR GFR 0.74 MG/DL (0.55-1.30); GLOMERULAR FILTRATION RATE > 60.0 (>60); GLUCOSE, FASTING 222 MG/DL (70-100); LDH LACTATE DEHYDROGENASE 337 U/L (84-246); PHOSPHORUS LEVEL 2.5 MG/DL (2.5-4.9); POTASSIUM SERUM 3.7 MEQ/L (3.5-5.1); SODIUM LEVEL 133 MEQ/L (136-145); TOTAL PROTEIN 5.7 GM/DL (6.4-8.2); TRIGLYCERIDES LEVEL 29 MG/DL (<150)
[2021-03-30] MEDS: HEPARIN DRIP 25,000 UNITS in IV 1 EA IV SCH (12:03)
[2021-03-30] MEDS: **NOTE PATIENT COMMENT** MISC XX SCH (21:29)
[2021-03-31] VITALS (23 sets, daily range): BP systolic 111–137; BP diastolic 64–84
[2021-03-31] MEDS: methylPREDNISolone 40MG 1ML VIAL IV SCH ×2 (00:46→11:38)
[2021-03-31] MEDS: CEFEPIME HCL 2 GM in D5W MINI-BAG PLUS 50 ML IV SCH ×3 (05:15→20:54)
[2021-03-31] MEDS: SODIUM CHLORIDE 0.9% INJ 10 ML SYR IV SCH ×5 (05:16→22:49)
[2021-03-31 05:29] LABS: BASO % 0.1 % (0.0-1.0); HEMOGLOBIN 8.8 g/dl (12.0-15.5); LYMPH % 5.3 % (24.0-44.0); MEAN CORPUSCULAR HEMOGLOBIN 28.5 pg (27.0-33.0); MEAN CORPUSCULAR HGB CONC 31.4 g/dl (32.0-36.5); MEAN CORPUSCULAR VOLUME 90.6 fl (80.0-96.0); MONO # 1.1 10^3/uL (0.0-0.8); MONO % 5.9 % (2.0-8.0); NEUTROPHILS # 16.1 10^3/uL (1.5-8.5); NEUTROPHILS % 85.7 % (36.0-66.0); PLATELET COUNT, AUTOMATED 242 10^3/uL (150-450); RED BLOOD COUNT 3.09 10^6/uL (4.00-5.40); WHITE BLOOD COUNT 18.8 10^3/uL (4.0-10.0)
[2021-03-31 06:05] LABS: ALBUMIN 2.2 GM/DL (3.2-5.2); ALT/SGPT 94 U/L (12-78); BILIRUBIN,TOTAL 3.2 MG/DL (0.2-1.0); BLOOD UREA NITROGEN 68 MG/DL (7-18); CALCIUM LEVEL 8.3 MG/DL (8.5-10.1); CARBON DIOXIDE LEVEL 30 MEQ/L (21-32); CHLORIDE LEVEL 98 MEQ/L (98-107); CHOLESTEROL LEVEL 116 MG/DL (< 200); CPK CREATINE PHOSPHOKINASE 97 U/L (26-192); GLOMERULAR FILTRATION RATE > 60.0 (>60); GLUCOSE, FASTING 164 MG/DL (70-100); LDH LACTATE DEHYDROGENASE 425 U/L (84-246); PHOSPHORUS LEVEL 4.3 MG/DL (2.5-4.9); SODIUM LEVEL 135 MEQ/L (136-145); TOTAL PROTEIN 5.8 GM/DL (6.4-8.2); TRIGLYCERIDES LEVEL 35 MG/DL (<150)
[2021-03-31] MEDS: SUCRALFATE SUSP 1GM/10ML UD PO SCH ×4 (07:30→20:54)
[2021-03-31] MEDS: LEVALBUTEROL 1.25 MG/0.5 ML CONCENTRATE NEB INH SCH ×3 (08:27→20:23)
[2021-03-31] MEDS: BUDESONIDE 0.5 MG/2 ML INHALATION SUSPENSION INH SCH ×2 (08:27→20:23)
[2021-03-31] MEDS: CHLORHEXIDINE GLUCONATE 0.12 % 15ML UDC (PERIDEX ORAL RINSE) MT SCH ×2 (08:45→21:03)
[2021-03-31] MEDS: LIDOCAINE 5% (LIDODERM) PATCH TD SCH (08:45)
[2021-03-31] MEDS: PANTOPRAZOLE 40MG VIAL (C9113 PER 1) IV SCH ×2 (08:45→20:54)
[2021-03-31] MEDS: FUROSEMIDE 100MG/10ML VIAL (J1940) IV SCH (08:45)
[2021-03-31] MEDS: BARICITINIB 2MG TABLET (OLUMIANT) FOR EUA PO SCH (08:53)
[2021-03-31] MEDS: SPIRONOLACTONE 50 MG TAB PO SCH (08:53)
[2021-03-31] MEDS: NS 1,000 ML IV SCH ×2 (11:38→23:18)
[2021-03-31 12:20] LABS: INR 1.43; PROTHROMBIN TIME 17.9 SECONDS (12.7-14.5)
[2021-03-31 12:23] LABS: D-DIMER QUANT 3901.62 ng/ml (<500)
[2021-03-31 12:43] LABS: FERRITIN 80 NG/ML (8-252); IRON (FE) 163 UG/DL (50-170); LDH LACTATE DEHYDROGENASE 364 U/L (84-246); PERCENT SATURATION 52.2 % (13.2-45.0); TOTAL IRON BINDING CAPACITY 312 UG/DL (250-450)
[2021-03-31 12:47] LABS: FOLATE 5.3 NG/ML (>5.4); VITAMIN B12 LEVEL > 2000 PG/ML (247-911)
[2021-03-31 13:37] LABS: APPEARANCE, URINE CLEAR (CLEAR); BACTERIA, URINE AUTO 1+ (NEGATIVE); BILIRUBIN, URINE AUTO NEGATIVE (NEGATIVE); BLOOD, URINE BLOOD 1+ (NEGATIVE); COLOR, URINE STRAW (YELLOW); GLUCOSE, URINE (UA) AUTO NEGATIVE (NEGATIVE); KETONE, URINE AUTO NEGATIVE (NEGATIVE); LEUKOCYTE ESTERASE, URINE AUTO NEGATIVE (NEGATIVE); NITRITE, URINE AUTO NEGATIVE (NEGATIVE); PROTEIN, URINE AUTO NEGATIVE (NEGATIVE); RBC, URINE AUTO 7 /HPF (0-3); SQUAMOUS EPITHELIAL CELL UR AU 0 /HPF (0-6); UROBILINOGEN, URINE AUTO 0.2 mg/dL (0.0-2.0); WBC, URINE AUTO 0 /HPF (0-3)
[2021-03-31] MEDS: FUROSEMIDE 40MG/4ML VIAL (J1940) IV SCH (16:45)
[2021-03-31] MEDS: **NOTE PATIENT COMMENT** MISC XX SCH (21:26)
[2021-04-01] VITALS (21 sets, daily range): BP systolic 116–132; BP diastolic 62–79
[2021-04-01] MEDS: methylPREDNISolone 40MG 1ML VIAL IV SCH ×2 (01:32→12:22)
[2021-04-01] MEDS: CEFEPIME HCL 2 GM in D5W MINI-BAG PLUS 50 ML IV SCH ×3 (05:47→20:52)
[2021-04-01] MEDS: SODIUM CHLORIDE 0.9% INJ 10 ML SYR IV SCH ×5 (06:08→22:00)
[2021-04-01 06:12] LABS: BASO % 0.1 % (0.0-1.0); HEMATOCRIT 26.2 % (36.0-47.0); HEMOGLOBIN 8.1 g/dl (12.0-15.5); LYMPH # 0.7 10^3/uL (1.5-5.0); LYMPH % 3.9 % (24.0-44.0); MEAN CORPUSCULAR HEMOGLOBIN 28.6 pg (27.0-33.0); MEAN CORPUSCULAR HGB CONC 30.9 g/dl (32.0-36.5); MEAN CORPUSCULAR VOLUME 92.6 fl (80.0-96.0); MONO # 1.1 10^3/uL (0.0-0.8); MONO % 5.7 % (2.0-8.0); NEUTROPHILS # 16.4 10^3/uL (1.5-8.5); PLATELET COUNT, AUTOMATED 207 10^3/uL (150-450); RED BLOOD COUNT 2.83 10^6/uL (4.00-5.40); WHITE BLOOD COUNT 18.7 10^3/uL (4.0-10.0)
[2021-04-01 06:43] LABS: ALBUMIN 2.1 GM/DL (3.2-5.2); ALT/SGPT 95 U/L (12-78); BILIRUBIN,TOTAL 3.2 MG/DL (0.2-1.0); BLOOD UREA NITROGEN 63 MG/DL (7-18); CALCIUM LEVEL 8.3 MG/DL (8.5-10.1); CARBON DIOXIDE LEVEL 30 MEQ/L (21-32); CHLORIDE LEVEL 104 MEQ/L (98-107); CHOLESTEROL LEVEL 128 MG/DL (< 200); CPK CREATINE PHOSPHOKINASE 95 U/L (26-192); CREATININE FOR GFR 0.71 MG/DL (0.55-1.30); GLOMERULAR FILTRATION RATE > 60.0 (>60); GLUCOSE, FASTING 148 MG/DL (70-100); LDH LACTATE DEHYDROGENASE 359 U/L (84-246); PHOSPHORUS LEVEL 3.6 MG/DL (2.5-4.9); POTASSIUM SERUM 3.8 MEQ/L (3.5-5.1); SODIUM LEVEL 139 MEQ/L (136-145); TOTAL PROTEIN 5.5 GM/DL (6.4-8.2); TRIGLYCERIDES LEVEL 35 MG/DL (<150)
[2021-04-01] MEDS: HEPARIN DRIP 25,000 UNITS in IV 1 EA IV SCH ×2 (06:52→11:32)
[2021-04-01] MEDS: SUCRALFATE SUSP 1GM/10ML UD PO SCH ×4 (07:44→20:53)
[2021-04-01] MEDS: BUDESONIDE 0.5 MG/2 ML INHALATION SUSPENSION INH SCH ×2 (08:00→19:50)
[2021-04-01] MEDS ORDERED: MORPHINE 2 MG/ML 1ML VIAL (J2270) IV ONE (08:40)
[2021-04-01] MEDS ORDERED: ONDANSETRON 4MG/2ML VIAL As Ordered ONE (08:43)
[2021-04-01] MEDS ORDERED: ONDANSETRON 4MG/2ML VIAL IV ONE (08:45)
[2021-04-01] MEDS: LEVALBUTEROL 1.25 MG/0.5 ML CONCENTRATE NEB INH SCH ×3 (08:46→19:50)
[2021-04-01] MEDS: FUROSEMIDE 40MG/4ML VIAL (J1940) IV SCH ×2 (10:10→17:01)
[2021-04-01] MEDS: CHLORHEXIDINE GLUCONATE 0.12 % 15ML UDC (PERIDEX ORAL RINSE) MT SCH ×2 (10:10→20:54)
[2021-04-01] MEDS: SPIRONOLACTONE 50 MG TAB PO SCH (10:10)
[2021-04-01] MEDS: LIDOCAINE 5% (LIDODERM) PATCH TD SCH (10:10)
[2021-04-01] MEDS: BARICITINIB 2MG TABLET (OLUMIANT) FOR EUA PO SCH (10:10)
[2021-04-01] MEDS: PANTOPRAZOLE 40MG VIAL (C9113 PER 1) IV SCH ×2 (10:10→20:53)
[2021-04-01] MEDS: LACTULOSE 20 GM/30 ML SYRUP UD PO SCH (20:53)
[2021-04-01] MEDS: **NOTE PATIENT COMMENT** MISC XX SCH (20:54)
[2021-04-02] VITALS (14 sets, daily range): BP systolic 120–140; BP diastolic 69–81; O2SAT 90
[2021-04-02] MEDS: methylPREDNISolone 40MG 1ML VIAL IV SCH ×2 (01:30→12:31)
[2021-04-02] MEDS: CEFEPIME HCL 2 GM in D5W MINI-BAG PLUS 50 ML IV SCH ×3 (05:39→22:00)
[2021-04-02] MEDS: SODIUM CHLORIDE 0.9% INJ 10 ML SYR IV SCH ×4 (05:39→21:35)
[2021-04-02 06:09] LABS: BASO % 0.1 % (0.0-1.0); HEMATOCRIT 25.7 % (36.0-47.0); HEMOGLOBIN 7.9 g/dl (12.0-15.5); LYMPH # 0.7 10^3/uL (1.5-5.0); LYMPH % 4.2 % (24.0-44.0); MEAN CORPUSCULAR HEMOGLOBIN 28.8 pg (27.0-33.0); MEAN CORPUSCULAR HGB CONC 30.7 g/dl (32.0-36.5); MEAN CORPUSCULAR VOLUME 93.8 fl (80.0-96.0); MONO # 0.8 10^3/uL (0.0-0.8); MONO % 4.7 % (2.0-8.0); NEUTROPHILS # 14.4 10^3/uL (1.5-8.5); NEUTROPHILS % 89.4 % (36.0-66.0); PLATELET COUNT, AUTOMATED 161 10^3/uL (150-450); RED BLOOD COUNT 2.74 10^6/uL (4.00-5.40); WHITE BLOOD COUNT 16.1 10^3/uL (4.0-10.0)
[2021-04-02 06:49] LABS: ALBUMIN 2.2 GM/DL (3.2-5.2); ALT/SGPT 98 U/L (12-78); BILIRUBIN,TOTAL 2.6 MG/DL (0.2-1.0); BLOOD UREA NITROGEN 50 MG/DL (7-18); CALCIUM LEVEL 8.6 MG/DL (8.5-10.1); CARBON DIOXIDE LEVEL 33 MEQ/L (21-32); CHLORIDE LEVEL 107 MEQ/L (98-107); CHOLESTEROL LEVEL 153 MG/DL (< 200); CPK CREATINE PHOSPHOKINASE 84 U/L (26-192); CREATININE FOR GFR 0.63 MG/DL (0.55-1.30); GLOMERULAR FILTRATION RATE > 60.0 (>60); GLUCOSE, FASTING 156 MG/DL (70-100); LDH LACTATE DEHYDROGENASE 344 U/L (84-246); MAGNESIUM LEVEL 2.2 MG/DL (1.8-2.4); PHOSPHORUS LEVEL 2.9 MG/DL (2.5-4.9); POTASSIUM SERUM 3.8 MEQ/L (3.5-5.1); SODIUM LEVEL 142 MEQ/L (136-145); TOTAL PROTEIN 5.5 GM/DL (6.4-8.2); TRIGLYCERIDES LEVEL 36 MG/DL (<150)
[2021-04-02] MEDS: LEVALBUTEROL 1.25 MG/0.5 ML CONCENTRATE NEB INH SCH ×3 (07:45→20:06)
[2021-04-02] MEDS: BUDESONIDE 0.5 MG/2 ML INHALATION SUSPENSION INH SCH ×2 (07:45→20:05)
[2021-04-02] MEDS: HEPARIN DRIP 25,000 UNITS in IV 1 EA IV SCH (08:11)
[2021-04-02] MEDS: LIDOCAINE 5% (LIDODERM) PATCH TD SCH ×3 (08:22→21:35)
[2021-04-02] MEDS: PANTOPRAZOLE 40MG VIAL (C9113 PER 1) IV SCH ×2 (08:22→21:35)
[2021-04-02] MEDS: LACTULOSE 20 GM/30 ML SYRUP UD PO SCH ×3 (08:23→21:34)
[2021-04-02] MEDS: CHLORHEXIDINE GLUCONATE 0.12 % 15ML UDC (PERIDEX ORAL RINSE) MT SCH ×2 (08:23→21:34)
[2021-04-02] MEDS: FUROSEMIDE 40MG/4ML VIAL (J1940) IV SCH ×2 (08:23→17:05)
[2021-04-02] MEDS: BARICITINIB 2MG TABLET (OLUMIANT) FOR EUA PO SCH (08:24)
[2021-04-02] MEDS: SUCRALFATE SUSP 1GM/10ML UD PO SCH ×4 (08:24→21:34)
[2021-04-02] MEDS: SPIRONOLACTONE 50 MG TAB PO SCH (08:25)
[2021-04-02] MEDS: ENOXAPARIN 60MG/0.6ML SYRINGE (J1650 PER 10MG) SC SCH (12:45)
[2021-04-03] MEDS: ENOXAPARIN 60MG/0.6ML SYRINGE (J1650 PER 10MG) SC SCH ×2 (00:05→12:36)
[2021-04-03 04:00] VITALS: BP 131/72
[2021-04-03] MEDS: CEFEPIME HCL 2 GM in D5W MINI-BAG PLUS 50 ML IV SCH (04:49)
[2021-04-03] MEDS: SODIUM CHLORIDE 0.9% INJ 10 ML SYR IV SCH ×3 (04:49→20:47)
[2021-04-03 05:01] LABS: BASO % 0.1 % (0.0-1.0); HEMATOCRIT 23.3 % (36.0-47.0); HEMOGLOBIN 7.1 g/dl (12.0-15.5); LYMPH # 0.8 10^3/uL (1.5-5.0); LYMPH % 4.9 % (24.0-44.0); MEAN CORPUSCULAR HEMOGLOBIN 29.1 pg (27.0-33.0); MEAN CORPUSCULAR HGB CONC 30.5 g/dl (32.0-36.5); MEAN CORPUSCULAR VOLUME 95.5 fl (80.0-96.0); MONO # 1.4 10^3/uL (0.0-0.8); MONO % 8.1 % (2.0-8.0); NEUTROPHILS # 14.2 10^3/uL (1.5-8.5); NEUTROPHILS % 85.9 % (36.0-66.0); PLATELET COUNT, AUTOMATED 129 10^3/uL (150-450); RED BLOOD COUNT 2.44 10^6/uL (4.00-5.40); WHITE BLOOD COUNT 16.6 10^3/uL (4.0-10.0)
[2021-04-03 05:34] LABS: ALT/SGPT 94 U/L (12-78); BILIRUBIN,TOTAL 2.1 MG/DL (0.2-1.0); BLOOD UREA NITROGEN 38 MG/DL (7-18); CALCIUM LEVEL 8.5 MG/DL (8.5-10.1); CARBON DIOXIDE LEVEL 32 MEQ/L (21-32); CHLORIDE LEVEL 106 MEQ/L (98-107); CHOLESTEROL LEVEL 140 MG/DL (< 200); CPK CREATINE PHOSPHOKINASE 71 U/L (26-192); CREATININE FOR GFR 0.57 MG/DL (0.55-1.30); GLOMERULAR FILTRATION RATE > 60.0 (>60); GLUCOSE, FASTING 154 MG/DL (70-100); LDH LACTATE DEHYDROGENASE 335 U/L (84-246); MAGNESIUM LEVEL 1.8 MG/DL (1.8-2.4); PHOSPHORUS LEVEL 1.9 MG/DL (2.5-4.9); POTASSIUM SERUM 3.1 MEQ/L (3.5-5.1); SODIUM LEVEL 141 MEQ/L (136-145); TOTAL PROTEIN 5.2 GM/DL (6.4-8.2); TRIGLYCERIDES LEVEL 38 MG/DL (<150)
[2021-04-03] MEDS: BUDESONIDE 0.5 MG/2 ML INHALATION SUSPENSION INH SCH ×2 (07:43→20:00)
[2021-04-03] MEDS: LEVALBUTEROL 1.25 MG/0.5 ML CONCENTRATE NEB INH SCH ×3 (07:43→20:00)
[2021-04-03] MEDS: CHLORHEXIDINE GLUCONATE 0.12 % 15ML UDC (PERIDEX ORAL RINSE) MT SCH ×2 (08:48→20:46)
[2021-04-03] MEDS: LACTULOSE 20 GM/30 ML SYRUP UD PO SCH ×3 (08:49→20:10)
[2021-04-03] MEDS: SUCRALFATE SUSP 1GM/10ML UD PO SCH ×4 (08:49→20:46)
[2021-04-03] MEDS: PANTOPRAZOLE 40MG VIAL (C9113 PER 1) IV SCH ×2 (08:50→20:46)
[2021-04-03] MEDS: SPIRONOLACTONE 50 MG TAB PO SCH (08:50)
[2021-04-03] MEDS: BARICITINIB 2MG TABLET (OLUMIANT) FOR EUA PO SCH (08:50)
[2021-04-03] MEDS: FUROSEMIDE 40MG/4ML VIAL (J1940) IV SCH ×2 (08:50→17:29)
[2021-04-03] MEDS: **NOTE PATIENT COMMENT** MISC XX SCH (09:00)
[2021-04-03] MEDS ORDERED: POTASSIUM CHLORIDE 10MEQ SR TABLET PO ONE (11:10)
[2021-04-03] MEDS ORDERED: MAGNESIUM OXIDE 400MG TAB (MAG-OX) PO ONE (12:00)
[2021-04-03] MEDS: methylPREDNISolone 40MG 1ML VIAL IV SCH (12:35)
[2021-04-03] MEDS: KCL 10MEQ/100ML SWI (KRUN) 10 MEQ in IV 1 EA IV SCH ×4 (12:35→15:21)
[2021-04-03 14:55] VITALS: BP 128/79
[2021-04-03] MEDS ORDERED: POTASSIUM PHOSPHATE INJ 20 MMOL in D5W 250 ML IV ONE (16:00)
[2021-04-03] MEDS: LIDOCAINE 5% (LIDODERM) PATCH TD SCH (20:44)
[2021-04-03 21:32] VITALS: BP 138/78
[2021-04-04] VITALS (7 sets, daily range): BP systolic 116–126; BP diastolic 68–74; O2SAT 92–96
[2021-04-04] MEDS: ENOXAPARIN 60MG/0.6ML SYRINGE (J1650 PER 10MG) SC SCH ×2 (01:08→11:35)
[2021-04-04] MEDS: SODIUM CHLORIDE 0.9% INJ 10 ML SYR IV SCH ×3 (05:33→20:23)
[2021-04-04 05:49] LABS: BASO % 0.1 % (0.0-1.0); EOS % 0.1 % (0.0-3.0); HEMATOCRIT 22.9 % (36.0-47.0); HEMOGLOBIN 7.1 g/dl (12.0-15.5); LYMPH # 0.9 10^3/uL (1.5-5.0); LYMPH % 7.2 % (24.0-44.0); MEAN CORPUSCULAR HEMOGLOBIN 29.2 pg (27.0-33.0); MEAN CORPUSCULAR VOLUME 94.2 fl (80.0-96.0); MONO % 8.1 % (2.0-8.0); NEUTROPHILS # 10.5 10^3/uL (1.5-8.5); NEUTROPHILS % 82.8 % (36.0-66.0); PLATELET COUNT, AUTOMATED 106 10^3/uL (150-450); RED BLOOD COUNT 2.43 10^6/uL (4.00-5.40); WHITE BLOOD COUNT 12.7 10^3/uL (4.0-10.0)
[2021-04-04 06:12] LABS: ALT/SGPT 98 U/L (12-78); BILIRUBIN,TOTAL 2.1 MG/DL (0.2-1.0); BLOOD UREA NITROGEN 32 MG/DL (7-18); CALCIUM LEVEL 8.4 MG/DL (8.5-10.1); CARBON DIOXIDE LEVEL 33 MEQ/L (21-32); CHLORIDE LEVEL 104 MEQ/L (98-107); CHOLESTEROL LEVEL 145 MG/DL (< 200); CPK CREATINE PHOSPHOKINASE 89 U/L (26-192); CREATININE FOR GFR 0.46 MG/DL (0.55-1.30); GLOMERULAR FILTRATION RATE > 60.0 (>60); GLUCOSE, FASTING 98 MG/DL (70-100); LDH LACTATE DEHYDROGENASE 346 U/L (84-246); MAGNESIUM LEVEL 1.7 MG/DL (1.8-2.4); PHOSPHORUS LEVEL 2.7 MG/DL (2.5-4.9); POTASSIUM SERUM 4.1 MEQ/L (3.5-5.1); SODIUM LEVEL 139 MEQ/L (136-145); TOTAL PROTEIN 5.4 GM/DL (6.4-8.2); TRIGLYCERIDES LEVEL 41 MG/DL (<150)
[2021-04-04] MEDS: BUDESONIDE 0.5 MG/2 ML INHALATION SUSPENSION INH SCH ×2 (07:30→20:30)
[2021-04-04] MEDS: LEVALBUTEROL 1.25 MG/0.5 ML CONCENTRATE NEB INH SCH ×3 (07:30→20:30)
[2021-04-04] MEDS: PANTOPRAZOLE 40MG VIAL (C9113 PER 1) IV SCH ×2 (08:43→20:22)
[2021-04-04] MEDS: FUROSEMIDE 40MG/4ML VIAL (J1940) IV SCH (08:43)
[2021-04-04] MEDS: SUCRALFATE SUSP 1GM/10ML UD PO SCH ×4 (08:43→20:22)
[2021-04-04] MEDS: CHLORHEXIDINE GLUCONATE 0.12 % 15ML UDC (PERIDEX ORAL RINSE) MT SCH ×2 (08:43→20:22)
[2021-04-04] MEDS: LACTULOSE 20 GM/30 ML SYRUP UD PO SCH ×3 (08:44→19:05)
[2021-04-04] MEDS: SPIRONOLACTONE 50 MG TAB PO SCH (08:44)
[2021-04-04] MEDS: BARICITINIB 2MG TABLET (OLUMIANT) FOR EUA PO SCH (08:44)
[2021-04-04] MEDS: **NOTE PATIENT COMMENT** MISC XX SCH (09:00)
[2021-04-04] MEDS ORDERED: MAGNESIUM OXIDE 400MG TAB (MAG-OX) PO ONE (10:30)
[2021-04-04] MEDS: methylPREDNISolone 40MG 1ML VIAL IV SCH (11:35)
[2021-04-04] MEDS: LIDOCAINE 5% (LIDODERM) PATCH TD SCH (20:22)
[2021-04-05] VITALS (9 sets, daily range): BP systolic 114–123; BP diastolic 60–78; O2SAT 95–98
[2021-04-05] MEDS: ENOXAPARIN 60MG/0.6ML SYRINGE (J1650 PER 10MG) SC SCH ×3 (01:16→21:59)
[2021-04-05] MEDS: SODIUM CHLORIDE 0.9% INJ 10 ML SYR IV SCH ×3 (06:52→21:54)
[2021-04-05 06:54] LABS: BASO % 0.1 % (0.0-1.0); EOS % 0.2 % (0.0-3.0); HEMATOCRIT 23.3 % (36.0-47.0); HEMOGLOBIN 7.3 g/dl (12.0-15.5); LYMPH # 1.2 10^3/uL (1.5-5.0); LYMPH % 9.5 % (24.0-44.0); MEAN CORPUSCULAR HEMOGLOBIN 29.7 pg (27.0-33.0); MEAN CORPUSCULAR HGB CONC 31.3 g/dl (32.0-36.5); MEAN CORPUSCULAR VOLUME 94.7 fl (80.0-96.0); MONO # 0.9 10^3/uL (0.0-0.8); NEUTROPHILS # 10.1 10^3/uL (1.5-8.5); NEUTROPHILS % 81.3 % (36.0-66.0); RED BLOOD COUNT 2.46 10^6/uL (4.00-5.40); WHITE BLOOD COUNT 12.5 10^3/uL (4.0-10.0)
[2021-04-05 06:56] LABS: PLATELET COUNT, AUTOMATED 90 10^3/uL (150-450)
[2021-04-05 07:21] LABS: ALBUMIN 2.1 GM/DL (3.2-5.2); ALT/SGPT 99 U/L (12-78); BILIRUBIN,TOTAL 2.4 MG/DL (0.2-1.0); BLOOD UREA NITROGEN 22 MG/DL (7-18); CALCIUM LEVEL 8.5 MG/DL (8.5-10.1); CARBON DIOXIDE LEVEL 32 MEQ/L (21-32); CHLORIDE LEVEL 103 MEQ/L (98-107); CREATININE FOR GFR 0.42 MG/DL (0.55-1.30); GLOMERULAR FILTRATION RATE > 60.0 (>60); GLUCOSE, FASTING 91 MG/DL (70-100); MAGNESIUM LEVEL 1.7 MG/DL (1.8-2.4); PHOSPHORUS LEVEL 2.1 MG/DL (2.5-4.9); POTASSIUM SERUM 3.3 MEQ/L (3.5-5.1); SODIUM LEVEL 137 MEQ/L (136-145); TOTAL PROTEIN 5.4 GM/DL (6.4-8.2)
[2021-04-05] MEDS: BUDESONIDE 0.5 MG/2 ML INHALATION SUSPENSION INH SCH ×2 (08:00→19:36)
[2021-04-05] MEDS: LEVALBUTEROL 1.25 MG/0.5 ML CONCENTRATE NEB INH SCH ×3 (08:00→19:37)
[2021-04-05] MEDS: CHLORHEXIDINE GLUCONATE 0.12 % 15ML UDC (PERIDEX ORAL RINSE) MT SCH ×2 (08:06→21:53)
[2021-04-05] MEDS: PANTOPRAZOLE 40MG VIAL (C9113 PER 1) IV SCH ×2 (08:06→21:53)
[2021-04-05] MEDS: SUCRALFATE SUSP 1GM/10ML UD PO SCH ×4 (08:07→21:53)
[2021-04-05] MEDS: SPIRONOLACTONE 50 MG TAB PO SCH (08:07)
[2021-04-05] MEDS: **NOTE PATIENT COMMENT** MISC XX SCH (08:10)
[2021-04-05] MEDS: LACTULOSE 20 GM/30 ML SYRUP UD PO SCH ×3 (08:10→21:00)
[2021-04-05] MEDS ORDERED: FUROSEMIDE 40 MG TAB PO SCH (09:00)
[2021-04-05] MEDS ORDERED: FUROSEMIDE 40MG/4ML VIAL (J1940) IV SCH (09:00)
[2021-04-05] MEDS: methylPREDNISolone 40MG 1ML VIAL IV SCH (12:28)
[2021-04-05] MEDS ORDERED: POTASSIUM CHLORIDE 10MEQ SR TABLET PO ONE (14:35)
[2021-04-05] MEDS ORDERED: PILL CUTTER 1 EACH XX PRN (14:40)
[2021-04-05] MEDS ORDERED: NS 500 ML IV ONE ×2 (14:50→17:05)
[2021-04-05] MEDS: MAG SULF 1GM/100ML (MAG RUN) 1 GM in IV 1 EA IV SCH ×2 (15:15→16:33)
[2021-04-05] MEDS ORDERED: K-PHOS ORIGINAL (POT.ACID PHOSPHATE) 500MG TAB PO ONE (16:00)
[2021-04-05] MEDS ORDERED: NS 1,000 ML IV SCH (17:05)
[2021-04-05] MEDS ORDERED: NS 1,000 ML IV ONE (17:10)
[2021-04-05 18:56] LABS: BASO % 0.1 % (0.0-1.0); LYMPH # 0.3 10^3/uL (1.5-5.0); LYMPH % 3.7 % (24.0-44.0); MEAN CORPUSCULAR HEMOGLOBIN 29.5 pg (27.0-33.0); MEAN CORPUSCULAR HGB CONC 30.5 g/dl (32.0-36.5); MEAN CORPUSCULAR VOLUME 96.5 fl (80.0-96.0); MONO # 0.3 10^3/uL (0.0-0.8); MONO % 3.8 % (2.0-8.0); NEUTROPHILS # 7.5 10^3/uL (1.5-8.5); NEUTROPHILS % 89.7 % (36.0-66.0); RED BLOOD COUNT 1.73 10^6/uL (4.00-5.40); WHITE BLOOD COUNT 8.4 10^3/uL (4.0-10.0)
[2021-04-05 19:08] LABS: HEMATOCRIT 16.7 % (36.0-47.0); HEMOGLOBIN 5.1 g/dl (12.0-15.5); PLATELET COUNT, AUTOMATED 55 10^3/uL (150-450)
[2021-04-05] MEDS ORDERED: ISOVUE-370 76% 100ML VIAL As Ordered ONE (20:16)
[2021-04-05] MEDS: CEFEPIME HCL 1 GM in D5W MINI-BAG PLUS 50 ML IV SCH (21:53)
[2021-04-05] MEDS: LIDOCAINE 5% (LIDODERM) PATCH TD SCH (21:54)
[2021-04-06] VITALS (16 sets, daily range): BP systolic 101–130; BP diastolic 57–71; O2SAT 93–95
[2021-04-06] MEDS ORDERED: SPIRONOLACTONE 25 MG TAB PO ONE (04:00)
[2021-04-06] MEDS: SODIUM CHLORIDE 0.9% INJ 10 ML SYR IV SCH ×3 (04:10→21:41)
[2021-04-06] MEDS: rifAXIMin 550 MG TAB (XIFAXAN) PO SCH ×2 (06:06→21:40)
[2021-04-06 07:21] LABS: HEMATOCRIT 31.1 % (36.0-47.0); MEAN CORPUSCULAR HEMOGLOBIN 29.9 pg (27.0-33.0); MEAN CORPUSCULAR HGB CONC 32.2 g/dl (32.0-36.5); MEAN CORPUSCULAR VOLUME 92.8 fl (80.0-96.0); RED BLOOD COUNT 3.35 10^6/uL (4.00-5.40); WHITE BLOOD COUNT 10.7 10^3/uL (4.0-10.0)
[2021-04-06 07:22] LABS: PLATELET COUNT, AUTOMATED 53 10^3/uL (150-450)
[2021-04-06] MEDS: BUDESONIDE 0.5 MG/2 ML INHALATION SUSPENSION INH SCH (07:53)
[2021-04-06] MEDS: LEVALBUTEROL 1.25 MG/0.5 ML CONCENTRATE NEB INH SCH ×2 (07:53→14:00)
[2021-04-06 07:55] LABS: ALBUMIN 1.9 GM/DL (3.2-5.2); ALT/SGPT 93 U/L (12-78); BILIRUBIN,TOTAL 2.7 MG/DL (0.2-1.0); BLOOD UREA NITROGEN 18 MG/DL (7-18); CALCIUM LEVEL 7.9 MG/DL (8.5-10.1); CARBON DIOXIDE LEVEL 25 MEQ/L (21-32); CHLORIDE LEVEL 107 MEQ/L (98-107); GLOMERULAR FILTRATION RATE > 60.0 (>60); GLUCOSE, FASTING 69 MG/DL (70-100); MAGNESIUM LEVEL 2.1 MG/DL (1.8-2.4); PHOSPHORUS LEVEL 2.2 MG/DL (2.5-4.9); POTASSIUM SERUM 4.1 MEQ/L (3.5-5.1); SODIUM LEVEL 137 MEQ/L (136-145)
[2021-04-06] MEDS: SUCRALFATE SUSP 1GM/10ML UD PO SCH ×4 (08:05→21:40)
[2021-04-06] MEDS: PANTOPRAZOLE 40MG VIAL (C9113 PER 1) IV SCH ×2 (08:05→21:40)
[2021-04-06] MEDS: CHLORHEXIDINE GLUCONATE 0.12 % 15ML UDC (PERIDEX ORAL RINSE) MT SCH ×2 (08:06→21:40)
[2021-04-06] MEDS: CEFEPIME HCL 1 GM in D5W MINI-BAG PLUS 50 ML IV SCH (08:06)
[2021-04-06] MEDS: **NOTE PATIENT COMMENT** MISC XX SCH (08:07)
[2021-04-06] MEDS ORDERED: FUROSEMIDE 40MG/4ML VIAL (J1940) IV SCH (09:00)
[2021-04-06] MEDS: LACTULOSE 20 GM/30 ML SYRUP UD PO SCH ×3 (09:00→21:39)
[2021-04-06] MEDS: methylPREDNISolone 40MG 1ML VIAL IV SCH (13:46)
[2021-04-06] MEDS ORDERED: OCTREOTIDE ACETATE 1,200 MCG in NS 238.8 ML IV SCH (14:00)
[2021-04-06 17:24] LABS: HEMATOCRIT 33.1 % (36.0-47.0); HEMOGLOBIN 10.7 g/dl (12.0-15.5); MEAN CORPUSCULAR HEMOGLOBIN 29.5 pg (27.0-33.0); MEAN CORPUSCULAR HGB CONC 32.3 g/dl (32.0-36.5); MEAN CORPUSCULAR VOLUME 91.2 fl (80.0-96.0); RED BLOOD COUNT 3.63 10^6/uL (4.00-5.40); WHITE BLOOD COUNT 11.3 10^3/uL (4.0-10.0)
[2021-04-06 17:33] LABS: PLATELET COUNT, AUTOMATED 47 10^3/uL (150-450)
[2021-04-06] MEDS ORDERED: dexameTHASONE 4 MG/ML 1ML VIAL (J1100 PER 1MG) As Ordered ONE (17:44)
[2021-04-06] MEDS ORDERED: propofoL 200 MG/20 ML VIAL As Ordered ONE (17:44)
[2021-04-06] MEDS ORDERED: ROCURONIUM BROMIDE 50 MG/5 ML VIAL As Ordered ONE (17:44)
[2021-04-06] MEDS ORDERED: LIDOCAINE 2% 100MG/5ML SDV (FOR ANES.) As Ordered ONE (17:44)
[2021-04-06] MEDS ORDERED: fentaNYL 100 MCG/2 ML INJECTION As Ordered ONE (17:44)
[2021-04-06] MEDS ORDERED: ONDANSETRON 4MG/2ML VIAL As Ordered ONE (17:53)
[2021-04-06 18:17] LABS: URINE PREG TEST NEGATIVE (NEGATIVE)
[2021-04-06] MEDS: NYSTATIN 500,000 U/5 ML SUSP UDC PO SCH (21:40)
[2021-04-06] MEDS: LIDOCAINE 5% (LIDODERM) PATCH TD SCH (21:41)
[2021-04-07] VITALS: O2SAT 95
[2021-04-07 04:00] VITALS: BP 120/69
[2021-04-07] MEDS: SODIUM CHLORIDE 0.9% INJ 10 ML SYR IV SCH ×3 (06:21→21:52)
[2021-04-07 06:51] LABS: HEMATOCRIT 30.5 % (36.0-47.0); HEMOGLOBIN 9.6 g/dl (12.0-15.5); MEAN CORPUSCULAR HEMOGLOBIN 29.7 pg (27.0-33.0); MEAN CORPUSCULAR HGB CONC 31.5 g/dl (32.0-36.5); MEAN CORPUSCULAR VOLUME 94.4 fl (80.0-96.0); PLATELET COUNT, AUTOMATED 44 10^3/uL (150-450); RED BLOOD COUNT 3.23 10^6/uL (4.00-5.40); WHITE BLOOD COUNT 6.8 10^3/uL (4.0-10.0)
[2021-04-07] MEDS: LEVALBUTEROL 1.25 MG/0.5 ML CONCENTRATE NEB INH SCH ×3 (07:16→20:00)
[2021-04-07] MEDS: BUDESONIDE 0.5 MG/2 ML INHALATION SUSPENSION INH SCH ×2 (07:16→20:00)
[2021-04-07 07:20] VITALS: BP 118/69
[2021-04-07 07:26] LABS: ALBUMIN 1.8 GM/DL (3.2-5.2); ALT/SGPT 92 U/L (12-78); BLOOD UREA NITROGEN 28 MG/DL (7-18); CALCIUM LEVEL 8.2 MG/DL (8.5-10.1); CARBON DIOXIDE LEVEL 25 MEQ/L (21-32); CHLORIDE LEVEL 106 MEQ/L (98-107); CREATININE FOR GFR 0.56 MG/DL (0.55-1.30); GLOMERULAR FILTRATION RATE > 60.0 (>60); GLUCOSE, FASTING 130 MG/DL (70-100); MAGNESIUM LEVEL 1.9 MG/DL (1.8-2.4); SODIUM LEVEL 136 MEQ/L (136-145); TOTAL PROTEIN 4.9 GM/DL (6.4-8.2)
[2021-04-07] MEDS: SUCRALFATE SUSP 1GM/10ML UD PO SCH ×4 (07:30→21:53)
[2021-04-07] MEDS: **NOTE PATIENT COMMENT** MISC XX SCH (09:00)
[2021-04-07] MEDS: rifAXIMin 550 MG TAB (XIFAXAN) PO SCH ×2 (10:04→21:53)
[2021-04-07] MEDS: LACTULOSE 20 GM/30 ML SYRUP UD PO SCH ×3 (10:04→21:52)
[2021-04-07] MEDS: NYSTATIN 500,000 U/5 ML SUSP UDC PO SCH ×4 (10:04→21:53)
[2021-04-07] MEDS: PANTOPRAZOLE 40MG VIAL (C9113 PER 1) IV SCH ×2 (10:04→21:52)
[2021-04-07] MEDS: CHLORHEXIDINE GLUCONATE 0.12 % 15ML UDC (PERIDEX ORAL RINSE) MT SCH ×2 (10:04→21:53)
[2021-04-07 11:36] VITALS: BP 122/73
[2021-04-07] MEDS: methylPREDNISolone 40MG 1ML VIAL IV SCH (12:09)
[2021-04-07] MEDS: ACETAMINOPHEN TAB 650MG DOSE (2X325MG) PO PRN ×3 (12:09→22:00)
[2021-04-07 15:39] VITALS: BP 130/69
[2021-04-07 20:00] VITALS: BP 124/76; O2SAT 95
[2021-04-07] MEDS: ENOXAPARIN 30MG/0.3ML SYRINGE (J1650 PER 10MG) SC SCH (21:00)
[2021-04-07] MEDS: LIDOCAINE 5% (LIDODERM) PATCH TD SCH ×2 (21:00→21:51)
[2021-04-08] VITALS (7 sets, daily range): BP systolic 121–148; BP diastolic 70–87; O2SAT 91–98
[2021-04-08] MEDS: PERCOCET 5MG/325MG TAB PO PRN ×3 (06:59→19:32)
[2021-04-08] MEDS: SODIUM CHLORIDE 0.9% INJ 10 ML SYR IV SCH ×3 (07:00→19:33)
[2021-04-08 07:09] LABS: HEMATOCRIT 31.9 % (36.0-47.0); HEMOGLOBIN 10.1 g/dl (12.0-15.5); MEAN CORPUSCULAR HEMOGLOBIN 30.1 pg (27.0-33.0); MEAN CORPUSCULAR HGB CONC 31.7 g/dl (32.0-36.5); MEAN CORPUSCULAR VOLUME 94.9 fl (80.0-96.0); RED BLOOD COUNT 3.36 10^6/uL (4.00-5.40); WHITE BLOOD COUNT 10.3 10^3/uL (4.0-10.0)
[2021-04-08 07:10] LABS: PLATELET COUNT, AUTOMATED 38 10^3/uL (150-450)
[2021-04-08] MEDS: BUDESONIDE 0.5 MG/2 ML INHALATION SUSPENSION INH SCH ×2 (07:28→17:14)
[2021-04-08] MEDS: LEVALBUTEROL 1.25 MG/0.5 ML CONCENTRATE NEB INH SCH ×3 (07:29→17:14)
[2021-04-08 07:32] LABS: ALBUMIN 1.8 GM/DL (3.2-5.2); ALT/SGPT 86 U/L (12-78); BILIRUBIN,TOTAL 1.4 MG/DL (0.2-1.0); BLOOD UREA NITROGEN 20 MG/DL (7-18); CALCIUM LEVEL 7.9 MG/DL (8.5-10.1); CARBON DIOXIDE LEVEL 27 MEQ/L (21-32); CHLORIDE LEVEL 109 MEQ/L (98-107); CREATININE FOR GFR 0.44 MG/DL (0.55-1.30); GLOMERULAR FILTRATION RATE > 60.0 (>60); GLUCOSE, FASTING 93 MG/DL (70-100); MAGNESIUM LEVEL 1.8 MG/DL (1.8-2.4); POTASSIUM SERUM 4.7 MEQ/L (3.5-5.1); SODIUM LEVEL 139 MEQ/L (136-145); TOTAL PROTEIN 5.1 GM/DL (6.4-8.2)
[2021-04-08] MEDS: ENOXAPARIN 30MG/0.3ML SYRINGE (J1650 PER 10MG) SC SCH (09:00)
[2021-04-08] MEDS: NYSTATIN 500,000 U/5 ML SUSP UDC PO SCH ×4 (09:07→19:34)
[2021-04-08] MEDS: SUCRALFATE SUSP 1GM/10ML UD PO SCH ×4 (09:08→19:34)
[2021-04-08] MEDS: CHLORHEXIDINE GLUCONATE 0.12 % 15ML UDC (PERIDEX ORAL RINSE) MT SCH ×2 (09:08→19:34)
[2021-04-08] MEDS: PANTOPRAZOLE 40MG VIAL (C9113 PER 1) IV SCH ×2 (09:08→19:32)
[2021-04-08] MEDS: LACTULOSE 20 GM/30 ML SYRUP UD PO SCH ×3 (09:09→19:19)
[2021-04-08] MEDS: **NOTE PATIENT COMMENT** MISC XX SCH (09:10)
[2021-04-08] MEDS: rifAXIMin 550 MG TAB (XIFAXAN) PO SCH ×2 (09:10→19:31)
[2021-04-08 09:22] LABS: URIC ACID 2.4 MG/DL (2.6-6.0)
[2021-04-08] MEDS: methylPREDNISolone 40MG 1ML VIAL IV SCH (12:51)
[2021-04-08] MEDS ORDERED: FUROSEMIDE 20MG/2ML VIAL (J1940) IV ONE (17:25)
[2021-04-08] MEDS: SPIRONOLACTONE 50 MG TAB PO SCH (17:27)
[2021-04-08] MEDS: GABAPENTIN 300 MG CAP PO SCH (19:31)
[2021-04-08] MEDS: ENOXAPARIN 40MG/0.4ML SYRINGE (J1650 PER 10MG) SC SCH (19:32)
[2021-04-08] MEDS: LIDOCAINE 5% (LIDODERM) PATCH TD SCH (19:32)
[2021-04-09] VITALS (7 sets, daily range): BP systolic 124–139; BP diastolic 74–90; O2SAT 91–97
[2021-04-09] MEDS: PERCOCET 5MG/325MG TAB PO PRN ×3 (02:10→18:40)
[2021-04-09] MEDS: SODIUM CHLORIDE 0.9% INJ 10 ML SYR IV SCH ×3 (04:23→20:24)
[2021-04-09 05:14] LABS: HEMATOCRIT 32.1 % (36.0-47.0); HEMOGLOBIN 10.1 g/dl (12.0-15.5); MEAN CORPUSCULAR HEMOGLOBIN 29.5 pg (27.0-33.0); MEAN CORPUSCULAR HGB CONC 31.5 g/dl (32.0-36.5); MEAN CORPUSCULAR VOLUME 93.9 fl (80.0-96.0); RED BLOOD COUNT 3.42 10^6/uL (4.00-5.40); WHITE BLOOD COUNT 8.6 10^3/uL (4.0-10.0)
[2021-04-09 05:15] LABS: PLATELET COUNT, AUTOMATED 32 10^3/uL (150-450)
[2021-04-09 05:25] LABS: INR 1.41; PROTHROMBIN TIME 17.7 SECONDS (12.7-14.5)
[2021-04-09 05:26] LABS: PARTIAL THROMBOPLASTIN TIME 41.7 SECONDS (25.9-37.0)
[2021-04-09 05:31] LABS: ALBUMIN 1.8 GM/DL (3.2-5.2); ALT/SGPT 94 U/L (12-78); BILIRUBIN,TOTAL 1.3 MG/DL (0.2-1.0); BLOOD UREA NITROGEN 14 MG/DL (7-18); CALCIUM LEVEL 7.4 MG/DL (8.5-10.1); CARBON DIOXIDE LEVEL 26 MEQ/L (21-32); CHLORIDE LEVEL 103 MEQ/L (98-107); CREATININE FOR GFR 0.53 MG/DL (0.55-1.30); GLOMERULAR FILTRATION RATE > 60.0 (>60); GLUCOSE, FASTING 115 MG/DL (70-100); MAGNESIUM LEVEL 1.5 MG/DL (1.8-2.4); POTASSIUM SERUM 4.2 MEQ/L (3.5-5.1); SODIUM LEVEL 137 MEQ/L (136-145)
[2021-04-09] MEDS: LEVALBUTEROL 1.25 MG/0.5 ML CONCENTRATE NEB INH SCH (07:22)
[2021-04-09] MEDS: BUDESONIDE 0.5 MG/2 ML INHALATION SUSPENSION INH SCH ×2 (07:22→17:05)
[2021-04-09] MEDS ORDERED: MAG SULF 1GM/100ML (MAG RUN) 1 GM in IV 1 EA IV ONE (08:05)
[2021-04-09] MEDS ORDERED: predniSONE 20 MG TAB PO SCH (09:00)
[2021-04-09] MEDS ORDERED: ISOVUE-370 76% 100ML VIAL As Ordered ONE (09:17)
[2021-04-09] MEDS: SUCRALFATE SUSP 1GM/10ML UD PO SCH ×4 (10:16→20:24)
[2021-04-09] MEDS: CHLORHEXIDINE GLUCONATE 0.12 % 15ML UDC (PERIDEX ORAL RINSE) MT SCH ×2 (10:17→20:23)
[2021-04-09] MEDS: LACTULOSE 20 GM/30 ML SYRUP UD PO SCH ×2 (10:17→20:23)
[2021-04-09] MEDS: PANTOPRAZOLE 40MG VIAL (C9113 PER 1) IV SCH ×2 (10:17→20:23)
[2021-04-09] MEDS: rifAXIMin 550 MG TAB (XIFAXAN) PO SCH ×2 (10:18→20:23)
[2021-04-09] MEDS: ENOXAPARIN 40MG/0.4ML SYRINGE (J1650 PER 10MG) SC SCH (10:18)
[2021-04-09] MEDS: NYSTATIN 500,000 U/5 ML SUSP UDC PO SCH ×4 (10:18→20:23)
[2021-04-09] MEDS: GABAPENTIN 300 MG CAP PO SCH ×3 (10:18→20:24)
[2021-04-09] MEDS: **NOTE PATIENT COMMENT** MISC XX SCH (10:19)
[2021-04-09] MEDS: SPIRONOLACTONE 50 MG TAB PO SCH (10:19)
[2021-04-09] MEDS: LEVALBUTEROL HFA 45MCG/ACT 15 GM INHALER INH SCH ×2 (13:28→17:04)
[2021-04-09 16:14] LABS: NT-PRO BNP 226 PG/ML (<125)
[2021-04-09 16:36] LABS: BILIRUBIN, URINE MANUAL NEGATIVE (NEGATIVE); GLUCOSE, URINE (UA) MANUAL NEGATIVE (NEGATIVE); KETONE, URINE MANUAL NEGATIVE (NEGATIVE); UROBILINOGEN, URINE MANUAL NORMAL (NORMAL)
[2021-04-09 17:00] LABS: AMORPHOUS SEDIMENT, URINE SMALL AMOUNT (NEGATIVE); CALCIUM OXALATE CRYSTALS,URINE SMALL AMOUNT /hpf; HYALINE CAST, URINE NONE SEEN /lpf (0-1); SQUAMOUS EPITHELIAL CELL URINE NONE SEEN /hpf (SMALL AMT)
[2021-04-09 17:02] LABS: BACTERIA, URINE NONE SEEN; YEAST, URINE SMALL AMOUNT
[2021-04-09] MEDS ORDERED: SPIRONOLACTONE 25 MG TAB PO SCH (17:35)
[2021-04-09] MEDS ORDERED: methylPREDNISolone 125MG 2ML VIAL IV ONE (17:50)
[2021-04-09] MEDS: PIPERACILLIN/TAZOBACTAM SOD 3.375 GM in D5W MINI-BAG PLUS 50 ML IV SCH ×2 (18:15→23:19)
[2021-04-09] MEDS: FUROSEMIDE 40MG/4ML VIAL (J1940) IV SCH (18:16)
[2021-04-09] MEDS: ENOXAPARIN 30MG/0.3ML SYRINGE (J1650 PER 10MG) SC SCH ×2 (20:22→21:30)
[2021-04-09] MEDS: LIDOCAINE 5% (LIDODERM) PATCH TD SCH (21:46)
[2021-04-10] VITALS (12 sets, daily range): BP systolic 113–156; BP diastolic 67–94; O2SAT 92–94
[2021-04-10] MEDS: LEVALBUTEROL HFA 45MCG/ACT 15 GM INHALER INH SCH ×4 (01:20→19:25)
[2021-04-10] MEDS: PERCOCET 5MG/325MG TAB PO PRN ×4 (03:03→21:22)
[2021-04-10 04:58] LABS: HEMATOCRIT 30.5 % (36.0-47.0); HEMOGLOBIN 9.8 g/dl (12.0-15.5); MEAN CORPUSCULAR HEMOGLOBIN 29.8 pg (27.0-33.0); MEAN CORPUSCULAR HGB CONC 32.1 g/dl (32.0-36.5); MEAN CORPUSCULAR VOLUME 92.7 fl (80.0-96.0); RED BLOOD COUNT 3.29 10^6/uL (4.00-5.40); WHITE BLOOD COUNT 6.5 10^3/uL (4.0-10.0)
[2021-04-10] MEDS: SODIUM CHLORIDE 0.9% INJ 10 ML SYR IV SCH ×3 (05:13→21:24)
[2021-04-10] MEDS: PIPERACILLIN/TAZOBACTAM SOD 3.375 GM in D5W MINI-BAG PLUS 50 ML IV SCH (05:13)
[2021-04-10 05:22] LABS: PLATELET COUNT, AUTOMATED 25 10^3/uL (150-450)
[2021-04-10 05:24] LABS: ALBUMIN 1.7 GM/DL (3.2-5.2); ALT/SGPT 99 U/L (12-78); BILIRUBIN,TOTAL 1.3 MG/DL (0.2-1.0); BLOOD UREA NITROGEN 13 MG/DL (7-18); CALCIUM LEVEL 7.4 MG/DL (8.5-10.1); CARBON DIOXIDE LEVEL 28 MEQ/L (21-32); CHLORIDE LEVEL 101 MEQ/L (98-107); CREATININE FOR GFR 0.47 MG/DL (0.55-1.30); GLOMERULAR FILTRATION RATE > 60.0 (>60); GLUCOSE, FASTING 157 MG/DL (70-100); MAGNESIUM LEVEL 1.6 MG/DL (1.8-2.4); SODIUM LEVEL 137 MEQ/L (136-145); TOTAL PROTEIN 4.7 GM/DL (6.4-8.2)
[2021-04-10] MEDS ORDERED: MAG SULF 1GM/100ML (MAG RUN) 1 GM in IV 1 EA IV ONE (07:45)
[2021-04-10] MEDS: GABAPENTIN 300 MG CAP PO SCH ×3 (08:21→20:06)
[2021-04-10] MEDS: rifAXIMin 550 MG TAB (XIFAXAN) PO SCH ×2 (08:21→20:07)
[2021-04-10] MEDS: NYSTATIN 500,000 U/5 ML SUSP UDC PO SCH ×4 (08:21→20:06)
[2021-04-10] MEDS: SPIRONOLACTONE 50 MG TAB PO SCH (08:21)
[2021-04-10] MEDS: ENOXAPARIN 30MG/0.3ML SYRINGE (J1650 PER 10MG) SC SCH ×2 (08:21→20:06)
[2021-04-10] MEDS: PANTOPRAZOLE 40MG VIAL (C9113 PER 1) IV SCH ×2 (08:21→20:07)
[2021-04-10] MEDS: CHLORHEXIDINE GLUCONATE 0.12 % 15ML UDC (PERIDEX ORAL RINSE) MT SCH ×2 (08:22→20:06)
[2021-04-10] MEDS: SUCRALFATE SUSP 1GM/10ML UD PO SCH ×4 (08:22→20:06)
[2021-04-10] MEDS: LACTULOSE 20 GM/30 ML SYRUP UD PO SCH ×2 (08:22→20:06)
[2021-04-10] MEDS: **NOTE PATIENT COMMENT** MISC XX SCH (08:23)
[2021-04-10] MEDS: FUROSEMIDE 40MG/4ML VIAL (J1940) IV SCH ×2 (08:23→16:38)
[2021-04-10] MEDS: methylPREDNISolone 125MG 2ML VIAL IV SCH (09:06)
[2021-04-10 12:50] LABS: HEMOGLOBIN 9.9 g/dl (12.0-15.5); MEAN CORPUSCULAR HEMOGLOBIN 29.6 pg (27.0-33.0); MEAN CORPUSCULAR HGB CONC 31.9 g/dl (32.0-36.5); MEAN CORPUSCULAR VOLUME 92.8 fl (80.0-96.0); RED BLOOD COUNT 3.34 10^6/uL (4.00-5.40); WHITE BLOOD COUNT 8.9 10^3/uL (4.0-10.0)
[2021-04-10 12:56] LABS: PLATELET COUNT, AUTOMATED 27 10^3/uL (150-450)
[2021-04-10 13:04] LABS: INR 1.41; PROTHROMBIN TIME 17.7 SECONDS (12.7-14.5)
[2021-04-10 13:05] LABS: PARTIAL THROMBOPLASTIN TIME 48.3 SECONDS (25.9-37.0)
[2021-04-10 13:17] LABS: BLOOD UREA NITROGEN 12 MG/DL (7-18); CALCIUM LEVEL 7.4 MG/DL (8.5-10.1); CARBON DIOXIDE LEVEL 26 MEQ/L (21-32); CHLORIDE LEVEL 99 MEQ/L (98-107); CREATININE FOR GFR 0.62 MG/DL (0.55-1.30); GLOMERULAR FILTRATION RATE > 60.0 (>60); GLUCOSE, FASTING 196 MG/DL (70-100); MAGNESIUM LEVEL 1.7 MG/DL (1.8-2.4); POTASSIUM SERUM 3.3 MEQ/L (3.5-5.1); SODIUM LEVEL 134 MEQ/L (136-145)
[2021-04-10] MEDS: cefTRIAXone SOD 1 GM in D5W MINI-BAG PLUS 50 ML IV SCH (13:43)
[2021-04-10] MEDS: MICAFUNGIN SODIUM 100 MG in D5W MINI-BAG PLUS 100 ML IV SCH (15:19)
[2021-04-10] MEDS: LACTOBACILLUS ACIDOPHILUS CAP (BACID) PO SCH (18:37)
[2021-04-10] MEDS ORDERED: POTASSIUM CHLORIDE 10MEQ SR TABLET PO ONE (20:00)
[2021-04-10] MEDS: LIDOCAINE 5% (LIDODERM) PATCH TD SCH (20:07)
[2021-04-11] VITALS (14 sets, daily range): BP systolic 124–152; BP diastolic 70–99; O2SAT 91–97
[2021-04-11] MEDS: LEVALBUTEROL HFA 45MCG/ACT 15 GM INHALER INH SCH ×4 (01:49→20:00)
[2021-04-11] MEDS: PERCOCET 5MG/325MG TAB PO PRN ×4 (03:57→22:20)
[2021-04-11] MEDS: SODIUM CHLORIDE 0.9% INJ 10 ML SYR IV SCH ×3 (05:03→21:25)
[2021-04-11 05:14] LABS: HEMATOCRIT 31.1 % (36.0-47.0); HEMOGLOBIN 9.9 g/dl (12.0-15.5); MEAN CORPUSCULAR HEMOGLOBIN 29.4 pg (27.0-33.0); MEAN CORPUSCULAR HGB CONC 31.8 g/dl (32.0-36.5); MEAN CORPUSCULAR VOLUME 92.3 fl (80.0-96.0); RED BLOOD COUNT 3.37 10^6/uL (4.00-5.40); WHITE BLOOD COUNT 10.3 10^3/uL (4.0-10.0)
[2021-04-11 05:16] LABS: PLATELET COUNT, AUTOMATED 33 10^3/uL (150-450)
[2021-04-11 05:43] LABS: ALBUMIN 1.7 GM/DL (3.2-5.2); ALT/SGPT 99 U/L (12-78); BILIRUBIN,TOTAL 1.1 MG/DL (0.2-1.0); BLOOD UREA NITROGEN 12 MG/DL (7-18); CALCIUM LEVEL 7.7 MG/DL (8.5-10.1); CARBON DIOXIDE LEVEL 31 MEQ/L (21-32); CHLORIDE LEVEL 99 MEQ/L (98-107); CREATININE FOR GFR 0.48 MG/DL (0.55-1.30); GLOMERULAR FILTRATION RATE > 60.0 (>60); GLUCOSE, FASTING 131 MG/DL (70-100); MAGNESIUM LEVEL 1.6 MG/DL (1.8-2.4); POTASSIUM SERUM 3.8 MEQ/L (3.5-5.1); SODIUM LEVEL 134 MEQ/L (136-145); TOTAL PROTEIN 4.7 GM/DL (6.4-8.2)
[2021-04-11] MEDS ORDERED: MAG SULF 1GM/100ML (MAG RUN) 1 GM in IV 1 EA IV ONE ×2 (07:15→19:00)
[2021-04-11] MEDS: ENOXAPARIN 30MG/0.3ML SYRINGE (J1650 PER 10MG) SC SCH ×2 (08:02→20:13)
[2021-04-11] MEDS: LACTOBACILLUS ACIDOPHILUS CAP (BACID) PO SCH ×2 (08:02→18:55)
[2021-04-11] MEDS: SUCRALFATE SUSP 1GM/10ML UD PO SCH ×4 (08:02→20:12)
[2021-04-11] MEDS: NYSTATIN 500,000 U/5 ML SUSP UDC PO SCH ×4 (08:15→20:14)
[2021-04-11] MEDS: MAGNESIUM OXIDE 400MG TAB (MAG-OX) PO SCH ×2 (08:16→20:14)
[2021-04-11] MEDS: rifAXIMin 550 MG TAB (XIFAXAN) PO SCH ×2 (08:16→20:14)
[2021-04-11] MEDS: SPIRONOLACTONE 50 MG TAB PO SCH (08:16)
[2021-04-11] MEDS: LACTULOSE 20 GM/30 ML SYRUP UD PO SCH ×2 (08:16→20:12)
[2021-04-11] MEDS: GABAPENTIN 300 MG CAP PO SCH ×3 (08:17→20:12)
[2021-04-11] MEDS: PANTOPRAZOLE 40MG VIAL (C9113 PER 1) IV SCH ×2 (08:17→20:12)
[2021-04-11] MEDS: methylPREDNISolone 125MG 2ML VIAL IV SCH (08:18)
[2021-04-11] MEDS ORDERED: metOLazone 5 MG TAB PO ONE (08:20)
[2021-04-11] MEDS: CHLORHEXIDINE GLUCONATE 0.12 % 15ML UDC (PERIDEX ORAL RINSE) MT SCH ×2 (08:27→20:12)
[2021-04-11] MEDS ORDERED: MAGNESIUM OXIDE 400MG TAB (MAG-OX) PO SCH (09:00)
[2021-04-11] MEDS: **NOTE PATIENT COMMENT** MISC XX SCH (09:24)
[2021-04-11] MEDS: FUROSEMIDE 40MG/4ML VIAL (J1940) IV SCH ×2 (10:05→16:59)
[2021-04-11] MEDS: guaiFENesin ER 600 MG TAB PO SCH ×2 (11:26→20:14)
[2021-04-11] MEDS: cefTRIAXone SOD 1 GM in D5W MINI-BAG PLUS 50 ML IV SCH (13:37)
[2021-04-11] MEDS: MICAFUNGIN SODIUM 100 MG in D5W MINI-BAG PLUS 100 ML IV SCH (14:19)
[2021-04-11] MEDS: ACETAMINOPHEN TAB 650MG DOSE (2X325MG) PO PRN (14:29)
[2021-04-11 17:36] LABS: BLOOD UREA NITROGEN 11 MG/DL (7-18); CALCIUM LEVEL 7.5 MG/DL (8.5-10.1); CARBON DIOXIDE LEVEL 27 MEQ/L (21-32); CHLORIDE LEVEL 92 MEQ/L (98-107); CREATININE FOR GFR 0.74 MG/DL (0.55-1.30); GLOMERULAR FILTRATION RATE > 60.0 (>60); GLUCOSE, FASTING 311 MG/DL (70-100); MAGNESIUM LEVEL 1.8 MG/DL (1.8-2.4); POTASSIUM SERUM 3.3 MEQ/L (3.5-5.1); SODIUM LEVEL 129 MEQ/L (136-145)
[2021-04-11] MEDS: KCL 10MEQ/100ML SWI (KRUN) 10 MEQ in IV 1 EA IV SCH ×3 (18:55→21:25)
[2021-04-11] MEDS: LIDOCAINE 5% (LIDODERM) PATCH TD SCH (20:15)
[2021-04-12] VITALS (18 sets, daily range): BP systolic 124–152; BP diastolic 71–94; O2SAT 90–99
[2021-04-12] MEDS: LEVALBUTEROL HFA 45MCG/ACT 15 GM INHALER INH SCH ×5 (03:29→23:38)
[2021-04-12] MEDS: PERCOCET 5MG/325MG TAB PO PRN ×3 (05:05→19:33)
[2021-04-12] MEDS: SODIUM CHLORIDE 0.9% INJ 10 ML SYR IV SCH ×3 (05:06→22:21)
[2021-04-12 06:28] LABS: ALBUMIN 1.9 GM/DL (3.2-5.2); ALT/SGPT 127 U/L (12-78); BILIRUBIN,TOTAL 1.5 MG/DL (0.2-1.0); BLOOD UREA NITROGEN 11 MG/DL (7-18); CALCIUM LEVEL 7.6 MG/DL (8.5-10.1); CARBON DIOXIDE LEVEL 33 MEQ/L (21-32); CHLORIDE LEVEL 90 MEQ/L (98-107); GLOMERULAR FILTRATION RATE > 60.0 (>60); GLUCOSE, FASTING 115 MG/DL (70-100); POTASSIUM SERUM 3.4 MEQ/L (3.5-5.1); SODIUM LEVEL 129 MEQ/L (136-145); TOTAL PROTEIN 5.2 GM/DL (6.4-8.2)
[2021-04-12 07:07] LABS: HEMATOCRIT 33.3 % (36.0-47.0); HEMOGLOBIN 10.9 g/dl (12.0-15.5); MEAN CORPUSCULAR HEMOGLOBIN 29.2 pg (27.0-33.0); MEAN CORPUSCULAR HGB CONC 32.7 g/dl (32.0-36.5); MEAN CORPUSCULAR VOLUME 89.3 fl (80.0-96.0); RED BLOOD COUNT 3.73 10^6/uL (4.00-5.40); WHITE BLOOD COUNT 9.1 10^3/uL (4.0-10.0)
[2021-04-12 07:09] LABS: PLATELET COUNT, AUTOMATED 35 10^3/uL (150-450)
[2021-04-12] MEDS ORDERED: KCL 20MEQ IN 100ML SWI (KRUN) 20 MEQ in IV 1 EA IV SCH ×2 (08:00)
[2021-04-12] MEDS ORDERED: POTASSIUM CHLORIDE 10MEQ SR TABLET PO ONE (08:15)
[2021-04-12] MEDS: LACTOBACILLUS ACIDOPHILUS CAP (BACID) PO SCH ×2 (08:20→17:24)
[2021-04-12] MEDS: ENOXAPARIN 30MG/0.3ML SYRINGE (J1650 PER 10MG) SC SCH ×2 (08:20→20:10)
[2021-04-12] MEDS: SUCRALFATE SUSP 1GM/10ML UD PO SCH ×4 (08:20→20:11)
[2021-04-12] MEDS: NYSTATIN 500,000 U/5 ML SUSP UDC PO SCH ×4 (08:20→20:11)
[2021-04-12] MEDS: guaiFENesin ER 600 MG TAB PO SCH ×2 (08:21→20:11)
[2021-04-12] MEDS: CHLORHEXIDINE GLUCONATE 0.12 % 15ML UDC (PERIDEX ORAL RINSE) MT SCH ×2 (08:21→20:27)
[2021-04-12] MEDS: methylPREDNISolone 125MG 2ML VIAL IV SCH (08:22)
[2021-04-12] MEDS: MAGNESIUM OXIDE 400MG TAB (MAG-OX) PO SCH ×2 (08:22→20:11)
[2021-04-12] MEDS: GABAPENTIN 300 MG CAP PO SCH ×3 (08:22→20:11)
[2021-04-12] MEDS: rifAXIMin 550 MG TAB (XIFAXAN) PO SCH ×2 (08:22→20:11)
[2021-04-12] MEDS: FUROSEMIDE 40MG/4ML VIAL (J1940) IV SCH ×2 (08:23→17:24)
[2021-04-12] MEDS: SPIRONOLACTONE 50 MG TAB PO SCH (08:23)
[2021-04-12] MEDS: **NOTE PATIENT COMMENT** MISC XX SCH (08:44)
[2021-04-12] MEDS: LACTULOSE 20 GM/30 ML SYRUP UD PO SCH ×2 (09:00→20:12)
[2021-04-12] MEDS: PANTOPRAZOLE 40MG TAB (PROTONIX) PO SCH ×2 (10:59→20:11)
[2021-04-12] MEDS: cefTRIAXone SOD 1 GM in D5W MINI-BAG PLUS 50 ML IV SCH (12:21)
[2021-04-12] MEDS: MICAFUNGIN SODIUM 100 MG in D5W MINI-BAG PLUS 100 ML IV SCH (15:42)
[2021-04-12] MEDS: LIDOCAINE 5% (LIDODERM) PATCH TD SCH (20:12)
[2021-04-12] MEDS ORDERED: NS 250 ML IV ONE (21:00)
[2021-04-12] MEDS ORDERED: NS 500 ML IV ONE (22:15)
[2021-04-12] MEDS ORDERED: LEVALBUTEROL 1.25 MG/0.5 ML CONCENTRATE NEB NEB ONE (23:25)
[2021-04-12] MEDS ORDERED: ALPRAZolam 0.25 MG TAB PO ONE (23:30)
[2021-04-13] VITALS (59 sets, daily range): BP systolic 86–187; BP diastolic 48–120
[2021-04-13] MEDS: SODIUM CHLORIDE 0.9% INJ 10 ML SYR IV SCH ×3 (04:53→22:20)
[2021-04-13] MEDS: PERCOCET 5MG/325MG TAB PO PRN (04:53)
[2021-04-13 05:44] LABS: HEMATOCRIT 33.9 % (36.0-47.0); HEMOGLOBIN 11.1 g/dl (12.0-15.5); MEAN CORPUSCULAR HEMOGLOBIN 29.2 pg (27.0-33.0); MEAN CORPUSCULAR HGB CONC 32.7 g/dl (32.0-36.5); MEAN CORPUSCULAR VOLUME 89.2 fl (80.0-96.0); WHITE BLOOD COUNT 8.2 10^3/uL (4.0-10.0)
[2021-04-13 05:48] LABS: PLATELET COUNT, AUTOMATED 32 10^3/uL (150-450)
[2021-04-13 05:57] LABS: INR 1.51; PROTHROMBIN TIME 18.6 SECONDS (12.7-14.5)
[2021-04-13 06:16] LABS: ALBUMIN 1.6 GM/DL (3.2-5.2); ALT/SGPT 125 U/L (12-78); BILIRUBIN,TOTAL 1.7 MG/DL (0.2-1.0); BLOOD UREA NITROGEN 18 MG/DL (7-18); CALCIUM LEVEL 7.4 MG/DL (8.5-10.1); CARBON DIOXIDE LEVEL 34 MEQ/L (21-32); CHLORIDE LEVEL 87 MEQ/L (98-107); CREATININE FOR GFR 0.55 MG/DL (0.55-1.30); GLOMERULAR FILTRATION RATE > 60.0 (>60); GLUCOSE, FASTING 90 MG/DL (70-100); MAGNESIUM LEVEL 1.9 MG/DL (1.8-2.4); SODIUM LEVEL 129 MEQ/L (136-145); TOTAL PROTEIN 5.4 GM/DL (6.4-8.2)
[2021-04-13] MEDS: SUCRALFATE SUSP 1GM/10ML UD PO SCH ×4 (07:30→20:26)
[2021-04-13] MEDS: LEVALBUTEROL HFA 45MCG/ACT 15 GM INHALER INH SCH ×2 (07:32→13:08)
[2021-04-13 07:37] LABS: ABG BASE EXCESS 13.8 (-2.0-2.0); ABG HCO3 37.5 MEQ/L (22.0-26.0); ABG O2 SATURATION 87.3 % (95.0-99.0); ABG PARTIAL PRESSURE CO2 42.9 mmHg (35.0-45.0); ABG PARTIAL PRESSURE O2 50.7 mmHg (75.0-100.0); ABG STANDARD HCO3 37.4 MEQ/L (22.0-26.0); ABG TOTAL CO2 38.8 MEQ/L (22.0-29.0); ABG pH (ARTERIAL) 7.559 UNITS (7.350-7.450)
[2021-04-13] MEDS: CHLORHEXIDINE GLUCONATE 0.12 % 15ML UDC (PERIDEX ORAL RINSE) MT SCH ×2 (07:47→20:27)
[2021-04-13] MEDS: LACTOBACILLUS ACIDOPHILUS CAP (BACID) PO SCH ×2 (07:50→18:00)
[2021-04-13] MEDS ORDERED: metOLazone 2.5 MG TAB PO ONE (08:00)
[2021-04-13] MEDS ORDERED: POTASSIUM CHLORIDE 10MEQ SR TABLET PO ONE (08:00)
[2021-04-13] MEDS: FUROSEMIDE 40MG/4ML VIAL (J1940) IV SCH ×2 (08:03→16:03)
[2021-04-13] MEDS: MAGNESIUM OXIDE 400MG TAB (MAG-OX) PO SCH ×2 (08:04→20:26)
[2021-04-13] MEDS: ENOXAPARIN 30MG/0.3ML SYRINGE (J1650 PER 10MG) SC SCH ×2 (08:04→20:29)
[2021-04-13] MEDS: SPIRONOLACTONE 50 MG TAB PO SCH (08:04)
[2021-04-13] MEDS: methylPREDNISolone 125MG 2ML VIAL IV SCH (08:05)
[2021-04-13] MEDS ORDERED: PIPERACILLIN/TAZOBACTAM SOD 3.375 GM in D5W MINI-BAG PLUS 50 ML IV SCH (09:00)
[2021-04-13] MEDS: guaiFENesin ER 600 MG TAB PO SCH ×2 (09:00→20:25)
[2021-04-13] MEDS: PANTOPRAZOLE 40MG TAB (PROTONIX) PO SCH ×2 (09:00→20:25)
[2021-04-13] MEDS: rifAXIMin 550 MG TAB (XIFAXAN) PO SCH ×2 (09:00→20:35)
[2021-04-13] MEDS: LACTULOSE 20 GM/30 ML SYRUP UD PO SCH ×2 (09:00→20:26)
[2021-04-13] MEDS: NYSTATIN 500,000 U/5 ML SUSP UDC PO SCH ×4 (09:00→21:00)
[2021-04-13] MEDS: GABAPENTIN 300 MG CAP PO SCH ×3 (09:00→20:25)
[2021-04-13] MEDS: **NOTE PATIENT COMMENT** MISC XX SCH (09:00)
[2021-04-13] MEDS ORDERED: ETOMIDATE INJ 20MG/10ML VIAL IV ONE (09:25)
[2021-04-13] MEDS ORDERED: SUCCINYLCHOLINE INJ 200 MG/10 ML VIAL (J0330) IV ONE (09:25)
[2021-04-13] MEDS ORDERED: FUROSEMIDE 20MG/2ML VIAL (J1940) IV ONE (09:40)
[2021-04-13] MEDS ORDERED: PHENYLEPHRINE 10MG/ML 1ML VIAL (J2370 PER 1) IV ONE (09:40)
[2021-04-13] MEDS ORDERED: PHENYLEPHRINE 10MG/ML 1ML VIAL (J2370 PER 1) As Ordered ONE (09:41)
[2021-04-13] MEDS: propofoL 1,000 MG in IV 1 EA IV SCH ×4 (10:00→20:28)
[2021-04-13] MEDS: MIDAZOLAM INJ 2MG/2ML VIAL (J2250 PER 1MG) IV PRN ×3 (10:09→11:47)
[2021-04-13] MEDS: fentaNYL 100 MCG/2 ML INJECTION IV PRN ×3 (10:20→20:25)
[2021-04-13] MEDS ORDERED: VASOPRESSIN INJ 20 UNITS/ML VIAL As Ordered ONE (11:12)
[2021-04-13] MEDS ORDERED: VASOPRESSIN INJ 20 UNITS in NS 499 ML IV SCH (11:15)
[2021-04-13] MEDS: PIPERACILLIN/TAZOBACTAM SOD 3.375 GM in D5W MINI-BAG PLUS 50 ML IV SCH ×3 (12:18→21:54)
[2021-04-13 12:25] LABS: ABG BASE EXCESS 7.3 (-2.0-2.0); ABG HCO3 32.6 MEQ/L (22.0-26.0); ABG O2 SATURATION 97.6 % (95.0-99.0); ABG PARTIAL PRESSURE CO2 49.3 mmHg (35.0-45.0); ABG PARTIAL PRESSURE O2 107.3 mmHg (75.0-100.0); ABG STANDARD HCO3 31.2 MEQ/L (22.0-26.0); ABG TOTAL CO2 34.1 MEQ/L (22.0-29.0); ABG pH (ARTERIAL) 7.438 UNITS (7.350-7.450)
[2021-04-13] MEDS ORDERED: REFRIGERATOR IV KEYS XX PRN (13:00)
[2021-04-13 13:06] LABS: ALBUMIN 1.6 GM/DL (3.2-5.2); ALT/SGPT 121 U/L (12-78); BILIRUBIN,TOTAL 2.3 MG/DL (0.2-1.0); BLOOD UREA NITROGEN 23 MG/DL (7-18); CALCIUM LEVEL 7.8 MG/DL (8.5-10.1); CARBON DIOXIDE LEVEL 31 MEQ/L (21-32); CHLORIDE LEVEL 87 MEQ/L (98-107); CREATININE FOR GFR 0.78 MG/DL (0.55-1.30); GLOMERULAR FILTRATION RATE > 60.0 (>60); GLUCOSE, FASTING 118 MG/DL (70-100); POTASSIUM SERUM 3.8 MEQ/L (3.5-5.1); SODIUM LEVEL 127 MEQ/L (136-145); TOTAL PROTEIN 4.6 GM/DL (6.4-8.2)
[2021-04-13] MEDS: MIDAZOLAM HCL 100 MG in D5W 80 ML IV SCH ×2 (13:10→23:55)
[2021-04-13] MEDS ORDERED: SUCCINYLCHOLINE 100 MG/5 ML SYRINGE (J0330) ONE (13:22)
[2021-04-13] MEDS ORDERED: ETOMIDATE INJ 20MG/10ML VIAL ONE (13:22)
[2021-04-13] MEDS ORDERED: NOREPINEPHRINE 4 MG/4 ML AMP As Ordered ONE (14:55)
[2021-04-13] MEDS ORDERED: NOREPINEPHRINE BITARTRATE 8 MG in D5W 492 ML IV SCH (15:00)
[2021-04-13] MEDS ORDERED: MIDAZOLAM HCL 100 MG in D5W 80 ML IV SCH (15:03)
[2021-04-13] MEDS: MICAFUNGIN SODIUM 100 MG in D5W MINI-BAG PLUS 100 ML IV SCH (15:48)
[2021-04-13] MEDS: fentaNYL CITRATE 1,000 MCG in NS 80 ML IV SCH (17:16)
[2021-04-13] MEDS: VASOPRESSIN INJ 20 UNITS in NS 499 ML IV SCH (19:19)
[2021-04-13] MEDS: IPRATROPIUM 0.5MG/ALBUTEROL 2.5MG INH SOL UD 3ML (DUONEB) NEB SCH (19:45)
[2021-04-13] MEDS: methylPREDNISolone 40MG 1ML VIAL IV SCH (20:26)
[2021-04-13] MEDS: LIDOCAINE 5% (LIDODERM) PATCH TD SCH (20:27)
[2021-04-14] VITALS (30 sets, daily range): BP systolic 96–151; BP diastolic 49–71
[2021-04-14] MEDS: MIDAZOLAM INJ 2MG/2ML VIAL (J2250 PER 1MG) IV PRN ×3 (00:47→12:06)
[2021-04-14] MEDS ORDERED: NOREPINEPHRINE BITARTRATE 8 MG in D5W 492 ML IV SCH ×5 (03:00→14:00)
[2021-04-14] MEDS: PIPERACILLIN/TAZOBACTAM SOD 3.375 GM in D5W MINI-BAG PLUS 50 ML IV SCH ×4 (03:39→22:07)
[2021-04-14] MEDS: VASOPRESSIN INJ 20 UNITS in NS 499 ML IV SCH ×3 (03:39→18:55)
[2021-04-14 05:13] LABS: HEMATOCRIT 25.6 % (36.0-47.0); MEAN CORPUSCULAR HGB CONC 31.3 g/dl (32.0-36.5); MEAN CORPUSCULAR VOLUME 92.8 fl (80.0-96.0); RED BLOOD COUNT 2.76 10^6/uL (4.00-5.40); WHITE BLOOD COUNT 7.5 10^3/uL (4.0-10.0)
[2021-04-14 05:14] LABS: PLATELET COUNT, AUTOMATED 33 10^3/uL (150-450)
[2021-04-14] MEDS: SODIUM CHLORIDE 0.9% INJ 10 ML SYR IV SCH ×3 (05:19→22:07)
[2021-04-14 05:44] LABS: ALT/SGPT 105 U/L (12-78); BILIRUBIN,TOTAL 1.3 MG/DL (0.2-1.0); BLOOD UREA NITROGEN 34 MG/DL (7-18); CALCIUM LEVEL 7.6 MG/DL (8.5-10.1); CARBON DIOXIDE LEVEL 34 MEQ/L (21-32); CHLORIDE LEVEL 85 MEQ/L (98-107); GLOMERULAR FILTRATION RATE > 60.0 (>60); GLUCOSE, FASTING 220 MG/DL (70-100); POTASSIUM SERUM 3.8 MEQ/L (3.5-5.1); SODIUM LEVEL 124 MEQ/L (136-145); TOTAL PROTEIN 4.6 GM/DL (6.4-8.2)
[2021-04-14 06:08] LABS: ABG BASE EXCESS 5.9 (-2.0-2.0); ABG HCO3 33.6 MEQ/L (22.0-26.0); ABG O2 SATURATION 95.4 % (95.0-99.0); ABG PARTIAL PRESSURE O2 86.5 mmHg (75.0-100.0); ABG STANDARD HCO3 29.8 MEQ/L (22.0-26.0); ABG TOTAL CO2 35.7 MEQ/L (22.0-29.0); ABG pH (ARTERIAL) 7.297 UNITS (7.350-7.450)
[2021-04-14 06:11] LABS: ABG PARTIAL PRESSURE CO2 70.3 mmHg (35.0-45.0)
[2021-04-14] MEDS: propofoL 1,000 MG in IV 1 EA IV SCH ×5 (06:35→18:00)
[2021-04-14] MEDS: IPRATROPIUM 0.5MG/ALBUTEROL 2.5MG INH SOL UD 3ML (DUONEB) NEB SCH ×4 (07:21→19:50)
[2021-04-14] MEDS ORDERED: HumaLOG INSULIN (NovoLOG) PER UNIT SC SCH ×2 (07:30→21:00)
[2021-04-14] MEDS ORDERED: SODIUM CHLORIDE 1 GM TAB PO SCH ×2 (09:00→21:00)
[2021-04-14] MEDS: LACTULOSE 20 GM/30 ML SYRUP UD PO SCH ×2 (09:16→20:32)
[2021-04-14] MEDS: SUCRALFATE SUSP 1GM/10ML UD PO SCH ×4 (09:16→20:41)
[2021-04-14] MEDS: NYSTATIN 500,000 U/5 ML SUSP UDC PO SCH ×4 (09:17→20:40)
[2021-04-14] MEDS: SPIRONOLACTONE 50 MG TAB PO SCH (09:17)
[2021-04-14] MEDS: methylPREDNISolone 40MG 1ML VIAL IV SCH ×2 (09:17→20:31)
[2021-04-14] MEDS: PANTOPRAZOLE 40MG VIAL (C9113 PER 1) IV SCH ×2 (09:17→20:31)
[2021-04-14] MEDS: CHLORHEXIDINE GLUCONATE 0.12 % 15ML UDC (PERIDEX ORAL RINSE) MT SCH ×2 (09:17→20:18)
[2021-04-14] MEDS: rifAXIMin 550 MG TAB (XIFAXAN) PO SCH ×2 (09:18→20:40)
[2021-04-14] MEDS: MAGNESIUM OXIDE 400MG TAB (MAG-OX) PO SCH ×2 (09:18→20:32)
[2021-04-14] MEDS: LACTOBACILLUS ACIDOPHILUS CAP (BACID) PO SCH ×2 (09:18→17:40)
[2021-04-14] MEDS: GABAPENTIN 300 MG CAP PO SCH ×3 (09:18→20:32)
[2021-04-14] MEDS: fentaNYL CITRATE 1,000 MCG in NS 80 ML IV SCH (09:19)
[2021-04-14] MEDS: **NOTE PATIENT COMMENT** MISC XX SCH (10:12)
[2021-04-14] MEDS: guaiFENesin ER 600 MG TAB PO SCH ×2 (10:12→20:31)
[2021-04-14 11:51] LABS: HEMATOCRIT 25.1 % (36.0-47.0); HEMOGLOBIN 7.9 g/dl (12.0-15.5); MEAN CORPUSCULAR HEMOGLOBIN 28.6 pg (27.0-33.0); MEAN CORPUSCULAR HGB CONC 31.5 g/dl (32.0-36.5); MEAN CORPUSCULAR VOLUME 90.9 fl (80.0-96.0); PLATELET COUNT, AUTOMATED 34 10^3/uL (150-450); RED BLOOD COUNT 2.76 10^6/uL (4.00-5.40); WHITE BLOOD COUNT 5.2 10^3/uL (4.0-10.0)
[2021-04-14 12:02] LABS: INR 1.53; PROTHROMBIN TIME 18.8 SECONDS (12.7-14.5)
[2021-04-14] MEDS: HumaLOG INSULIN (NovoLOG) PER UNIT SC SCH ×2 (12:02→17:41)
[2021-04-14 12:03] LABS: PARTIAL THROMBOPLASTIN TIME 48.9 SECONDS (25.9-37.0)
[2021-04-14] MEDS: MIDAZOLAM HCL 100 MG in D5W 80 ML IV SCH (12:04)
[2021-04-14 12:05] LABS: D-DIMER QUANT 2247.07 ng/ml (<500)
[2021-04-14 12:16] LABS: ANISOCYTOSIS 2+; LYMPHOCYTES 5 % (16-44); MONOCYTES 4 % (0-5); NEUTROPHILS 89 % (28-66); PLATELET ESTIMATE MARKED DECREASE (NORMAL)
[2021-04-14 12:17] LABS: OVALOCYTES 1+
[2021-04-14 12:30] LABS: ABG BASE EXCESS 6.2 (-2.0-2.0); ABG HCO3 33.1 MEQ/L (22.0-26.0); ABG O2 SATURATION 97.6 % (95.0-99.0); ABG PARTIAL PRESSURE O2 110.5 mmHg (75.0-100.0); ABG STANDARD HCO3 30.1 MEQ/L (22.0-26.0); ABG pH (ARTERIAL) 7.345 UNITS (7.350-7.450)
[2021-04-14] MEDS: ENOXAPARIN 30MG/0.3ML SYRINGE (J1650 PER 10MG) SC SCH ×2 (14:00→20:31)
[2021-04-14] MEDS: MICAFUNGIN SODIUM 100 MG in D5W MINI-BAG PLUS 100 ML IV SCH (14:00)
[2021-04-14] MEDS: NOREPINEPHRINE BITARTRATE 8 MG in D5W 492 ML IV SCH ×2 (14:47→20:04)
[2021-04-14] MEDS: NYSTATIN CREAM 15 GM TOP SCH ×2 (18:01→20:42)
[2021-04-14 18:07] LABS: BLOOD UREA NITROGEN 41 MG/DL (7-18); CARBON DIOXIDE LEVEL 33 MEQ/L (21-32); CHLORIDE LEVEL 86 MEQ/L (98-107); CREATININE FOR GFR 0.74 MG/DL (0.55-1.30); GLOMERULAR FILTRATION RATE > 60.0 (>60); GLUCOSE, FASTING 266 MG/DL (70-100); POTASSIUM SERUM 3.4 MEQ/L (3.5-5.1); SODIUM LEVEL 124 MEQ/L (136-145)
[2021-04-14] MEDS: KCL 20MEQ IN 100ML SWI (KRUN) 20 MEQ in IV 1 EA IV SCH ×4 (20:05→21:20)
[2021-04-14] MEDS: LIDOCAINE 5% (LIDODERM) PATCH TD SCH (20:41)
[2021-04-14] MEDS: FUROSEMIDE 40MG/4ML VIAL (J1940) IV SCH (22:06)
[2021-04-15] VITALS (28 sets, daily range): BP systolic 92–137; BP diastolic 46–66
[2021-04-15] MEDS: MIDAZOLAM HCL 100 MG in D5W 80 ML IV SCH ×2 (00:14→14:15)
[2021-04-15] MEDS: propofoL 1,000 MG in IV 1 EA IV SCH ×5 (00:55→15:40)
[2021-04-15] MEDS: HumaLOG INSULIN (NovoLOG) PER UNIT SC SCH ×5 (01:52→23:12)
[2021-04-15] MEDS: PIPERACILLIN/TAZOBACTAM SOD 3.375 GM in D5W MINI-BAG PLUS 50 ML IV SCH ×4 (03:37→21:29)
[2021-04-15] MEDS: fentaNYL CITRATE 1,000 MCG in NS 80 ML IV SCH ×2 (04:24→23:53)
[2021-04-15 05:26] LABS: PLATELET COUNT, AUTOMATED 32 10^3/uL (150-450)
[2021-04-15 05:32] LABS: INR 1.61; PROTHROMBIN TIME 19.6 SECONDS (12.7-14.5)
[2021-04-15 05:33] LABS: PARTIAL THROMBOPLASTIN TIME 56.9 SECONDS (25.9-37.0)
[2021-04-15 05:35] LABS: D-DIMER QUANT 1679.13 ng/ml (<500)
[2021-04-15 05:51] LABS: ABG BASE EXCESS 4.2 (-2.0-2.0); ABG HCO3 29.4 MEQ/L (22.0-26.0); ABG O2 SATURATION 96.8 % (95.0-99.0); ABG PARTIAL PRESSURE O2 91.4 mmHg (75.0-100.0); ABG STANDARD HCO3 28.2 MEQ/L (22.0-26.0); ABG TOTAL CO2 30.9 MEQ/L (22.0-29.0); ABG pH (ARTERIAL) 7.405 UNITS (7.350-7.450)
[2021-04-15] MEDS: SODIUM CHLORIDE 0.9% INJ 10 ML SYR IV SCH ×3 (05:51→21:29)
[2021-04-15 06:00] LABS: ALBUMIN 2.6 GM/DL (3.2-5.2); ALT/SGPT 78 U/L (12-78); BILIRUBIN,TOTAL 1.2 MG/DL (0.2-1.0); BLOOD UREA NITROGEN 40 MG/DL (7-18); CARBON DIOXIDE LEVEL 34 MEQ/L (21-32); CHLORIDE LEVEL 89 MEQ/L (98-107); CREATININE FOR GFR 0.74 MG/DL (0.55-1.30); GLOMERULAR FILTRATION RATE > 60.0 (>60); GLUCOSE, FASTING 148 MG/DL (70-100); POTASSIUM SERUM 3.7 MEQ/L (3.5-5.1); SODIUM LEVEL 129 MEQ/L (136-145)
[2021-04-15] MEDS: IPRATROPIUM 0.5MG/ALBUTEROL 2.5MG INH SOL UD 3ML (DUONEB) NEB SCH ×4 (07:15→19:42)
[2021-04-15] MEDS: LACTULOSE 20 GM/30 ML SYRUP UD PO SCH ×2 (08:13→19:50)
[2021-04-15] MEDS: CHLORHEXIDINE GLUCONATE 0.12 % 15ML UDC (PERIDEX ORAL RINSE) MT SCH ×2 (08:25→20:07)
[2021-04-15] MEDS: NYSTATIN 500,000 U/5 ML SUSP UDC PO SCH ×4 (08:25→20:07)
[2021-04-15] MEDS: PANTOPRAZOLE 40MG VIAL (C9113 PER 1) IV SCH ×2 (08:25→20:06)
[2021-04-15] MEDS: ENOXAPARIN 30MG/0.3ML SYRINGE (J1650 PER 10MG) SC SCH ×2 (08:25→20:06)
[2021-04-15] MEDS: MAGNESIUM OXIDE 400MG TAB (MAG-OX) PO SCH ×2 (08:26→20:10)
[2021-04-15] MEDS: LACTOBACILLUS ACIDOPHILUS CAP (BACID) PO SCH ×2 (08:26→17:52)
[2021-04-15] MEDS: GABAPENTIN 300 MG CAP PO SCH ×3 (08:26→20:07)
[2021-04-15] MEDS: methylPREDNISolone 40MG 1ML VIAL IV SCH ×2 (08:27→20:06)
[2021-04-15] MEDS: FUROSEMIDE 40MG/4ML VIAL (J1940) IV SCH (08:27)
[2021-04-15] MEDS: guaiFENesin ER 600 MG TAB PO SCH ×2 (08:28→19:50)
[2021-04-15] MEDS: NYSTATIN CREAM 15 GM TOP SCH ×2 (08:28→20:07)
[2021-04-15] MEDS: SUCRALFATE SUSP 1GM/10ML UD PO SCH ×4 (08:41→20:10)
[2021-04-15] MEDS: SPIRONOLACTONE 50 MG TAB PO SCH (08:42)
[2021-04-15] MEDS: rifAXIMin 550 MG TAB (XIFAXAN) PO SCH ×2 (08:45→20:10)
[2021-04-15] MEDS: **NOTE PATIENT COMMENT** MISC XX SCH (09:00)
[2021-04-15 10:28] LABS: HEMATOCRIT 23.6 % (36.0-47.0); HEMOGLOBIN 7.5 g/dl (12.0-15.5); MEAN CORPUSCULAR HGB CONC 31.8 g/dl (32.0-36.5); MEAN CORPUSCULAR VOLUME 91.1 fl (80.0-96.0); PLATELET COUNT, AUTOMATED 36 10^3/uL (150-450); RED BLOOD COUNT 2.59 10^6/uL (4.00-5.40)
[2021-04-15 10:53] LABS: LYMPHOCYTES 4 % (16-44); MONOCYTES 5 % (0-5); NEUTROPHILS 78 % (28-66)
[2021-04-15 10:54] LABS: OVALOCYTES 1+
[2021-04-15 10:55] LABS: PLATELET ESTIMATE DECREASED (NORMAL); TEAR DROP CELLS 1+
[2021-04-15] MEDS: MICAFUNGIN SODIUM 100 MG in D5W MINI-BAG PLUS 100 ML IV SCH (14:44)
[2021-04-15 15:20] LABS: MAGNESIUM LEVEL 2.1 MG/DL (1.7-2.2)
[2021-04-15] MEDS: FUROSEMIDE 100MG/10ML VIAL (J1940) IV SCH (17:52)
[2021-04-15] MEDS: NOREPINEPHRINE BITARTRATE 8 MG in D5W 492 ML IV SCH (19:50)
[2021-04-15] MEDS: LIDOCAINE 5% (LIDODERM) PATCH TD SCH (20:07)
[2021-04-15] MEDS: ACETAMINOPHEN TAB 650MG DOSE (2X325MG) PO PRN (20:50)
[2021-04-16] VITALS (38 sets, daily range): BP systolic 85–119; BP diastolic 43–64; O2SAT 93
[2021-04-16] MEDS: NOREPINEPHRINE BITARTRATE 8 MG in D5W 492 ML IV SCH ×2 (02:09→15:00)
[2021-04-16] MEDS ORDERED: ACETAMINOPHEN *IV* 1,000 MG in IV 1 EA IV ONE (03:00)
[2021-04-16] MEDS: PIPERACILLIN/TAZOBACTAM SOD 3.375 GM in D5W MINI-BAG PLUS 50 ML IV SCH ×4 (03:12→22:11)
[2021-04-16 04:08] LABS: ABG BASE EXCESS 5.8 (-2.0-2.0); ABG HCO3 33.5 MEQ/L (22.0-26.0); ABG O2 SATURATION 96.1 % (95.0-99.0); ABG PARTIAL PRESSURE O2 89.2 mmHg (75.0-100.0); ABG STANDARD HCO3 29.7 MEQ/L (22.0-26.0); ABG TOTAL CO2 35.6 MEQ/L (22.0-29.0); ABG pH (ARTERIAL) 7.308 UNITS (7.350-7.450)
[2021-04-16 04:09] LABS: ABG PARTIAL PRESSURE CO2 68.4 mmHg (35.0-45.0)
[2021-04-16 04:15] LABS: HEMOGLOBIN 8.9 g/dl (12.0-15.5); MEAN CORPUSCULAR HEMOGLOBIN 29.9 pg (27.0-33.0); MEAN CORPUSCULAR HGB CONC 31.8 g/dl (32.0-36.5); RED BLOOD COUNT 2.98 10^6/uL (4.00-5.40); WHITE BLOOD COUNT 6.3 10^3/uL (4.0-10.0)
[2021-04-16 04:16] LABS: PLATELET COUNT, AUTOMATED 45 10^3/uL (150-450)
[2021-04-16 04:24] LABS: INR 1.66
[2021-04-16 04:27] LABS: D-DIMER QUANT 1946.84 ng/ml (<500)
[2021-04-16 04:37] LABS: ALBUMIN 2.2 GM/DL (3.2-5.2); ALT/SGPT 79 U/L (12-78); BILIRUBIN,TOTAL 1.4 MG/DL (0.2-1.0); BLOOD UREA NITROGEN 57 MG/DL (7-18); CALCIUM LEVEL 7.6 MG/DL (8.5-10.1); CARBON DIOXIDE LEVEL 35 MEQ/L (21-32); CHLORIDE LEVEL 89 MEQ/L (98-107); CREATININE FOR GFR 1.08 MG/DL (0.55-1.30); GLOMERULAR FILTRATION RATE > 60.0 (>60); GLUCOSE, FASTING 223 MG/DL (70-100); POTASSIUM SERUM 4.1 MEQ/L (3.5-5.1); SODIUM LEVEL 130 MEQ/L (136-145); TOTAL PROTEIN 4.9 GM/DL (6.4-8.2)
[2021-04-16] MEDS: MIDAZOLAM HCL 100 MG in D5W 80 ML IV SCH ×2 (04:44→10:51)
[2021-04-16] MEDS: HumaLOG INSULIN (NovoLOG) PER UNIT SC SCH ×4 (05:09→23:47)
[2021-04-16] MEDS: SODIUM CHLORIDE 0.9% INJ 10 ML SYR IV SCH ×3 (05:09→22:11)
[2021-04-16] MEDS: propofoL 1,000 MG in IV 1 EA IV SCH ×2 (05:09→09:39)
[2021-04-16] MEDS: IPRATROPIUM 0.5MG/ALBUTEROL 2.5MG INH SOL UD 3ML (DUONEB) NEB SCH ×4 (07:32→20:41)
[2021-04-16] MEDS: guaiFENesin ER 600 MG TAB PO SCH ×2 (07:44→20:30)
[2021-04-16] MEDS: SUCRALFATE SUSP 1GM/10ML UD PO SCH ×4 (08:40→20:30)
[2021-04-16] MEDS: CHLORHEXIDINE GLUCONATE 0.12 % 15ML UDC (PERIDEX ORAL RINSE) MT SCH ×2 (08:40→20:30)
[2021-04-16] MEDS: LACTULOSE 20 GM/30 ML SYRUP UD PO SCH (08:40)
[2021-04-16] MEDS: NYSTATIN 500,000 U/5 ML SUSP UDC PO SCH ×4 (08:40→20:30)
[2021-04-16] MEDS: FUROSEMIDE 100MG/10ML VIAL (J1940) IV SCH ×2 (08:41→16:12)
[2021-04-16] MEDS: PANTOPRAZOLE 40MG VIAL (C9113 PER 1) IV SCH ×2 (08:41→20:29)
[2021-04-16] MEDS: ENOXAPARIN 30MG/0.3ML SYRINGE (J1650 PER 10MG) SC SCH ×2 (08:42→20:28)
[2021-04-16] MEDS: rifAXIMin 550 MG TAB (XIFAXAN) PO SCH ×2 (08:43→20:49)
[2021-04-16] MEDS: GABAPENTIN 300 MG CAP PO SCH ×3 (08:43→20:30)
[2021-04-16] MEDS: methylPREDNISolone 40MG 1ML VIAL IV SCH ×2 (08:43→20:28)
[2021-04-16] MEDS: LACTOBACILLUS ACIDOPHILUS CAP (BACID) PO SCH ×2 (08:43→18:10)
[2021-04-16] MEDS: MAGNESIUM OXIDE 400MG TAB (MAG-OX) PO SCH ×2 (08:44→20:30)
[2021-04-16] MEDS: SPIRONOLACTONE 50 MG TAB PO SCH (08:45)
[2021-04-16] MEDS: **NOTE PATIENT COMMENT** MISC XX SCH (08:47)
[2021-04-16] MEDS: NYSTATIN CREAM 15 GM TOP SCH ×2 (08:47→20:31)
[2021-04-16] MEDS ORDERED: ERYTHROMYCIN 250 MG TABLET PO SCH (12:00)
[2021-04-16] MEDS: METOCLOPRAMIDE INJ 10MG/2ML VIAL (J2765 PER 1) IV SCH ×2 (12:40→18:10)
[2021-04-16] MEDS: MICAFUNGIN SODIUM 100 MG in D5W MINI-BAG PLUS 100 ML IV SCH (15:12)
[2021-04-16] MEDS: ERYTHROMYCIN ETHYLSUCC 200 MG SUSP (ERYPED) 100MLBTL PO SCH ×2 (19:00→23:42)
[2021-04-16] MEDS: LIDOCAINE 5% (LIDODERM) PATCH TD SCH (20:28)
[2021-04-16] MEDS: fentaNYL CITRATE 1,000 MCG in NS 80 ML IV SCH (20:32)
[2021-04-17] VITALS (62 sets, daily range): BP systolic 89–126; BP diastolic 46–65
[2021-04-17] MEDS: MIDAZOLAM HCL 100 MG in D5W 80 ML IV SCH (03:00)
[2021-04-17] MEDS: PIPERACILLIN/TAZOBACTAM SOD 3.375 GM in D5W MINI-BAG PLUS 50 ML IV SCH ×4 (03:28→22:42)
[2021-04-17] MEDS: METOCLOPRAMIDE INJ 10MG/2ML VIAL (J2765 PER 1) IV SCH (03:29)
[2021-04-17 05:10] LABS: ABG BASE EXCESS 11.6 (-2.0-2.0); ABG HCO3 38.7 MEQ/L (22.0-26.0); ABG O2 SATURATION 95.9 % (95.0-99.0); ABG PARTIAL PRESSURE O2 87.1 mmHg (75.0-100.0); ABG STANDARD HCO3 35.3 MEQ/L (22.0-26.0); ABG TOTAL CO2 40.8 MEQ/L (22.0-29.0)
[2021-04-17 05:16] LABS: HEMATOCRIT 28.4 % (36.0-47.0); MEAN CORPUSCULAR HEMOGLOBIN 29.9 pg (27.0-33.0); MEAN CORPUSCULAR HGB CONC 31.7 g/dl (32.0-36.5); MEAN CORPUSCULAR VOLUME 94.4 fl (80.0-96.0); RED BLOOD COUNT 3.01 10^6/uL (4.00-5.40); WHITE BLOOD COUNT 8.5 10^3/uL (4.0-10.0)
[2021-04-17 05:17] LABS: PLATELET COUNT, AUTOMATED 60 10^3/uL (150-450)
[2021-04-17] MEDS: NOREPINEPHRINE BITARTRATE 8 MG in D5W 492 ML IV SCH (05:41)
[2021-04-17] MEDS: SODIUM CHLORIDE 0.9% INJ 10 ML SYR IV SCH ×4 (05:42→22:40)
[2021-04-17] MEDS: HumaLOG INSULIN (NovoLOG) PER UNIT SC SCH ×3 (05:42→18:29)
[2021-04-17] MEDS: ERYTHROMYCIN ETHYLSUCC 200 MG SUSP (ERYPED) 100MLBTL PO SCH ×4 (05:43→23:08)
[2021-04-17 05:45] LABS: ALBUMIN 2.2 GM/DL (3.2-5.2); ALT/SGPT 85 U/L (12-78); BILIRUBIN,TOTAL 1.7 MG/DL (0.2-1.0); BLOOD UREA NITROGEN 83 MG/DL (7-18); CALCIUM LEVEL 7.3 MG/DL (8.5-10.1); CARBON DIOXIDE LEVEL 38 MEQ/L (21-32); CHLORIDE LEVEL 91 MEQ/L (98-107); CREATININE FOR GFR 1.07 MG/DL (0.55-1.30); GLOMERULAR FILTRATION RATE > 60.0 (>60); GLUCOSE, FASTING 257 MG/DL (70-100); POTASSIUM SERUM 4.2 MEQ/L (3.5-5.1); SODIUM LEVEL 133 MEQ/L (136-145); TOTAL PROTEIN 5.1 GM/DL (6.4-8.2)
[2021-04-17] MEDS: IPRATROPIUM 0.5MG/ALBUTEROL 2.5MG INH SOL UD 3ML (DUONEB) NEB SCH ×4 (05:52→19:45)
[2021-04-17] MEDS: GABAPENTIN 300 MG CAP PO SCH (08:18)
[2021-04-17] MEDS: rifAXIMin 550 MG TAB (XIFAXAN) PO SCH (08:18)
[2021-04-17] MEDS: guaiFENesin ER 600 MG TAB PO SCH (08:18)
[2021-04-17] MEDS: SPIRONOLACTONE 50 MG TAB PO SCH (08:18)
[2021-04-17] MEDS: LACTOBACILLUS ACIDOPHILUS CAP (BACID) PO SCH (08:18)
[2021-04-17] MEDS: MAGNESIUM OXIDE 400MG TAB (MAG-OX) PO SCH (08:19)
[2021-04-17] MEDS: PANTOPRAZOLE 40MG VIAL (C9113 PER 1) IV SCH ×2 (08:19→20:51)
[2021-04-17] MEDS: FUROSEMIDE 100MG/10ML VIAL (J1940) IV SCH (08:19)
[2021-04-17] MEDS: NYSTATIN 500,000 U/5 ML SUSP UDC PO SCH (08:19)
[2021-04-17] MEDS: CHLORHEXIDINE GLUCONATE 0.12 % 15ML UDC (PERIDEX ORAL RINSE) MT SCH ×2 (08:19→20:53)
[2021-04-17] MEDS: SUCRALFATE SUSP 1GM/10ML UD PO SCH (08:19)
[2021-04-17] MEDS: methylPREDNISolone 40MG 1ML VIAL IV SCH ×2 (08:19→20:51)
[2021-04-17] MEDS: NYSTATIN CREAM 15 GM TOP SCH ×2 (08:20→20:54)
[2021-04-17] MEDS: **NOTE PATIENT COMMENT** MISC XX SCH (08:21)
[2021-04-17] MEDS ORDERED: predniSONE 10 MG TAB PO SCH (09:00)
[2021-04-17] MEDS: ENOXAPARIN 30MG/0.3ML SYRINGE (J1650 PER 10MG) SC SCH ×2 (09:45→20:51)
[2021-04-17] MEDS ORDERED: SUCRALFATE SUSP 1GM/10ML UD GT SCH (12:00)
[2021-04-17] MEDS ORDERED: ERYTHROMYCIN ETHYLSUCC 200 MG SUSP (ERYPED) 100MLBTL GT SCH (12:00)
[2021-04-17] MEDS: MICAFUNGIN SODIUM 100 MG in D5W MINI-BAG PLUS 100 ML IV SCH (15:54)
[2021-04-17] MEDS: GABAPENTIN 300 MG CAP GT SCH ×2 (15:55→20:51)
[2021-04-17] MEDS: fentaNYL CITRATE 1,000 MCG in NS 80 ML IV SCH (16:30)
[2021-04-17] MEDS ORDERED: fentaNYL 100 MCG/2 ML INJECTION IV ONE (17:15)
[2021-04-17] MEDS ORDERED: LORazepam 2 MG/ML VIAL As Ordered ONE (17:23)
[2021-04-17] MEDS: LORazepam 2 MG/ML VIAL IV SCH (17:26)
[2021-04-17] MEDS: HYDROmorphone HCL 2MG/ML 1ML VIAL IV SCH (17:26)
[2021-04-17 18:01] LABS: ABG BASE EXCESS 8.9 (-2.0-2.0); ABG HCO3 34.7 MEQ/L (22.0-26.0); ABG O2 SATURATION 95.6 % (95.0-99.0); ABG PARTIAL PRESSURE CO2 55.3 mmHg (35.0-45.0); ABG PARTIAL PRESSURE O2 80.1 mmHg (75.0-100.0); ABG STANDARD HCO3 32.6 MEQ/L (22.0-26.0); ABG TOTAL CO2 36.4 MEQ/L (22.0-29.0); ABG pH (ARTERIAL) 7.416 UNITS (7.350-7.450)
[2021-04-17] MEDS: FUROSEMIDE injection 250 MG in D5W 225 ML IV SCH (18:29)
[2021-04-17] MEDS: rifAXIMin 550 MG TAB (XIFAXAN) GT SCH (20:53)
[2021-04-17] MEDS: MAGNESIUM OXIDE 400MG TAB (MAG-OX) GT SCH (20:53)
[2021-04-18] VITALS (41 sets, daily range): BP systolic 90–139; BP diastolic 43–95
[2021-04-18] MEDS: HumaLOG INSULIN (NovoLOG) PER UNIT SC SCH ×5 (00:26→23:07)
[2021-04-18] MEDS: LORazepam 2 MG/ML VIAL IV SCH ×5 (00:26→23:07)
[2021-04-18] MEDS: HYDROmorphone HCL 2MG/ML 1ML VIAL IV SCH ×3 (00:27→18:05)
[2021-04-18] MEDS: fentaNYL CITRATE 1,000 MCG in NS 80 ML IV SCH ×3 (01:36→18:55)
[2021-04-18] MEDS: PIPERACILLIN/TAZOBACTAM SOD 3.375 GM in D5W MINI-BAG PLUS 50 ML IV SCH ×4 (04:19→22:33)
[2021-04-18 05:26] LABS: ABG BASE EXCESS 10.6 (-2.0-2.0); ABG HCO3 34.9 MEQ/L (22.0-26.0); ABG PARTIAL PRESSURE CO2 46.3 mmHg (35.0-45.0); ABG STANDARD HCO3 34.3 MEQ/L (22.0-26.0); ABG TOTAL CO2 36.3 MEQ/L (22.0-29.0); ABG pH (ARTERIAL) 7.495 UNITS (7.350-7.450)
[2021-04-18] MEDS ORDERED: LORazepam 2 MG/ML VIAL As Ordered ONE ×2 (05:46→17:57)
[2021-04-18] MEDS: SODIUM CHLORIDE 0.9% INJ 10 ML SYR IV SCH ×3 (05:47→22:00)
[2021-04-18] MEDS: ERYTHROMYCIN ETHYLSUCC 200 MG SUSP (ERYPED) 100MLBTL PO SCH (05:47)
[2021-04-18 06:14] LABS: HEMATOCRIT 21.3 % (36.0-47.0); MEAN CORPUSCULAR HEMOGLOBIN 29.6 pg (27.0-33.0); MEAN CORPUSCULAR HGB CONC 31.5 g/dl (32.0-36.5); MEAN CORPUSCULAR VOLUME 94.2 fl (80.0-96.0); RED BLOOD COUNT 2.26 10^6/uL (4.00-5.40)
[2021-04-18 06:18] LABS: HEMOGLOBIN 6.7 g/dl (12.0-15.5); PLATELET COUNT, AUTOMATED 43 10^3/uL (150-450)
[2021-04-18 06:47] LABS: ALBUMIN 3.2 GM/DL (3.2-5.2); ALT/SGPT 72 U/L (12-78); BILIRUBIN,TOTAL 1.7 MG/DL (0.2-1.0); BLOOD UREA NITROGEN 106 MG/DL (7-18); CALCIUM LEVEL 8.2 MG/DL (8.5-10.1); CARBON DIOXIDE LEVEL 39 MEQ/L (21-32); CHLORIDE LEVEL 93 MEQ/L (98-107); CREATININE FOR GFR 0.99 MG/DL (0.55-1.30); GLOMERULAR FILTRATION RATE > 60.0 (>60); GLUCOSE, FASTING 209 MG/DL (70-100); POTASSIUM SERUM 4.3 MEQ/L (3.5-5.1); SODIUM LEVEL 137 MEQ/L (136-145); TOTAL PROTEIN 5.7 GM/DL (6.4-8.2)
[2021-04-18] MEDS: IPRATROPIUM 0.5MG/ALBUTEROL 2.5MG INH SOL UD 3ML (DUONEB) NEB SCH ×4 (07:36→19:48)
[2021-04-18] MEDS: PANTOPRAZOLE 40MG VIAL (C9113 PER 1) IV SCH ×2 (08:44→20:03)
[2021-04-18] MEDS: CHLORHEXIDINE GLUCONATE 0.12 % 15ML UDC (PERIDEX ORAL RINSE) MT SCH ×2 (08:44→20:04)
[2021-04-18] MEDS: ENOXAPARIN 30MG/0.3ML SYRINGE (J1650 PER 10MG) SC SCH ×2 (08:45→20:03)
[2021-04-18] MEDS: GABAPENTIN 300 MG CAP GT SCH ×3 (08:46→20:03)
[2021-04-18] MEDS: rifAXIMin 550 MG TAB (XIFAXAN) GT SCH ×2 (08:46→20:04)
[2021-04-18] MEDS: MAGNESIUM OXIDE 400MG TAB (MAG-OX) GT SCH ×2 (08:46→20:04)
[2021-04-18] MEDS: SPIRONOLACTONE 50 MG TAB GT SCH (08:46)
[2021-04-18] MEDS: methylPREDNISolone 40MG 1ML VIAL IV SCH ×2 (08:52→20:03)
[2021-04-18] MEDS: NYSTATIN CREAM 15 GM TOP SCH ×2 (08:52→20:05)
[2021-04-18] MEDS: METOCLOPRAMIDE INJ 10MG/2ML VIAL (J2765 PER 1) IV PRN (09:35)
[2021-04-18 12:32] LABS: HEMATOCRIT 20.7 % (36.0-47.0); HEMOGLOBIN 6.4 g/dl (12.0-15.5)
[2021-04-18] MEDS: MICAFUNGIN SODIUM 100 MG in D5W MINI-BAG PLUS 100 ML IV SCH (15:48)
[2021-04-18] MEDS: FUROSEMIDE injection 250 MG in D5W 225 ML IV SCH (18:04)
[2021-04-18 18:36] LABS: HEMATOCRIT 28.5 % (36.0-47.0)
[2021-04-18 18:43] LABS: HEMOGLOBIN 8.9 g/dl (12.0-15.5)
[2021-04-18] MEDS: ACETAMINOPHEN 325 MG/10.15 ML UDC GT PRN (22:55)
[2021-04-19] VITALS (24 sets, daily range): BP systolic 116–162; BP diastolic 60–80
[2021-04-19] MEDS: HYDROmorphone HCL 2MG/ML 1ML VIAL IV SCH ×3 (01:00→17:00)
[2021-04-19] MEDS: PIPERACILLIN/TAZOBACTAM SOD 3.375 GM in D5W MINI-BAG PLUS 50 ML IV SCH ×4 (03:56→22:29)
[2021-04-19] MEDS: fentaNYL CITRATE 1,000 MCG in NS 80 ML IV SCH (04:08)
[2021-04-19] MEDS: HumaLOG INSULIN (NovoLOG) PER UNIT SC SCH ×4 (05:15→23:21)
[2021-04-19] MEDS: LORazepam 2 MG/ML VIAL IV SCH ×4 (05:22→23:22)
[2021-04-19] MEDS: SODIUM CHLORIDE 0.9% INJ 10 ML SYR IV SCH ×3 (05:23→22:13)
[2021-04-19 05:33] LABS: HEMATOCRIT 28.7 % (36.0-47.0); MEAN CORPUSCULAR HEMOGLOBIN 28.8 pg (27.0-33.0); MEAN CORPUSCULAR HGB CONC 31.4 g/dl (32.0-36.5); MEAN CORPUSCULAR VOLUME 91.7 fl (80.0-96.0); RED BLOOD COUNT 3.13 10^6/uL (4.00-5.40); WHITE BLOOD COUNT 4.6 10^3/uL (4.0-10.0)
[2021-04-19 05:36] LABS: PLATELET COUNT, AUTOMATED 50 10^3/uL (150-450)
[2021-04-19 05:37] LABS: ABG BASE EXCESS 15.2 (-2.0-2.0); ABG HCO3 40.2 MEQ/L (22.0-26.0); ABG O2 SATURATION 91.9 % (95.0-99.0); ABG PARTIAL PRESSURE CO2 52.2 mmHg (35.0-45.0); ABG PARTIAL PRESSURE O2 62.4 mmHg (75.0-100.0); ABG STANDARD HCO3 38.9 MEQ/L (22.0-26.0); ABG TOTAL CO2 41.8 MEQ/L (22.0-29.0); ABG pH (ARTERIAL) 7.504 UNITS (7.350-7.450)
[2021-04-19 05:55] LABS: BLOOD UREA NITROGEN 109 MG/DL (7-18); CALCIUM LEVEL 8.6 MG/DL (8.5-10.1); CARBON DIOXIDE LEVEL 42 MEQ/L (21-32); CHLORIDE LEVEL 96 MEQ/L (98-107); CREATININE FOR GFR 0.87 MG/DL (0.55-1.30); GLOMERULAR FILTRATION RATE > 60.0 (>60); GLUCOSE, FASTING 220 MG/DL (70-100); POTASSIUM SERUM 4.9 MEQ/L (3.5-5.1); SODIUM LEVEL 142 MEQ/L (136-145)
[2021-04-19] MEDS: CHLORHEXIDINE GLUCONATE 0.12 % 15ML UDC (PERIDEX ORAL RINSE) MT SCH ×2 (08:02→20:08)
[2021-04-19] MEDS: PANTOPRAZOLE 40MG VIAL (C9113 PER 1) IV SCH ×2 (08:02→20:07)
[2021-04-19] MEDS: methylPREDNISolone 40MG 1ML VIAL IV SCH ×2 (08:02→20:07)
[2021-04-19] MEDS: ENOXAPARIN 30MG/0.3ML SYRINGE (J1650 PER 10MG) SC SCH ×2 (08:03→20:07)
[2021-04-19] MEDS: GABAPENTIN 300 MG CAP GT SCH ×3 (08:03→20:07)
[2021-04-19] MEDS: MAGNESIUM OXIDE 400MG TAB (MAG-OX) GT SCH ×2 (08:04→20:08)
[2021-04-19] MEDS: SPIRONOLACTONE 50 MG TAB GT SCH (08:05)
[2021-04-19] MEDS: rifAXIMin 550 MG TAB (XIFAXAN) GT SCH ×2 (08:05→20:07)
[2021-04-19] MEDS: NYSTATIN CREAM 15 GM TOP SCH ×2 (08:05→20:08)
[2021-04-19] MEDS: IPRATROPIUM 0.5MG/ALBUTEROL 2.5MG INH SOL UD 3ML (DUONEB) NEB SCH ×3 (08:19→15:18)
[2021-04-19] MEDS: MIDAZOLAM INJ 2MG/2ML VIAL (J2250 PER 1MG) IV PRN (08:30)
[2021-04-19 12:23] LABS: ABG BASE EXCESS 18.1 (-2.0-2.0); ABG HCO3 43.6 MEQ/L (22.0-26.0); ABG PARTIAL PRESSURE CO2 56.4 mmHg (35.0-45.0); ABG PARTIAL PRESSURE O2 62.6 mmHg (75.0-100.0); ABG TOTAL CO2 45.3 MEQ/L (22.0-29.0); ABG pH (ARTERIAL) 7.506 UNITS (7.350-7.450)
[2021-04-19] MEDS ORDERED: MORPHINE SULFATE IV SCH (14:00)
[2021-04-19] MEDS ORDERED: NS IV SCH (14:00)
[2021-04-19] MEDS: MICAFUNGIN SODIUM 100 MG in D5W MINI-BAG PLUS 100 ML IV SCH (14:51)
[2021-04-19] MEDS: ACETAMINOPHEN 325 MG/10.15 ML UDC GT PRN ×2 (15:16→23:13)
[2021-04-19] MEDS: FUROSEMIDE injection 250 MG in D5W 225 ML IV SCH (17:09)
[2021-04-20] VITALS (23 sets, daily range): BP systolic 117–156; BP diastolic 65–80
[2021-04-20] MEDS: HYDROmorphone HCL 2MG/ML 1ML VIAL IV SCH ×2 (00:15→08:57)
[2021-04-20] MEDS: PIPERACILLIN/TAZOBACTAM SOD 3.375 GM in D5W MINI-BAG PLUS 50 ML IV SCH ×4 (03:00→21:03)
[2021-04-20] MEDS: LORazepam 2 MG/ML VIAL IV SCH (05:14)
[2021-04-20] MEDS: SODIUM CHLORIDE 0.9% INJ 10 ML SYR IV SCH ×3 (05:14→21:03)
[2021-04-20] MEDS: HumaLOG INSULIN (NovoLOG) PER UNIT SC SCH ×4 (05:19→23:23)
[2021-04-20 05:24] LABS: HEMOGLOBIN 9.4 g/dl (12.0-15.5); MEAN CORPUSCULAR HEMOGLOBIN 28.7 pg (27.0-33.0); MEAN CORPUSCULAR HGB CONC 30.3 g/dl (32.0-36.5); MEAN CORPUSCULAR VOLUME 94.5 fl (80.0-96.0); RED BLOOD COUNT 3.28 10^6/uL (4.00-5.40)
[2021-04-20 05:31] LABS: PLATELET COUNT, AUTOMATED 52 10^3/uL (150-450)
[2021-04-20 05:53] LABS: ABG BASE EXCESS 19.5 (-2.0-2.0); ABG HCO3 44.3 MEQ/L (22.0-26.0); ABG O2 SATURATION 92.4 % (95.0-99.0); ABG PARTIAL PRESSURE CO2 52.1 mmHg (35.0-45.0); ABG PARTIAL PRESSURE O2 63.6 mmHg (75.0-100.0); ABG STANDARD HCO3 43.5 MEQ/L (22.0-26.0); ABG TOTAL CO2 45.9 MEQ/L (22.0-29.0); ABG pH (ARTERIAL) 7.547 UNITS (7.350-7.450)
[2021-04-20 05:56] LABS: ALBUMIN 2.7 GM/DL (3.2-5.2); ALT/SGPT 87 U/L (12-78); BILIRUBIN,TOTAL 2.4 MG/DL (0.2-1.0); BLOOD UREA NITROGEN 94 MG/DL (7-18); CALCIUM LEVEL 8.7 MG/DL (8.5-10.1); CARBON DIOXIDE LEVEL 43 MEQ/L (21-32); CHLORIDE LEVEL 102 MEQ/L (98-107); CREATININE FOR GFR 0.71 MG/DL (0.55-1.30); GLOMERULAR FILTRATION RATE > 60.0 (>60); GLUCOSE, FASTING 252 MG/DL (70-100); POTASSIUM SERUM 4.8 MEQ/L (3.5-5.1); SODIUM LEVEL 149 MEQ/L (136-145); TOTAL PROTEIN 5.2 GM/DL (6.4-8.2)
[2021-04-20] MEDS: PANTOPRAZOLE 40MG VIAL (C9113 PER 1) IV SCH ×2 (08:58→20:43)
[2021-04-20] MEDS: methylPREDNISolone 40MG 1ML VIAL IV SCH ×2 (08:58→20:30)
[2021-04-20] MEDS: NYSTATIN CREAM 15 GM TOP SCH ×2 (08:59→20:31)
[2021-04-20] MEDS: GABAPENTIN 300 MG CAP GT SCH ×3 (08:59→20:30)
[2021-04-20] MEDS: SPIRONOLACTONE 50 MG TAB GT SCH (08:59)
[2021-04-20] MEDS: MAGNESIUM OXIDE 400MG TAB (MAG-OX) GT SCH ×2 (09:00→20:30)
[2021-04-20] MEDS: rifAXIMin 550 MG TAB (XIFAXAN) GT SCH ×2 (09:00→20:30)
[2021-04-20] MEDS: CHLORHEXIDINE GLUCONATE 0.12 % 15ML UDC (PERIDEX ORAL RINSE) MT SCH ×2 (09:00→20:31)
[2021-04-20] MEDS: ENOXAPARIN 30MG/0.3ML SYRINGE (J1650 PER 10MG) SC SCH (10:58)
[2021-04-20] MEDS: LACRILUBE (AKWA TEARS) OPHTH OINT 3.5 GM OU SCH ×3 (12:28→20:31)
[2021-04-20] MEDS: MICAFUNGIN SODIUM 100 MG in D5W MINI-BAG PLUS 100 ML IV SCH (14:51)
[2021-04-20] MEDS: ACETAMINOPHEN 325 MG/10.15 ML UDC GT PRN (20:43)
[2021-04-20] MEDS: LACTULOSE 20 GM/30 ML SYRUP UD PO SCH (21:03)
[2021-04-21] VITALS (28 sets, daily range): BP systolic 120–172; BP diastolic 66–96
[2021-04-21] MEDS: PIPERACILLIN/TAZOBACTAM SOD 3.375 GM in D5W MINI-BAG PLUS 50 ML IV SCH (03:05)
[2021-04-21] MEDS: LACTULOSE 20 GM/30 ML SYRUP UD PO SCH ×3 (05:01→21:47)
[2021-04-21 05:12] LABS: HEMATOCRIT 32.7 % (36.0-47.0); HEMOGLOBIN 9.7 g/dl (12.0-15.5); MEAN CORPUSCULAR HEMOGLOBIN 28.5 pg (27.0-33.0); MEAN CORPUSCULAR HGB CONC 29.7 g/dl (32.0-36.5); MEAN CORPUSCULAR VOLUME 96.2 fl (80.0-96.0); WHITE BLOOD COUNT 6.8 10^3/uL (4.0-10.0)
[2021-04-21 05:13] LABS: PLATELET COUNT, AUTOMATED 51 10^3/uL (150-450)
[2021-04-21] MEDS: HumaLOG INSULIN (NovoLOG) PER UNIT SC SCH ×3 (05:18→17:15)
[2021-04-21] MEDS: SODIUM CHLORIDE 0.9% INJ 10 ML SYR IV SCH ×3 (05:18→21:58)
[2021-04-21 05:38] LABS: ALBUMIN 2.4 GM/DL (3.2-5.2); ALT/SGPT 93 U/L (12-78); BILIRUBIN,TOTAL 2.7 MG/DL (0.2-1.0); BLOOD UREA NITROGEN 90 MG/DL (7-18); CALCIUM LEVEL 8.5 MG/DL (8.5-10.1); CARBON DIOXIDE LEVEL 44 MEQ/L (21-32); CHLORIDE LEVEL 105 MEQ/L (98-107); CREATININE FOR GFR 0.75 MG/DL (0.55-1.30); GLOMERULAR FILTRATION RATE > 60.0 (>60); GLUCOSE, FASTING 288 MG/DL (70-100); PHOSPHORUS LEVEL 4.3 MG/DL (2.5-4.9); POTASSIUM SERUM 4.8 MEQ/L (3.5-5.1); SODIUM LEVEL 151 MEQ/L (136-145); TOTAL PROTEIN 5.1 GM/DL (6.4-8.2)
[2021-04-21 05:57] LABS: ABG BASE EXCESS 18.1 (-2.0-2.0); ABG HCO3 42.2 MEQ/L (22.0-26.0); ABG O2 SATURATION 94.5 % (95.0-99.0); ABG PARTIAL PRESSURE CO2 47.3 mmHg (35.0-45.0); ABG PARTIAL PRESSURE O2 72.5 mmHg (75.0-100.0); ABG TOTAL CO2 43.6 MEQ/L (22.0-29.0); ABG pH (ARTERIAL) 7.568 UNITS (7.350-7.450)
[2021-04-21] MEDS: D5W/0.45% SODIUM CHLORIDE 1,000 ML IV SCH ×2 (07:34→16:22)
[2021-04-21] MEDS: PANTOPRAZOLE 40MG VIAL (C9113 PER 1) IV SCH ×2 (09:10→21:57)
[2021-04-21] MEDS: methylPREDNISolone 40MG 1ML VIAL IV SCH ×2 (09:11→21:48)
[2021-04-21] MEDS: CHLORHEXIDINE GLUCONATE 0.12 % 15ML UDC (PERIDEX ORAL RINSE) MT SCH ×2 (09:12→21:47)
[2021-04-21] MEDS: NYSTATIN CREAM 15 GM TOP SCH ×2 (09:12→21:49)
[2021-04-21] MEDS: LACRILUBE (AKWA TEARS) OPHTH OINT 3.5 GM OU SCH ×3 (09:12→21:48)
[2021-04-21] MEDS: rifAXIMin 550 MG TAB (XIFAXAN) GT SCH ×2 (09:12→21:57)
[2021-04-21] MEDS: MAGNESIUM OXIDE 400MG TAB (MAG-OX) GT SCH ×2 (09:12→21:48)
[2021-04-21] MEDS: GABAPENTIN 300 MG CAP GT SCH ×3 (09:13→21:47)
[2021-04-21] MEDS: cefTRIAXone SOD 1 GM in D5W MINI-BAG PLUS 50 ML IV SCH (11:47)
[2021-04-21] MEDS: MIDAZOLAM INJ 2MG/2ML VIAL (J2250 PER 1MG) IV PRN ×4 (14:01→18:43)
[2021-04-21 15:35] LABS: MAGNESIUM LEVEL 2.8 MG/DL (1.7-2.2)
[2021-04-21] MEDS: fentaNYL 100 MCG/2 ML INJECTION IV PRN (18:21)
[2021-04-21] MEDS ORDERED: REFRIGERATOR IV KEYS XX PRN (20:00)
[2021-04-21] MEDS: MIDAZOLAM HCL 100 MG in D5W 80 ML IV SCH (20:22)
[2021-04-21] MEDS ORDERED: LEVEMIR (INSULIN DETEMIR) 1 UNITS/0.01ML SC SCH (21:00)
[2021-04-22] VITALS (23 sets, daily range): BP systolic 109–142; BP diastolic 69–96
[2021-04-22] MEDS: HumaLOG INSULIN (NovoLOG) PER UNIT SC SCH ×4 (00:31→17:30)
[2021-04-22] MEDS: MIDAZOLAM INJ 2MG/2ML VIAL (J2250 PER 1MG) IV PRN ×2 (01:48→08:59)
[2021-04-22] MEDS: D5W/0.45% SODIUM CHLORIDE 1,000 ML IV SCH (02:29)
[2021-04-22 04:45] LABS: HEMATOCRIT 31.8 % (36.0-47.0); HEMOGLOBIN 9.4 g/dl (12.0-15.5); MEAN CORPUSCULAR HEMOGLOBIN 28.8 pg (27.0-33.0); MEAN CORPUSCULAR HGB CONC 29.6 g/dl (32.0-36.5); MEAN CORPUSCULAR VOLUME 97.5 fl (80.0-96.0); RED BLOOD COUNT 3.26 10^6/uL (4.00-5.40)
[2021-04-22 04:48] LABS: PLATELET COUNT, AUTOMATED 56 10^3/uL (150-450)
[2021-04-22 05:19] LABS: ALBUMIN 2.2 GM/DL (3.2-5.2); ALT/SGPT 110 U/L (12-78); BILIRUBIN,TOTAL 2.2 MG/DL (0.2-1.0); BLOOD UREA NITROGEN 51 MG/DL (7-18); CALCIUM LEVEL 8.2 MG/DL (8.5-10.1); CARBON DIOXIDE LEVEL 43 MEQ/L (21-32); CHLORIDE LEVEL 109 MEQ/L (98-107); CREATININE FOR GFR 0.46 MG/DL (0.55-1.30); GLOMERULAR FILTRATION RATE > 60.0 (>60); GLUCOSE, FASTING 281 MG/DL (70-100); POTASSIUM SERUM 4.4 MEQ/L (3.5-5.1); SODIUM LEVEL 153 MEQ/L (136-145); TOTAL PROTEIN 4.9 GM/DL (6.4-8.2)
[2021-04-22] MEDS: LACTULOSE 20 GM/30 ML SYRUP UD PO SCH (05:25)
[2021-04-22] MEDS: SODIUM CHLORIDE 0.9% INJ 10 ML SYR IV SCH (05:26)
[2021-04-22] MEDS: MAGNESIUM OXIDE 400MG TAB (MAG-OX) GT SCH (08:46)
[2021-04-22] MEDS: CHLORHEXIDINE GLUCONATE 0.12 % 15ML UDC (PERIDEX ORAL RINSE) MT SCH ×2 (08:46→20:14)
[2021-04-22] MEDS: PANTOPRAZOLE 40MG VIAL (C9113 PER 1) IV SCH ×2 (08:46→20:14)
[2021-04-22] MEDS: GABAPENTIN 300 MG CAP GT SCH (08:46)
[2021-04-22] MEDS: methylPREDNISolone 40MG 1ML VIAL IV SCH ×2 (08:47→20:14)
[2021-04-22] MEDS: rifAXIMin 550 MG TAB (XIFAXAN) GT SCH ×2 (08:47→20:14)
[2021-04-22] MEDS: LACRILUBE (AKWA TEARS) OPHTH OINT 3.5 GM OU SCH ×3 (08:47→20:18)
[2021-04-22] MEDS: NYSTATIN CREAM 15 GM TOP SCH ×2 (08:48→20:18)
[2021-04-22 09:17] LABS: ABG BASE EXCESS 11.8 (-2.0-2.0); ABG HCO3 36.2 MEQ/L (22.0-26.0); ABG O2 SATURATION 95.2 % (95.0-99.0); ABG PARTIAL PRESSURE CO2 46.7 mmHg (35.0-45.0); ABG PARTIAL PRESSURE O2 77.2 mmHg (75.0-100.0); ABG STANDARD HCO3 35.5 MEQ/L (22.0-26.0); ABG TOTAL CO2 37.6 MEQ/L (22.0-29.0); ABG pH (ARTERIAL) 7.507 UNITS (7.350-7.450)
[2021-04-22] MEDS: cefTRIAXone SOD 1 GM in D5W MINI-BAG PLUS 50 ML IV SCH (11:46)
[2021-04-22] MEDS: MIDAZOLAM HCL 100 MG in D5W 80 ML IV SCH (15:28)
[2021-04-22 15:43] LABS: BLOOD UREA NITROGEN 54 MG/DL (7-18); CALCIUM LEVEL 8.9 MG/DL (8.5-10.1); CARBON DIOXIDE LEVEL 41 MEQ/L (21-32); CHLORIDE LEVEL 106 MEQ/L (98-107); CREATININE FOR GFR 0.43 MG/DL (0.55-1.30); GLOMERULAR FILTRATION RATE > 60.0 (>60); GLUCOSE, FASTING 160 MG/DL (70-100); POTASSIUM SERUM 4.7 MEQ/L (3.5-5.1); SODIUM LEVEL 151 MEQ/L (136-145)
[2021-04-22] MEDS: LEVEMIR (INSULIN DETEMIR) 1 UNITS/0.01ML SC SCH (20:18)
[2021-04-23] VITALS (30 sets, daily range): BP systolic 120–149; BP diastolic 77–108
[2021-04-23] MEDS: HumaLOG INSULIN (NovoLOG) PER UNIT SC SCH ×5 (00:35→23:54)
[2021-04-23 05:34] LABS: HEMATOCRIT 33.6 % (36.0-47.0); HEMOGLOBIN 10.1 g/dl (12.0-15.5); MEAN CORPUSCULAR HEMOGLOBIN 28.9 pg (27.0-33.0); MEAN CORPUSCULAR HGB CONC 30.1 g/dl (32.0-36.5)
[2021-04-23 05:36] LABS: PLATELET COUNT, AUTOMATED 76 10^3/uL (150-450)
[2021-04-23 06:00] LABS: ALBUMIN 2.3 GM/DL (3.2-5.2); ALT/SGPT 127 U/L (12-78); BILIRUBIN,TOTAL 2.8 MG/DL (0.2-1.0); BLOOD UREA NITROGEN 60 MG/DL (7-18); CALCIUM LEVEL 8.8 MG/DL (8.5-10.1); CARBON DIOXIDE LEVEL 38 MEQ/L (21-32); CHLORIDE LEVEL 102 MEQ/L (98-107); CREATININE FOR GFR 0.52 MG/DL (0.55-1.30); GLOMERULAR FILTRATION RATE > 60.0 (>60); GLUCOSE, FASTING 191 MG/DL (70-100); POTASSIUM SERUM 4.2 MEQ/L (3.5-5.1); SODIUM LEVEL 143 MEQ/L (136-145); TOTAL PROTEIN 5.2 GM/DL (6.4-8.2)
[2021-04-23] MEDS: rifAXIMin 550 MG TAB (XIFAXAN) GT SCH ×2 (08:39→20:46)
[2021-04-23] MEDS: PANTOPRAZOLE 40MG VIAL (C9113 PER 1) IV SCH ×2 (08:40→20:47)
[2021-04-23] MEDS: LACRILUBE (AKWA TEARS) OPHTH OINT 3.5 GM OU SCH ×3 (08:40→20:48)
[2021-04-23] MEDS: CHLORHEXIDINE GLUCONATE 0.12 % 15ML UDC (PERIDEX ORAL RINSE) MT SCH ×2 (08:40→20:47)
[2021-04-23] MEDS: methylPREDNISolone 40MG 1ML VIAL IV SCH ×2 (08:40→20:48)
[2021-04-23] MEDS: NYSTATIN CREAM 15 GM TOP SCH ×2 (08:40→20:48)
[2021-04-23 09:15] LABS: ABG BASE EXCESS 12.2 (-2.0-2.0); ABG HCO3 35.9 MEQ/L (22.0-26.0); ABG O2 SATURATION 94.7 % (95.0-99.0); ABG PARTIAL PRESSURE CO2 42.7 mmHg (35.0-45.0); ABG PARTIAL PRESSURE O2 75.3 mmHg (75.0-100.0); ABG STANDARD HCO3 35.9 MEQ/L (22.0-26.0); ABG TOTAL CO2 37.2 MEQ/L (22.0-29.0); ABG pH (ARTERIAL) 7.543 UNITS (7.350-7.450)
[2021-04-23] MEDS ORDERED: VANCOMYCIN HCL 1,000 MG, VIAL MATE ADAPTER 1 EACH in NS 250 ML IV SCH (10:35)
[2021-04-23] MEDS: cefTRIAXone SOD 1 GM in D5W MINI-BAG PLUS 50 ML IV SCH (11:28)
[2021-04-23] MEDS: VANCOMYCIN HCL 750 MG, VIAL MATE ADAPTER 1 EACH in NS 250 ML IV SCH ×2 (12:33→20:48)
[2021-04-23] MEDS ORDERED: VANCOMYCIN HCL 750 MG, VIAL MATE ADAPTER 1 EACH in NS 250 ML IV ONE (14:00)
[2021-04-23] MEDS: MIDAZOLAM HCL 100 MG in D5W 80 ML IV SCH (15:11)
[2021-04-23] MEDS: MIDAZOLAM INJ 2MG/2ML VIAL (J2250 PER 1MG) IV PRN (17:09)
[2021-04-23 17:45] LABS: APPEARANCE, BODY FLUID CLEAR (CLEAR); ASCITES FL COLOR PALE YELLOW (COLORLESS); SOURCE, BODY FLUID ASCITES
[2021-04-23 17:50] LABS: SPEC. GRAVITY BODY FLUIDS 1.009 (NOT ESTABLISHED)
[2021-04-23 18:15] LABS: SOURCE, BODY FLUID ALBUMIN ASCITES; SOURCE, BODY FLUID GLUCOSE ASCITES; SOURCE, BODY FLUID TOT PROTEIN ASCITES; TOTAL PROTEIN, BODY FLUID 0.4 G/DL (NOT ESTABLISHED)
[2021-04-23] MEDS: LEVEMIR (INSULIN DETEMIR) 1 UNITS/0.01ML SC SCH (20:47)
[2021-04-24] VITALS (23 sets, daily range): BP systolic 101–129; BP diastolic 55–85
[2021-04-24] MEDS: VANCOMYCIN HCL 750 MG, VIAL MATE ADAPTER 1 EACH in NS 250 ML IV SCH ×2 (04:44→12:15)
[2021-04-24] MEDS: HumaLOG INSULIN (NovoLOG) PER UNIT SC SCH ×4 (06:05→23:01)
[2021-04-24 06:11] LABS: ABG BASE EXCESS 9.6 (-2.0-2.0); ABG HCO3 33.6 MEQ/L (22.0-26.0); ABG O2 SATURATION 96.1 % (95.0-99.0); ABG PARTIAL PRESSURE CO2 43.1 mmHg (35.0-45.0); ABG PARTIAL PRESSURE O2 85.1 mmHg (75.0-100.0); ABG STANDARD HCO3 33.3 MEQ/L (22.0-26.0); ABG TOTAL CO2 34.9 MEQ/L (22.0-29.0)
[2021-04-24 08:25] LABS: HEMATOCRIT 37.1 % (36.0-47.0); HEMOGLOBIN 11.4 g/dl (12.0-15.5); MEAN CORPUSCULAR HEMOGLOBIN 28.8 pg (27.0-33.0); MEAN CORPUSCULAR HGB CONC 30.7 g/dl (32.0-36.5); MEAN CORPUSCULAR VOLUME 93.7 fl (80.0-96.0); RED BLOOD COUNT 3.96 10^6/uL (4.00-5.40); WHITE BLOOD COUNT 19.7 10^3/uL (4.0-10.0)
[2021-04-24 08:26] LABS: PLATELET COUNT, AUTOMATED 99 10^3/uL (150-450)
[2021-04-24] MEDS: CHLORHEXIDINE GLUCONATE 0.12 % 15ML UDC (PERIDEX ORAL RINSE) MT SCH ×2 (08:28→20:53)
[2021-04-24] MEDS: PANTOPRAZOLE 40MG VIAL (C9113 PER 1) IV SCH ×2 (08:28→20:52)
[2021-04-24] MEDS: rifAXIMin 550 MG TAB (XIFAXAN) GT SCH ×2 (08:28→20:52)
[2021-04-24] MEDS: methylPREDNISolone 40MG 1ML VIAL IV SCH ×2 (08:29→20:53)
[2021-04-24] MEDS: NYSTATIN CREAM 15 GM TOP SCH ×2 (08:29→20:52)
[2021-04-24] MEDS: LACRILUBE (AKWA TEARS) OPHTH OINT 3.5 GM OU SCH ×3 (08:29→20:52)
[2021-04-24 08:47] LABS: BLOOD UREA NITROGEN 55 MG/DL (7-18); CALCIUM LEVEL 8.3 MG/DL (8.5-10.1); CARBON DIOXIDE LEVEL 31 MEQ/L (21-32); CHLORIDE LEVEL 98 MEQ/L (98-107); CREATININE FOR GFR 0.63 MG/DL (0.55-1.30); GLOMERULAR FILTRATION RATE > 60.0 (>60); GLUCOSE, FASTING 226 MG/DL (70-100); POTASSIUM SERUM 4.5 MEQ/L (3.5-5.1); SODIUM LEVEL 138 MEQ/L (136-145)
[2021-04-24 09:18] LABS: ATYPICAL LYMPH 3 % (0-5); LYMPHOCYTES 4 % (16-44); MONOCYTES 11 % (0-5); NEUTROPHILS 75 % (28-66)
[2021-04-24 09:23] LABS: ANISOCYTOSIS 2+; POLYCHROMASIA 1+
[2021-04-24 09:24] LABS: OVALOCYTES 1+; POIKILOCYTOSIS 1+; SCHISTOCYTES 1+; TEAR DROP CELLS 1+
[2021-04-24 09:25] LABS: PLATELET ESTIMATE DECREASED (NORMAL)
[2021-04-24] MEDS: IMIPENEM/CILASTATIN 500 MG in D5W MINI-BAG PLUS 100 ML IV SCH ×3 (11:03→22:56)
[2021-04-24] MEDS: MIDAZOLAM HCL 100 MG in D5W 80 ML IV SCH (15:29)
[2021-04-24] MEDS: LEVEMIR (INSULIN DETEMIR) 1 UNITS/0.01ML SC SCH (20:53)
[2021-04-25] VITALS (23 sets, daily range): BP systolic 93–122; BP diastolic 50–84
[2021-04-25] MEDS: IMIPENEM/CILASTATIN 500 MG in D5W MINI-BAG PLUS 100 ML IV SCH ×4 (05:05→23:14)
[2021-04-25 06:09] LABS: ABG BASE EXCESS 11.8 (-2.0-2.0); ABG HCO3 34.6 MEQ/L (22.0-26.0); ABG O2 SATURATION 94.6 % (95.0-99.0); ABG PARTIAL PRESSURE CO2 38.2 mmHg (35.0-45.0); ABG PARTIAL PRESSURE O2 70.6 mmHg (75.0-100.0); ABG STANDARD HCO3 35.4 MEQ/L (22.0-26.0); ABG TOTAL CO2 35.8 MEQ/L (22.0-29.0); ABG pH (ARTERIAL) 7.575 UNITS (7.350-7.450)
[2021-04-25] MEDS: HumaLOG INSULIN (NovoLOG) PER UNIT SC SCH ×4 (06:14→23:22)
[2021-04-25 07:06] LABS: HEMATOCRIT 32.4 % (36.0-47.0); HEMOGLOBIN 10.1 g/dl (12.0-15.5); MEAN CORPUSCULAR HEMOGLOBIN 29.1 pg (27.0-33.0); MEAN CORPUSCULAR HGB CONC 31.2 g/dl (32.0-36.5); MEAN CORPUSCULAR VOLUME 93.4 fl (80.0-96.0); PLATELET COUNT, AUTOMATED 82 10^3/uL (150-450); RED BLOOD COUNT 3.47 10^6/uL (4.00-5.40); WHITE BLOOD COUNT 13.8 10^3/uL (4.0-10.0)
[2021-04-25 07:29] LABS: BLOOD UREA NITROGEN 64 MG/DL (7-18); CALCIUM LEVEL 8.4 MG/DL (8.5-10.1); CARBON DIOXIDE LEVEL 34 MEQ/L (21-32); CHLORIDE LEVEL 99 MEQ/L (98-107); CREATININE FOR GFR 0.64 MG/DL (0.55-1.30); GLOMERULAR FILTRATION RATE > 60.0 (>60); GLUCOSE, FASTING 110 MG/DL (70-100); POTASSIUM SERUM 3.8 MEQ/L (3.5-5.1); SODIUM LEVEL 139 MEQ/L (136-145); VANCOMYCIN RANDOM 10.3 UG/ML
[2021-04-25 07:38] LABS: LYMPHOCYTES 6 % (16-44); MONOCYTES 4 % (0-5); MYELOCYTES 1 % (0-0); NEUTROPHILS 87 % (28-66)
[2021-04-25 07:40] LABS: ANISOCYTOSIS 3+; POIKILOCYTOSIS 1+; SCHISTOCYTES 1+
[2021-04-25 07:41] LABS: OVALOCYTES 1+
[2021-04-25 07:43] LABS: POLYCHROMASIA 1+; TEAR DROP CELLS 1+
[2021-04-25 07:45] LABS: PLATELET ESTIMATE DECREASED (NORMAL)
[2021-04-25] MEDS: CHLORHEXIDINE GLUCONATE 0.12 % 15ML UDC (PERIDEX ORAL RINSE) MT SCH ×2 (08:11→21:05)
[2021-04-25] MEDS: methylPREDNISolone 40MG 1ML VIAL IV SCH ×2 (08:11→21:05)
[2021-04-25] MEDS: PANTOPRAZOLE 40MG VIAL (C9113 PER 1) IV SCH ×2 (08:11→21:09)
[2021-04-25] MEDS: NYSTATIN CREAM 15 GM TOP SCH ×2 (08:12→21:10)
[2021-04-25] MEDS: LACRILUBE (AKWA TEARS) OPHTH OINT 3.5 GM OU SCH ×3 (08:12→21:09)
[2021-04-25] MEDS: rifAXIMin 550 MG TAB (XIFAXAN) GT SCH ×2 (08:14→21:05)
[2021-04-25] MEDS ORDERED: predniSONE 20 MG TAB PO SCH (09:00)
[2021-04-25] MEDS: VANCOMYCIN HCL 500 MG in D5W MINI-BAG PLUS 100 ML IV SCH ×2 (09:22→17:20)
[2021-04-25] MEDS: MIDAZOLAM HCL 100 MG in D5W 80 ML IV SCH (15:47)
[2021-04-25] MEDS: LEVEMIR (INSULIN DETEMIR) 1 UNITS/0.01ML SC SCH (21:06)
[2021-04-26] VITALS (18 sets, daily range): BP systolic 90–126; BP diastolic 53–81
[2021-04-26] MEDS: VANCOMYCIN HCL 500 MG in D5W MINI-BAG PLUS 100 ML IV SCH (01:26)
[2021-04-26] MEDS: IMIPENEM/CILASTATIN 500 MG in D5W MINI-BAG PLUS 100 ML IV SCH (04:40)
[2021-04-26 05:19] LABS: ABG BASE EXCESS 9.6 (-2.0-2.0); ABG HCO3 32.7 MEQ/L (22.0-26.0); ABG O2 SATURATION 95.9 % (95.0-99.0); ABG PARTIAL PRESSURE CO2 38.7 mmHg (35.0-45.0); ABG PARTIAL PRESSURE O2 81.2 mmHg (75.0-100.0); ABG STANDARD HCO3 33.3 MEQ/L (22.0-26.0); ABG TOTAL CO2 33.9 MEQ/L (22.0-29.0); ABG pH (ARTERIAL) 7.545 UNITS (7.350-7.450)
[2021-04-26] MEDS: HumaLOG INSULIN (NovoLOG) PER UNIT SC SCH ×3 (06:00→18:00)
[2021-04-26 08:00] LABS: BASO % 0.3 % (0.0-1.0); HEMATOCRIT 35.7 % (36.0-47.0); HEMOGLOBIN 11.2 g/dl (12.0-15.5); LYMPH # 0.8 10^3/uL (1.5-5.0); MEAN CORPUSCULAR HEMOGLOBIN 29.5 pg (27.0-33.0); MEAN CORPUSCULAR HGB CONC 31.4 g/dl (32.0-36.5); MEAN CORPUSCULAR VOLUME 93.9 fl (80.0-96.0); MONO # 0.8 10^3/uL (0.0-0.8); MONO % 5.2 % (2.0-8.0); NEUTROPHILS # 13.5 10^3/uL (1.5-8.5); WHITE BLOOD COUNT 15.4 10^3/uL (4.0-10.0)
[2021-04-26 08:03] LABS: PLATELET COUNT, AUTOMATED 86 10^3/uL (150-450)
[2021-04-26 08:18] LABS: BLOOD UREA NITROGEN 60 MG/DL (7-18); CALCIUM LEVEL 7.9 MG/DL (8.5-10.1); CARBON DIOXIDE LEVEL 33 MEQ/L (21-32); CHLORIDE LEVEL 98 MEQ/L (98-107); CREATININE FOR GFR 0.64 MG/DL (0.55-1.30); GLOMERULAR FILTRATION RATE > 60.0 (>60); GLUCOSE, FASTING 108 MG/DL (70-100); POTASSIUM SERUM 3.6 MEQ/L (3.5-5.1); SODIUM LEVEL 138 MEQ/L (136-145); VANCOMYCIN LEVEL TROUGH 21.4 UG/ML (10.0-20.0)
[2021-04-26] MEDS: CHLORHEXIDINE GLUCONATE 0.12 % 15ML UDC (PERIDEX ORAL RINSE) MT SCH ×2 (09:13→20:54)
[2021-04-26] MEDS: PANTOPRAZOLE 40MG VIAL (C9113 PER 1) IV SCH ×2 (09:13→20:54)
[2021-04-26] MEDS: rifAXIMin 550 MG TAB (XIFAXAN) GT SCH ×2 (09:13→20:54)
[2021-04-26] MEDS: METOCLOPRAMIDE INJ 10MG/2ML VIAL (J2765 PER 1) IV PRN (09:13)
[2021-04-26] MEDS: methylPREDNISolone 40MG 1ML VIAL IV SCH ×2 (09:13→20:53)
[2021-04-26] MEDS: LACRILUBE (AKWA TEARS) OPHTH OINT 3.5 GM OU SCH ×3 (09:14→20:53)
[2021-04-26] MEDS: NYSTATIN CREAM 15 GM TOP SCH ×2 (09:14→20:53)
[2021-04-26] MEDS: MEROPENEM INJ 1 GM in IV 1 EA IV SCH ×2 (10:31→17:09)
[2021-04-26] MEDS ORDERED: VANCOMYCIN HCL 750 MG, VIAL MATE ADAPTER 1 EACH in NS 250 ML IV SCH (12:00)
[2021-04-26] MEDS: fentaNYL 100 MCG/2 ML INJECTION IV PRN (14:01)
[2021-04-26] MEDS: METOCLOPRAMIDE INJ 10MG/2ML VIAL (J2765 PER 1) IV SCH ×2 (15:21→20:54)
[2021-04-26] MEDS: MIDAZOLAM HCL 100 MG in D5W 80 ML IV SCH (17:10)
[2021-04-26] MEDS: LEVEMIR (INSULIN DETEMIR) 1 UNITS/0.01ML SC SCH (20:54)
[2021-04-27] VITALS (21 sets, daily range): BP systolic 100–137; BP diastolic 58–84
[2021-04-27] MEDS: HumaLOG INSULIN (NovoLOG) PER UNIT SC SCH ×4 (00:06→18:44)
[2021-04-27] MEDS: MEROPENEM INJ 1 GM in IV 1 EA IV SCH ×3 (02:22→18:44)
[2021-04-27] MEDS: METOCLOPRAMIDE INJ 10MG/2ML VIAL (J2765 PER 1) IV SCH ×4 (02:22→21:48)
[2021-04-27] MEDS: MIDAZOLAM INJ 2MG/2ML VIAL (J2250 PER 1MG) IV PRN ×3 (04:10→19:39)
[2021-04-27 05:23] LABS: ABG BASE EXCESS 5.8 (-2.0-2.0); ABG HCO3 28.3 MEQ/L (22.0-26.0); ABG O2 SATURATION 96.7 % (95.0-99.0); ABG PARTIAL PRESSURE CO2 33.9 mmHg (35.0-45.0); ABG PARTIAL PRESSURE O2 92.2 mmHg (75.0-100.0); ABG STANDARD HCO3 29.7 MEQ/L (22.0-26.0); ABG TOTAL CO2 29.3 MEQ/L (22.0-29.0); ABG pH (ARTERIAL) 7.539 UNITS (7.350-7.450)
[2021-04-27 05:32] LABS: BASO % 0.2 % (0.0-1.0); HEMATOCRIT 36.8 % (36.0-47.0); HEMOGLOBIN 11.5 g/dl (12.0-15.5); LYMPH # 0.6 10^3/uL (1.5-5.0); LYMPH % 3.6 % (24.0-44.0); MEAN CORPUSCULAR HEMOGLOBIN 29.1 pg (27.0-33.0); MEAN CORPUSCULAR HGB CONC 31.3 g/dl (32.0-36.5); MEAN CORPUSCULAR VOLUME 93.2 fl (80.0-96.0); MONO # 0.7 10^3/uL (0.0-0.8); MONO % 4.6 % (2.0-8.0); NEUTROPHILS # 14.6 10^3/uL (1.5-8.5); NEUTROPHILS % 90.5 % (36.0-66.0); RED BLOOD COUNT 3.95 10^6/uL (4.00-5.40); WHITE BLOOD COUNT 16.1 10^3/uL (4.0-10.0)
[2021-04-27 05:33] LABS: PLATELET COUNT, AUTOMATED 89 10^3/uL (150-450)
[2021-04-27 05:53] LABS: BLOOD UREA NITROGEN 63 MG/DL (7-18); CALCIUM LEVEL 7.7 MG/DL (8.5-10.1); CARBON DIOXIDE LEVEL 30 MEQ/L (21-32); CHLORIDE LEVEL 97 MEQ/L (98-107); CREATININE FOR GFR 0.69 MG/DL (0.55-1.30); GLOMERULAR FILTRATION RATE > 60.0 (>60); GLUCOSE, FASTING 177 MG/DL (70-100); POTASSIUM SERUM 3.7 MEQ/L (3.5-5.1); SODIUM LEVEL 135 MEQ/L (136-145)
[2021-04-27] MEDS: CHLORHEXIDINE GLUCONATE 0.12 % 15ML UDC (PERIDEX ORAL RINSE) MT SCH ×2 (08:30→21:50)
[2021-04-27] MEDS: rifAXIMin 550 MG TAB (XIFAXAN) GT SCH ×2 (08:30→22:25)
[2021-04-27] MEDS: PANTOPRAZOLE 40MG VIAL (C9113 PER 1) IV SCH ×2 (08:30→21:48)
[2021-04-27] MEDS: methylPREDNISolone 40MG 1ML VIAL IV SCH ×2 (08:30→21:48)
[2021-04-27] MEDS: NYSTATIN CREAM 15 GM TOP SCH ×2 (08:31→21:50)
[2021-04-27] MEDS: LACRILUBE (AKWA TEARS) OPHTH OINT 3.5 GM OU SCH ×3 (08:31→21:49)
[2021-04-27 10:05] LABS: ALBUMIN 2.1 GM/DL (3.2-5.2); BILIRUBIN,DIRECT 1.6 MG/DL (0.0-0.2); TOTAL PROTEIN 5.5 GM/DL (6.4-8.2)
[2021-04-27] MEDS: fentaNYL 100 MCG/2 ML INJECTION IV PRN ×5 (10:29→21:49)
[2021-04-27] MEDS: LACTULOSE 20 GM/30 ML SYRUP UD PO SCH (12:36)
[2021-04-27] MEDS: MIDAZOLAM HCL 100 MG in D5W 80 ML IV SCH (13:07)
[2021-04-27] MEDS ORDERED: LIDOCAINE 1% MDV 20ML VIAL As Ordered ONE (16:00)
[2021-04-27] MEDS ORDERED: NS 500 ML IV ONE (21:40)
[2021-04-27] MEDS: LEVEMIR (INSULIN DETEMIR) 1 UNITS/0.01ML SC SCH (22:00)
[2021-04-27] MEDS: NS 1,000 ML IV SCH (23:02)
[2021-04-28] VITALS (21 sets, daily range): BP systolic 101–139; BP diastolic 59–87
[2021-04-28] MEDS: HumaLOG INSULIN (NovoLOG) PER UNIT SC SCH ×4 (00:22→18:09)
[2021-04-28] MEDS: MIDAZOLAM INJ 2MG/2ML VIAL (J2250 PER 1MG) IV PRN ×2 (00:40→16:46)
[2021-04-28] MEDS: MEROPENEM INJ 1 GM in IV 1 EA IV SCH (02:00)
[2021-04-28] MEDS: METOCLOPRAMIDE INJ 10MG/2ML VIAL (J2765 PER 1) IV SCH ×4 (03:00→20:24)
[2021-04-28] MEDS: fentaNYL 100 MCG/2 ML INJECTION IV PRN ×3 (04:37→15:43)
[2021-04-28 04:44] LABS: BASO % 0.1 % (0.0-1.0); HEMATOCRIT 30.5 % (36.0-47.0); LYMPH # 0.4 10^3/uL (1.5-5.0); LYMPH % 2.8 % (24.0-44.0); MEAN CORPUSCULAR HEMOGLOBIN 29.1 pg (27.0-33.0); MEAN CORPUSCULAR HGB CONC 30.8 g/dl (32.0-36.5); MEAN CORPUSCULAR VOLUME 94.4 fl (80.0-96.0); MONO # 0.7 10^3/uL (0.0-0.8); MONO % 4.3 % (2.0-8.0); NEUTROPHILS # 14.4 10^3/uL (1.5-8.5); NEUTROPHILS % 91.7 % (36.0-66.0); RED BLOOD COUNT 3.23 10^6/uL (4.00-5.40); WHITE BLOOD COUNT 15.7 10^3/uL (4.0-10.0)
[2021-04-28 04:46] LABS: HEMOGLOBIN 9.4 g/dl (12.0-15.5); PLATELET COUNT, AUTOMATED 59 10^3/uL (150-450)
[2021-04-28 05:12] LABS: ALBUMIN 1.8 GM/DL (3.2-5.2); ALT/SGPT 104 U/L (12-78); BILIRUBIN,TOTAL 2.5 MG/DL (0.2-1.0); BLOOD UREA NITROGEN 53 MG/DL (7-18); CALCIUM LEVEL 7.4 MG/DL (8.5-10.1); CARBON DIOXIDE LEVEL 32 MEQ/L (21-32); CHLORIDE LEVEL 102 MEQ/L (98-107); CREATININE FOR GFR 0.43 MG/DL (0.55-1.30); GLOMERULAR FILTRATION RATE > 60.0 (>60); GLUCOSE, FASTING 82 MG/DL (70-100); POTASSIUM SERUM 3.2 MEQ/L (3.5-5.1); SODIUM LEVEL 139 MEQ/L (136-145); TOTAL PROTEIN 4.6 GM/DL (6.4-8.2)
[2021-04-28 06:08] LABS: ABG BASE EXCESS 9.6 (-2.0-2.0); ABG HCO3 33.2 MEQ/L (22.0-26.0); ABG O2 SATURATION 95.8 % (95.0-99.0); ABG PARTIAL PRESSURE O2 79.9 mmHg (75.0-100.0); ABG STANDARD HCO3 33.3 MEQ/L (22.0-26.0); ABG TOTAL CO2 34.4 MEQ/L (22.0-29.0); ABG pH (ARTERIAL) 7.526 UNITS (7.350-7.450)
[2021-04-28] MEDS: NS 1,000 ML IV SCH ×3 (06:19→18:12)
[2021-04-28] MEDS ORDERED: LevoFLOXacin IV 500 MG in IV 1 EA IV SCH (08:30)
[2021-04-28] MEDS ORDERED: POTASSIUM CHLORIDE 10% LIQ 20 MEQ/15 ML UDC PO ONE (08:30)
[2021-04-28] MEDS ORDERED: LIDOCAINE 1% MDV 20ML VIAL As Ordered ONE (08:57)
[2021-04-28] MEDS: LACTULOSE 20 GM/30 ML SYRUP UD PO SCH (09:09)
[2021-04-28] MEDS: CHLORHEXIDINE GLUCONATE 0.12 % 15ML UDC (PERIDEX ORAL RINSE) MT SCH ×2 (09:09→20:23)
[2021-04-28] MEDS: PANTOPRAZOLE 40MG VIAL (C9113 PER 1) IV SCH ×2 (09:09→20:24)
[2021-04-28] MEDS: methylPREDNISolone 40MG 1ML VIAL IV SCH ×2 (09:09→20:24)
[2021-04-28] MEDS: rifAXIMin 550 MG TAB (XIFAXAN) GT SCH ×2 (09:10→20:23)
[2021-04-28] MEDS: LACRILUBE (AKWA TEARS) OPHTH OINT 3.5 GM OU SCH ×3 (09:11→20:24)
[2021-04-28] MEDS: NYSTATIN CREAM 15 GM TOP SCH ×2 (09:11→20:25)
[2021-04-28] MEDS: LevoFLOXacin IV 750 MG in IV 1 EA IV SCH (11:03)
[2021-04-28] MEDS: MIDAZOLAM HCL 100 MG in D5W 80 ML IV SCH (13:23)
[2021-04-28] MEDS: LEVALBUTEROL HFA 45MCG/ACT 15 GM INHALER INH PRN (17:08)
[2021-04-28] MEDS: LEVEMIR (INSULIN DETEMIR) 1 UNITS/0.01ML SC SCH (21:00)
[2021-04-29] VITALS (25 sets, daily range): BP systolic 104–141; BP diastolic 59–95
[2021-04-29] MEDS: METOCLOPRAMIDE INJ 10MG/2ML VIAL (J2765 PER 1) IV SCH ×4 (02:07→20:56)
[2021-04-29] MEDS: fentaNYL 100 MCG/2 ML INJECTION IV PRN ×4 (02:07→18:17)
[2021-04-29] MEDS: NS 1,000 ML IV SCH ×3 (02:07→17:03)
[2021-04-29] MEDS: MIDAZOLAM INJ 2MG/2ML VIAL (J2250 PER 1MG) IV PRN ×7 (02:53→20:37)
[2021-04-29 04:35] LABS: BASO % 0.1 % (0.0-1.0); HEMATOCRIT 31.3 % (36.0-47.0); HEMOGLOBIN 9.7 g/dl (12.0-15.5); LYMPH # 0.4 10^3/uL (1.5-5.0); LYMPH % 2.4 % (24.0-44.0); MEAN CORPUSCULAR HEMOGLOBIN 29.8 pg (27.0-33.0); MONO # 0.6 10^3/uL (0.0-0.8); MONO % 3.3 % (2.0-8.0); NEUTROPHILS # 15.6 10^3/uL (1.5-8.5); NEUTROPHILS % 93.4 % (36.0-66.0); RED BLOOD COUNT 3.26 10^6/uL (4.00-5.40); WHITE BLOOD COUNT 16.8 10^3/uL (4.0-10.0)
[2021-04-29 04:37] LABS: PLATELET COUNT, AUTOMATED 56 10^3/uL (150-450)
[2021-04-29 05:12] LABS: ALBUMIN 1.9 GM/DL (3.2-5.2); ALT/SGPT 108 U/L (12-78); BILIRUBIN,TOTAL 3.9 MG/DL (0.2-1.0); BLOOD UREA NITROGEN 44 MG/DL (7-18); CALCIUM LEVEL 7.8 MG/DL (8.5-10.1); CARBON DIOXIDE LEVEL 29 MEQ/L (21-32); CHLORIDE LEVEL 109 MEQ/L (98-107); CREATININE FOR GFR 0.42 MG/DL (0.55-1.30); GLOMERULAR FILTRATION RATE > 60.0 (>60); GLUCOSE, FASTING 146 MG/DL (70-100); POTASSIUM SERUM 4.1 MEQ/L (3.5-5.1); SODIUM LEVEL 144 MEQ/L (136-145); TOTAL PROTEIN 4.8 GM/DL (6.4-8.2)
[2021-04-29] MEDS: HumaLOG INSULIN (NovoLOG) PER UNIT SC SCH ×4 (05:26→18:00)
[2021-04-29 06:11] LABS: MAGNESIUM LEVEL 2.7 MG/DL (1.8-2.4)
[2021-04-29 06:12] LABS: ABG BASE EXCESS 4.3 (-2.0-2.0); ABG HCO3 26.7 MEQ/L (22.0-26.0); ABG O2 SATURATION 93.9 % (95.0-99.0); ABG PARTIAL PRESSURE CO2 32.2 mmHg (35.0-45.0); ABG STANDARD HCO3 28.3 MEQ/L (22.0-26.0); ABG TOTAL CO2 27.7 MEQ/L (22.0-29.0); ABG pH (ARTERIAL) 7.537 UNITS (7.350-7.450)
[2021-04-29] MEDS: CHLORHEXIDINE GLUCONATE 0.12 % 15ML UDC (PERIDEX ORAL RINSE) MT SCH ×2 (08:08→20:56)
[2021-04-29] MEDS: methylPREDNISolone 40MG 1ML VIAL IV SCH ×2 (08:09→20:56)
[2021-04-29] MEDS: LACTULOSE 20 GM/30 ML SYRUP UD PO SCH (08:09)
[2021-04-29] MEDS: rifAXIMin 550 MG TAB (XIFAXAN) GT SCH ×2 (08:09→20:55)
[2021-04-29] MEDS: PANTOPRAZOLE 40MG VIAL (C9113 PER 1) IV SCH ×2 (08:09→20:56)
[2021-04-29] MEDS: NYSTATIN CREAM 15 GM TOP SCH ×2 (08:10→20:57)
[2021-04-29] MEDS: LACRILUBE (AKWA TEARS) OPHTH OINT 3.5 GM OU SCH ×3 (08:11→20:57)
[2021-04-29] MEDS: LevoFLOXacin IV 750 MG in IV 1 EA IV SCH (09:38)
[2021-04-29] MEDS: LEVALBUTEROL HFA 45MCG/ACT 15 GM INHALER INH PRN ×3 (10:21→23:02)
[2021-04-29] MEDS ORDERED: PHENYLEPHRINE 0.5% NASAL SPRAY 15 ML As Ordered ONE (13:24)
[2021-04-29] MEDS ORDERED: LIDOCAINE W/EPINEPHRINE 1% 20ML VIAL As Ordered ONE (13:24)
[2021-04-29] MEDS: MIDAZOLAM HCL 100 MG in D5W 80 ML IV SCH ×2 (13:37→20:49)
[2021-04-29] MEDS ORDERED: ROCURONIUM BROMIDE 50 MG/5 ML VIAL As Ordered ONE ×2 (14:09→14:49)
[2021-04-29] MEDS ORDERED: fentaNYL 100 MCG/2 ML INJECTION As Ordered ONE (14:15)
[2021-04-29] MEDS ORDERED: PHENYLephrine 500MCG 5ML (100MCG/ML) SYRINGE As Ordered ONE (14:19)
[2021-04-29 16:14] LABS: HEMATOCRIT 29.6 % (36.0-47.0); HEMOGLOBIN 8.9 g/dl (12.0-15.5); MEAN CORPUSCULAR HEMOGLOBIN 29.9 pg (27.0-33.0); MEAN CORPUSCULAR HGB CONC 30.1 g/dl (32.0-36.5); MEAN CORPUSCULAR VOLUME 99.3 fl (80.0-96.0); RED BLOOD COUNT 2.98 10^6/uL (4.00-5.40); WHITE BLOOD COUNT 22.6 10^3/uL (4.0-10.0)
[2021-04-29 16:15] LABS: PLATELET COUNT, AUTOMATED 87 10^3/uL (150-450)
[2021-04-29] MEDS ORDERED: fentaNYL CITRATE 1,000 MCG in NS 80 ML IV SCH (20:20)
[2021-04-29] MEDS: LEVEMIR (INSULIN DETEMIR) 1 UNITS/0.01ML SC SCH (20:56)
[2021-04-29 20:58] LABS: HEMATOCRIT 29.3 % (36.0-47.0); HEMOGLOBIN 8.8 g/dl (12.0-15.5); MEAN CORPUSCULAR HEMOGLOBIN 29.7 pg (27.0-33.0); RED BLOOD COUNT 2.96 10^6/uL (4.00-5.40); WHITE BLOOD COUNT 25.1 10^3/uL (4.0-10.0)
[2021-04-29 21:04] LABS: PLATELET COUNT, AUTOMATED 90 10^3/uL (150-450)
[2021-04-29] MEDS: fentaNYL CITRATE 1,000 MCG in NS 80 ML IV SCH ×2 (21:10→21:27)
[2021-04-30] VITALS (23 sets, daily range): BP systolic 93–123; BP diastolic 55–74
[2021-04-30] MEDS: HumaLOG INSULIN (NovoLOG) PER UNIT SC SCH ×4 (00:01→18:03)
[2021-04-30] MEDS: fentaNYL 100 MCG/2 ML INJECTION IV PRN (00:34)
[2021-04-30] MEDS: METOCLOPRAMIDE INJ 10MG/2ML VIAL (J2765 PER 1) IV SCH ×4 (02:01→21:39)
[2021-04-30] MEDS ORDERED: NS 1,000 ML IV SCH (02:30)
[2021-04-30 04:54] LABS: BASO % 0.1 % (0.0-1.0); HEMATOCRIT 26.2 % (36.0-47.0); HEMOGLOBIN 7.8 g/dl (12.0-15.5); LYMPH # 0.6 10^3/uL (1.5-5.0); LYMPH % 3.4 % (24.0-44.0); MEAN CORPUSCULAR HEMOGLOBIN 30.1 pg (27.0-33.0); MEAN CORPUSCULAR HGB CONC 29.8 g/dl (32.0-36.5); MEAN CORPUSCULAR VOLUME 101.2 fl (80.0-96.0); MONO # 0.6 10^3/uL (0.0-0.8); MONO % 3.4 % (2.0-8.0); NEUTROPHILS # 16.7 10^3/uL (1.5-8.5); NEUTROPHILS % 91.4 % (36.0-66.0); RED BLOOD COUNT 2.59 10^6/uL (4.00-5.40); WHITE BLOOD COUNT 18.3 10^3/uL (4.0-10.0)
[2021-04-30 05:03] LABS: PLATELET COUNT, AUTOMATED 62 10^3/uL (150-450)
[2021-04-30 05:15] LABS: ALBUMIN 1.6 GM/DL (3.2-5.2); ALT/SGPT 93 U/L (12-78); BILIRUBIN,TOTAL 2.6 MG/DL (0.2-1.0); BLOOD UREA NITROGEN 43 MG/DL (7-18); C REACTIVE PROTEIN QUANTITATIV 1.95 MG/DL (0.00-0.30); CALCIUM LEVEL 7.8 MG/DL (8.5-10.1); CARBON DIOXIDE LEVEL 26 MEQ/L (21-32); CHLORIDE LEVEL 113 MEQ/L (98-107); CREATININE FOR GFR 0.48 MG/DL (0.55-1.30); GLOMERULAR FILTRATION RATE > 60.0 (>60); GLUCOSE, FASTING 116 MG/DL (70-100); SODIUM LEVEL 145 MEQ/L (136-145); TOTAL PROTEIN 4.2 GM/DL (6.4-8.2)
[2021-04-30] MEDS: rifAXIMin 550 MG TAB (XIFAXAN) GT SCH ×2 (08:39→21:40)
[2021-04-30] MEDS: PANTOPRAZOLE 40MG VIAL (C9113 PER 1) IV SCH ×2 (08:41→21:39)
[2021-04-30] MEDS: methylPREDNISolone 40MG 1ML VIAL IV SCH ×2 (08:41→21:39)
[2021-04-30] MEDS: MIDAZOLAM HCL 100 MG in D5W 80 ML IV SCH (08:41)
[2021-04-30] MEDS: CHLORHEXIDINE GLUCONATE 0.12 % 15ML UDC (PERIDEX ORAL RINSE) MT SCH ×2 (08:41→21:39)
[2021-04-30] MEDS: LACRILUBE (AKWA TEARS) OPHTH OINT 3.5 GM OU SCH ×3 (08:42→21:40)
[2021-04-30] MEDS: NYSTATIN CREAM 15 GM TOP SCH ×2 (08:42→22:03)
[2021-04-30] MEDS: LACTULOSE 20 GM/30 ML SYRUP UD PO SCH (08:46)
[2021-04-30] MEDS: LevoFLOXacin IV 750 MG in IV 1 EA IV SCH (09:21)
[2021-04-30 10:02] LABS: ABG BASE EXCESS 0.4 (-2.0-2.0); ABG HCO3 24.8 MEQ/L (22.0-26.0); ABG O2 SATURATION 91.8 % (95.0-99.0); ABG PARTIAL PRESSURE CO2 39.1 mmHg (35.0-45.0); ABG PARTIAL PRESSURE O2 68.3 mmHg (75.0-100.0); ABG STANDARD HCO3 24.8 MEQ/L (22.0-26.0); ABG pH (ARTERIAL) 7.421 UNITS (7.350-7.450)
[2021-04-30] MEDS: fentaNYL CITRATE 1,000 MCG in NS 80 ML IV SCH (12:28)
[2021-04-30 17:42] LABS: HEMATOCRIT 26.9 % (36.0-47.0); HEMOGLOBIN 7.8 g/dl (12.0-15.5); MEAN CORPUSCULAR HEMOGLOBIN 29.8 pg (27.0-33.0); MEAN CORPUSCULAR VOLUME 102.7 fl (80.0-96.0); RED BLOOD COUNT 2.62 10^6/uL (4.00-5.40)
[2021-04-30 17:48] LABS: PLATELET COUNT, AUTOMATED 64 10^3/uL (150-450)
[2021-04-30 18:10] LABS: BLOOD UREA NITROGEN 46 MG/DL (7-18); CALCIUM LEVEL 7.4 MG/DL (8.5-10.1); CARBON DIOXIDE LEVEL 26 MEQ/L (21-32); CHLORIDE LEVEL 113 MEQ/L (98-107); CREATININE FOR GFR 0.42 MG/DL (0.55-1.30); GLOMERULAR FILTRATION RATE > 60.0 (>60); GLUCOSE, FASTING 139 MG/DL (70-100); POTASSIUM SERUM 4.1 MEQ/L (3.5-5.1); SODIUM LEVEL 146 MEQ/L (136-145)
[2021-04-30] MEDS: LEVEMIR (INSULIN DETEMIR) 1 UNITS/0.01ML SC SCH (22:26)
[2021-05-01] VITALS (29 sets, daily range): BP systolic 92–121; BP diastolic 52–67
[2021-05-01] MEDS: HumaLOG INSULIN (NovoLOG) PER UNIT SC SCH ×5 (01:05→23:53)
[2021-05-01] MEDS: MIDAZOLAM HCL 100 MG in D5W 80 ML IV SCH ×2 (01:07→21:16)
[2021-05-01] MEDS: fentaNYL 100 MCG/2 ML INJECTION IV PRN ×4 (01:22→16:14)
[2021-05-01] MEDS: METOCLOPRAMIDE INJ 10MG/2ML VIAL (J2765 PER 1) IV SCH ×4 (03:21→20:23)
[2021-05-01] MEDS: LEVALBUTEROL HFA 45MCG/ACT 15 GM INHALER INH PRN (03:51)
[2021-05-01] MEDS: fentaNYL CITRATE 1,000 MCG in NS 80 ML IV SCH (08:14)
[2021-05-01] MEDS: rifAXIMin 550 MG TAB (XIFAXAN) GT SCH ×2 (08:14→20:22)
[2021-05-01] MEDS: methylPREDNISolone 40MG 1ML VIAL IV SCH ×2 (08:17→20:22)
[2021-05-01] MEDS: CHLORHEXIDINE GLUCONATE 0.12 % 15ML UDC (PERIDEX ORAL RINSE) MT SCH ×2 (08:17→20:22)
[2021-05-01] MEDS: PANTOPRAZOLE 40MG VIAL (C9113 PER 1) IV SCH ×2 (08:17→20:22)
[2021-05-01] MEDS: LACTULOSE 20 GM/30 ML SYRUP UD PO SCH (08:17)
[2021-05-01] MEDS: LACRILUBE (AKWA TEARS) OPHTH OINT 3.5 GM OU SCH ×3 (08:18→20:23)
[2021-05-01] MEDS: NYSTATIN CREAM 15 GM TOP SCH ×2 (08:19→23:00)
[2021-05-01 08:44] LABS: HEMATOCRIT 25.6 % (36.0-47.0); HEMOGLOBIN 7.4 g/dl (12.0-15.5); MEAN CORPUSCULAR HEMOGLOBIN 29.8 pg (27.0-33.0); MEAN CORPUSCULAR HGB CONC 28.9 g/dl (32.0-36.5); MEAN CORPUSCULAR VOLUME 103.2 fl (80.0-96.0); PLATELET COUNT, AUTOMATED 59 10^3/uL (150-450); RED BLOOD COUNT 2.48 10^6/uL (4.00-5.40)
[2021-05-01] MEDS ORDERED: FONDAPARINUX SODIUM 2.5 MG/0.5 ML SYR (J1652 PER 0.5MG) SC SCH (09:00)
[2021-05-01 09:05] LABS: ALBUMIN 1.6 GM/DL (3.2-5.2); ALT/SGPT 96 U/L (12-78); BILIRUBIN,TOTAL 1.5 MG/DL (0.2-1.0); BLOOD UREA NITROGEN 51 MG/DL (7-18); CALCIUM LEVEL 7.7 MG/DL (8.5-10.1); CARBON DIOXIDE LEVEL 27 MEQ/L (21-32); CHLORIDE LEVEL 112 MEQ/L (98-107); CREATININE FOR GFR 0.48 MG/DL (0.55-1.30); GLOMERULAR FILTRATION RATE > 60.0 (>60); GLUCOSE, FASTING 195 MG/DL (70-100); POTASSIUM SERUM 4.5 MEQ/L (3.5-5.1); SODIUM LEVEL 144 MEQ/L (136-145); TOTAL PROTEIN 4.3 GM/DL (6.4-8.2)
[2021-05-01 10:10] LABS: ABG BASE EXCESS -1.2 (-2.0-2.0); ABG HCO3 25.3 MEQ/L (22.0-26.0); ABG O2 SATURATION 98.6 % (95.0-99.0); ABG PARTIAL PRESSURE CO2 51.8 mmHg (35.0-45.0); ABG PARTIAL PRESSURE O2 130.7 mmHg (75.0-100.0); ABG STANDARD HCO3 23.5 MEQ/L (22.0-26.0); ABG TOTAL CO2 26.9 MEQ/L (22.0-29.0); ABG pH (ARTERIAL) 7.307 UNITS (7.350-7.450)
[2021-05-01] MEDS: LevoFLOXacin IV 750 MG in IV 1 EA IV SCH (10:18)
[2021-05-01] MEDS: LEVEMIR (INSULIN DETEMIR) 1 UNITS/0.01ML SC SCH (20:23)
[2021-05-02] VITALS (26 sets, daily range): BP systolic 94–126; BP diastolic 51–71
[2021-05-02] MEDS: METOCLOPRAMIDE INJ 10MG/2ML VIAL (J2765 PER 1) IV SCH ×4 (03:28→20:24)
[2021-05-02] MEDS: fentaNYL 100 MCG/2 ML INJECTION IV PRN ×3 (03:29→20:23)
[2021-05-02] MEDS: fentaNYL CITRATE 1,000 MCG in NS 80 ML IV SCH (04:30)
[2021-05-02 05:52] LABS: ABG BASE EXCESS -1.5 (-2.0-2.0); ABG O2 SATURATION 96.7 % (95.0-99.0); ABG PARTIAL PRESSURE CO2 43.8 mmHg (35.0-45.0); ABG PARTIAL PRESSURE O2 99.6 mmHg (75.0-100.0); ABG STANDARD HCO3 23.2 MEQ/L (22.0-26.0); ABG TOTAL CO2 25.3 MEQ/L (22.0-29.0); ABG pH (ARTERIAL) 7.356 UNITS (7.350-7.450)
[2021-05-02] MEDS: HumaLOG INSULIN (NovoLOG) PER UNIT SC SCH ×3 (05:59→17:03)
[2021-05-02 06:10] LABS: HEMATOCRIT 29.4 % (36.0-47.0); HEMOGLOBIN 8.9 g/dl (12.0-15.5); MEAN CORPUSCULAR HEMOGLOBIN 30.1 pg (27.0-33.0); MEAN CORPUSCULAR HGB CONC 30.3 g/dl (32.0-36.5); MEAN CORPUSCULAR VOLUME 99.3 fl (80.0-96.0); RED BLOOD COUNT 2.96 10^6/uL (4.00-5.40); WHITE BLOOD COUNT 10.5 10^3/uL (4.0-10.0)
[2021-05-02 06:13] LABS: PLATELET COUNT, AUTOMATED 33 10^3/uL (150-450)
[2021-05-02 06:42] LABS: ALBUMIN 1.6 GM/DL (3.2-5.2); ALT/SGPT 96 U/L (12-78); BILIRUBIN,TOTAL 1.8 MG/DL (0.2-1.0); BLOOD UREA NITROGEN 56 MG/DL (7-18); CALCIUM LEVEL 7.5 MG/DL (8.5-10.1); CARBON DIOXIDE LEVEL 28 MEQ/L (21-32); CHLORIDE LEVEL 111 MEQ/L (98-107); GLOMERULAR FILTRATION RATE > 60.0 (>60); GLUCOSE, FASTING 194 MG/DL (70-100); SODIUM LEVEL 143 MEQ/L (136-145); TOTAL PROTEIN 4.1 GM/DL (6.4-8.2)
[2021-05-02] MEDS: PANTOPRAZOLE 40MG VIAL (C9113 PER 1) IV SCH ×2 (08:19→20:24)
[2021-05-02] MEDS: methylPREDNISolone 40MG 1ML VIAL IV SCH ×2 (08:19→20:24)
[2021-05-02] MEDS: rifAXIMin 550 MG TAB (XIFAXAN) GT SCH ×2 (08:20→20:21)
[2021-05-02] MEDS: LACTULOSE 20 GM/30 ML SYRUP UD PO SCH (08:20)
[2021-05-02] MEDS: CHLORHEXIDINE GLUCONATE 0.12 % 15ML UDC (PERIDEX ORAL RINSE) MT SCH ×2 (08:20→20:23)
[2021-05-02] MEDS: LACRILUBE (AKWA TEARS) OPHTH OINT 3.5 GM OU SCH ×3 (08:21→20:31)
[2021-05-02] MEDS: NYSTATIN CREAM 15 GM TOP SCH ×2 (08:21→20:31)
[2021-05-02] MEDS: MIDODRINE 5 MG TAB PO SCH ×3 (09:43→16:25)
[2021-05-02] MEDS: LevoFLOXacin IV 750 MG in IV 1 EA IV SCH (09:43)
[2021-05-02 10:10] LABS: INR 1.65; PARTIAL THROMBOPLASTIN TIME 36.1 SECONDS (25.9-37.0); PROTHROMBIN TIME 19.9 SECONDS (12.7-14.5)
[2021-05-02 10:22] LABS: FIBRINOGEN 76 MG/DL (268-480)
[2021-05-02] MEDS: FUROSEMIDE 40MG/4ML VIAL (J1940) IV SCH ×2 (10:28→17:03)
[2021-05-02 10:32] LABS: D-DIMER QUANT > 4000.00 ng/ml (<500)
[2021-05-02] MEDS: MIDAZOLAM INJ 2MG/2ML VIAL (J2250 PER 1MG) IV PRN ×3 (12:23→21:54)
[2021-05-02] MEDS: MIDAZOLAM HCL 100 MG in D5W 80 ML IV SCH ×2 (17:00→22:55)
[2021-05-02] MEDS: LEVEMIR (INSULIN DETEMIR) 1 UNITS/0.01ML SC SCH (20:23)
[2021-05-03] VITALS (26 sets, daily range): BP systolic 110–142; BP diastolic 57–81
[2021-05-03] MEDS: HumaLOG INSULIN (NovoLOG) PER UNIT SC SCH ×5 (00:29→23:35)
[2021-05-03] MEDS: fentaNYL 100 MCG/2 ML INJECTION IV PRN ×3 (01:54→13:11)
[2021-05-03] MEDS: METOCLOPRAMIDE INJ 10MG/2ML VIAL (J2765 PER 1) IV SCH ×2 (02:58→14:50)
[2021-05-03] MEDS: MIDAZOLAM INJ 2MG/2ML VIAL (J2250 PER 1MG) IV PRN ×9 (02:58→14:42)
[2021-05-03] MEDS: fentaNYL CITRATE 1,000 MCG in NS 80 ML IV SCH ×2 (04:25→19:46)
[2021-05-03 05:13] LABS: HEMATOCRIT 25.1 % (36.0-47.0); HEMOGLOBIN 7.7 g/dl (12.0-15.5); MEAN CORPUSCULAR HEMOGLOBIN 30.1 pg (27.0-33.0); MEAN CORPUSCULAR HGB CONC 30.7 g/dl (32.0-36.5); RED BLOOD COUNT 2.56 10^6/uL (4.00-5.40); WHITE BLOOD COUNT 6.9 10^3/uL (4.0-10.0)
[2021-05-03 05:20] LABS: PLATELET COUNT, AUTOMATED 24 10^3/uL (150-450)
[2021-05-03 05:53] LABS: ABG BASE EXCESS 3.4 (-2.0-2.0); ABG HCO3 27.9 MEQ/L (22.0-26.0); ABG O2 SATURATION 96.4 % (95.0-99.0); ABG PARTIAL PRESSURE CO2 41.9 mmHg (35.0-45.0); ABG STANDARD HCO3 27.5 MEQ/L (22.0-26.0); ABG TOTAL CO2 29.2 MEQ/L (22.0-29.0); ABG pH (ARTERIAL) 7.441 UNITS (7.350-7.450)
[2021-05-03 06:04] LABS: ALT/SGPT 84 U/L (12-78); BILIRUBIN,TOTAL 1.6 MG/DL (0.2-1.0); BLOOD UREA NITROGEN 60 MG/DL (7-18); CALCIUM LEVEL 7.9 MG/DL (8.5-10.1); CARBON DIOXIDE LEVEL 29 MEQ/L (21-32); CHLORIDE LEVEL 111 MEQ/L (98-107); CREATININE FOR GFR 0.48 MG/DL (0.55-1.30); GLOMERULAR FILTRATION RATE > 60.0 (>60); GLUCOSE, FASTING 138 MG/DL (70-100); POTASSIUM SERUM 4.5 MEQ/L (3.5-5.1); SODIUM LEVEL 144 MEQ/L (136-145); TOTAL PROTEIN 4.2 GM/DL (6.4-8.2)
[2021-05-03] MEDS: MIDODRINE 5 MG TAB PO SCH ×3 (08:26→16:09)
[2021-05-03] MEDS ORDERED: predniSONE 10 MG TAB PO SCH (09:00)
[2021-05-03] MEDS: CHLORHEXIDINE GLUCONATE 0.12 % 15ML UDC (PERIDEX ORAL RINSE) MT SCH ×2 (09:18→21:00)
[2021-05-03] MEDS: LACTULOSE 20 GM/30 ML SYRUP UD PO SCH (09:18)
[2021-05-03] MEDS: rifAXIMin 550 MG TAB (XIFAXAN) GT SCH ×2 (09:19→21:00)
[2021-05-03] MEDS: PANTOPRAZOLE 40MG VIAL (C9113 PER 1) IV SCH ×2 (09:19→21:00)
[2021-05-03] MEDS: methylPREDNISolone 40MG 1ML VIAL IV SCH ×2 (09:19→21:00)
[2021-05-03] MEDS: FUROSEMIDE 40MG/4ML VIAL (J1940) IV SCH ×2 (09:19→16:55)
[2021-05-03] MEDS: LACRILUBE (AKWA TEARS) OPHTH OINT 3.5 GM OU SCH ×3 (09:20→21:01)
[2021-05-03] MEDS: NYSTATIN CREAM 15 GM TOP SCH ×2 (09:20→21:01)
[2021-05-03] MEDS ORDERED: SODIUM CHLORIDE 0.9% INJ 10 ML SYR IV PRN (18:05)
[2021-05-03] MEDS: SODIUM CHLORIDE 0.9% INJ 10 ML SYR IV SCH (18:09)
[2021-05-03] MEDS: LEVEMIR (INSULIN DETEMIR) 1 UNITS/0.01ML SC SCH (21:01)
[2021-05-03] MEDS: MIDAZOLAM HCL 100 MG in D5W 80 ML IV SCH (23:27)
[2021-05-04] VITALS (32 sets, daily range): BP systolic 107–119; BP diastolic 50–80; O2SAT 94
[2021-05-04] MEDS: METOCLOPRAMIDE INJ 10MG/2ML VIAL (J2765 PER 1) IV SCH ×2 (03:32→15:30)
[2021-05-04 05:06] LABS: HEMATOCRIT 23.3 % (36.0-47.0); MEAN CORPUSCULAR HEMOGLOBIN 30.2 pg (27.0-33.0); MEAN CORPUSCULAR VOLUME 100.4 fl (80.0-96.0); RED BLOOD COUNT 2.32 10^6/uL (4.00-5.40); WHITE BLOOD COUNT 5.8 10^3/uL (4.0-10.0)
[2021-05-04 05:08] LABS: PLATELET COUNT, AUTOMATED 20 10^3/uL (150-450)
[2021-05-04 05:29] LABS: ALBUMIN 2.3 GM/DL (3.2-5.2); ALT/SGPT 78 U/L (12-78); BILIRUBIN,TOTAL 1.5 MG/DL (0.2-1.0); BLOOD UREA NITROGEN 65 MG/DL (7-18); CALCIUM LEVEL 7.9 MG/DL (8.5-10.1); CARBON DIOXIDE LEVEL 31 MEQ/L (21-32); CHLORIDE LEVEL 111 MEQ/L (98-107); CREATININE FOR GFR 0.44 MG/DL (0.55-1.30); GLOMERULAR FILTRATION RATE > 60.0 (>60); GLUCOSE, FASTING 156 MG/DL (70-100); POTASSIUM SERUM 4.4 MEQ/L (3.5-5.1); SODIUM LEVEL 148 MEQ/L (136-145); TOTAL PROTEIN 4.5 GM/DL (6.4-8.2)
[2021-05-04] MEDS: fentaNYL CITRATE 1,000 MCG in NS 80 ML IV SCH ×3 (05:38→23:16)
[2021-05-04] MEDS: SODIUM CHLORIDE 0.9% INJ 10 ML SYR IV SCH ×2 (05:38→17:20)
[2021-05-04 05:41] LABS: ABG BASE EXCESS 1.5 (-2.0-2.0); ABG HCO3 26.9 MEQ/L (22.0-26.0); ABG PARTIAL PRESSURE CO2 46.8 mmHg (35.0-45.0); ABG PARTIAL PRESSURE O2 81.8 mmHg (75.0-100.0); ABG STANDARD HCO3 25.8 MEQ/L (22.0-26.0); ABG TOTAL CO2 28.4 MEQ/L (22.0-29.0); ABG pH (ARTERIAL) 7.378 UNITS (7.350-7.450)
[2021-05-04] MEDS: HumaLOG INSULIN (NovoLOG) PER UNIT SC SCH ×4 (05:46→23:37)
[2021-05-04] MEDS: FUROSEMIDE 40MG/4ML VIAL (J1940) IV SCH ×2 (08:54→17:18)
[2021-05-04] MEDS: PANTOPRAZOLE 40MG VIAL (C9113 PER 1) IV SCH ×2 (08:54→20:07)
[2021-05-04] MEDS: rifAXIMin 550 MG TAB (XIFAXAN) GT SCH ×2 (08:55→20:06)
[2021-05-04] MEDS: MIDODRINE 5 MG TAB PO SCH ×3 (08:55→15:30)
[2021-05-04] MEDS: methylPREDNISolone 40MG 1ML VIAL IV SCH (08:55)
[2021-05-04] MEDS: LACTULOSE 20 GM/30 ML SYRUP UD PO SCH (08:55)
[2021-05-04] MEDS: CHLORHEXIDINE GLUCONATE 0.12 % 15ML UDC (PERIDEX ORAL RINSE) MT SCH ×2 (08:55→20:05)
[2021-05-04] MEDS: NYSTATIN CREAM 15 GM TOP SCH ×2 (08:56→20:08)
[2021-05-04] MEDS: LACRILUBE (AKWA TEARS) OPHTH OINT 3.5 GM OU SCH ×3 (08:56→20:07)
[2021-05-04] MEDS: LEVEMIR (INSULIN DETEMIR) 1 UNITS/0.01ML SC SCH (20:06)
[2021-05-04] MEDS: MIDAZOLAM HCL 100 MG in D5W 80 ML IV SCH ×2 (22:38→23:16)
[2021-05-05] VITALS (24 sets, daily range): BP systolic 103–125; BP diastolic 56–75
[2021-05-05] MEDS: METOCLOPRAMIDE INJ 10MG/2ML VIAL (J2765 PER 1) IV SCH ×2 (02:11→14:19)
[2021-05-05 04:18] LABS: HEMATOCRIT 26.3 % (36.0-47.0); HEMOGLOBIN 8.2 g/dl (12.0-15.5); MEAN CORPUSCULAR HEMOGLOBIN 30.5 pg (27.0-33.0); MEAN CORPUSCULAR HGB CONC 31.2 g/dl (32.0-36.5); MEAN CORPUSCULAR VOLUME 97.8 fl (80.0-96.0); RED BLOOD COUNT 2.69 10^6/uL (4.00-5.40); WHITE BLOOD COUNT 5.1 10^3/uL (4.0-10.0)
[2021-05-05 04:21] LABS: PLATELET COUNT, AUTOMATED 15 10^3/uL (150-450)
[2021-05-05 04:41] LABS: ALBUMIN 2.6 GM/DL (3.2-5.2); ALT/SGPT 72 U/L (12-78); BILIRUBIN,TOTAL 1.7 MG/DL (0.2-1.0); BLOOD UREA NITROGEN 60 MG/DL (7-18); CARBON DIOXIDE LEVEL 32 MEQ/L (21-32); CHLORIDE LEVEL 108 MEQ/L (98-107); CREATININE FOR GFR 0.37 MG/DL (0.55-1.30); GLOMERULAR FILTRATION RATE > 60.0 (>60); GLUCOSE, FASTING 138 MG/DL (70-100); POTASSIUM SERUM 3.6 MEQ/L (3.5-5.1); SODIUM LEVEL 146 MEQ/L (136-145); TOTAL PROTEIN 4.7 GM/DL (6.4-8.2)
[2021-05-05] MEDS: HumaLOG INSULIN (NovoLOG) PER UNIT SC SCH ×3 (05:25→17:54)
[2021-05-05] MEDS: SODIUM CHLORIDE 0.9% INJ 10 ML SYR IV SCH ×2 (05:26→17:53)
[2021-05-05] MEDS: MIDODRINE 5 MG TAB PO SCH ×3 (08:01→15:57)
[2021-05-05] MEDS: LACRILUBE (AKWA TEARS) OPHTH OINT 3.5 GM OU SCH ×3 (08:05→20:35)
[2021-05-05] MEDS: rifAXIMin 550 MG TAB (XIFAXAN) GT SCH ×2 (08:08→20:35)
[2021-05-05] MEDS: NYSTATIN CREAM 15 GM TOP SCH ×2 (08:08→20:36)
[2021-05-05] MEDS: CHLORHEXIDINE GLUCONATE 0.12 % 15ML UDC (PERIDEX ORAL RINSE) MT SCH ×2 (08:10→20:35)
[2021-05-05] MEDS: LACTULOSE 20 GM/30 ML SYRUP UD PO SCH (08:11)
[2021-05-05] MEDS: methylPREDNISolone 40MG 1ML VIAL IV SCH (08:11)
[2021-05-05] MEDS: PANTOPRAZOLE 40MG VIAL (C9113 PER 1) IV SCH ×2 (08:11→20:35)
[2021-05-05] MEDS: fentaNYL CITRATE 1,000 MCG in NS 80 ML IV SCH ×2 (08:26→18:09)
[2021-05-05 09:40] LABS: ABG BASE EXCESS 4.1 (-2.0-2.0); ABG PARTIAL PRESSURE CO2 38.9 mmHg (35.0-45.0); ABG PARTIAL PRESSURE O2 167.5 mmHg (75.0-100.0); ABG STANDARD HCO3 28.2 MEQ/L (22.0-26.0); ABG TOTAL CO2 29.2 MEQ/L (22.0-29.0); ABG pH (ARTERIAL) 7.475 UNITS (7.350-7.450)
[2021-05-05] MEDS: MIDAZOLAM INJ 2MG/2ML VIAL (J2250 PER 1MG) IV PRN (09:45)
[2021-05-05] MEDS: fentaNYL 100 MCG/2 ML INJECTION IV PRN (10:33)
[2021-05-05] MEDS: FUROSEMIDE 40MG/4ML VIAL (J1940) IV SCH (13:38)
[2021-05-05] MEDS: SPIRONOLACTONE 50 MG TAB GT SCH (13:39)
[2021-05-05] MEDS: LEVEMIR (INSULIN DETEMIR) 1 UNITS/0.01ML SC SCH (20:37)
[2021-05-06] VITALS (32 sets, daily range): BP systolic 108–139; BP diastolic 55–92
[2021-05-06] MEDS: HumaLOG INSULIN (NovoLOG) PER UNIT SC SCH ×4 (00:09→17:50)
[2021-05-06] MEDS: FUROSEMIDE 40MG/4ML VIAL (J1940) IV SCH ×2 (00:09→16:21)
[2021-05-06] MEDS: METOCLOPRAMIDE INJ 10MG/2ML VIAL (J2765 PER 1) IV SCH ×2 (04:18→15:37)
[2021-05-06] MEDS: fentaNYL CITRATE 1,000 MCG in NS 80 ML IV SCH (05:02)
[2021-05-06] MEDS: SODIUM CHLORIDE 0.9% INJ 10 ML SYR IV SCH ×2 (06:00→17:49)
[2021-05-06 06:18] LABS: ABG BASE EXCESS 6.8 (-2.0-2.0); ABG HCO3 31.6 MEQ/L (22.0-26.0); ABG O2 SATURATION 93.2 % (95.0-99.0); ABG PARTIAL PRESSURE CO2 47.2 mmHg (35.0-45.0); ABG PARTIAL PRESSURE O2 70.2 mmHg (75.0-100.0); ABG STANDARD HCO3 30.6 MEQ/L (22.0-26.0); ABG pH (ARTERIAL) 7.443 UNITS (7.350-7.450)
[2021-05-06] MEDS: PANTOPRAZOLE 40MG VIAL (C9113 PER 1) IV SCH ×2 (07:52→21:12)
[2021-05-06] MEDS: LACTULOSE 20 GM/30 ML SYRUP UD PO SCH (07:52)
[2021-05-06] MEDS: SPIRONOLACTONE 50 MG TAB GT SCH (07:52)
[2021-05-06] MEDS: methylPREDNISolone 40MG 1ML VIAL IV SCH (07:53)
[2021-05-06] MEDS: CHLORHEXIDINE GLUCONATE 0.12 % 15ML UDC (PERIDEX ORAL RINSE) MT SCH ×2 (07:53→21:12)
[2021-05-06] MEDS: MIDODRINE 5 MG TAB PO SCH ×3 (07:53→15:37)
[2021-05-06] MEDS: rifAXIMin 550 MG TAB (XIFAXAN) GT SCH ×2 (07:53→21:11)
[2021-05-06] MEDS: NYSTATIN CREAM 15 GM TOP SCH ×2 (07:54→21:12)
[2021-05-06] MEDS: LACRILUBE (AKWA TEARS) OPHTH OINT 3.5 GM OU SCH ×3 (07:54→21:12)
[2021-05-06] MEDS: MIDAZOLAM INJ 2MG/2ML VIAL (J2250 PER 1MG) IV PRN (08:29)
[2021-05-06 09:07] LABS: HEMATOCRIT 29.7 % (36.0-47.0); HEMOGLOBIN 9.3 g/dl (12.0-15.5); MEAN CORPUSCULAR HEMOGLOBIN 30.7 pg (27.0-33.0); MEAN CORPUSCULAR HGB CONC 31.3 g/dl (32.0-36.5); RED BLOOD COUNT 3.03 10^6/uL (4.00-5.40); WHITE BLOOD COUNT 6.1 10^3/uL (4.0-10.0)
[2021-05-06 09:08] LABS: ASPERGILLUS GALACTOMANNAN AG 0.05 Index (0.00-0.49)
[2021-05-06 09:13] LABS: PLATELET COUNT, AUTOMATED 22 10^3/uL (150-450)
[2021-05-06] MEDS: fentaNYL 100 MCG/2 ML INJECTION IV PRN (09:28)
[2021-05-06 09:32] LABS: ALBUMIN 2.9 GM/DL (3.2-5.2); ALT/SGPT 73 U/L (12-78); BLOOD UREA NITROGEN 55 MG/DL (7-18); CALCIUM LEVEL 8.3 MG/DL (8.5-10.1); CARBON DIOXIDE LEVEL 37 MEQ/L (21-32); CHLORIDE LEVEL 106 MEQ/L (98-107); CREATININE FOR GFR 0.28 MG/DL (0.55-1.30); GLOMERULAR FILTRATION RATE > 60.0 (>60); GLUCOSE, FASTING 73 MG/DL (70-100); POTASSIUM SERUM 3.3 MEQ/L (3.5-5.1); SODIUM LEVEL 147 MEQ/L (136-145); TOTAL PROTEIN 5.3 GM/DL (6.4-8.2)
[2021-05-06] MEDS ORDERED: POTASSIUM CHLORIDE 10% LIQ 20 MEQ/15 ML UDC PO ONE (11:00)
[2021-05-06] MEDS ORDERED: MORPHINE 2 MG/ML 1ML VIAL (J2270) IV PRN (11:40)
[2021-05-06] MEDS ORDERED: FENTANYL REMOVAL DOCUMENTATION MISC XX SCH (12:00)
[2021-05-06] MEDS: fentaNYL 12 MCG/HR PATCH TOP SCH (12:48)
[2021-05-06] MEDS ORDERED: fentaNYL 100 MCG/2 ML INJECTION As Ordered ONE (13:49)
[2021-05-06] MEDS ORDERED: ISOVUE-300 61% 50ML VIAL As Ordered ONE (13:50)
[2021-05-06] MEDS ORDERED: MIDAZOLAM INJ 2MG/2ML VIAL (J2250 PER 1MG) As Ordered ONE (13:50)
[2021-05-06] MEDS ORDERED: diphenhydrAMINE 50MG/ML VIAL (J1200) As Ordered ONE (13:51)
[2021-05-06] MEDS ORDERED: LIDOCAINE 1% MDV 20ML VIAL As Ordered ONE (14:11)
[2021-05-06] MEDS: LORazepam 2 MG/ML VIAL IV PRN ×2 (15:36→21:52)
[2021-05-06] MEDS: MORPHINE 4 MG/ML 1ML VIAL/SYRINGE (J2270) IV PRN ×2 (15:37→21:52)
[2021-05-06] MEDS: LEVEMIR (INSULIN DETEMIR) 1 UNITS/0.01ML SC SCH (21:12)
[2021-05-07] VITALS (32 sets, daily range): BP systolic 113–158; BP diastolic 57–89
[2021-05-07] MEDS: FUROSEMIDE 40MG/4ML VIAL (J1940) IV SCH
[2021-05-07] MEDS: HumaLOG INSULIN (NovoLOG) PER UNIT SC SCH ×4 (00:11→17:18)
[2021-05-07] MEDS: METOCLOPRAMIDE INJ 10MG/2ML VIAL (J2765 PER 1) IV SCH ×2 (03:03→16:42)
[2021-05-07] MEDS: MORPHINE 4 MG/ML 1ML VIAL/SYRINGE (J2270) IV PRN ×7 (03:03→22:29)
[2021-05-07] MEDS: LORazepam 2 MG/ML VIAL IV PRN ×6 (03:03→21:07)
[2021-05-07 05:43] LABS: ABG HCO3 33.6 MEQ/L (22.0-26.0); ABG O2 SATURATION 93.7 % (95.0-99.0); ABG PARTIAL PRESSURE CO2 41.1 mmHg (35.0-45.0); ABG PARTIAL PRESSURE O2 64.7 mmHg (75.0-100.0); ABG STANDARD HCO3 33.7 MEQ/L (22.0-26.0); ABG TOTAL CO2 34.8 MEQ/L (22.0-29.0)
[2021-05-07] MEDS: SODIUM CHLORIDE 0.9% INJ 10 ML SYR IV SCH ×2 (06:16→17:15)
[2021-05-07 07:13] LABS: HEMATOCRIT 27.3 % (36.0-47.0); HEMOGLOBIN 8.5 g/dl (12.0-15.5); MEAN CORPUSCULAR HEMOGLOBIN 30.4 pg (27.0-33.0); MEAN CORPUSCULAR HGB CONC 31.1 g/dl (32.0-36.5); MEAN CORPUSCULAR VOLUME 97.5 fl (80.0-96.0); WHITE BLOOD COUNT 8.2 10^3/uL (4.0-10.0)
[2021-05-07 07:15] LABS: PLATELET COUNT, AUTOMATED 23 10^3/uL (150-450)
[2021-05-07 08:07] LABS: ALBUMIN 2.7 GM/DL (3.2-5.2); ALT/SGPT 68 U/L (12-78); BILIRUBIN,TOTAL 2.2 MG/DL (0.2-1.0); BLOOD UREA NITROGEN 47 MG/DL (7-18); CALCIUM LEVEL 8.2 MG/DL (8.5-10.1); CARBON DIOXIDE LEVEL 36 MEQ/L (21-32); CHLORIDE LEVEL 107 MEQ/L (98-107); CREATININE FOR GFR 0.32 MG/DL (0.55-1.30); GLOMERULAR FILTRATION RATE > 60.0 (>60); GLUCOSE, FASTING 67 MG/DL (70-100); SODIUM LEVEL 147 MEQ/L (136-145); TOTAL PROTEIN 4.9 GM/DL (6.4-8.2)
[2021-05-07] MEDS: SPIRONOLACTONE 50 MG TAB GT SCH (08:47)
[2021-05-07] MEDS: LACTULOSE 20 GM/30 ML SYRUP UD PO SCH (08:47)
[2021-05-07] MEDS: CHLORHEXIDINE GLUCONATE 0.12 % 15ML UDC (PERIDEX ORAL RINSE) MT SCH ×2 (08:47→21:15)
[2021-05-07] MEDS: methylPREDNISolone 40MG 1ML VIAL IV SCH (08:49)
[2021-05-07] MEDS: PANTOPRAZOLE 40MG VIAL (C9113 PER 1) IV SCH ×2 (08:49→21:15)
[2021-05-07] MEDS: rifAXIMin 550 MG TAB (XIFAXAN) GT SCH ×2 (08:49→21:15)
[2021-05-07] MEDS: NYSTATIN CREAM 15 GM TOP SCH ×2 (08:50→21:16)
[2021-05-07] MEDS: LACRILUBE (AKWA TEARS) OPHTH OINT 3.5 GM OU SCH ×3 (08:50→21:16)
[2021-05-07] MEDS: FUROSEMIDE 100MG/10ML VIAL (J1940) IV SCH ×2 (10:05→16:42)
[2021-05-07] MEDS: PROPRANOLOL 10 MG TAB PO SCH ×2 (10:06→21:15)
[2021-05-07 17:31] LABS: BLOOD UREA NITROGEN 42 MG/DL (7-18); CALCIUM LEVEL 7.9 MG/DL (8.5-10.1); CARBON DIOXIDE LEVEL 36 MEQ/L (21-32); CHLORIDE LEVEL 105 MEQ/L (98-107); CREATININE FOR GFR 0.41 MG/DL (0.55-1.30); GLOMERULAR FILTRATION RATE > 60.0 (>60); GLUCOSE, FASTING 185 MG/DL (70-100); POTASSIUM SERUM 4.2 MEQ/L (3.5-5.1); SODIUM LEVEL 147 MEQ/L (136-145)
[2021-05-07] MEDS ORDERED: FUROSEMIDE 100MG/10ML VIAL (J1940) IV ONE (19:50)
[2021-05-08] VITALS (42 sets, daily range): BP systolic 95–151; BP diastolic 52–92
[2021-05-08] MEDS: HumaLOG INSULIN (NovoLOG) PER UNIT SC SCH ×5 (00:45→23:41)
[2021-05-08] MEDS: METOCLOPRAMIDE INJ 10MG/2ML VIAL (J2765 PER 1) IV SCH ×2 (03:30→16:37)
[2021-05-08] MEDS: MORPHINE 4 MG/ML 1ML VIAL/SYRINGE (J2270) IV PRN ×4 (03:37→11:06)
[2021-05-08] MEDS: LORazepam 2 MG/ML VIAL IV PRN ×3 (03:37→11:49)
[2021-05-08 04:35] LABS: MEAN CORPUSCULAR HEMOGLOBIN 29.8 pg (27.0-33.0); MEAN CORPUSCULAR HGB CONC 30.3 g/dl (32.0-36.5); MEAN CORPUSCULAR VOLUME 98.3 fl (80.0-96.0); RED BLOOD COUNT 1.81 10^6/uL (4.00-5.40); WHITE BLOOD COUNT 2.8 10^3/uL (4.0-10.0)
[2021-05-08 04:36] LABS: HEMOGLOBIN 5.4 g/dl (12.0-15.5); PLATELET COUNT, AUTOMATED 14 10^3/uL (150-450)
[2021-05-08 04:39] LABS: HEMATOCRIT 17.8 % (36.0-47.0)
[2021-05-08 04:49] LABS: ALBUMIN 3.9 GM/DL (3.2-5.2); ALT/SGPT 44 U/L (12-78); BILIRUBIN,TOTAL 2.2 MG/DL (0.2-1.0); BLOOD UREA NITROGEN 38 MG/DL (7-18); CALCIUM LEVEL 8.2 MG/DL (8.5-10.1); CARBON DIOXIDE LEVEL 40 MEQ/L (21-32); CHLORIDE LEVEL 102 MEQ/L (98-107); CREATININE FOR GFR 0.38 MG/DL (0.55-1.30); GLOMERULAR FILTRATION RATE > 60.0 (>60); GLUCOSE, FASTING 134 MG/DL (70-100); POTASSIUM SERUM 3.2 MEQ/L (3.5-5.1); SODIUM LEVEL 146 MEQ/L (136-145); TOTAL PROTEIN 5.3 GM/DL (6.4-8.2)
[2021-05-08] MEDS ORDERED: LORazepam 2 MG/ML VIAL As Ordered ONE (05:43)
[2021-05-08] MEDS ORDERED: PROPOFOL 1,000 MG/100 ML VIAL As Ordered ONE (05:57)
[2021-05-08] MEDS: propofoL 1,000 MG in IV 1 EA IV SCH ×2 (06:17→16:44)
[2021-05-08] MEDS: SODIUM CHLORIDE 0.9% INJ 10 ML SYR IV SCH ×2 (06:18→17:53)
[2021-05-08 07:28] LABS: ABG BASE EXCESS 11.2 (-2.0-2.0); ABG HCO3 35.7 MEQ/L (22.0-26.0); ABG O2 SATURATION 94.1 % (95.0-99.0); ABG PARTIAL PRESSURE CO2 49.2 mmHg (35.0-45.0); ABG PARTIAL PRESSURE O2 73.3 mmHg (75.0-100.0); ABG STANDARD HCO3 34.8 MEQ/L (22.0-26.0); ABG TOTAL CO2 37.2 MEQ/L (22.0-29.0); ABG pH (ARTERIAL) 7.479 UNITS (7.350-7.450)
[2021-05-08] MEDS ORDERED: POTASSIUM CHLORIDE 10% LIQ 20 MEQ/15 ML UDC PO ONE (08:15)
[2021-05-08 08:18] LABS: MAGNESIUM LEVEL 1.8 MG/DL (1.8-2.4); PHOSPHORUS LEVEL 3.1 MG/DL (2.5-4.9)
[2021-05-08 08:48] LABS: EOS # 0.1 10^3/uL (0.0-0.5); EOS % 1.9 % (0.0-3.0); LYMPH # 0.9 10^3/uL (1.5-5.0); LYMPH % 20.9 % (24.0-44.0); MEAN CORPUSCULAR HGB CONC 30.9 g/dl (32.0-36.5); MEAN CORPUSCULAR VOLUME 97.1 fl (80.0-96.0); MONO # 0.2 10^3/uL (0.0-0.8); MONO % 5.1 % (2.0-8.0); NEUTROPHILS # 2.9 10^3/uL (1.5-8.5); NEUTROPHILS % 71.4 % (36.0-66.0); WHITE BLOOD COUNT 4.1 10^3/uL (4.0-10.0)
[2021-05-08 08:51] LABS: HEMATOCRIT 20.4 % (36.0-47.0); HEMOGLOBIN 6.3 g/dl (12.0-15.5); PLATELET COUNT, AUTOMATED 18 10^3/uL (150-450)
[2021-05-08 09:19] LABS: INR 1.89; PROTHROMBIN TIME 22.1 SECONDS (12.7-14.5)
[2021-05-08] MEDS: LACTULOSE 20 GM/30 ML SYRUP UD PO SCH (09:19)
[2021-05-08] MEDS: CHLORHEXIDINE GLUCONATE 0.12 % 15ML UDC (PERIDEX ORAL RINSE) MT SCH ×2 (09:20→20:49)
[2021-05-08] MEDS: SPIRONOLACTONE 50 MG TAB GT SCH (09:20)
[2021-05-08] MEDS: PANTOPRAZOLE 40MG VIAL (C9113 PER 1) IV SCH ×2 (09:21→20:49)
[2021-05-08] MEDS: methylPREDNISolone 40MG 1ML VIAL IV SCH (09:21)
[2021-05-08] MEDS: PROPRANOLOL 10 MG TAB PO SCH ×2 (09:22→20:50)
[2021-05-08] MEDS: rifAXIMin 550 MG TAB (XIFAXAN) GT SCH ×2 (09:22→20:49)
[2021-05-08] MEDS: LACRILUBE (AKWA TEARS) OPHTH OINT 3.5 GM OU SCH ×3 (09:23→20:50)
[2021-05-08] MEDS: FUROSEMIDE 100MG/10ML VIAL (J1940) IV SCH (09:23)
[2021-05-08] MEDS: NYSTATIN CREAM 15 GM TOP SCH ×2 (09:23→20:50)
[2021-05-08 11:05] LABS: ABG BASE EXCESS 13.7 (-2.0-2.0); ABG HCO3 37.6 MEQ/L (22.0-26.0); ABG O2 SATURATION 89.2 % (95.0-99.0); ABG PARTIAL PRESSURE CO2 45.5 mmHg (35.0-45.0); ABG PARTIAL PRESSURE O2 54.5 mmHg (75.0-100.0); ABG STANDARD HCO3 37.2 MEQ/L (22.0-26.0); ABG pH (ARTERIAL) 7.535 UNITS (7.350-7.450)
[2021-05-08] MEDS: ACETAMINOPHEN 325 MG/10.15 ML UDC GT PRN (11:06)
[2021-05-08] MEDS: MEROPENEM INJ 1 GM in IV 1 EA IV SCH ×2 (11:50→18:44)
[2021-05-08 12:21] LABS: APPEARANCE, URINE MANUAL CLEAR (CLEAR); BILIRUBIN, URINE MANUAL NEGATIVE (NEGATIVE); COLOR, URINE MANUAL YELLOW (YELLOW); GLUCOSE, URINE (UA) MANUAL NEGATIVE (NEGATIVE); KETONE, URINE MANUAL NEGATIVE (NEGATIVE); PROTEIN, URINE MANUAL TRACE mg/dL (NEGATIVE); SPECIFIC GRAVITY,URINE MANUAL 1.015 (1.002-1.035); UROBILINOGEN, URINE MANUAL NORMAL (NORMAL)
[2021-05-08 12:22] LABS: BLOOD URINE MANUAL POSITIVE (NEGATIVE); LEUKOCYTE ESTERASE, URINE MAN TRACE (NEGATIVE); NITRITE, URINE MANUAL NEGATIVE (NEGATIVE)
[2021-05-08 12:30] LABS: BACTERIA, URINE MOD AMOUNT
[2021-05-08 12:35] LABS: HYALINE CAST, URINE 0-1 /lpf (0-1); SQUAMOUS EPITHELIAL CELL URINE SMALL AMOUNT /hpf (SMALL AMT); TRANSITIONAL EPI CELLS, URINE SMALL AMOUNT /hpf
[2021-05-08 14:50] LABS: LYMPH # 0.3 10^3/uL (1.5-5.0); LYMPH % 10.2 % (24.0-44.0); MEAN CORPUSCULAR HEMOGLOBIN 29.6 pg (27.0-33.0); MEAN CORPUSCULAR HGB CONC 31.2 g/dl (32.0-36.5); MEAN CORPUSCULAR VOLUME 94.9 fl (80.0-96.0); MONO # 0.1 10^3/uL (0.0-0.8); MONO % 4.4 % (2.0-8.0); NEUTROPHILS # 2.5 10^3/uL (1.5-8.5); NEUTROPHILS % 84.4 % (36.0-66.0); RED BLOOD COUNT 2.16 10^6/uL (4.00-5.40); WHITE BLOOD COUNT 2.9 10^3/uL (4.0-10.0)
[2021-05-08 14:52] LABS: HEMATOCRIT 20.5 % (36.0-47.0); HEMOGLOBIN 6.4 g/dl (12.0-15.5); PLATELET COUNT, AUTOMATED 16 10^3/uL (150-450)
[2021-05-08] MEDS: LEVALBUTEROL HFA 45MCG/ACT 15 GM INHALER INH PRN (15:06)
[2021-05-08] MEDS ORDERED: NS 1,000 ML IV SCH (15:15)
[2021-05-08] MEDS ORDERED: ISOVUE-370 76% 100ML VIAL As Ordered ONE (15:23)
[2021-05-08 15:25] LABS: BLOOD UREA NITROGEN 38 MG/DL (7-18); CALCIUM LEVEL 8.5 MG/DL (8.5-10.1); CARBON DIOXIDE LEVEL 34 MEQ/L (21-32); CHLORIDE LEVEL 102 MEQ/L (98-107); CREATININE FOR GFR 0.48 MG/DL (0.55-1.30); GLOMERULAR FILTRATION RATE > 60.0 (>60); GLUCOSE, FASTING 201 MG/DL (70-100); POTASSIUM SERUM 4.5 MEQ/L (3.5-5.1); SODIUM LEVEL 142 MEQ/L (136-145)
[2021-05-08] MEDS ORDERED: FUROSEMIDE 100MG/10ML VIAL (J1940) IV ONE ×2 (16:00→22:00)
[2021-05-08] MEDS: NS 1,000 ML IV SCH ×2 (16:38→16:39)
[2021-05-08 21:39] LABS: BASO % 0.3 % (0.0-1.0); HEMATOCRIT 24.5 % (36.0-47.0); HEMOGLOBIN 8.1 g/dl (12.0-15.5); LYMPH # 0.4 10^3/uL (1.5-5.0); LYMPH % 11.6 % (24.0-44.0); MEAN CORPUSCULAR HEMOGLOBIN 30.3 pg (27.0-33.0); MEAN CORPUSCULAR HGB CONC 33.1 g/dl (32.0-36.5); MEAN CORPUSCULAR VOLUME 91.8 fl (80.0-96.0); MONO # 0.2 10^3/uL (0.0-0.8); MONO % 5.2 % (2.0-8.0); NEUTROPHILS # 2.8 10^3/uL (1.5-8.5); RED BLOOD COUNT 2.67 10^6/uL (4.00-5.40); WHITE BLOOD COUNT 3.4 10^3/uL (4.0-10.0)
[2021-05-08 21:40] LABS: PLATELET COUNT, AUTOMATED 17 10^3/uL (150-450)
[2021-05-09] VITALS (21 sets, daily range): BP systolic 97–125; BP diastolic 53–80
[2021-05-09] MEDS: MEROPENEM INJ 1 GM in IV 1 EA IV SCH ×2 (03:11→11:52)
[2021-05-09] MEDS: METOCLOPRAMIDE INJ 10MG/2ML VIAL (J2765 PER 1) IV SCH (03:11)
[2021-05-09] MEDS: propofoL 1,000 MG in IV 1 EA IV SCH ×2 (03:53→13:40)
[2021-05-09 05:05] LABS: EOS # 0.1 10^3/uL (0.0-0.5); EOS % 2.3 % (0.0-3.0); HEMATOCRIT 24.1 % (36.0-47.0); HEMOGLOBIN 7.8 g/dl (12.0-15.5); LYMPH # 0.7 10^3/uL (1.5-5.0); LYMPH % 18.5 % (24.0-44.0); MEAN CORPUSCULAR HGB CONC 32.4 g/dl (32.0-36.5); MEAN CORPUSCULAR VOLUME 92.7 fl (80.0-96.0); MONO # 0.2 10^3/uL (0.0-0.8); MONO % 4.3 % (2.0-8.0); NEUTROPHILS # 2.9 10^3/uL (1.5-8.5); NEUTROPHILS % 74.4 % (36.0-66.0); WHITE BLOOD COUNT 3.9 10^3/uL (4.0-10.0)
[2021-05-09 05:06] LABS: PLATELET COUNT, AUTOMATED 21 10^3/uL (150-450)
[2021-05-09 05:14] LABS: INR 1.9; PROTHROMBIN TIME 22.2 SECONDS (12.7-14.5)
[2021-05-09 05:44] LABS: ALBUMIN 3.5 GM/DL (3.2-5.2); ALT/SGPT 40 U/L (12-78); BILIRUBIN,TOTAL 3.9 MG/DL (0.2-1.0); BLOOD UREA NITROGEN 34 MG/DL (7-18); CALCIUM LEVEL 8.2 MG/DL (8.5-10.1); CARBON DIOXIDE LEVEL 36 MEQ/L (21-32); CHLORIDE LEVEL 101 MEQ/L (98-107); CREATININE FOR GFR 0.47 MG/DL (0.55-1.30); GLOMERULAR FILTRATION RATE > 60.0 (>60); GLUCOSE, FASTING 126 MG/DL (70-100); MAGNESIUM LEVEL 1.7 MG/DL (1.8-2.4); PHOSPHORUS LEVEL 2.3 MG/DL (2.5-4.9); POTASSIUM SERUM 3.1 MEQ/L (3.5-5.1); SODIUM LEVEL 144 MEQ/L (136-145); TOTAL PROTEIN 4.7 GM/DL (6.4-8.2)
[2021-05-09 05:52] LABS: ABG BASE EXCESS 14.8 (-2.0-2.0); ABG HCO3 38.2 MEQ/L (22.0-26.0); ABG PARTIAL PRESSURE CO2 42.9 mmHg (35.0-45.0); ABG PARTIAL PRESSURE O2 81.3 mmHg (75.0-100.0); ABG STANDARD HCO3 38.5 MEQ/L (22.0-26.0); ABG TOTAL CO2 39.6 MEQ/L (22.0-29.0); ABG pH (ARTERIAL) 7.568 UNITS (7.350-7.450)
[2021-05-09] MEDS: SODIUM CHLORIDE 0.9% INJ 10 ML SYR IV SCH (06:00)
[2021-05-09] MEDS: HumaLOG INSULIN (NovoLOG) PER UNIT SC SCH ×2 (06:08→12:05)
[2021-05-09] MEDS ORDERED: MAGNESIUM SULFATE IN WATER 2 GM in IV 1 EA IV STA ×2 (08:23)
[2021-05-09] MEDS ORDERED: POTASSIUM CHLORIDE 10% LIQ 20 MEQ/15 ML UDC PO ONE (08:25)
[2021-05-09] MEDS: PROPRANOLOL 10 MG TAB PO SCH (08:52)
[2021-05-09] MEDS: SPIRONOLACTONE 50 MG TAB GT SCH (08:52)
[2021-05-09] MEDS: CHLORHEXIDINE GLUCONATE 0.12 % 15ML UDC (PERIDEX ORAL RINSE) MT SCH (08:52)
[2021-05-09] MEDS: LACTULOSE 20 GM/30 ML SYRUP UD PO SCH (08:52)
[2021-05-09] MEDS: rifAXIMin 550 MG TAB (XIFAXAN) GT SCH (08:52)
[2021-05-09] MEDS: PANTOPRAZOLE 40MG VIAL (C9113 PER 1) IV SCH (08:52)
[2021-05-09] MEDS: methylPREDNISolone 40MG 1ML VIAL IV SCH (08:53)
[2021-05-09] MEDS: LACRILUBE (AKWA TEARS) OPHTH OINT 3.5 GM OU SCH (08:53)
[2021-05-09] MEDS: NYSTATIN CREAM 15 GM TOP SCH (08:54)
[2021-05-09] MEDS ORDERED: FUROSEMIDE 100MG/10ML VIAL (J1940) IV SCH (09:00)
[2021-05-09] MEDS: MORPHINE 4 MG/ML 1ML VIAL/SYRINGE (J2270) IV PRN ×2 (09:04→13:55)
[2021-05-09] MEDS: LORazepam 2 MG/ML VIAL IV PRN ×2 (09:17→13:55)
[2021-05-09] MEDS ORDERED: MIDAZOLAM 5MG/ML 1ML VIAL (J2250 PER 1MG) As Ordered ONE (09:28)
[2021-05-09] MEDS ORDERED: MIDAZOLAM 5MG/ML 1ML VIAL (J2250 PER 1MG) IV ONE (09:30)
[2021-05-09] MEDS: MAG SULF 1GM/100ML (MAG RUN) 1 GM in IV 1 EA IV SCH ×2 (11:52→13:30)
[2021-05-09] MEDS: fentaNYL 12 MCG/HR PATCH TOP SCH (12:06)
[2021-05-09] MEDS ORDERED: MORPHINE 4 MG/ML 1ML VIAL/SYRINGE (J2270) IV ONE (15:50)
[2021-05-09] MEDS ORDERED: MORPHINE SULF IN 0.9% NACL 100 MG in IV 1 EA IV SCH ×2 (15:50)
[2021-05-09] MEDS ORDERED: SCOPOLAMINE 1MG TRANSDERMAL PATCH TOP SCH (15:55)
[2021-05-09] MEDS ORDERED: LORazepam 2 MG/ML VIAL IV PRN (15:55)
== END 2021-05-09 19:38 | disposition expired | DRG 4 ==
LOC: M ED 13:38 → EEVIPCON 18:26 → M ED INP 18:26 → ENRESERV 23:24 → M MSPAV 03-18 01:14 → M PCU 03-22 03:14 → M ICU 03-22 09:51 → M 4MAIN 04-02 19:14 → M ICU 04-09 21:26 → M PCU 04-12 18:32 → M ICU 04-27 18:11
PROVIDERS: ADMIT Internal Medicine; ATTEND Anesthesiology
PROC: 0W9G3ZZ Drainage of Peritoneal Cavity, Percutaneous Approach (ICD-10-PCS; 2021-03-17)
PROC: 5A1955Z Respiratory Ventilation, Greater than 96 Consecutive Hours (ICD-10-PCS; 2021-03-22)
PROC: 0BH17EZ Insertion of Endotracheal Airway into Trachea, Via Natural or Artificial Opening (ICD-10-PCS; 2021-03-22)
PROC: XW033E5 Introduction of Remdesivir Anti-infective into Peripheral Vein, Percutaneous Approach, New Technology Group 5 (ICD-10-PCS; 2021-03-22)
PROC: 3E0333Z Introduction of Anti-inflammatory into Peripheral Vein, Percutaneous Approach (ICD-10-PCS; 2021-03-22)
PROC: 0W9G3ZZ Drainage of Peritoneal Cavity, Percutaneous Approach (ICD-10-PCS; 2021-03-29)
PROC: 30233N1 Transfusion of Nonautologous Red Blood Cells into Peripheral Vein, Percutaneous Approach (ICD-10-PCS; 2021-04-05)
PROC: 0DJ08ZZ Inspection of Upper Intestinal Tract, Via Natural or Artificial Opening Endoscopic (ICD-10-PCS; 2021-04-06)
PROC: 30233R1 Transfusion of Nonautologous Platelets into Peripheral Vein, Percutaneous Approach (ICD-10-PCS; 2021-04-12)
PROC: 04HY32Z Insertion of Monitoring Device into Lower Artery, Percutaneous Approach (ICD-10-PCS; 2021-04-13)
PROC: 02HV33Z Insertion of Infusion Device into Superior Vena Cava, Percutaneous Approach (ICD-10-PCS; 2021-04-13)
PROC: 0BH17EZ Insertion of Endotracheal Airway into Trachea, Via Natural or Artificial Opening (ICD-10-PCS; 2021-04-13)
PROC: 30233J1 Transfusion of Nonautologous Serum Albumin into Peripheral Vein, Percutaneous Approach (ICD-10-PCS; 2021-04-15)
PROC: 0W9G3ZZ Drainage of Peritoneal Cavity, Percutaneous Approach (ICD-10-PCS; 2021-04-23)
PROC: 02HV33Z Insertion of Infusion Device into Superior Vena Cava, Percutaneous Approach (ICD-10-PCS; 2021-04-27)
PROC: 02HV33Z Insertion of Infusion Device into Superior Vena Cava, Percutaneous Approach (ICD-10-PCS; 2021-04-28)
PROC: 0B110F4 Bypass Trachea to Cutaneous with Tracheostomy Device, Open Approach (ICD-10-PCS; principal; 2021-04-29 12:30)
PROC: 06H03DZ Insertion of Intraluminal Device into Inferior Vena Cava, Percutaneous Approach (ICD-10-PCS; 2021-05-06)
PROC: 30233N1 Transfusion of Nonautologous Red Blood Cells into Peripheral Vein, Percutaneous Approach (ICD-10-PCS; 2021-05-08)
PROC: 06HM33Z Insertion of Infusion Device into Right Femoral Vein, Percutaneous Approach (ICD-10-PCS; 2021-05-08)
DX: K70.31 Alcoholic cirrhosis of liver with ascites (principal); U07.1 COVID-19; I26.94 Multiple subsegmental thrombotic pulmonary emboli without acute cor pulmonale; D65 Disseminated intravascular coagulation [defibrination syndrome]; G92.8 Other toxic encephalopathy; G72.81 Critical illness myopathy; K29.71 Gastritis, unspecified, with bleeding; J15.0 Pneumonia due to Klebsiella pneumoniae; D61.818 Other pancytopenia; N17.9 Acute kidney failure, unspecified; K76.81 Hepatopulmonary syndrome; Z51.5 Encounter for palliative care; E46 Unspecified protein-calorie malnutrition; Z66 Do not resuscitate; I85.10 Secondary esophageal varices without bleeding; B37.81 Candidal esophagitis; D68.4 Acquired coagulation factor deficiency; K76.6 Portal hypertension; E87.0 Hyperosmolality and hypernatremia; R16.1 Splenomegaly, not elsewhere classified; J45.901 Unspecified asthma with (acute) exacerbation; D62 Acute posthemorrhagic anemia; E83.42 Hypomagnesemia; R13.10 Dysphagia, unspecified; E88.09 Other disorders of plasma-protein metabolism, not elsewhere classified; F10.20 Alcohol dependence, uncomplicated; E87.6 Hypokalemia; K22.89 Other specified disease of esophagus; K31.89 Other diseases of stomach and duodenum; R45.1 Restlessness and agitation; K21.9 Gastro-esophageal reflux disease without esophagitis; K58.0 Irritable bowel syndrome with diarrhea; F41.9 Anxiety disorder, unspecified; F32.A Depression, unspecified; J96.01 Acute respiratory failure with hypoxia; D63.8 Anemia in other chronic diseases classified elsewhere; R41.82 Altered mental status, unspecified; Z79.899 Other long term (current) drug therapy; Z87.891 Personal history of nicotine dependence